=== PATIENT | female | born 1950 | race Caucasian/White ===

== ENCOUNTER 2024-05-05 09:28 | Inpatient (IN) | payer OTHER, SELFPAY ==
[2024-05-05] VITALS (7 sets, daily range): BP systolic 105–142; BP diastolic 49–62; PULSE 71–87; RESP 16–24; TEMP 36.9; O2SAT 78–94; BMI 45.7
--- NOTE | ~2024-05-05 | XR_ITS ---
EXAMINATION: XR CHEST CLINICAL INFORMATION: Shortness of breath COMPARISON: None available. TECHNIQUE: Frontal view of the chest was obtained. FINDINGS: No significant abnormality is noted involving the heart, lungs, mediastinum, bony thorax or soft tissues. XR/XR chest 1V IMPRESSION: No active chest disease. Electronically signed by: Adrián Napier MD 05/05/2024 10:39 [place] [facility] [place]
--- NOTE | 2024-05-05 09:34 | ECG_ITS ---
Test Reason : CHEST PAIN Blood Pressure : / mmHG Vent. Rate : 084 BPM Atrial Rate : 084 BPM P-R Int : 154 ms QRS Dur : 084 ms QT Int : 372 ms P-R-T Axes : 023 -39 025 degrees QTc Int : 439 ms Normal sinus rhythm Left axis deviation Abnormal ECG No previous ECGs available Referred By: Francisco Reyna Electronically Signed By:Claude Ba
--- NOTE | 2024-05-05 09:35 | ED.GENADULT ---
HPI - General Adult General Chief complaint: Dyspnea Stated complaint: SOB,80% RA,DUONEB GIVEN 96%, FROM [facility] PER EMS Time Seen by Provider: 05/05/24 09:28 Source: patient Mode of arrival: ambulatory Limitations: no limitations History of Present Illness ED Provider: SAGAR Reyna HPI narrative: This is a 74-year-old female history of COPD on chronic 2 L to 3 L nasal cannula, obesity, DVT, htn, hld presenting to the emergency department with complaints of shortness of breath, wheezing, patient reports this all started yesterday. She reports that it has progressively worsened over the past few days. EMS gave her 125 mg of Solu-Medrol. They found her saturating 78% on room air, after a DuoNeb she went up to 96% with 3 L nasal cannula. After DuoNeb 84% on 3 L. Patient reports she feels overall unwell. She is on Eliquis. She denies chest pain, nausea, vomiting, abdominal pain, cough, headache, vision changes, dizziness and weakness. Related Data Allergies Allergy/AdvReac Type Severity Reaction Status Date / Time No Known Allergies Allergy Verified 05/05/24 09:55 Review of Systems Review of Systems: Yes all other systems are reviewed and are negative PMFSH Past Medical History Attestation statement: The following information was validated with the patient. Source: old records reviewed and nursing notes reviewed Social History Social History Smoked in Last 30 Days: No Use of substances other than those prescribed or required for medical reasons: No Advance Directives: No Advance Directives Information Provided: Yes Do you have a plan to hurt others: No Plan Physical Exam ED Vital Signs: Vital Signs - 24 hr 05/05/24 09:47 05/05/24 09:51 05/05/24 10:33 Temperature 98.5 F Pulse Rate 85 87 Respiratory Rate 24 H 22 H 24 H Blood Pressure 142/56 H Pulse Oximetry 90 L Oxygen Delivery Method Nasal Cannula 05/05/24 10:50 Temperature Pulse Rate 84 Respiratory Rate Blood Pressure Pulse Oximetry Oxygen Delivery Method BMI result Body Mass Index 45.7 vss Appearance: Alert.? Oriented X3.? No acute distress.? Head: Normocephalic, atraumatic, no step-offs or deformities Eyes: Pupils equal, round and reactive to light.? Neck: Normal inspection.? Neck supple.? CVS: Normal heart rate and rhythm.? Pulses normal.? Respiratory: No respiratory distress.? Breath sounds diminished b/l and expiratory wheezing b/l.? Abdomen: Soft and nontender.? Skin: Skin warm and dry.? Normal skin color.? Normal skin turgor.? Extremities: No lower extremity edema.? No calf ttp. 5/5 strength to bilateral upper and lower extremities Neuro: Oriented X 3.? No motor deficit.? No sensory deficit. CN 2-12 intact Course Reevaluation(s) Reevaluation #1: CBC with leukocytosis and left shift, ceftriaxone ordered at this time. Chemistry pending. Coags unremarkable. Viral testing pending. Imaging pending. Patient is on high-flow at 50%, doing well. Time: 10:39 Reevaluation #2: Chemistry with hypercarbia, mild elevation in BUN and creatinine however tolerating p.o. fluids. Chest x-ray unremarkable. Flu, COVID, RSV negative. Plan is hospital admission he is on high-flow. Will place her on CPAP at night. Time: 11:52 Medications Administered Discontinued Medications Generic Name Dose Route Start Last Admin Trade Name Freq PRN Reason Stop Dose Admin Ceftriaxone Sodium 1 gm 05/05/24 10:34 05/05/24 11:39 Ceftriaxone Sodium 1 Gm Vial IVPUSH 05/05/24 10:35 1 gm ONCE ONE Administration Albuterol Sulfate 5 mg/ 0 mg 05/05/24 09:40 05/05/24 09:46 Albuterol/Ipratropium 3 ml INHALE 05/05/24 09:41 1 each ONCE ONE Administration Magnesium Sulfate 2 gm in 50 mls @ 25 mls/hr 05/05/24 09:33 05/05/24 11:39 Magnesium Sulfate/H2o IV 05/05/24 11:32 Infused ONCE ONE Infusion Medical Decision Making Medical Decision Making [facility] Narrative: 0916 74-year-old female presents with shortness of breath, wheezing since yesterday history of COPD. Physical exam diminished breath sounds bilaterally labored breathing noted to be in moderate acute respiratory distress, wheezing on expiration. She saturating 84% on 3 L nasal cannula. History and physical exam concerning for chronic lung disease versus viral illness. Unlikely PE ( on anticoags) , ACS, aortic dissection, pneumothorax, pneumonia. Plan labs, imaging, viral testing Differential Diagnosis Differential Diagnoses: The differential diagnosis associated with the presentation includes (History and physical exam concerning for chronic lung disease versus viral illness. Unlikely PE, ACS, aortic dissection, pneumothorax, pneumonia.) Admission/Observation Consideration of admission/observation: Escalation of care including admission/observation considered Lab Data MDM Lab Attestation statement: I reviewed the patient's lab results. 05/05/24 10:20 05/05/24 11:16 Labs: Lab Results 05/05/24 05/05/24 05/05/24 Range/Units 10:18 10:20 10:21 WBC 15.4 H (4.8-10.8) X10*3/uL RBC 4.36 (4.20-5.50) X10*6/uL Hgb 13.5 (12.0-16.0) g/dl Hct 45.1 (37.0-47.0) % MCV 103.4 H (80.0-98.0) fL MCH 31.0 (27.0-33.0) pg MCHC 29.9 L (31.0-35.0) g/dl RDW 17.1 H (11.0-16.0) % Plt Count 148 L (160-400) X10*3/uL MPV 10.1 (9.4-12.3) fL Immature Gran % (Auto) 0.8 H (0.0-0.4) % Neut % (Auto) 82.4 H (45-73) % Lymph % (Auto) 6.5 L (20-40) % [place] % (Auto) 9.5 (2-11) % Eos % (Auto) 0.5 (0-4) % Baso % (Auto) 0.3 (0-2) % Lymph # (Auto) 1.0 L (1.2-4.9) X10*3/uL [place] # (Auto) 1.5 H (0.1-1.2) X10*3/uL Eos # (Auto) 0.1 (0.0-0.4) X10*3/uL Baso # (Auto) 0.0 (0.0-0.2) X10*3/uL Abs Immat Gran (auto) 0.12 H (0.00-0.03) X10*3/uL Absolute Neuts (auto) 12.7 H (2.0-8.3) x10*3/uL Absolute Nucleated RBC 0.000 (0.0-0.012) X10*3/uL Nucleated RBC % (auto) 0.0 (0.0-0.2) /100WBC PT 14.1 H (10.9-12.4) SEC INR 1.2 H (0.9-1.1) Sodium (135-145) mmol/L Potassium (3.3-5.1) mmol/L Chloride (96-108) mmol/L Carbon Dioxide (22-29) mmol/L Anion Gap (12-20) BUN (9-16) mg/dL Creatinine (0.5-1.4) mg/dL Estim Creat Clear Calc Estimated GFR Random Glucose (60-115) mg/dL Lactic Acid 1.9 (0.5-2.0) mmol/L Calcium (8.4-10.2) mg/dL Magnesium (1.6-2.6) mg/dL Total Bilirubin (0.0-1.0) mg/dL AST (5-31) U/L ALT (0-31) U/L Alkaline Phosphatase (39-117) U/L Troponin I High Sens (<3.5-17.0) ng/L B-Natriuretic Peptide (<100) pg/mL Total Protein (6.5-8.0) g/dL Albumin (3.5-5.0) g/dL Influenza Type A (PCR) NEGATIVE (Negative) Influenza Type B (PCR) NEGATIVE (Negative) RSV RNA Qual (PCR) NEGATIVE (Negative) SARS-CoV-2 RNA (RT-PCR) NEGATIVE (Negative) 05/05/24 Range/Units 11:16 WBC (4.8-10.8) X10*3/uL RBC (4.20-5.50) X10*6/uL Hgb (12.0-16.0) g/dl Hct (37.0-47.0) % MCV (80.0-98.0) fL MCH (27.0-33.0) pg MCHC (31.0-35.0) g/dl RDW (11.0-16.0) % Plt Count (160-400) X10*3/uL MPV (9.4-12.3) fL Immature Gran % (Auto) (0.0-0.4) % Neut % (Auto) (45-73) % Lymph % (Auto) (20-40) % [place] % (Auto) (2-11) % Eos % (Auto) (0-4) % Baso % (Auto) (0-2) % Lymph # (Auto) (1.2-4.9) X10*3/uL [place] # (Auto) (0.1-1.2) X10*3/uL Eos # (Auto) (0.0-0.4) X10*3/uL Baso # (Auto) (0.0-0.2) X10*3/uL Abs Immat Gran (auto) (0.00-0.03) X10*3/uL Absolute Neuts (auto) (2.0-8.3) x10*3/uL Absolute Nucleated RBC (0.0-0.012) X10*3/uL Nucleated RBC % (auto) (0.0-0.2) /100WBC PT (10.9-12.4) SEC INR (0.9-1.1) Sodium 142 (135-145) mmol/L Potassium 4.7 (3.3-5.1) mmol/L Chloride 104 (96-108) mmol/L Carbon Dioxide 35 H (22-29) mmol/L Anion Gap 8 L (12-20) BUN 17 H (9-16) mg/dL Creatinine 0.79 (0.5-1.4) mg/dL Estim Creat Clear Calc 74.4 Estimated GFR > 60 Random Glucose 133 H (60-115) mg/dL Lactic Acid (0.5-2.0) mmol/L Calcium 8.9 (8.4-10.2) mg/dL Magnesium 2.6 (1.6-2.6) mg/dL Total Bilirubin 0.6 (0.0-1.0) mg/dL AST 48 H (5-31) U/L ALT 87 H (0-31) U/L Alkaline Phosphatase 94 (39-117) U/L Troponin I High Sens 7.1 (<3.5-17.0) ng/L B-Natriuretic Peptide 62 (<100) pg/mL Total Protein 6.7 (6.5-8.0) g/dL Albumin 3.5 (3.5-5.0) g/dL Influenza Type A (PCR) (Negative) Influenza Type B (PCR) (Negative) RSV RNA Qual (PCR) (Negative) SARS-CoV-2 RNA (RT-PCR) (Negative) Independent Interpretation I performed an independent interpretation of an: Plain X-Ray Radiology Impression Discussion of test interpretation with radiology: I have reviewed the radiologist's reading. Critical Care Time Critical Care Time Critical Care Time: Yes Total Critical Care Time: 45 Attestation: I attest to this time spent taking care of the patient, obtaining history, physical, reviewing labs, imaging, speaking to my attending, speaking to specialist. Discharge Plan Discharge Clinical Impression: COPD (chronic obstructive pulmonary disease) Patient Disposition: Admitted As Inpatient Print Language: Slovenian
[2024-05-05] MEDS: Albuterol Sulfate 5 MG, Albuterol/Iprat 2.5/0.5MG 3 ML 3 ML INHALE (09:46)
--- NOTE | 2024-05-05 10:00 | PC.NURSE ---
Addendum entered by Chantell Andrews 05/05/24 11:01: pt is also presenting with a tremor and states that once in a while this happens but not sure why and today appears to be worse then usually Original Note: pt is alert and oriented, skin pwd, respirations labored raging from 26-34, ls very diminished, pt reports not feeling well for a couple of day, dry cough and reports midsternal chest pain 08/27, pt was put on high flow at 50L and sating at 92l
[2024-05-05] MEDS: Magnesium Sulfate/H2O 2 GM/50 ML PIGGYBACK IV (10:01)
[2024-05-05 10:29] LABS: MANUAL DIFF FLAG NO
[2024-05-05 10:31] LABS: Basophils Percent Auto 0.3 % (0-2); Eosinophils Absolute Auto 0.1 X10*3/uL (0.0-0.4); Eosinophils Percent Auto 0.5 % (0-4); Hematocrit 45.1 % (37.0-47.0); Hemoglobin 13.5 g/dl (12.0-16.0); Imm Gran Abs Auto 0.12 X10*3/uL (0.00-0.03); Imm Gran Pct Auto 0.8 % (0.0-0.4); Lymphocytes Percent Auto 6.5 % (20-40); Mean Corpuscular HGB Conc 29.9 g/dl (31.0-35.0); Mean Corpuscular Volume 103.4 fL (80.0-98.0); Mean Platelet Volume 10.1 fL (9.4-12.3); Monocytes Absolute Auto 1.5 X10*3/uL (0.1-1.2); Monocytes Percent Auto 9.5 % (2-11); Neutrophils Absolute Auto 12.7 x10*3/uL (2.0-8.3); Neutrophils Percent Auto 82.4 % (45-73); Platelet Count 148 X10*3/uL (160-400); Red Blood Count 4.36 X10*6/uL (4.20-5.50); Red Cell Distribution Width 17.1 % (11.0-16.0); White Blood Count 15.4 X10*3/uL (4.8-10.8)
[2024-05-05 10:36] LABS: INTERNATIONAL NORM RATIO 1.2 (0.9-1.1); Prothrombin Time 14.1 SEC (10.9-12.4)
[2024-05-05 11:04] LABS: Lactic Acid 1.9 mmol/L (0.5-2.0)
[2024-05-05 11:06] LABS: Influenza A PCR NEGATIVE (Negative); Influenza B PCR NEGATIVE (Negative); Resp Syncy Virus RNA Qual PCR NEGATIVE (Negative); SARS COV2 PCR INHOUSE NEGATIVE (Negative)
[2024-05-05] MEDS: cefTRIAXone sodium 1 GM VIAL IVPUSH (11:39)
[2024-05-05 11:43] LABS: Alanine Aminotransferase 87 U/L (0-31); Albumin Level 3.5 g/dL (3.5-5.0); Alkaline Phosphatase 94 U/L (39-117); Anion Gap 8 (12-20); Aspartate Amino Transferase 48 U/L (5-31); Bilirubin Total 0.6 mg/dL (0.0-1.0); Blood Urea Nitrogen 17 mg/dL (9-16); Calcium 8.9 mg/dL (8.4-10.2); Carbon Dioxide 35 mmol/L (22-29); Chloride 104 mmol/L (96-108); Creatinine Clr Calc Pharmacy 74.4; Estimated Glomerular Filt Rate > 60; Glucose Random 133 mg/dL (60-115); Magnesium 2.6 mg/dL (1.6-2.6); Potassium 4.7 mmol/L (3.3-5.1); Sodium 142 mmol/L (135-145); Total Protein 6.7 g/dL (6.5-8.0)
--- NOTE | 2024-05-05 11:44 | PC.NURSE ---
Assumed care of this patient at 1100, patient's 2nd set of BC to be drawn, abx delayed d/t delayed draw. Patient currently on HF 50L 50%, tachypneic 26 - 32 resps, not in acute distress at this time, sats 92 - 95%.
[2024-05-05 11:45] LABS: B Type Natriuretic Peptide 62 pg/mL (<100)
[2024-05-05 11:48] LABS: Troponin-I High Sensitivity 7.1 ng/L (<3.5-17.0)
[2024-05-05 12:21] LABS: Venous Blood Gas Refer to POC result
[2024-05-05 12:22] LABS: VBG Base Excess 8.4 mmol/L; VBG HCO3 35 mmol/L (22-26); VBG pCO2 58 mmHg; VBG pH 7.39 (7.32-7.43); VBG pO2 104 mmHg
[2024-05-05] MEDS: Azithromycin 500 MG in 0.9 % Sodium Chloride 250 ML 125 MG IV (14:34)
--- NOTE | 2024-05-05 14:43 | PM.IMHP ---
History of Present Illness Date of Service: 05/05/24 Chief Complaint: Shortness of breath 74-year-old female history of COPD on chronic 2 L to 3 L nasal cannula, obesity, DVT, htn, hld presenting to the emergency department with complaints of shortness of breath, wheezing, patient reports this all started yesterday. She reports that it has progressively worsened over the past few days. EMS gave her 125 mg of Solu-Medrol. They found her saturating 78% on room air, after a DuoNeb she went up to 96% with 3 L nasal cannula. After DuoNeb 84% on 3 L. Patient reports she feels overall unwell. She is on Eliquis. She denies chest pain, nausea, vomiting, abdominal pain, cough, headache, vision changes, dizziness and weakness. Review of Systems Review of Systems: Denies chest pain Admits to shortness of breath with minimal movement Denies nausea vomiting diarrhea Denies fever chills PMFSH Social History Patient Tobacco Use Status: Never used Tobacco Smoked in Last 30 Days: No Use of substances other than those prescribed or required for medical reasons: No Advance Directives: No Advance Directives Information Provided: Yes Do you have a plan to hurt others: No Plan Nutrition Risks: No Nutritional Risk Meds Allergies Allergy/AdvReac Type Severity Reaction Status Date / Time No Known Allergies Allergy Verified 05/05/24 09:55 Active Medications: Current Medications Acetaminophen (Acetaminophen 325 Mg Tablet) 650 mg PO Q6H PRN PRN Reason: Pain, Mild (Pain Scale 1-3), fever or headache Albuterol/Ipratropium (Albuterol/Iprat 2.5/0.5mg 3 Ml Ampul.Neb) 3 ml INHALE Q4H PRN PRN Reason: Shortness of Breath/Wheezing Calcium Carbonate (Calcium Carbonate 750 Mg Tab.Chew) 750 mg PO Q4H PRN PRN Reason: Heartburn Ceftriaxone Sodium (Ceftriaxone Sodium 1 Gm Vial) 1 gm IVPUSH Q24H [place] Azithromycin 500 mg/ Sodium (Chloride) 250 mls @ 125 mls/hr IV DAILY [place] Stop: 05/07/24 10:59 Last Admin: 05/05/24 14:34 Dose: 125 mls/hr Magnesium Hydroxide (Milk Of Magnesia 30 Ml Oral.Susp) 30 ml PO DAILY PRN PRN Reason: Constipation Melatonin (Melatonin 3 Mg Tablet) 6 mg PO BEDTIME PRN PRN Reason: Insomnia Sodium Chloride (0.9 % Sodium Chloride Flush 3 Ml Syringe) 3 ml IVFLUSH QSHIFT [facility] Home Medications ?Medication ?Instructions ?Recorded ?Confirmed ?Last Taken ?Type alendronate 70 mg tablet 70 mg PO QWEEK 05/05/24 Unknown History apixaban 2.5 mg tablet (Eliquis) 2.5 mg PO BID 05/05/24 Unknown History ascorbic acid (vitamin C) 500 mg 500 mg PO DAILY 05/05/24 Unknown History chewable tablet (Vitamin C) carboxymethylcellulose sodium 0.5 1 drp ophthalmic (eye) QID PRN Dry 05/05/24 Unknown History % eye drops Eyes celecoxib 200 mg capsule 200 mg PO DAILY 05/05/24 Unknown History cholecalciferol (vitamin D3) 50 50 mcg PO DAILY 05/05/24 Unknown History mcg (2,000 unit) tablet cyanocobalamin (vitamin B-12) 1,000 mcg PO DAILY 05/05/24 Unknown History 1,000 mcg tablet fluticasone fur. 100 mcg-umeclid 1 ea inhalation DAILY 05/05/24 Unknown History 62.5 mcg-vilant 25 mcg inhalat.powder (Trelegy Ellipta) losartan 50 mg tablet 50 mg PO DAILY 05/05/24 Unknown History mirabegron 50 mg tablet,extended 50 mg PO DAILY 05/05/24 Unknown History release 24 hr (Myrbetriq) multivitamin with folic acid 400 1 tab PO DAILY 05/05/24 Unknown History mcg tablet (High Potency Multivitamin) paroxetine HCl 30 mg tablet 60 mg PO DAILY 05/05/24 Unknown History tizanidine 4 mg tablet 4 mg PO BEDTIME 05/05/24 Unknown History tolterodine 4 mg capsule,extended 4 mg PO DAILY 05/05/24 Unknown History release 24 hr trazodone 50 mg tablet 100 mg PO BEDTIME 05/05/24 Unknown History vit C 250 mg-vit E 90 mg-zinc 40 1 cap PO DAILY 05/05/24 Unknown History mg-copper 1 tg-ywdyir-ybuhys capsule (PreserVision AREDS-2) Physical Exam Vital Signs and Narrative: Vital Signs: Last Vital Signs Temp 98.5 F 05/05/24 09:51 Pulse 84 05/05/24 10:50 Resp 24 H 05/05/24 10:33 BP 142/56 H 05/05/24 09:51 Pulse Ox 90 L 05/05/24 09:51 O2 Del Method Nasal Cannula 05/05/24 09:51 Oxygen Flow Rate 4 05/05/24 09:51 BMI result Body Mass Index 45.7 Const: Other: Awake alert able to speak in full sentences Resp: Other: Diminished throughout with scattered expiratory wheezes Cardio: Other: No S4; positive S1-S2; no S3 murmurs rubs or gallops GI: Other: Obese nontender positive bowel sounds Extrem: Other: No edema bilaterally Results Labs 05/05/24 10:20 05/05/24 11:16 Labs: Laboratory Results - last 24 hr 05/05/24 05/05/24 05/05/24 10:18 10:20 10:21 MCV 103.4 H MCH 31.0 MCHC 29.9 L RDW 17.1 H Plt Count 148 L MPV 10.1 Immature Gran % (Auto) 0.8 H Neut % (Auto) 82.4 H Lymph % (Auto) 6.5 L [place] % (Auto) 9.5 Eos % (Auto) 0.5 Baso % (Auto) 0.3 Lymph # (Auto) 1.0 L [place] # (Auto) 1.5 H Eos # (Auto) 0.1 Baso # (Auto) 0.0 Abs Immat Gran (auto) 0.12 H Absolute Neuts (auto) 12.7 H Absolute Nucleated RBC 0.000 Nucleated RBC % (auto) 0.0 PT 14.1 H INR 1.2 H VBG pH VBG pCO2 VBG pO2 VBG HCO3 VBG O2 Saturation VBG Base Excess Anion Gap Estim Creat Clear Calc Estimated GFR Random Glucose Lactic Acid 1.9 Calcium Magnesium Total Bilirubin AST ALT Alkaline Phosphatase Troponin I High Sens B-Natriuretic Peptide Total Protein Albumin Influenza Type A (PCR) NEGATIVE Influenza Type B (PCR) NEGATIVE RSV RNA Qual (PCR) NEGATIVE SARS-CoV-2 RNA (RT-PCR) NEGATIVE 05/05/24 05/05/24 11:16 12:16 MCV MCH MCHC RDW Plt Count MPV Immature Gran % (Auto) Neut % (Auto) Lymph % (Auto) [place] % (Auto) Eos % (Auto) Baso % (Auto) Lymph # (Auto) [place] # (Auto) Eos # (Auto) Baso # (Auto) Abs Immat Gran (auto) Absolute Neuts (auto) Absolute Nucleated RBC Nucleated RBC % (auto) PT INR VBG pH 7.39 VBG pCO2 58 VBG pO2 104 VBG HCO3 35 H VBG O2 Saturation 99.0 VBG Base Excess 8.4 Anion Gap 8 L Estim Creat Clear Calc 74.4 Estimated GFR > 60 Random Glucose 133 H Lactic Acid Calcium 8.9 Magnesium 2.6 Total Bilirubin 0.6 AST 48 H ALT 87 H Alkaline Phosphatase 94 Troponin I High Sens 7.1 B-Natriuretic Peptide 62 Total Protein 6.7 Albumin 3.5 Influenza Type A (PCR) Influenza Type B (PCR) RSV RNA Qual (PCR) SARS-CoV-2 RNA (RT-PCR) Imaging Radiologist's Impressions: Impressions Chest X-Ray 05/05/24 09:39 IMPRESSION: No active chest disease. Electronically signed by: Adrián Napier MD 05/05/2024 10:39 AM [facility] Assessment and Plan (1) Acute exacerbation of COPD with asthma: Status: Acute (2) History of DVT (deep vein thrombosis): Status: Acute (3) Hypertension: Qualifiers: Hypertension type: primary hypertension Qualified Code(s): I10 - Essential (primary) hypertension Status: Acute Plan 74-year-old female with history of O2 dependent COPD presents with worsening shortness of breath and productive cough over the last several days. Found to be hypoxic during transport. Workup consistent with COPD exacerbation 1. Acute exacerbation of COPD/asthma -ceftriaxone/azithromycin (1) -pulse dose methylprednisolone -DuoNebs q.4 hours while awake -titrate O2 back to baseline 2-3 L/m 2. History of DVT -continuing Eliquis at outpatient dosing -2.5BID 3. Hypertension -acceptable control on current therapies -adjust as indicated Full code Eliquis Requires at least 2 midnights going forward of inpatient hospitalization to treat acute COPD exacerbation with IV antibiotics and pulse dose steroids. This can not be achieved a lesser acute setting Quality Stroke Does the patient have a stroke diagnosis?: No VTE Prior VTE?: Yes VTE Risk Level:: Medical - moderate - high VTE Device Contraindication: Treatment Not Indicated VTE Drug Contraindication: N/A - Med Ordered
--- NOTE | 2024-05-05 15:22 | PHA.MEDREC ---
Pharmacy Consult ? Medication Reconciliation Pharmacy has completed the medication reconciliation. Spoke to pt to confirm meds. Pt states they take trazodone 200 mg daily, alendronate on mondays, and vitamins at noon.
[2024-05-05] MEDS: 0.9 % Sodium Chloride Flush 3 ML SYRINGE IVFLUSH (16:45)
[2024-05-05] MEDS: traZODone HCL 100 MG TABLET 200 MG PO (22:09)
[2024-05-05] MEDS: TiZANidine HCL 4 MG TABLET PO (22:09)
[2024-05-05] MEDS: Apixaban 2.5 MG TABLET PO (22:09)
--- NOTE | 2024-05-05 23:00 | MHC.EDTECH ---
This tech took over care of patient at 2300,rounded and introduced self to patient,patient has a pure-wick that was placed by previous shift,pt is clean and dry,call pardo in reach
[2024-05-06] VITALS (7 sets, daily range): BP systolic 111–153; BP diastolic 59–74; PULSE 69–82; RESP 18–20; TEMP 36.1–36.7; O2SAT 91–93; BMI 47.0
--- NOTE | 2024-05-06 01:49 | MHC.EDTECH ---
Rounds and vitals completed,patient is resting quietly,room assigned at this time,awaiting report to be given
[2024-05-06 06:59] LABS: MANUAL DIFF FLAG NO
[2024-05-06 07:03] LABS: Basophils Percent Auto 0.1 % (0-2); Eosinophils Percent Auto 0.1 % (0-4); Hematocrit 43.2 % (37.0-47.0); Hemoglobin 12.8 g/dl (12.0-16.0); Imm Gran Abs Auto 0.12 X10*3/uL (0.00-0.03); Imm Gran Pct Auto 0.8 % (0.0-0.4); Lymphocytes Absolute Auto 0.9 X10*3/uL (1.2-4.9); Lymphocytes Percent Auto 6.4 % (20-40); Mean Corpuscular HGB Conc 29.6 g/dl (31.0-35.0); Mean Corpuscular Hemoglobin 30.4 pg (27.0-33.0); Mean Corpuscular Volume 102.6 fL (80.0-98.0); Mean Platelet Volume 9.9 fL (9.4-12.3); Monocytes Absolute Auto 1.2 X10*3/uL (0.1-1.2); Monocytes Percent Auto 8.4 % (2-11); Neutrophils Absolute Auto 12.4 x10*3/uL (2.0-8.3); Neutrophils Percent Auto 84.2 % (45-73); Platelet Count 156 X10*3/uL (160-400); Red Blood Count 4.21 X10*6/uL (4.20-5.50); Red Cell Distribution Width 17.4 % (11.0-16.0); White Blood Count 14.8 X10*3/uL (4.8-10.8)
[2024-05-06 07:20] LABS: Alanine Aminotransferase 65 U/L (0-31); Albumin Level 3.3 g/dL (3.5-5.0); Alkaline Phosphatase 87 U/L (39-117); Anion Gap 9 (12-20); Aspartate Amino Transferase 31 U/L (5-31); Bilirubin Total 0.4 mg/dL (0.0-1.0); Blood Urea Nitrogen 21 mg/dL (9-16); Calcium 8.8 mg/dL (8.4-10.2); Carbon Dioxide 33 mmol/L (22-29); Chloride 106 mmol/L (96-108); Creatinine Clr Calc Pharmacy 85.3; Estimated Glomerular Filt Rate > 60; Glucose Fasting 109 mg/dL (60-99); Potassium 4.7 mmol/L (3.3-5.1); Sodium 143 mmol/L (135-145); Total Protein 6.5 g/dL (6.5-8.0)
[2024-05-06] MEDS: 0.9 % Sodium Chloride Flush 3 ML SYRINGE IVFLUSH ×3 (09:42→21:26)
[2024-05-06] MEDS: Tolterodine Tartrate LA 4 MG CAP.ER.24H PO (09:42)
[2024-05-06] MEDS: PARoxetine HCL 30 MG TABLET 60 MG PO (09:43)
[2024-05-06] MEDS: Apixaban 2.5 MG TABLET PO ×2 (09:43→21:20)
[2024-05-06] MEDS: Mirabegron 50 MG TAB.ER.24H PO (09:43)
[2024-05-06] MEDS: cefTRIAXone sodium 1 GM VIAL IVPUSH (09:44)
[2024-05-06] MEDS: Azithromycin 500 MG in 0.9 % Sodium Chloride 250 ML 125 MG IV (09:44)
[2024-05-06] MEDS: Losartan Potassium 50 MG TABLET PO (09:44)
--- NOTE | 2024-05-06 12:34 | P.PNIM_ITS ---
Subjective Subjective Date of Service: 05/06/24 Interval History: Feeling better, shortness of breath improved complaining of nonproductive cough, denies fever, no chills, no headache, lives at assisted living on CPAP. No acute events overnight. Review of Systems All other system reviewed and are negative Physical Exam 2 Vital Signs: Vital Signs: Last Vital Signs Temp 97.5 F 05/06/24 07:46 Pulse 69 05/06/24 07:46 Resp 20 05/06/24 07:46 BP 153/67 H 05/06/24 09:44 Pulse Ox 92 05/06/24 07:46 O2 Del Method Nasal Cannula 05/06/24 07:46 O2 Flow Rate 4 05/06/24 07:46 Oxygen Flow Rate 4 05/05/24 09:51 BMI result Body Mass Index 47.0 Const: Other: General resting comfortably in no acute distress. Neck no JVD. CVS regular rate rhythm, Respiratory lungs clear to auscultation, diminished, no respiratory distress, no wheeze, no rhonchi. Gastrointestinal abdomen soft, non tender, bowel sounds audible. Extremities no edema. Neuro non focal Skin no rash Appropriate affect Objective Data Active Medications Acetaminophen (Acetaminophen 325 Mg Tablet) 650 mg PO Q6H PRN PRN Reason: Pain, Mild (Pain Scale 1-3), fever or headache Albuterol/Ipratropium (Albuterol/Iprat 2.5/0.5mg 3 Ml Ampul.Neb) 3 ml INHALE Q4H PRN PRN Reason: Shortness of Breath/Wheezing Apixaban (Apixaban 2.5 Mg Tablet) 2.5 mg PO BID [facility] Last Admin: 05/06/24 09:43 Dose: 2.5 mg Documented By: YUMIKO Artificial Tears (Artificial Tears 15 Ml Drops) 1 drop EYE-BOTH QID PRN PRN Reason: Dry Eyes Ascorbic Acid (Ascorbic Acid 500 Mg Tablet) 500 mg PO DAILY@1200 [facility] Calcium Carbonate (Calcium Carbonate 750 Mg Tab.Chew) 750 mg PO Q4H PRN PRN Reason: Heartburn Ceftriaxone Sodium (Ceftriaxone Sodium 1 Gm Vial) 1 gm IVPUSH Q24H [facility] Last Admin: 05/06/24 09:44 Dose: 1 gm Documented By: YUMIKO Cyanocobalamin (Cyanocobalamin (Vitamin B-12) 1,000 Mcg Tablet) 1,000 mcg PO DAILY@1200 [facility] Fluticasone/Umeclidinium/Vilanterol (Fluticasone/Umeclidinium/Vilanterol 100/62.5/25 Blst.W.Dev) 1 puff INHALE RDAILY [facility] Last Admin: 05/06/24 08:15 Dose: Not Given Documented By: CHAN Non-Admin Reason: med unavail pharmacy called Azithromycin 500 mg/ Sodium (Chloride) 250 mls @ 125 mls/hr IV DAILY [facility] Stop: 05/07/24 10:59 Last Infusion: 05/06/24 12:12 Dose: Infused Documented By: YUMIKO Losartan Potassium (Losartan Potassium 50 Mg Tablet) 50 mg PO DAILY [facility]; Protocol Last Admin: 05/06/24 09:44 Dose: 50 mg Documented By: YUMIKO Magnesium Hydroxide (Milk Of Magnesia 30 Ml Oral.Susp) 30 ml PO DAILY PRN PRN Reason: Constipation Melatonin (Melatonin 3 Mg Tablet) 6 mg PO BEDTIME PRN PRN Reason: Insomnia Mirabegron (Mirabegron 50 Mg Tab.Er.24h) 50 mg PO DAILY [facility] Last Admin: 05/06/24 09:43 Dose: 50 mg Documented By: YUMIKO Multivitamins/Vitamin C (Multivitamin Tablet) 1 tab PO DAILY@1200 [facility] Nystatin (Nystatin Powder 15 Gm Bottle) 1 appl TOPICAL BID [facility]; Protocol Last Admin: 05/06/24 04:27 Dose: Not Given Documented By: JEWEL Non-Admin Reason: See Note Comments: pharm closed till 0600 med not available Paroxetine HCl (Paroxetine Hcl 30 Mg Tablet) 60 mg PO DAILY [facility] Last Admin: 05/06/24 09:43 Dose: 60 mg Documented By: YUMIKO Sodium Chloride (0.9 % Sodium Chloride Flush 3 Ml Syringe) 3 ml IVFLUSH QSHIFT [facility] Last Admin: 05/06/24 09:42 Dose: 3 ml Documented By: YUMIKO Tizanidine HCl (Tizanidine Hcl 4 Mg Tablet) 4 mg PO BEDTIME [facility] Last Admin: 05/05/24 22:09 Dose: 4 mg Documented By: JACQUELINE Tolterodine Tartrate (Tolterodine Tartrate La 4 Mg Cap.Er.24h) 4 mg PO DAILY [facility] Last Admin: 05/06/24 09:42 Dose: 4 mg Documented By: YUMIKO Trazodone HCl (Trazodone Hcl 100 Mg Tablet) 200 mg PO BEDTIME [facility] Last Admin: 05/05/24 22:09 Dose: 200 mg Documented By: JACQUELINE Vitamin D (Cholecalciferol (Vitamin D3) 25 Mcg Tablet) 50 mcg PO DAILY@1200 [facility] Labs 05/06/24 06:55 05/06/24 06:55 Labs: Laboratory Results - last 24 hr 05/06/24 06:55 MCV 102.6 H MCH 30.4 MCHC 29.6 L RDW 17.4 H Plt Count 156 L MPV 9.9 Immature Gran % (Auto) 0.8 H Neut % (Auto) 84.2 H Lymph % (Auto) 6.4 L [place] % (Auto) 8.4 Eos % (Auto) 0.1 Baso % (Auto) 0.1 Lymph # (Auto) 0.9 L [place] # (Auto) 1.2 Eos # (Auto) 0.0 Baso # (Auto) 0.0 Abs Immat Gran (auto) 0.12 H Absolute Neuts (auto) 12.4 H Absolute Nucleated RBC 0.000 Nucleated RBC % (auto) 0.0 Anion Gap 9 L Estim Creat Clear Calc 85.3 Estimated GFR > 60 Fasting Glucose 109 H Calcium 8.8 Total Bilirubin 0.4 AST 31 ALT 65 H Alkaline Phosphatase 87 Total Protein 6.5 Albumin 3.3 L Microbiology Microbiology Results: Microbiology 05/05/24 10:20 Blood Culture - Preliminary Blood - Venous No growth after 24 hours. Assessment and Plan (1) History of DVT (deep vein thrombosis): Status: Acute (2) Acute exacerbation of COPD with asthma: Status: Acute Plan 74-year-old female with history of O2 dependent COPD presents with worsening shortness of breath and productive cough over the last several days. Found to be hypoxic during transport. Workup consistent with COPD exacerbation 1. Acute on chronic hypoxic respiratory failure due to Acute exacerbation of COPD/intermittent asthma. -shortness of breath improved, continue IV ceftriaxone/azithromycin day 2/5, chest x-ray benign -on iv methylprednisolone 40 mg q.12 hours,DuoNebs q.4 hours while awake and as needed -titrate O2 back to baseline 2-3 L/m, stable VBG -recommend out of bed to chair 2. History of DVT -continuing Eliquis at outpatient dosing 2.5BID 3. Hypertension on losartan 50 mg daily, stable blood pressure 4. Class 3 obesity recommend low-calorie diet. 5. Mood disorder continue Paxil and trazodone. Full code Eliquis Patient will require continued inpatient hospitalization for treatment of acute COPD exacerbation with IV antibiotics and pulse dose steroids. This can not be achieved a lesser acute setting. Quality Stroke Does the patient have a stroke diagnosis?: No VTE Prior VTE?: Yes VTE Risk Level:: Medical - moderate - high VTE Device Contraindication: Treatment Not Indicated VTE Drug Contraindication: N/A - Med Ordered
[2024-05-06] MEDS: Multivitamin TABLET 1 TAB PO (12:48)
[2024-05-06] MEDS: Cholecalciferol (Vitamin D3) 25 MCG TABLET 50 MCG PO (12:48)
[2024-05-06] MEDS: Ascorbic Acid 500 MG TABLET PO (12:48)
[2024-05-06] MEDS: Cyanocobalamin (Vitamin B-12) 1,000 MCG TABLET 1000 MCG PO (12:48)
[2024-05-06] MEDS: methylPREDNISolone Sod Succ 40 MG/ML VIAL IVPUSH (12:49)
--- NOTE | 2024-05-06 15:41 | MHC.CM.PN ---
PT REPORTS SHE RESIDES AT [facility] SHE HAS NO OUTSIDE SERVICES SHE HAS HOME O2 AND A CPAP MACHINE COPY OF HCP REQUESTED PCP: WALLY OBRIEN IMM DELIVERED DCP: RETURN TO [facility] VIA SHUTTLE
[2024-05-06] MEDS: Albuterol/Iprat 2.5/0.5MG 3 ML AMPUL.NEB INHALE (19:25)
[2024-05-06] MEDS: traZODone HCL 100 MG TABLET 200 MG PO (21:19)
[2024-05-06] MEDS: TiZANidine HCL 4 MG TABLET PO (21:19)
[2024-05-07] MEDS: methylPREDNISolone Sod Succ 40 MG/ML VIAL IVPUSH ×2 (01:19→12:12)
[2024-05-07 03:06] VITALS: BP 141/68; PULSE 83; RESP 18; TEMP 36.9; O2SAT 93
[2024-05-07 07:40] VITALS: BP 130/74; PULSE 71; RESP 16; TEMP 36.6; O2SAT 93
[2024-05-07] MEDS: Fluticasone/Umeclidinium/Vilanterol 100/62.5/25 BLST.W.DEV 1 PUFF INHALE (08:43)
[2024-05-07 08:44] VITALS: PULSE 71; RESP 16; O2SAT 95
[2024-05-07] MEDS: Tolterodine Tartrate LA 4 MG CAP.ER.24H PO (09:03)
[2024-05-07] MEDS: Mirabegron 50 MG TAB.ER.24H PO (09:03)
[2024-05-07] MEDS: Losartan Potassium 50 MG TABLET PO (09:03)
[2024-05-07] MEDS: Apixaban 2.5 MG TABLET PO (09:03)
[2024-05-07] MEDS: PARoxetine HCL 30 MG TABLET 60 MG PO (09:04)
[2024-05-07] MEDS: 0.9 % Sodium Chloride Flush 3 ML SYRINGE IVFLUSH (09:11)
[2024-05-07] MEDS: Azithromycin 500 MG in 0.9 % Sodium Chloride 250 ML 125 MG IV (09:11)
[2024-05-07] MEDS: Nystatin Powder 15 GM BOTTLE 1 APPL TOPICAL (09:13)
--- NOTE | 2024-05-07 10:06 | MHC.CLN ---
NUTRITION CONSULT FOR FUNGAL SKIN. SKIN WITH FUNGUS UNDER ABD. REDNESS NOTED TO BUTTOCKS. DIET=REGULAR. NO NOTED CONCERNS WITH PO INTAKE. NO ADDITIONAL NUTRITION INTERVENTIONS AT THIS TIME.
[2024-05-07] MEDS: cefTRIAXone sodium 1 GM VIAL IVPUSH (10:39)
--- NOTE | 2024-05-07 10:41 | MHC.CM.PN ---
Addendum entered by Kala Gomez RN 05/07/24 12:44: LM again for [facility] to inform of return. DC summary faxed. Original Note: Per MD rounds patient medically cleared for dc back to [facility]. Patient requesting BLS transport. Also states all her O2 tanks at home are empty. Respiratory will provide new tank prior to dc. CM LM for [facility] x2 to inform of return. BLS transport scheduled for 2pm. MD KRISTY, and patient aware.
[2024-05-07] MEDS: Cholecalciferol (Vitamin D3) 25 MCG TABLET 50 MCG PO (12:12)
[2024-05-07] MEDS: Multivitamin TABLET 1 TAB PO (12:12)
[2024-05-07] MEDS: Ascorbic Acid 500 MG TABLET PO (12:12)
[2024-05-07] MEDS: Cyanocobalamin (Vitamin B-12) 1,000 MCG TABLET 1000 MCG PO (12:12)
--- NOTE | 2024-05-07 12:19 | PM.DS ---
DS: Providers Provider Date of Service: 05/07/24 Date of admission: 05/05/24 12:49 Date of discharge: 05/07/24 Primary care physician: Manju Najera MD DS: Diagnosis Discharge Diagnosis (1) History of DVT (deep vein thrombosis): Status: Acute (2) Acute exacerbation of COPD with asthma: Status: Acute DS: Summary Hospital Course Hospital Course: History of presenting illness: Date of Service: 05/05/24 Chief Complaint: Shortness of breath 74-year-old female history of COPD on chronic 2 L to 3 L nasal cannula, obesity, DVT, htn, hld presenting to the emergency department with complaints of shortness of breath, wheezing, patient reports this all started yesterday. She reports that it has progressively worsened over the past few days. EMS gave her 125 mg of Solu-Medrol. They found her saturating 78% on room air, after a DuoNeb she went up to 96% with 3 L nasal cannula. After DuoNeb 84% on 3 L. Patient reports she feels overall unwell. She is on Eliquis. She denies chest pain, nausea, vomiting, abdominal pain, cough, headache, vision changes, dizziness and weakness. Hospital course 74-year-old female with history of O2 dependent COPD presents with worsening shortness of breath and productive cough over the last several days found to be hypoxic in ED workup consistent with acute COPD exacerbation. Therefore admitted to [facility] with a diagnosis of Acute on chronic hypoxic respiratory failure due to Acute exacerbation of COPD/intermittent asthma, treated with IV Solu Medrol, scheduled and as needed updraft treatment IV ceftriaxone and azithromycin, with the above treatment hypoxia and shortness of breath resolved, patient feels to be at her baseline therefore will discharge home on by mouth antibiotics to finish a total 5 day course of antibiotic for bronchitis and short course of prednisone she is recommended to continue all home inhalers. In regard to history of DVT recommend to continue Eliquis 2.5 mg b.i.d. and 4 hypertension recommend to continue losartan 50 mg daily she is recommend to follow low-calorie diet Mood disorder continue Paxil and trazodone. Time Attestation Discharge Coordination Time (in mins): 36 Quality: Safe Use of Opioids Does Pt have an Active Cancer Diagnosis on the Problem List?: No Quality: Stroke Does the patient have a stroke diagnosis?: No Physical Exam Vital Signs: Vital Signs: Last Vital Signs Temp 97.8 F 05/07/24 07:40 Pulse 71 05/07/24 08:44 Resp 16 05/07/24 08:44 BP 130/74 05/07/24 07:40 Pulse Ox 93 05/07/24 07:40 O2 Del Method Nasal Cannula 05/07/24 07:40 O2 Flow Rate 3 05/07/24 03:06 Oxygen Flow Rate 4 05/05/24 09:51 BMI result Body Mass Index 47.0 Const: Other: General resting comfortably in no acute distress. Neck no JVD. CVS regular rate rhythm, Respiratory lungs clear to auscultation, diminished, no respiratory distress, no wheeze, no rhonchi. Gastrointestinal abdomen soft, non tender, bowel sounds audible. Extremities no edema. Neuro non focal Skin no rash Appropriate affect DS: Data Data Completed and Pending Labs on day of discharge: Preliminary micro results at discharge 05/05/24 11:16 Blood Culture - Preliminary Blood - Venous No growth after 24 hours. 05/05/24 10:20 Blood Culture - Preliminary Blood - Venous No growth after 24 hours. Discharge Plan Discharge Anticipated Discharge Date/Time: 05/07/24 12:16 Patient Disposition: Xfer SNF Discharge Diagnosis: Acute on chronic hypoxic respiratory failure due to acute COPD exacerbation Referrals: Manju Najera MD [Primary Care Provider] - 1 Week Discharge Medications: New cefuroxime axetil 500 mg tablet 500 mg PO Q12H Qty: 6 0RF azithromycin 250 mg tablet 250 mg PO DAILY Qty: 3 0RF prednisone 20 mg tablet 20 mg PO DAILY Qty: 5 0RF Continued losartan 50 mg tablet 50 mg PO DAILY celecoxib 200 mg capsule 200 mg PO DAILY trazodone 50 mg tablet 200 mg PO BEDTIME tizanidine 4 mg tablet 4 mg PO BEDTIME tolterodine 4 mg capsule,extended release 24hr 4 mg PO DAILY alendronate 70 mg tablet 70 mg PO MO@0900 cyanocobalamin (vitamin B-12) 1,000 mcg tablet 1,000 mcg PO DAILY@1200 carboxymethylcellulose sodium 0.5 % drops 1 drp ophthalmic (eye) QID PRN (Reason: Dry Eyes) paroxetine HCl 30 mg tablet 60 mg PO DAILY ascorbic acid (vitamin C) [Vitamin C] 500 mg tablet,chewable 500 mg PO DAILY@1200 cholecalciferol (vitamin D3) 50 mcg (2,000 unit) tablet 50 mcg PO DAILY@1200 multivitamin with folic acid [High Potency Multivitamin] 400 mcg tablet 1 tab PO DAILY@1200 mirabegron [Myrbetriq] 50 mg tablet extended release 24 hr 50 mg PO DAILY Eliquis 2.5 mg tablet 2.5 mg PO BID PreserVision AREDS-2 250-90-40-1 mg capsule 1 cap PO DAILY@1200 Trelegy Ellipta 100-62.5-25 mcg blister with device 1 ea inhalation DAILY Discharge Orders: Discharge Order (Routine); Ordered 05/07/24 Ordered By: Barbi Denise Diet: Advance to usual diet Activity on Discharge: As tolerated Stand Alone Forms: Patient Portal Discharge page Print Language: [place] Care Plan Goals: Acute on chronic Hypoxia resolved continue 2-3 L of oxygen as before Take prednisone 20 mg daily for 5 days Take antibiotics as prescribed Health Concerns: cont all home medications. Plan of Treatment: Outpatient follow-up with primary care physician call for appointment Assessment: As above
== END 2024-05-07 15:17 | disposition home or self-care (01) | DRG 190 ==
LOC: HO.ED 11:54 → HO.EDOVER 13:04 → HO.S3 05-06 00:54
PROVIDERS: Physician Assistant; Admitting Provider Hospitalist; Emergency Provider Emergency Medicine; PCP Internal Medicine; Visit Provider Hospitalist
DX: J44.1 Chronic obstructive pulmonary disease with (acute) exacerbation (principal); J96.21 Acute and chronic respiratory failure with hypoxia; J45.21 Mild intermittent asthma with (acute) exacerbation; Z68.42 Body mass index [BMI] 45.0-49.9, adult; I10 Essential (primary) hypertension; F39 Unspecified mood [affective] disorder; E66.813 Obesity, class 3; Z71.3 Dietary counseling and surveillance; Z20.822 Contact with and (suspected) exposure to COVID-19; Z99.81 Dependence on supplemental oxygen; Z86.718 Personal history of other venous thrombosis and embolism; Z79.01 Long term (current) use of anticoagulants; Z79.899 Other long term (current) drug therapy
CPT/HCPCS: 0241U; 36415; 71045; 80053; 82803; 83605; 83735; 83880; 84484; 85025; 85610; 87040; 93005; 94640; 99285; J0456; J0696; J2919; J3475

== ENCOUNTER → 2024-05-05 09:34 | Outpatient (BNV) | payer OTHER, SELFPAY | PROVIDERS: Admitting Provider Hospitalist; Emergency Provider Emergency Medicine; PCP Internal Medicine; Visit Provider Internal Medicine Cardiovascular Disease | DX: R07.9 Chest pain, unspecified (principal); R94.31 Abnormal electrocardiogram [ECG] [EKG] | CPT/HCPCS: 93010 ==

== ENCOUNTER → 2024-05-05 12:49 | Outpatient (BNV) | payer OTHER, SELFPAY | PROVIDERS: Admitting Provider Hospitalist; Emergency Provider Emergency Medicine; PCP Internal Medicine; Visit Provider Hospitalist | DX: Z86.718 Personal history of other venous thrombosis and embolism (principal); J44.1 Chronic obstructive pulmonary disease with (acute) exacerbation; J96.21 Acute and chronic respiratory failure with hypoxia | CPT/HCPCS: 99223; 99232; 99239 ==

== ENCOUNTER 2024-08-26 01:50 | Inpatient (IN) | payer OTHER, SELFPAY ==
[2024-08-26] VITALS (44 sets, daily range): BP systolic 98–165; BP diastolic 43–93; PULSE 47–102; RESP 14–48; TEMP 27.9–37.4; O2SAT 85–100; BMI 52.9
--- NOTE | ~2024-08-26 | XR_ITS ---
EXAMINATION: XR CHEST CLINICAL INFORMATION: Hypoxia , fluid overload COMPARISON: September 06, 2024. TECHNIQUE: Frontal view of the chest was obtained. FINDINGS: No consolidation, pleural effusion or pneumothorax. Prominence of the interstitial markings. Cardiomediastinal silhouette size is normal. The NG tube and endotracheal tube have been removed. XR/XR chest 1V IMPRESSION: Minimal interstitial lung edema. Overall improved. Electronically signed by: Bradley Gonzalez MD 09/10/2024 02:32 PM EDT
--- NOTE | ~2024-08-26 | XR_ITS ---
EXAMINATION: XR CHEST CLINICAL INFORMATION: OG tube placement COMPARISON: Correlation made with CT angiography chest 08/27/2024. TECHNIQUE: Frontal view of the chest was obtained. FINDINGS: Endotracheal tube is present, terminating approximately 2 cm above the renard. Enteric tube is present coursing into the stomach, below the edge of the film. Sidehole is subdiaphragmatic. There is cardiac enlargement. Aortic mural calcifications. Vascular congestion in the hilar regions. Hazy opacities throughout both mid and lower lungs suggestive of pulmonary edema. Lower lung consolidative opacities. Small layering effusions present. No pneumothorax. No focal osseous or soft tissue abnormality. XR/XR chest 1V IMPRESSION: 1. ET tube and enteric tube in good position. 2. Cardiomegaly with findings suggestive of pulmonary edema. Small layering effusions and bibasilar consolidations, similar to the recent CT. No pneumothorax. Electronically signed by: Jayesh Michelle MD 08/28/2024 01:39 PM EDT
--- NOTE | ~2024-08-26 | CT_ITS ---
EXAMINATION: CT ANGIOGRAM CHEST CLINICAL INFORMATION: Hypoxia. DVT. COMPARISON: CT dated August 26, 2024. TECHNIQUE: Multiple axial images were obtained through the chest after the administration of 85 mL of Omnipaque 350 intravenous contrast. Extensive vascular post-processing including two-dimensional and three-dimensional reformatted images were created and reviewed on an independent workstation. SmartPrep technique. This CT examination was performed using dose optimization techniques as appropriate, variously including the following: *Automated exposure control *Adjustment of mA and/or kV according to patient size (this includes techniques or standardized protocols for targeted exams where dose is matched to indication/reason for exam; i.e. extremities or head) *Use of iterative reconstruction technique DLP: 565 mGy centimeter. FINDINGS: No intraluminal filling defects within the main pulmonary artery or its main branches. Prominent main pulmonary artery and left and right pulmonary branches. No aneurysm or gross dissection, thoracic aorta. No particular location. The endotracheal tube ends 3.6 cm above renard. Confluent attenuations both lower lung lobes. Bilateral pleural effusions, moderate volume on the right and small volume on the left. No pneumothorax. Prominent mediastinal lymph nodes. Heart appears enlarged. No pericardial effusion. Multilevel spondylosis without acute fracture or listhesis. CT/CT angio chest PE protocol IMPRESSION: No acute pulmonary artery emboli. No thoracic aortic aneurysm or dissection. Airspace disease, both lower lung lobes and bilateral pleural effusions, right greater than left. Pulmonary hypertension cannot be excluded. Fleischner guidelines were followed. Electronically signed by: Bradley Gonzalez MD 08/27/2024 12:54 PM EDT
--- NOTE | ~2024-08-26 | XR_ITS ---
CLINICAL HISTORY: sob 1 view chest x-ray Comparison: CR/SR - XR CHEST 1V - 05/05/24 10:16 EST Findings: Patchy perihilar opacities, edema or infiltrate. Cardiac silhouette is enlarged. No acute fracture. IMPRESSION: Patchy perihilar opacities, edema or infiltrate. This document has been electronically signed by: Melvin Parmar MD, PHD on 08/26/2024 04:27:56
--- NOTE | ~2024-08-26 | CT_ITS ---
CLINICAL HISTORY: AMS CT head without contrast Comparison: None Findings: No intra-axial mass, midline shift, hydrocephalus, or acute hemorrhage. Mild age-related cerebral hemispheric white matter ischemic changes. There is no sinus or mastoid fluid. Bilateral proptosis and cataract surgery. Mild asymmetric prominence of the left superior ophthalmic vein is of indeterminate significance (+/-incidental; symmetric appearance of the cavernous sinuses noted on this noncontrast exam). There is no acute fracture. Virtual obliteration of the nasopharyngeal lumen by secretions. IMPRESSION: 1. No acute intracranial finding. 2. Mild asymmetric prominence of the left superior ophthalmic vein is of indeterminate significance (+/-incidental; symmetric appearance of the cavernous sinuses noted on this noncontrast exam). If clinically indicated finding could be further evaluated with nonemergent contrast enhanced CT or MRI. 2. Virtual obliteration of the nasopharyngeal lumen by secretions. This document has been electronically signed by: Michela Sousa MD on 08/26/2024 11:07:28
--- NOTE | ~2024-08-26 | XR_ITS ---
EXAMINATION: XR CHEST CLINICAL INFORMATION: hypoxia COMPARISON: August 28, 2024. TECHNIQUE: Frontal view of the chest was obtained. FINDINGS: Patchy opacities and haziness involving the mid to lower hemithoraces with indistinct margins of the perihilar regions and the cardiomediastinal silhouette. The heart silhouette appears mildly prominent. The endotracheal tube ends 3.5 cm above renard. There is an NG tube in the mediastinum towards the left upper hemithorax below the diaphragm. No gross pneumothorax. XR/XR chest 1V IMPRESSION: Pulmonary edema and bilateral pleural effusions, moderate volume overall slightly improved since prior exam. Electronically signed by: Bradley Gonzalez MD 09/06/2024 08:46 AM EDT
--- NOTE | ~2024-08-26 | CT_ITS ---
CLINICAL HISTORY: hypoxia CT chest without contrast Comparison: None Findings: Partially due to streak artifacts from inferior positioning of the arms. Presence or absence of small dependent pleural effusions cannot be accurately determined. Cardiomegaly. Enlarged pulmonary trunk measuring 35 mm in width. Query pulmonary arterial hypertension. Prominent nonspecific subcentimeter mediastinal nodes measuring up to 8 mm in short axis Low-lying endotracheal tube with distal tip 13 mm above the renard. Retraction for least 17 mm recommended. Dependent right more than bilateral atelectasis +/-infiltrates. Cholecystectomy. The bones are intact. At least [id number] nonspecific edematous changes affecting portions of the visualized right-sided chest wall. Small number of vascular collaterals noted in the proximal aspect of the right superior hemithorax. IMPRESSION: 1. Low-lying endotracheal tube with distal tip 13 mm above the renard. Retraction for least 17 mm recommended. 2. Dependent right more than bilateral atelectasis +/-infiltrates. 3. Cardiomegaly. 4. At least [id number] nonspecific edematous changes affecting portions of the visualized right-sided chest wall. Small number of vascular collaterals noted in the proximal aspect of the right superior hemithorax. 5. Enlarged pulmonary trunk measuring 35 mm in width. Query pulmonary arterial hypertension. This document has been electronically signed by: Michela Sousa MD on 08/26/2024 11:32:49
--- NOTE | 2024-08-26 03:24 | ECG_ITS ---
Test Reason : SOB Blood Pressure : */* mmHG Vent. Rate : 83 BPM Atrial Rate : 74 BPM P-R Int : * ms QRS Dur : 78 ms QT Int : 352 ms P-R-T Axes : * -48 4 degrees QTcB Int : 413 ms Sinus rhythm with A-V dissociation and Accelerated Junctional rhythm Left axis deviation Low voltage QRS Possible Inferior infarct , age undetermined Cannot rule out Anterior infarct , age undetermined Abnormal ECG When compared with ECG of 05-May-2024 09:58, Junctional rhythm has replaced Sinus rhythm Minimal criteria for Anterior infarct are now Present ST elevation now present in Lateral leads T wave inversion now evident in Anterior leads Referred By: Generic ED Physician Electronically Signed By: JACKIE BLACK MD
[2024-08-26 03:34] LABS: MANUAL DIFF FLAG NO
[2024-08-26 03:36] LABS: Basophils Absolute Auto 0.1 X10*3/uL (0.0-0.2); Basophils Percent Auto 0.4 % (0-2); Eosinophils Absolute Auto 0.1 X10*3/uL (0.0-0.4); Eosinophils Percent Auto 0.4 % (0-4); Hemoglobin 15.1 g/dl (12.0-16.0); Imm Gran Abs Auto 0.24 X10*3/uL (0.00-0.03); Imm Gran Pct Auto 1.9 % (0.0-0.4); Lymphocytes Absolute Auto 0.8 X10*3/uL (1.2-4.9); Lymphocytes Percent Auto 6.4 % (20-40); Mean Corpuscular Hemoglobin 28.2 pg (27.0-33.0); Mean Corpuscular Volume 97.2 fL (80.0-98.0); Mean Platelet Volume 10.4 fL (9.4-12.3); Monocytes Percent Auto 7.4 % (2-11); NRBC Pct Auto 0.2 /100WBC (0.0-0.2); Neutrophils Absolute Auto 10.8 x10*3/uL (2.0-8.3); Neutrophils Percent Auto 83.5 % (45-73); Platelet Count 181 X10*3/uL (160-400); Red Blood Count 5.35 X10*6/uL (4.20-5.50); Red Cell Distribution Width 16.5 % (11.0-16.0); White Blood Count 12.9 X10*3/uL (4.8-10.8)
[2024-08-26 03:39] LABS: Venous Blood Gas Refer to POC result
[2024-08-26 03:42] LABS: INTERNATIONAL NORM RATIO 1.4 (0.9-1.1); Prothrombin Time 16.2 SEC (10.9-12.4)
[2024-08-26 03:42] LABS: VBG Base Excess 3.4 mmol/L; VBG HCO3 32 mmol/L (22-26); VBG pCO2 68 mmHg; VBG pH 7.28 (7.32-7.43); VBG pO2 49 mmHg
--- NOTE | 2024-08-26 03:46 | ED_ITS ---
HPI - SOB/Dyspnea General Chief Complaint: Dyspnea Stated Complaint: SOB, bilat wheez, duo neb, significant tremors Time Seen by Provider: 08/26/24 03:46 Source: patient and EMS Mode of arrival: EMS Limitations: no limitations History of Present Illness ED Provider: HPI Narrative: Patient is obese, COPD on chronic 2-3 L nasal cannula oxygen, sleep apnea, DVT, hypotension with previous admissions for respiratory failure comes here for increased cough and shortness a breath for last 2 days saturating 70% on 4 L of oxygen been coughing for last 2 days no fever no chest pain does have chronic leg edema and DVT on Eliquis patient does use CPAP at night Related Data Home Medications ?Medication ?Instructions ?Recorded ?Confirmed alendronate 70 mg tablet 70 mg PO MO@0900 05/05/24 05/05/24 apixaban 2.5 mg tablet (Eliquis) 2.5 mg PO BID 05/05/24 05/05/24 ascorbic acid (vitamin C) 500 mg 500 mg PO DAILY@1200 05/05/24 05/05/24 chewable tablet (Vitamin C) carboxymethylcellulose sodium 0.5 1 drp ophthalmic (eye) QID PRN Dry 05/05/24 05/05/24 % eye drops Eyes celecoxib 200 mg capsule 200 mg PO DAILY 05/05/24 05/05/24 cholecalciferol (vitamin D3) 50 50 mcg PO DAILY@119905/05/24 05/05/24 mcg (2,000 unit) tablet cyanocobalamin (vitamin B-12) 1,000 mcg PO DAILY@1200 05/05/24 05/05/24 1,000 mcg tablet fluticasone fur. 100 mcg-umeclid 1 ea inhalation DAILY 05/05/24 05/05/24 62.5 mcg-vilant 25 mcg inhalat.powder (Trelegy Ellipta) losartan 50 mg tablet 50 mg PO DAILY 05/05/24 05/05/24 mirabegron 50 mg tablet,extended 50 mg PO DAILY 05/05/24 05/05/24 release 24 hr (Myrbetriq) multivitamin with folic acid 400 1 tab PO DAILY@1200 05/05/24 05/05/24 mcg tablet (High Potency Multivitamin) paroxetine HCl 30 mg tablet 60 mg PO DAILY 05/05/24 05/05/24 tizanidine 4 mg tablet 4 mg PO BEDTIME 05/05/24 05/05/24 tolterodine 4 mg capsule,extended 4 mg PO DAILY 05/05/24 05/05/24 release 24 hr trazodone 50 mg tablet 200 mg PO BEDTIME 05/05/24 05/05/24 vit C 250 mg-vit E 90 mg-zinc 40 1 cap PO DAILY@1200 05/05/24 05/05/24 mg-copper 1 [id number] capsule (PreserVision AREDS-2) Previous Rx's ?Medication ?Instructions ?Recorded azithromycin 250 mg tablet 250 mg PO DAILY #3 tabs 05/07/24 cefuroxime axetil 500 mg tablet 500 mg PO Q12H #6 tabs 05/07/24 prednisone 20 mg tablet 20 mg PO DAILY #5 tabs 05/07/24 Allergies Allergy/AdvReac Type Severity Reaction Status Date / Time No Known Allergies Allergy Verified 08/26/24 03:32 Review of Systems 2 Review of Systems: Yes all other systems are reviewed and are negative [facility] Social History Social History Household Members: None Housing: Assisted Living Facility Do you presently have visiting nurse or other home services: No Patient Tobacco Use Status: Never used Tobacco Smoked in Last 30 Days: No Use of substances other than those prescribed or required for medical reasons: No Substance Use Type: Marijuana Advance Directives: No Advance Directives Information Provided: Yes service: No Physical Exam 2 Vital Signs: Vital Signs: Last Vital Signs Temp 98.8 F 08/26/24 07:11 Pulse 90 08/26/24 07:11 Resp 22 H 08/26/24 07:11 BP 129/69 08/26/24 07:11 Pulse Ox 94 08/26/24 07:11 O2 Del Method BiPAP 08/26/24 07:11 O2 Flow Rate 40 08/26/24 06:12 FiO2 80 08/26/24 07:11 BMI result Body Mass Index 52.9 Appearance: Alert. Oriented X3. Obese in moderate respiratory distress Eyes: PERRLA, No Nystagmus ENT: Pharynx normal. Oral Mucosa moist Neck: Normal inspection. Neck supple. CVS: Normal heart rate and rhythm. Pulses normal. Respiratory: No respiratory distress. Equal air entry bilateral, no wheezing/rales/rhonchi Abdomen: Soft and nontender. Bowel sounds are present, no mass palpable, no CVA tenderness Skin: Skin warm and dry. Normal skin color. Normal skin turgor. Extremities: 2 +lower extremity edema. No calf tenderness Neuro: Oriented X 3. No motor deficit. No sensory deficit.No cerebellar signs , cranial nerves II-XII intact Medications Administered Discontinued Medications Generic Name Dose Route Start Last Admin Trade Name Petty PRN Reason Stop Dose Admin Ceftriaxone Sodium 1 gm 08/26/24 03:57 08/26/24 04:23 Ceftriaxone Sodium 1 Gm Vial IVPUSH 08/26/24 03:58 1 gm ONCE ONE Administration Albuterol Sulfate 7.5 mg/ 0 mg 08/26/24 03:52 08/26/24 03:57 Albuterol/Ipratropium 3 ml INHALE 08/26/24 03:53 4.5 each ONCE ONE Administration Furosemide 20 mg 08/26/24 04:42 08/26/24 05:21 Furosemide 20 Mg/2 Ml Vial IVPUSH 08/26/24 04:43 20 mg ONCE ONE Administration Protocol Doxycycline Hyclate 100 mg/ 250 mls @ 166.67 mls/hr 08/26/24 04:42 08/26/24 05:21 Sodium Chloride IV 08/26/24 06:11 166.67 mls/hr ONCE ONE Administration Methylprednisolone Sodium Succinate 125 mg 08/26/24 03:48 08/26/24 04:23 Methylprednisolone Sod Succ 125 Mg/2 Ml Vial IVPUSH 08/26/24 03:49 125 mg ONCE ONE Administration Morphine Sulfate 4 mg 08/26/24 05:59 08/26/24 06:14 Morphine Sulfate 4 Mg/Ml Cartridge IVPUSH 08/26/24 06:00 4 mg ONCE ONE Administration Protocol Ondansetron HCl 4 mg 08/26/24 05:59 08/26/24 06:14 Ondansetron Hcl 4 Mg/2 Ml Vial IVPUSH 08/26/24 06:00 4 mg ONCE ONE Administration Medical Decision Making Medical Decision Making MDM Narrative: Patient with acute on chronic hypoxic hypercapnic respiratory failure uses CPAP at home based on BiPAP in the ER on arrival after 2 hours of BiPAP patient's pH improved from 7.2 it to 7.44 with bicarb also increased from 32-57 but pCO2 also increased from 68-84 respiratory acidosis with compensated metabolic alkalosis. Setting of BiPAP change will repeat gases in 1 hours pt is alert oriented x3 Patient is on already on Eliquis for DVT will do CTA chest to rule out PE although unlikely as patient is mostly hypercapnic Chest x-ray showed patchy infiltrate patient received Rocephin and doxycycline urine also showed WBCs as normal lactic acid level Patient is signed out to Dr. Castillo for further management and disposition Differential Diagnosis Differential Diagnoses: The differential diagnosis associated with the presentation includes COPD exacerbation/pneumonia/PE/CHF Admission/Observation Consideration of admission/observation: Escalation of care including admission/observation considered Lab Data MDM Lab Attestation statement: I reviewed the patient's lab results. 08/26/24 03:25 08/26/24 03:25 Labs: Lab Results 08/26/24 08/26/24 08/26/24 Range/Units 03:25 03:38 04:24 WBC 12.9 H (4.8-10.8) X10*3/uL RBC 5.35 D (4.20-5.50) X10*6/uL Hgb 15.1 (12.0-16.0) g/dl Hct 52.0 H D (37.0-47.0) % MCV 97.2 (80.0-98.0) fL MCH 28.2 (27.0-33.0) pg MCHC 29.0 L (31.0-35.0) g/dl RDW 16.5 H (11.0-16.0) % Plt Count 181 (160-400) X10*3/uL MPV 10.4 (9.4-12.3) fL Immature Gran % (Auto) 1.9 H (0.0-0.4) % Neut % (Auto) 83.5 H (45-73) % Lymph % (Auto) 6.4 L (20-40) % Williamson % (Auto) 7.4 (2-11) % Eos % (Auto) 0.4 (0-4) % Baso % (Auto) 0.4 (0-2) % Lymph # (Auto) 0.8 L (1.2-4.9) X10*3/uL Williamson # (Auto) 1.0 (0.1-1.2) X10*3/uL Eos # (Auto) 0.1 (0.0-0.4) X10*3/uL Baso # (Auto) 0.1 (0.0-0.2) X10*3/uL Abs Immat Gran (auto) 0.24 H (0.00-0.03) X10*3/uL Absolute Neuts (auto) 10.8 H (2.0-8.3) x10*3/uL Absolute Nucleated RBC 0.030 H (0.0-0.012) X10*3/uL Nucleated RBC % (auto) 0.2 (0.0-0.2) /100WBC Hold Purple Top SEE NOTE PT 16.2 H (10.9-12.4) SEC INR 1.4 H (0.9-1.1) D-Dimer High Sensitivty 307 NG/ML VBG pH 7.28 L (7.32-7.43) VBG pCO2 68 mmHg VBG pO2 49 mmHg VBG HCO3 32 H (22-26) mmol/L VBG O2 Saturation 70.0 % VBG Base Excess 3.4 mmol/L Sodium 136 (135-145) mmol/L Potassium 5.2 H (3.3-5.1) mmol/L Chloride 98 (96-108) mmol/L Carbon Dioxide 31 H (22-29) mmol/L Anion Gap 12 (12-20) BUN 37 H (9-16) mg/dL Creatinine 1.39 (0.5-1.4) mg/dL Estim Creat Clear Calc 42.8 Estimated GFR 37 Random Glucose 123 H (60-115) mg/dL Lactic Acid 1.8 (0.5-2.0) mmol/L Calcium 9.5 D (8.4-10.2) mg/dL Magnesium 1.9 (1.6-2.6) mg/dL Troponin I High Sens 32.2 H D (<3.5-17.0) ng/L B-Natriuretic Peptide 471 H (<100) pg/mL Urine Color Urine Appearance Urine pH (5.0-9.0) Ur Specific [place] (1.005-1.025) Urine Protein (Neg-Trace) mg/dL Urine Glucose (UA) (Negative) mg/dL Urine Ketones (Negative) mg/dL Urine Blood (Negative) Urine Nitrite (Negative) Ur Leukocyte Esterase (Negative) Urine RBC (0-2) /HPF Urine WBC (0-5) /HPF Ur Squamous Epith Cells (0-2) /HPF Urine Bacteria (None Seen) Hyaline Casts (0-2) /LPF 08/26/24 08/26/24 08/26/24 Range/Units 05:30 05:49 07:10 WBC (4.8-10.8) X10*3/uL RBC (4.20-5.50) X10*6/uL Hgb (12.0-16.0) g/dl Hct (37.0-47.0) % MCV (80.0-98.0) fL MCH (27.0-33.0) pg MCHC (31.0-35.0) g/dl RDW (11.0-16.0) % Plt Count (160-400) X10*3/uL MPV (9.4-12.3) fL Immature Gran % (Auto) (0.0-0.4) % Neut % (Auto) (45-73) % Lymph % (Auto) (20-40) % Williamson % (Auto) (2-11) % Eos % (Auto) (0-4) % Baso % (Auto) (0-2) % Lymph # (Auto) (1.2-4.9) X10*3/uL [place] # (Auto) (0.1-1.2) X10*3/uL Eos # (Auto) (0.0-0.4) X10*3/uL Baso # (Auto) (0.0-0.2) X10*3/uL Abs Immat Gran (auto) (0.00-0.03) X10*3/uL Absolute Neuts (auto) (2.0-8.3) x10*3/uL Absolute Nucleated RBC (0.0-0.012) X10*3/uL Nucleated RBC % (auto) (0.0-0.2) /100WBC Hold Purple Top PT (10.9-12.4) SEC INR (0.9-1.1) D-Dimer High Sensitivty NG/ML VBG pH 7.44 H 7.22 L (7.32-7.43) VBG pCO2 84 65 mmHg VBG pO2 35 190 mmHg VBG HCO3 57 H 27 H (22-26) mmol/L VBG O2 Saturation 52.0 100.0 % VBG Base Excess 26.9 -2.1 mmol/L Sodium (135-145) mmol/L Potassium (3.3-5.1) mmol/L Chloride (96-108) mmol/L Carbon Dioxide (22-29) mmol/L Anion Gap (12-20) BUN (9-16) mg/dL Creatinine (0.5-1.4) mg/dL Estim Creat Clear Calc Estimated GFR Random Glucose (60-115) mg/dL Lactic Acid (0.5-2.0) mmol/L Calcium (8.4-10.2) mg/dL Magnesium (1.6-2.6) mg/dL Troponin I High Sens (<3.5-17.0) ng/L B-Natriuretic Peptide (<100) pg/mL Urine Color Dark Yellow Urine Appearance Cloudy Urine pH 5.5 (5.0-9.0) Ur Specific [place] 1.015 (1.005-1.025) Urine Protein 100 (2+) H (Neg-Trace) mg/dL Urine Glucose (UA) Negative (Negative) mg/dL Urine Ketones Trace (Negative) mg/dL Urine Blood Moderate (2+) H (Negative) Urine Nitrite Negative (Negative) Ur Leukocyte Esterase Large (3+) H (Negative) Urine RBC 0-2 (0-2) /HPF Urine WBC >50 H (0-5) /HPF Ur Squamous Epith Cells 3-5 (0-2) /HPF Urine Bacteria 1+ (None Seen) Hyaline Casts 0-2 (0-2) /LPF Independent Interpretation I performed an independent interpretation of an: EKG Interpretation: Sinus rhythm with ventricular rate of 83 beats per minute Q-wave in inferior leads LVH poor progression of R-wave no acute ST elevation Critical Care Time Critical Care Time Critical Care Time: Yes Total Critical Care Time: 65 Attestation: The patient was critically ill with a high probability of imminent or life threatening deterioration. I spent greater than 70???minutes of discontinuous time evaluating the patient,delivering critical care at the bedside, discussing and evaluating pertinent data with consultants. Critical care time does not include time spent performing separately billable procedures or teaching. Total time spent performing critical care was 65???minutes. Discharge Plan Discharge Clinical Impression: Acute respiratory failure with hypoxia and hypercapnia, COPD (chronic obstructive pulmonary disease), Acute UTI Patient Disposition: Still a Patient Prescriptions: No Action losartan 50 mg tablet 50 mg PO DAILY celecoxib 200 mg capsule 200 mg PO DAILY trazodone 50 mg tablet 200 mg PO BEDTIME tizanidine 4 mg tablet 4 mg PO BEDTIME tolterodine 4 mg capsule,extended release 24hr 4 mg PO DAILY alendronate 70 mg tablet 70 mg PO MO@0900 cyanocobalamin (vitamin B-12) 1,000 mcg tablet 1,000 mcg PO DAILY@1200 carboxymethylcellulose sodium 0.5 % drops 1 drp ophthalmic (eye) QID PRN (Reason: Dry Eyes) paroxetine HCl 30 mg tablet 60 mg PO DAILY ascorbic acid (vitamin C) [Vitamin C] 500 mg tablet,chewable 500 mg PO DAILY@1200 cholecalciferol (vitamin D3) 50 mcg (2,000 unit) tablet 50 mcg PO DAILY@1200 multivitamin with folic acid [High Potency Multivitamin] 400 mcg tablet 1 tab PO DAILY@1200 mirabegron [Myrbetriq] 50 mg tablet extended release 24 hr 50 mg PO DAILY Eliquis 2.5 mg tablet 2.5 mg PO BID PreserVision AREDS-2 250-90-40-1 mg capsule 1 cap PO DAILY@1200 Trelegy Ellipta 100-62.5-25 mcg blister with device 1 ea inhalation DAILY prednisone 20 mg tablet 20 mg PO DAILY Qty: 5 0RF azithromycin 250 mg tablet 250 mg PO DAILY Qty: 3 0RF cefuroxime axetil 500 mg tablet 500 mg PO Q12H Qty: 6 0RF Print Language: [place]
[2024-08-26 03:49] LABS: Anion Gap 12 (12-20); Blood Urea Nitrogen 37 mg/dL (9-16); Calcium 9.5 mg/dL (8.4-10.2); Carbon Dioxide 31 mmol/L (22-29); Chloride 98 mmol/L (96-108); Creatinine Clr Calc Pharmacy 42.8; Estimated Glomerular Filt Rate 37; Glucose Random 123 mg/dL (60-115); Potassium 5.2 mmol/L (3.3-5.1); Sodium 136 mmol/L (135-145)
[2024-08-26 03:56] LABS: Troponin-I High Sensitivity 32.2 ng/L (<3.5-17.0)
[2024-08-26] MEDS: Albuterol Sulfate 7.5 MG, Albuterol/Iprat 2.5/0.5MG 3 ML 3 ML INHALE (03:57)
[2024-08-26 04:09] LABS: Magnesium 1.9 mg/dL (1.6-2.6)
[2024-08-26 04:17] LABS: B Type Natriuretic Peptide 471 pg/mL (<100)
[2024-08-26] MEDS: methylPREDNISolone Sod Succ 125 MG/2 ML VIAL IVPUSH (04:23)
[2024-08-26] MEDS: cefTRIAXone sodium 1 GM VIAL IVPUSH (04:23)
[2024-08-26 04:49] LABS: Lactic Acid 1.8 mmol/L (0.5-2.0)
[2024-08-26] MEDS: Doxycycline Hyclate 100 MG in 0.9 % Sodium Chloride 250 ML 166.67 MG IV (05:21)
[2024-08-26] MEDS: Furosemide 20 MG/2 ML VIAL IVPUSH (05:21)
[2024-08-26 05:31] LABS: Venous Blood Gas Refer to POC result
[2024-08-26 05:34] LABS: VBG Base Excess 26.9 mmol/L; VBG HCO3 57 mmol/L (22-26); VBG pCO2 84 mmHg; VBG pH 7.44 (7.32-7.43); VBG pO2 35 mmHg
[2024-08-26 05:56] LABS: Appearance Urine Cloudy; Color Urine Dark Yellow; Glucose Urine UA Negative (Negative); Leukocyte Esterase Urine Large (3+) (Negative); Nitrite Urine Negative (Negative); PH 5.5 (5.0-9.0); Specific Gravity - Urine 1.015 (1.005-1.025); UMIC TRIGGER UACC YES; Urine Blood Moderate (2+) (Negative); Urine Ketones Trace mg/dL (Negative); Urine Protein 100 (2+) mg/dL (Neg-Trace)
--- NOTE | 2024-08-26 06:05 | PC.NURSE ---
RT to bedside s/p 2nd VBG and BiPap adjusted from 16/8 and 40% to 18/8 and 40% with a rate of 20 and an I-time of 0.80
--- NOTE | 2024-08-26 06:13 | PC.NURSE ---
BIPAP FIO2 dropped to 35%
[2024-08-26] MEDS: Morphine Sulfate 4 MG/ML CARTRIDGE IVPUSH (06:14)
[2024-08-26] MEDS: ondansetron HCL 4 MG/2 ML VIAL IVPUSH (06:14)
[2024-08-26 06:21] LABS: Bacteria Urine 1+ (None Seen); Hyaline Casts Urine 0-2 /LPF (0-2); RBC Urine 0-2 /HPF (0-2); UACC Culture Trigger YES; WBC Urine >50 /HPF (0-5)
--- OUTSIDE RECORDS SUMMARY | 2024-08-26 06:23 | XMS_ITS | Clinical Summary ---
Author Organization [facility] Address [address] [place] [address] Phone Care Team Providers Care Mannequin Maker Name Role Phone Manju Najera MD Primary Care Provider [phone] Allergies No known active allergies Medications apixaban (Eliquis) 2.5 mg tablet Take 1 tablet (2.5 mg total) by mouth 2 (two) times a day. Active mirabegron (Myrbetriq) 50 mg tablet extended release 24 hr 24 hr tablet Take 1 tablet (50 mg total) by mouth 1 (one) time each day. Active tolterodine LA (DETROL LA) 4 mg 24 hr capsule Take 1 capsule (4 mg total) by mouth 1 (one) time each day. Active cholecalciferol (VITAMIN D-3) 50 mcg (2,000 unit) tablet Take 1 tablet (2,000 Units total) by mouth 1 (one) time each day. Active vit C,W-Ue-llvxy-monica tein-zeaxan (PreserVision AREDS-2) 250-90-40-1 mg capsule Take 1 capsule by mouth 1 (one) time each day. Active cyanocobalamin (VITAMIN B-12) 1,000 mcg tablet Take 1 tablet (1,000 mcg total) by mouth 1 (one) time each day. Active predniSONE (DELTASONE) 20 mg tablet 3 tab for 3 days,2 tab for 3 days,1 tab for 3 days Active miscellaneous medical supply misc Incontinence Supply Disposable ([facility] health Incontinence Pads) Misc- 1 Each by Does not apply route 3 times daily. Active gviqelyk-lwuq-K N-nshvsyr-wdue (Women's One Daily) 18 mg iron-400 mcg-500 mg Ca tablet Take 1 tablet by mouth 1 (one) time each day. Active albuterol 2.5 mg /3 mL (0.083 %) nebulizer solution Take 1 Vial by nebulization every 4 hours as needed for Wheezing, Shortness of Breath or Cough for up to 180 days. Active albuterol HFA (PROAIR HFA ; PROVENTIL HFA ; VENTOLIN HFA) 90 mcg/actuation inhaler Inhale 2 Puffs into the lungs every 6 hours as needed for Cough or Wheezing. Active alendronate (FOSAMAX) 70 mg tablet Take 1 tablet (70 mg total) by mouth every 7 (seven) days. Active celecoxib (CeleBREX) 200 mg capsule Take 1 capsule (200 mg total) by mouth 1 (one) time each day. Active tiotropium (Spiriva Respimat) 2.5 mcg/actuation inhalation spray TAKE 2 INHALATIONS BY MOUTH DAILY Active budesonide-form oteroL (SYMBICORT) 160-4.5 mcg/actuation inhaler INHALE 2 PUFFS BY MOUTH TWICE DAILY . RINSE MOUTH AFTER USE Active PARoxetine (PAXIL) 30 mg tablet Take 1 tablet (30 mg total) by mouth 2 (two) times a day. 180 tablet 024 2024 Active traZODone (DESYREL) 50 mg tablet TAKE (2) TABLETS BY MOUTH DAILY AT BEDTIME. 56 tablet Active tiZANidine (ZANAFLEX) 4 mg tablet Take 1 tablet (4 mg total) by mouth 1 (one) time each day. 30 tablet 1 025 Active ascorbic acid (Vitamin C) 500 mg chewable tablet Chew 1 tablet (500 mg total) 1 (one) time each day. 30 tablet 1 025 Active hydrOXYzine HCL (ATARAX) 10 mg tablet TAKE 1 TABLET BY MOUTH THREE TIMES A DAY 90 tablet 1 025 Active losartan (COZAAR) 50 mg tablet TAKE 1 TABLET BY MOUTH DAILY. 30 tablet 1 025 Active High Potency Multivitamin 400 mcg tablet TAKE 1 TABLET BY MOUTH DAILY. 30 tablet 1 025 Active ascorbic acid (VITAMIN C) 500 mg chewable tablet Chew 1 tablet (500 mg total) 1 (one) time each day. 024 2024 Discontinued hydrOXYzine HCL (ATARAX) 10 mg tablet Take 1 tablet (10 mg total) by mouth 3 (three) times a day. 90 tablet 3 024 2024 Discontinued tiZANidine (ZANAFLEX) 4 mg tablet TAKE 1 TABLET BY MOUTH DAILY AT BEDTIME NEEDED FOR MUSCLE SPASMS 30 tablet 024 2024 Discontinued(R eorder) losartan (COZAAR) 50 mg tablet TAKE 1 TABLET BY MOUTH DAILY. 30 tablet 025 2024 Discontinued High Potency Multivitamin 400 mcg tablet TAKE 1 TABLET BY MOUTH DAILY. 30 tablet 025 2024 Discontinued Active Problems Problem Noted Date Diagnosed Date Carpal tunnel syndrome of right wrist 10/11/2023 Osteoporosis 01/11/2023 Midline low back pain without sciatica 3 Ecchymosis 06/18/2021 Fall 06/18/2021 Pain in joint, pelvic region and thigh 1 Elevated blood pressure read ing with diagnosis of hypertension 01/04/2019 COPD (chronic obstructive pulmonary disease) 07/2017 Depression 12/27/2017 Obstructive sleep apnea 12/27/2017 Osteopenia 12/27/2017 Thrombophlebitis of deep veins of upper extremit ies 02/23/2017 Pulmonary nodule 08/05/2016 Secondary polycythemia 05/13/2015 Urinary incontinence 05/09/2015 Benign colonic polyp 05/11/2013 Vitamin D deficiency 10/17/2012 Encounters Date Type Department Care Team Description 06/25/2024 Telephone Internal Medicine [address] [place] [address] Manju Najera MD Referral (Referral for ATC) 05/31/2024 Telephone Internal Medicine - [place] [facility] [address] [place] [phone] Amaris Chavez MA Lab Results 05/29/2024 10:00 AM EST Office Visit Internal Medicine - [address] [place] [phone] Manju Najera MD Chronic obstructive pulmonary disease, unspecified COPD type ([facility]) (Primary Dx); Urinary incontinence, unspecified type; Depression, unspecified depression type; Elevated blood pressure reading with diagnosis of hypertension; Morbid obesity ([facility]); Hyperglycemia 05/29/2024 Telephone Internal Medicine - [place] [address] [phone] Manju Najera MD [place]-Referral from Last 3 Months Immunizations Name Administration Dates Next Due Influenza trivalent, 0.5mL, preservative free (Fluarix; FluLaval; Fluzone) ages 6mo and older (Afluria) 3 years and older 05/09/2015 Influenza trivalent, with pr eservative (Fluzone; Afluria) 6mo and older 04/28/2016 Pneumococcal conjugate 13 va lent (Prevnar 13, PCV13) 2mo and older 05/29/2015 Pneumococcal conjugate 20 va lent (Prevnar 20, PCV 20) 2mo and older 11/17/2023 Pneumococcal polysaccharide 23 valent (Pneumovax 23) 2yo and older 01/15/2015 Tdap Tetanus diptheria acell ular pertussis (Boostrix; Adacel) 7yo and older 12/27/2017 Surgical History Surgery Date Site/Laterality Comments CHOLECYSTECTOMY PROCEDURE: HISTORICAL CHOLECYSTECTOMY HYSTERECTOMY PROCEDURE: HISTORICAL HYSTERECTOMY COLONOSCOPY PROCEDURE: HISTORICAL COLONOSCOPY Medical History Medical History Date Comments Benign colonic polyp 05/11/2013 DX:Benign c olonic polyp COPD (chronic obstructive pu lmonary disease) ([facility]) 03/21/2018 DX:COPD (chronic obstructive pulmonary disease) ([facility]) Depression 12/27/2017 DX:Depression DVT (deep venous thrombosis) ([facility]) 11/04/2017 DX:DVT (deep venous thrombosis) ([facility]) Obstructive sleep apnea 12/27/2017 DX:Obstr uctive sleep apnea Osteopenia 12/27/2017 DX:Osteopenia Oxygen dependent 03/21/2018 DX:Oxygen depen dent Pulmonary nodule 08/05/2016 DX:Pulmonary no dule Secondary polycythemia 05/13/2015 DX:Second jaquan polycythemia Thrombophlebitis of deep vei ns of upper extremities 02/23/2017 DX:Thrombophlebitis of deep veins of upper extremities Urinary incontinence 05/09/2015 DX:Urinary incontinence Vitamin D deficiency 10/17/2012 DX:Vitamin D deficiency Social History Tobacco Use Types Packs/Day Years Used Date Smoking Tobacco: Former Smokeless Tobacco: Never Alcohol Use Standard Drinks/Week Comments Not Currently 0 (1 standard drink = 0.6 oz pur e alcohol) Comments Unknown Sex and Gender Information Value Date Recorded Sex Assigned at Not on file Legal Sex Female 2:37 PM EST Gender Identity Not on file Sexual Orientation Not on file Obstetrics History Last Filed Vital Signs Vital Sign Reading Time Taken Comments Blood Pressure 136/78 05/29/2024 10:20 AM EST Pulse 98 05/29/2024 10:20 AM EST Temperature 36.6 ??C (97.8 ??F) 05/29/2024 10:[address] Respiratory Rate - - Oxygen Saturation 93% 05/29/2024 10:20 AM EST Inhaled Oxygen Concentration - - Weight 110 kg (243 lb 3.2 oz) 05/29/2024 10:20 A M EST Height 157.5 cm (5' 2 ) 05/29/2024 10:20 AM EST Body Mass Index 44.48 05/29/2024 10:20 AM EST Plan of Treatment Upcoming Encounters Date Type Department Care Team (Late st Contact Info) Description 09/26/2024 8:15 AM EDT Office Visit Internal Medicine - [place] [address] [facility] [address] [place] [address] Manju Najera MD [address] [facility] [address] [place] [address] Health Maintenance Due Date Last Done Comments Zoster Vaccines (1 of 2) 2000 RSV Immunization Patients 60+ Years Old (1 - Risk 60-74 years 1-dose series) 2010 Falls Risk Assessment 05/27/2022 Hepatitis C Screening 05/27/2022 Medicare Annual Wellness Visit 05/27/2022 Social Influencers of Health Screening 05/27/2022 Depression Screening 01/12/2024 01/11/2023 COVID-19 Vaccine ( season) 2024 11/12/2020, 10/22/2020 Influenza Vaccine (#1) 2024 , 03/06/2021, 07/20/2018, Additional history exists Hypertension/CHF/CAD Annual BMP Blood Test 05/29/2025 05/29/2024, 04/01/2022 Breast Cancer Screening 01/25/2026 01/26/20 24, 11/17/2022, 08/23/2021, Additional history exists DTaP,Tdap,and Td Vaccines (2 - Td or Tdap) 12/28/2027 12/27/2017 Osteoporosis Screening (Bone Density Screening) 02/02/2028 02/01/2018 Colorectal Cancer Screening: Colonoscopy 07/12/2028 07/12/2018 Cholesterol Screening (Lipid Panel) 05/29/2029 05/29/2024, 01/11/2023 Pneumococcal Vaccine: 50+ Years Completed 11/17/2023, 07/20/2018, 05/29/2015, Additional history exists HIB Vaccines Aged Out No longer eligi ble based on patient's age to complete this topic HPV Vaccines Aged Out No longer eligi ble based on patient's age to complete this topic Hepatitis A Vaccines Aged Out No long er eligible based on patient's age to complete this topic Hepatitis B Vaccines Aged Out No long er eligible based on patient's age to complete this topic IPV Vaccines Aged Out No longer eligi ble based on patient's age to complete this topic MMR Vaccines Aged Out No longer eligi ble based on patient's age to complete this topic Meningococcal ACWY Vaccine Aged Out N o longer eligible based on patient's age to complete this topic Meningococcal B Vacine Aged Out No lo nger eligible based on patient's age to complete this topic RSV Immunization Patients Under 20 months Aged Out No longer eligible based on patient's age to complete this topic Varicella Vaccines Aged Out No longer eligible based on patient's age to complete this topic Procedures Procedure Name Priority Date/Time Associated Diagnosis Comments HEMOGLOBIN A1C Routine 05/29/2024 10:58 AM EST Hyperglycemia LIPID PANEL WITH REFLEX TO DIRECT LDL Routine 05/29/2024 10:58 AM EST Urinary incontinence, unspecified type Chronic obstructive pulmonary disease, unspecified COPD type (CMS/HCC) Depression, unspecified depression type Elevated blood pressure reading with diagnosis of hypertension Morbid obesity (CMS/HCC) VITAMIN B12 Routine 05/29/2024 10:58 AM EST Urinary incontinence, unspecified type Chronic obstructive pulmonary disease, unspecified COPD type (CMS/HCC) Depression, unspecified depression type THYROID STIMULATING HORMONE Routine 05/29/2024 10:58 AM EST Urinary incontinence, unspecified type Chronic obstructive pulmonary disease, unspecified COPD type (CMS/HCC) Depression, unspecified depression type COMPLETE BLOOD COUNT Routine 05/29/2024 10:58 AM EST Urinary incontinence, unspecified type Chronic obstructive pulmonary disease, unspecified COPD type (CMS/HCC) Depression, unspecified depression type COMPREHENSIVE METABOLIC PANEL Routine 05/29/2024 10:58 AM EST Urinary incontinence, unspecified type Chronic obstructive pulmonary disease, unspecified COPD type (CMS/HCC) Depression, unspecified depression type [facility] SCREENING DIGITAL Routine 01/26/2024 1:28 PM EDT Encounter for screening mammogram for malignant neoplasm of breast DEPRESSION SCREENING Routine 01/11/2023 COLONOSCOPY Routine 07/12/2018 [facility] DEXA AXIAL SKELETON Routine 02/01/2018 4:34 PM EDT Encounter for screening for osteoporosis from Last 3 Months or Most Recently Relevant to Health Maintenance Results * Lipid panel with reflex to direct LDL (05/29/2024 10:58 AM EST) [facility] Cholesterol 158 0 - 200 mg/dL LAB CHEMISTRY METHOD 05/29/2024 4:01 PM EST [facility] Triglycerides 146 0 - 150 mg/dL LAB CHEMISTRY METHOD 05/29/2024 4:01 PM [facility] HDL 56 >=40 mg/dL LAB CHEMISTRY METHOD 05/29/2024 4:01 PM [facility] LDL Calculated 73 0 - 100 mg/dL LAB CHEMISTRY METHOD 05/29/2024 4:01 PM [facility] VLDL Cholesterol Scott 29.2 mg/dL LAB CHEMISTRY METHOD 05/29/2024 4:01 PM [facility] Non HDL Chol. (LDL+VLDL) 102 <145 mg/dL LAB CHEMISTRY METHOD 05/29/2024 4:01 PM [facility] Chol/HDL Ratio 2.8 0.0 - 4.4 LAB CHEMISTRY METHOD 05/29/2024 4:01 PM [facility] Blood Venous blood specimen / Unknown Venipuncture / Unknown 05/29/2024 10:58 AM EST 05/29/2024 10:58 AM EST us Manju Najera MD LAB BLOOD ORDERABLES Final Res ult [facility] [address] [place] [address], * (ABNORMAL) Complete blood count (05/29/2024 10:58 AM EST) WBC 10.8 4.8 - 10.8 K/mcL LAB HEMETOLOGY METHOD 05/29/2024 2:10 PM [facility] RBC 4.70 3.80 - 4.80 M/mcL LAB HEMETOLOGY METHOD 05/29/2024 2:10 PM [facility] Hemoglobin 14.2 11.5 - 16.0 g/dL LAB HEMETOLOGY METHOD 05/29/2024 2:10 PM [facility] Hematocrit 49.0(H) 35.0 - 47.0 % LAB HEMETOLOGY METHOD 05/29/2024 2:10 PM EST [facility] MCV 104.0(H) 79.0 - 98.0 FL LAB HEMETOLOGY METHOD 05/29/2024 2:10 PM EST [facility] MCH 30.1 27.0 - 32.0 pcg LAB HEMETOLOGY METHOD 05/29/2024 2:10 PM EST [facility] MCHC 29.0(L) 32.0 - 37.0 g/dL LAB HEMETOLOGY METHOD 05/29/2024 2:10 PM EST [facility] RDW 16.3(H) 11.0 - 15.0 % LAB HEMETOLOGY METHOD 05/29/2024 2:10 PM EST [facility] Platelets 190 130 - 400 K/mcL LAB HEMETOLOGY METHOD 05/29/2024 2:10 PM EST [facility] MPV 10.4 7.0 - 11.0 FL LAB HEMETOLOGY METHOD 05/29/2024 2:10 PM EST [facility] NRBC 0.0 <1.0 % LAB HEMETOLOGY METHOD 05/29/2024 2:10 PM EST [facility] NRBC Absolute 0.00 <0.10 K/mcL LAB HEMETOLOGY METHOD 05/29/2024 2:10 PM EST [facility] Blood Venous blood specimen / Unknown Venipuncture / Unknown 05/29/2024 10:58 AM EST 05/29/2024 10:58 AM EST us Manju Najera MD LAB BLOOD ORDERABLES Final Res ult [facility] [address] [place] [address], * Thyroid stimulating hormone (05/29/2024 10:58 AM EST) TSH 2.18 0.40 - 4.00 mcIU/mL LAB CHEMISTRY METHOD 05/29/2024 3:34 PM EST [facility] Blood Venous blood specimen / Unknown Venipuncture / Unknown 05/29/2024 10:58 AM EST 05/29/2024 10:58 AM EST us Manju Najera MD LAB BLOOD ORDERABLES Final Res ult Performing Organization Address [facility]/ZIP Co de Phone Number [facility] [address] [place] [address], [place] [phone] * Hemoglobin A1c (05/29/2024 10:58 AM EST) Hemoglobin A1C 6.0 <6.5 % LAB CHEMISTRY METHOD 05/29/2024 6:54 PM EST [facility] Mean Bld Glu Estim. 126 mg/dL LAB CHEMISTRY METHOD 05/29/2024 6:54 PM EST [facility] Blood Venous blood specimen / Unknown Venipuncture / Unknown 05/29/2024 10:58 AM EST 05/29/2024 10:58 AM EST us Manju Najrea MD LAB BLOOD ORDERABLES Final Res ult Performing Organization Address [facility] de Phone Number [facility] [address] [place] [address], [place] [phone] * (ABNORMAL) Vitamin B12 (05/29/2024 10:58 AM EST) Vitamin B-12 910(H) 250 - 900 pcg/mL LAB CHEMISTRY METHOD 05/29/2024 4:01 PM EST [facility] Blood Venous blood specimen / Unknown Venipuncture / Unknown 05/29/2024 10:58 AM EST 05/29/2024 10:58 AM EST us Manju Najera MD LAB BLOOD ORDERABLES Final Res ult [facility] [address] [place] [address], [place] [phone] * (ABNORMAL) Comprehensive metabolic panel (05/29/2024 10:58 AM EST) Sodium 142 133 - 145 mmol/L LAB CHEMISTRY METHOD 05/29/2024 4:09 PM [facility] Potassium 4.6 3.5 - 5.5 mmol/L LAB CHEMISTRY METHOD 05/29/2024 4:09 PM [facility] Chloride 108 96 - 110 mmol/L LAB CHEMISTRY METHOD 05/29/2024 4:09 PM [facility] CO2 32 21 - 32 mmol/L LAB CHEMISTRY METHOD 05/29/2024 4:09 PM [facility] Anion Gap 2(L) 3 - 11 LAB CHEMISTRY METHOD 05/29/2024 4:09 PM [facility] Glucose 72 70 - 100 mg/dL LAB CHEMISTRY METHOD 05/29/2024 4:09 PM [facility] BUN 17 5 - 25 mg/dL LAB CHEMISTRY METHOD 05/29/2024 4:09 PM [facility] Creatinine 0.88 0.50 - 1.10 mg/dL LAB CHEMISTRY METHOD 05/29/2024 4:09 PM [facility] eGFR 69 >=60 mL/min/1. 73m2 LAB CHEMISTRY METHOD 05/29/2024 4:09 PM [facility] Comment:Calculation based on the??Chronic Kidney Disease Epidemiology Collaboration (CKD-EPI) equation refit??without adjustment for race. BUN/Creatinine Ratio 19.3 LAB CHEMISTRY METHOD 05/29/2024 4:09 PM [facility] Calcium 9.3 8.5 - 10.5 mg/dL LAB CHEMISTRY METHOD 05/29/2024 4:09 PM [facility] AST (SGOT) 19 10 - 42 unit/L LAB CHEMISTRY METHOD 05/29/2024 4:09 PM [facility] ALT (SGPT) 29 10 - 60 unit/L LAB CHEMISTRY METHOD 05/29/2024 4:09 PM [facility] Alkaline Phosphatase 75 42 - 121 unit/L LAB CHEMISTRY METHOD 05/29/2024 4:09 PM [facility] Total Protein 6.7 6.0 - 8.0 g/dL LAB CHEMISTRY METHOD 05/29/2024 4:09 PM [facility] Albumin 3.2 3.2 - 5.0 g/dL LAB CHEMISTRY METHOD 05/29/2024 4:09 PM [facility] Total Bilirubin 0.3 0.0 - 1.4 mg/dL LAB CHEMISTRY METHOD 05/29/2024 4:09 PM [facility] Blood Venous blood specimen / Unknown Venipuncture / Unknown 05/29/2024 10:58 AM EST 05/29/2024 10:58 AM EST us Manju Najera MD LAB BLOOD ORDERABLES Final Res ult [facility] [address] [place] [address], * CHAPIS SCREENING DIGITAL (01/26/2024 1:28 PM EDT) Anatomical Region Laterality Modality Mammography 01/26/2024 10:5 4 AM EDT Narrative 01/26/2024 1:28 PM EDT [facility] Diagnostic Imaging Department [address] [place] [address] Patient: ??JANNET MILLS ?/Age/Sex: 1950 - 73 - F Unit#: ??[id number] ? Location/Status: ??SPDIMAM/REG CLI ? Mnemonic/Ordering Site: ??DIGSC/SPMAM Ordering Physician: ??MANJU NAJERA MD [facility] Screening Digital - 01/26/24 - 1119 Report Status:Signed EXAM: [facility] Screening Digital EXAM DATE AND TIME: 01/26/2024 11:20 AM HISTORY: ??Screening. Left breast biopsy in 2004, pathology benign. Mother had breast carcinoma. COMPARISON: ??11/17/22, 08/22/21, 08/09/19 TECHNIQUE: Bilateral digital breast tomosynthesis was performed in the CC and MLO projections. Computer aided detection with [employer] 3D 3.1 was employed. TISSUE DENSITY: a. The breasts are almost entirely fatty. FINDINGS: No suspicious masses, grouped microcalcifications, or areas of architectural distortion are seen. A 16 mm circumscribed nodule is long-term stable in the medial retroareolar area of the left breast, considered benign. The skin and vascularity are unremarkable. IMPRESSION: Stable mammographic appearance of the breasts. ??No evidence of malignancy is seen. A negative mammogram in the presence of a clinically suspicious palpable abnormality does not preclude the possibility of malignancy or alter the indications for biopsy. BI-RADS: ??Category 2: Benign RECOMMENDATION(S): 1: Routine screening mammogram BILATERAL in 1 year. Dictating Physician: ??ANITA SALAS MD Electronically Signed by: ??ANITA SALAS MD Dic Date/Time: ??01/26/24 1327 Sign date/Time: ??01/26/24 1328 Procedure Note Anita Salas MD - 04/04/2024 [facility] Diagnostic Imaging Department [address] [place] [id number] Patient: JANNET MILLS /Age/Sex: 1950 - 73 - F Unit#: [id number] Location/Status: SPDIMA/REG CLI Mnemonic/Ordering Site: [facility] Ordering Physician: MANJU NAJERA MD [facility] Screening Digital - 01/26/24 - 1119 Report Status:Signed EXAM: [facility] Screening Digital EXAM DATE AND TIME: 01/26/2024 11:20 AM HISTORY: Screening. Left breast biopsy in 2004, pathology benign. Motherhad breast carcinoma. COMPARISON: 11/17/22, 08/22/21, 08/09/19 TECHNIQUE: Bilateral digital breast tomosynthesis was performed in the CCand MLO projections. Computer aided detection with [employer] 3D 3.1was employed. TISSUE DENSITY: a. The breasts are almost entirely fatty. FINDINGS: No suspicious masses, grouped microcalcifications, or areas ofarchitectural distortion are seen. A 16 mm circumscribed nodule is long-term stable inthe medial retroareolar area of the left breast, considered benign. The skinand vascularity are unremarkable. IMPRESSION: Stable mammographic appearance of the breasts. No evidence of malignancyis seen. A negative mammogram in the presence of a clinically suspicious palpable abnormality does not preclude the possibility of malignancy or alter the indications for biopsy. BI-RADS: Category 2: Benign RECOMMENDATION(S): 1: Routine screening mammogram BILATERAL in 1 year. Dictating Physician: ANITA SALAS MD Electronically Signed by: ANITA SALAS MD Dic Date/Time: 01/26/24 1327 Sign date/Time: 01/26/24 1328 Manju Najera MD IMG BI PROCEDURES Final Result * Depression Screening (01/11/2023) Depression Screening abstracted Historical Provider HEALTH MAINTENANCE Final Result * Colonoscopy (07/12/2018) Colonoscopy normal, abstracted Anatomical Region Laterality Modality Other Historical Provider HEALTH MAINTENANCE Final Result * [facility] DEXA AXIAL SKELETON (02/01/2018 4:34 PM EDT) Anatomical Region Laterality Modality Mammography 02/01/2018 8:30 AM EDT Narrative 02/01/2018 4:34 PM EDT [facility] Diagnostic Imaging Department [address] [place] [address] Patient: ??JANNET MILLS ?/Age/Sex: 1950 - 67 - F Unit#: ??[id number] ? Location/Status: ??SPDIMAM/REG CLI ? Mnemonic/Ordering Site: ??MAMDEXAAX/SPMAM Ordering Physician: ??MANJU NAJERA MD [facility] Dexa Axial Skeleton - 02/01/18 - 906 [facility] Dexa Axial Skeleton INDICATION: POSTMENOPAUSAL Technique: Bone densitometry was performed utilizing dual energy x-ray absorptiometry (DEXA). The lumbar spine is evaluated in the AP projection from L1 through L4. The proximal femora are evaluated in the AP projection bilaterally. The patient is taking vitamin D supplements. Comparison: 02/07/2015 Findings: AP spine: Bone mineral density: 1.317 gm/cm2 T-score: 1.1 Left femoral neck: Bone mineral density: 0.824 gm/cm2 T-score: -1.5 IMPRESSION: Findings suggesting osteopenia, placing the patient at risk for fracture. The FRAX result suggests a 10 year probability of major osteoporotic fracture of 27.9 % and hip fracture of 8.0%. 10 year probability of osteoporotic fracture may be lower than FRAX estimate if patient has received treatment. [id number] A report detailing these results has been enclosed. Dictating Physician: ??DELANO MANE MD Electronically Signed by: ??DELANO MANE MD Dic Date/Time: ??02/01/18 1633 Sign date/Time: ??02/01/18 1634 Procedure Note Delano Mane MD - 06/08/2022 [facility] Diagnostic Imaging Department [address] [place] [address] Patient: JANNET MILLS Yousuf /Age/Sex: 1950 - 67 - F Unit#: [id number] Location/Status: SPDIMA/REG CLI [facility] Ordering Physician: MANJU NAJERA MD [facility] Dexa Axial Skeleton - 02/01/18 - 906 [facility] Dexa Axial Skeleton INDICATION: POSTMENOPAUSAL Technique: Bone densitometry was performed utilizing dual energy x-ray absorptiometry (DEXA). The lumbar spine is evaluated in the AP projectionfrom L1 through L4. The proximal femora are evaluated in the AP projection bilaterally. The patient is taking vitamin D supplements. Comparison: 02/07/2015 Findings: AP spine: Bone mineral density: 1.317 gm/cm2 T-score: 1.1 Left femoral neck: Bone mineral density: 0.824 gm/cm2 T-score: -1.5 IMPRESSION: Findings suggesting osteopenia, placing the patient at risk forfracture. The FRAX result suggests a 10 year probability of major osteoporoticfracture of 27.9 % and hip fracture of 8.0%. 10 year probability of osteoporotic fracture may be lower than FRAXestimate if patient has received treatment. [id number] A report detailing these results has been enclosed. Dictating Physician: DELANO MANE MD Electronically Signed by: DELANO MANE MD Dic Date/Time: 02/01/18 1633 Sign date/Time: 02/01/18 1634 Manju Najera MD IMG BI PROCEDURES Final Result from Last 3 Months or Most Recently Relevant to Health Maintenance Insurance [employer] Care Teams Mannequin Maker Relationship Specialty Start Date End Date Manju Najera MD [address] [place] [id number] PCP - General Internal Medicine 04/18/18
[2024-08-26 06:35] LABS: D Dimer High Sensitivity 307 NG/ML
[2024-08-26 07:04] LABS: Venous Blood Gas Refer to POC result
[2024-08-26 07:13] LABS: VBG Base Excess -2.1 mmol/L; VBG HCO3 27 mmol/L (22-26); VBG pCO2 65 mmHg; VBG pH 7.22 (7.32-7.43); VBG pO2 190 mmHg
[2024-08-26 07:27] LABS: Troponin-I High Sensitivity 32.6 ng/L (<3.5-17.0)
[2024-08-26 07:46] LABS: ABG Base Excess 5.5 mmol/L; ABG HCO3 40 mmol/L (22-26); ABG pCO2 113 mmHg (32-45); ABG pH 7.15 (7.35-7.45); ABG pO2 114 mmHg (83-108)
[2024-08-26] MEDS: Rocuronium Bromide 50 MG/5 ML VIAL IVPUSH (07:54)
[2024-08-26] MEDS: Etomidate 20 MG/10 ML VIAL 10 MG IVPUSH (07:54)
--- NOTE | 2024-08-26 07:55 | PC.NURSE ---
7.5 ETT 23 at lip intubated by provider
[2024-08-26] MEDS: propofoL 1,000 MG/100 ML VIAL 22.13 MG IVCONT (07:58)
[2024-08-26] MEDS: fentaNYL citrate/NS 1,000 MCG/100 ML PLAST..BAG 2.5 MCG IVCONT (07:59)
--- NOTE | 2024-08-26 08:02 | PC.NURSE ---
vent settings: RR 24 TV 400 50%
--- NOTE | 2024-08-26 08:27 | PC.NURSE ---
This RN resumed care of patient at 0700, pt remains none arousalable for staff members, repeat VBG/Trop collected at 7am, ABG then collected. Resp/Md Torrez made the decision to intubate patient. See MAR for medication administration. Pt then relocated in ED and care resumed by another RN.
[2024-08-26] MEDS: Enoxaparin Sodium 40 MG/0.4 ML SYRINGE SUBCUT (08:56)
[2024-08-26] MEDS: Pantoprazole Sodium 40 MG/10 ML VIAL IVPUSH (08:56)
--- NOTE | 2024-08-26 09:01 | PC.NURSE ---
Pt noted to have some restlessness, bucking. Airway suctioned and meds titrated per MAR
--- NOTE | 2024-08-26 09:06 | PC.NURSE ---
Goal SPO2 per RT is 88-92%
--- NOTE | 2024-08-26 09:32 | PHA.MEDREC ---
Pharmacy Consult ? Medication Reconciliation Pharmacy has completed the medication reconciliation. Pt intubated. Spoke to family which did not know medications and was advised to contact Tammy. [facility] is closed today so went off of claim history from [facility] to confirm meds.
[2024-08-26 10:03] LABS: Phosphorus 3.4 mg/dL (2.7-4.5)
[2024-08-26 10:04] LABS: ABG Base Excess 6.8 mmol/L; ABG HCO3 33 mmol/L (22-26); ABG pCO2 54 mmHg (32-45); ABG pH 7.39 (7.35-7.45); ABG pO2 74 mmHg (83-108)
[2024-08-26 10:13] LABS: Influenza A PCR NEGATIVE (Negative); Influenza B PCR NEGATIVE (Negative); Resp Syncy Virus RNA Qual PCR NEGATIVE (Negative); SARS COV2 PCR INHOUSE NEGATIVE (Negative)
[2024-08-26] MEDS: propofoL 1,000 MG/100 ML VIAL 36.88 MG IVCONT ×4 (10:49→20:44)
[2024-08-26 13:04] LABS: ABG Refer to POC result
[2024-08-26 13:04] LABS: ABG Refer to POC result
--- NOTE | 2024-08-26 13:47 | MHC.CM.PN ---
IMM 08/26. Pt currently intubated, this CM requested a HCP copy from [facility], now on file. HCP is pts granddaughter Gwen at [phone]. This CM placed call to Gwen to complete CM intake assessment and address the IMM. Per Gwen, the pt resides at [facility], she has a walker, and home O2 & CPAP, Gwen unsure of the O2 supplier. Per Gwen, the pt has been at the [facility] for about a year and has been having difficulty taking care of herself there. Prior to living there, she lives with Gwen who was her MOTOR MAN for 7 years. Once medically ready, pt would benefit from a PT eval to assist with discharge disposition, she will likely need STR. PCP: Dr. Manju Najera
[2024-08-26 16:16] LABS: Anion Gap 12 (12-20); Blood Urea Nitrogen 33 mg/dL (9-16); Calcium 8.7 mg/dL (8.4-10.2); Carbon Dioxide 31 mmol/L (22-29); Chloride 101 mmol/L (96-108); Creatinine Clr Calc Pharmacy 53.6; Estimated Glomerular Filt Rate 48; Glucose Random 138 mg/dL (60-115); Potassium 5.1 mmol/L (3.3-5.1); Sodium 139 mmol/L (135-145)
--- NOTE | 2024-08-26 17:49 | PM.CCHP ---
History of Present Illness Date of Service: 08/26/24 Chief Complaint: Shortness of breaths 74-year-old lady with past medical history of COPD on chronic 2 L to 3 L nasal cannula, HTN, HLP, obesity, DVT presented to the ED with altered mental status secondary to hypercarbic respiratory failure. She was placed on BiPAP support without much improvement in her respiratory acidosis so was intubated and placed on ventilator support and MICU was consulted for admission Review of Systems Review of Systems: Unable to obtain as patient is sedated on the [facility] Social History Social History Household Members: Other Housing: Assisted Living Facility Do you presently have visiting nurse or other home services: Yes Patient Tobacco Use Status: Never used Tobacco Smoked in Last 30 Days: No Use of substances other than those prescribed or required for medical reasons: Yes Substance Use Type: Marijuana Substance Use Frequency: Socially Currently Displaying Signs/Symptoms of Drug Intoxication Withdrawal: No Advance Directives: No Advance Directives Information Provided: Yes Do you have a plan to hurt others: No Plan Recently lost weight without trying: No Patient : No : No service: No Meds Allergies Allergy/AdvReac Type Severity Reaction Status Date / Time No Known Allergies Allergy Verified 08/26/24 03:32 Active Medications: Current Medications Enoxaparin Sodium (Enoxaparin Sodium 40 Mg/0.4 Ml Syringe) 40 mg SUBCUT Q24H CATRACHO Last Admin: 08/26/24 08:56 Dose: 40 mg Propofol (Diprivan) 1,000 mg in 100 mls @ 0 mls/hr IVCONT .Q0M REPLACED BY [facility]; Protocol Last Admin: 08/26/24 17:23 Dose: 50 mcg/kg/min, 36.88 mls/hr Fentanyl (Sublimaze/Ns) 1,000 mcg in 100 mls @ 0 mls/hr IVCONT .Q0M [facility]RACHO; Protocol Last Titration: 08/26/24 09:33 Dose: 75 mcg/hr, 7.5 mls/hr Fentanyl (Sublimaze/Ns) 1,000 mcg in 100 mls @ 5 mls/hr IVCONT .Q20H REPLACED BY [facility]; Protocol Last Admin: 08/26/24 10:31 Dose: Not Given Propofol (Diprivan) 1,000 mg in 100 mls @ 0 mls/hr IVCONT .Q0M REPLACED BY [facility]; Protocol Naloxone HCl (Naloxone Hcl 0.4 Mg/Ml Vial) 0.2 mg IVPUSH Q2M PRN PRN Reason: Excessive sedation or RR < 8 Naloxone HCl (Naloxone Hcl 0.4 Mg/Ml Vial) 0.2 mg IVPUSH Q2M PRN PRN Reason: Excessive sedation or RR < 8 Pantoprazole Sodium (Pantoprazole Sodium 40 Mg/10 Ml Vial) 40 mg IVPUSH DAILY@0630 REPLACED BY [facility] Last Admin: 08/26/24 08:56 Dose: 40 mg Home Medications ?Medication ?Instructions ?Recorded ?Confirmed ?Last Taken ?Type alendronate 70 mg tablet 70 mg PO MO@0905/05/24 08/26/24 04/30/24 History apixaban 2.5 mg tablet (Eliquis) 2.5 mg PO BID 05/05/24 08/26/24 05/05/24 History ascorbic acid (vitamin C) 500 mg 500 mg PO DAILY@119905/05/24 08/26/24 05/04/24 History chewable tablet (Vitamin C) carboxymethylcellulose sodium 0.5 1 drp ophthalmic (eye) QID PRN Dry 05/05/24 08/26/24 Unknown History % eye drops Eyes celecoxib 200 mg capsule 200 mg PO DAILY 05/05/24 08/26/24 Unknown History cholecalciferol (vitamin D3) 50 50 mcg PO DAILY@119905/05/24 08/26/24 05/04/24 History mcg (2,000 unit) tablet cyanocobalamin (vitamin B-12) 1,000 mcg PO DAILY@119905/05/24 08/26/24 05/04/24 History 1,000 mcg tablet fluticasone fur. 100 mcg-umeclid 1 ea inhalation DAILY 05/05/24 08/26/24 05/05/24 History 62.5 mcg-vilant 25 mcg inhalat.powder (Trelegy Ellipta) losartan 50 mg tablet 50 mg PO DAILY 05/05/24 08/26/24 05/05/24 History mirabegron 50 mg tablet,extended 50 mg PO DAILY 05/05/24 08/26/24 05/05/24 History release 24 hr (Myrbetriq) multivitamin with folic acid 400 1 tab PO DAILY@1200 05/05/24 08/26/24 05/04/24 History mcg tablet (High Potency Multivitamin) paroxetine HCl 30 mg tablet 60 mg PO DAILY 05/05/24 08/26/24 Unknown History tolterodine 4 mg capsule,extended 4 mg PO DAILY 05/05/24 08/26/24 05/05/24 History release 24 hr vit C 250 mg-vit E 90 mg-zinc 40 1 cap PO DAILY@1200 05/05/24 08/26/24 05/04/24 History mg-copper 1 [id number] capsule (PreserVision AREDS-2) hydroxyzine HCl 10 mg tablet 10 mg PO TID PRN Itching 08/26/24 08/26/24 Unknown History melatonin 5 mg tablet 5 mg PO BEDTIME 08/26/24 08/26/24 Unknown History trazodone 100 mg tablet 200 mg PO BEDTIME 08/26/24 08/26/24 Unknown History Physical Exam Vital Signs: Vital Signs: Last Vital Signs Temp 98.4 F 08/26/24 17:22 Pulse 51 08/26/24 17:22 Resp 24 H 08/26/24 17:22 BP 107/48 L 08/26/24 17:22 Pulse Ox 93 08/26/24 17:22 O2 Del Method Mechanical Ventil ation 08/26/24 17:22 O2 Flow Rate 40 08/26/24 06:12 FiO2 80 08/26/24 17:22 BMI result Body Mass Index 52.9 General: Elderly obese lady in acute distress, ill appearing and tired appearing Nutritional Appearance: well nourished and overweight Eyes: appearance normal, both eyes and all related structures; Alignment and Position: alignment normal and position normal Neck: No lymphadenopathy, no thyromegaly Resp: bilateral air entry equal, very distant breath sounds present Cardio: Regular rate, regular rhythm; Heart sounds: S1 normal heart sound present and S2 normal heart sound present GI: soft, nontender, no guarding, no hepatosplenomegaly : bladder normal to inspection, bladder normal to palpation, no renal angle tenderness Skin: no rashes or lesions noted and elasticity normal Neuro: Sedated, no focal deficit, moves all extremities Results Labs 08/26/24 03:25 08/26/24 15:40 Labs: Laboratory Results - last 24 hr 08/26/24 08/26/2408/26/25 03:25 03:38 04:24 MCV 97.2 MCH 28.2 MCHC 29.0 L RDW 16.5 H Plt Count 181 MPV 10.4 Immature Gran % (Auto) 1.9 H Neut % (Auto) 83.5 H Lymph % (Auto) 6.4 L [place] % (Auto) 7.4 Eos % (Auto) 0.4 Baso % (Auto) 0.4 Lymph # (Auto) 0.8 L [place] # (Auto) 1.0 Eos # (Auto) 0.1 Baso # (Auto) 0.1 Abs Immat Gran (auto) 0.24 H Absolute Neuts (auto) 10.8 H Absolute Nucleated RBC 0.030 H Nucleated RBC % (auto) 0.2 Hold Purple Top SEE NOTE PT 16.2 H INR 1.4 H D-Dimer High Sensitivty 307 O2 Saturation ABG pH at Pt Temp ABG pCO2 at Pt Temp ABG pO2 at Pt Temp ABG HCO3 ABG Base Excess (Actual) VBG pH 7.28 L VBG pCO2 68 VBG pO2 49 VBG HCO3 32 H VBG O2 Saturation 70.0 VBG Base Excess 3.4 Anion Gap 12 Estim Creat Clear Calc 42.8 Estimated GFR 37 Random Glucose 123 H Lactic Acid 1.8 Calcium 9.5 D Phosphorus Magnesium 1.9 B-Natriuretic Peptide 471 H Urine Color Urine Appearance Urine pH Ur Specific [place] Urine Protein Urine Glucose (UA) Urine Ketones Urine Blood Urine Nitrite Ur Leukocyte Esterase Urine RBC Urine WBC Ur Squamous Epith Cells Urine Bacteria Hyaline Casts Influenza Type A (PCR) Influenza Type B (PCR) RSV RNA Qual (PCR) SARS-CoV-2 RNA (RT-PCR) 08/26/24 08/26/24 08/26/24 05:30 05:49 07:10 MCV MCH MCHC RDW Plt Count MPV Immature Gran % (Auto) Neut % (Auto) Lymph % (Auto) [place] % (Auto) Eos % (Auto) Baso % (Auto) Lymph # (Auto) [place] # (Auto) Eos # (Auto) Baso # (Auto) Abs Immat Gran (auto) Absolute Neuts (auto) Absolute Nucleated RBC Nucleated RBC % (auto) Hold Purple Top PT INR D-Dimer High Sensitivty O2 Saturation ABG pH at Pt Temp ABG pCO2 at Pt Temp ABG pO2 at Pt Temp ABG HCO3 ABG Base Excess (Actual) VBG pH 7.44 H 7.22 L VBG pCO2 84 65 VBG pO2 35 190 VBG HCO3 57 H 27 H VBG O2 Saturation 52.0 100.0 VBG Base Excess 26.9 -2.1 Anion Gap Estim Creat Clear Calc Estimated GFR Random Glucose Lactic Acid Calcium Phosphorus Magnesium B-Natriuretic Peptide Urine Color Dark Yellow Urine Appearance Cloudy Urine pH 5.5 Ur Specific [place] 1.015 Urine Protein 100 (2+) H Urine Glucose (UA) Negative Urine Ketones Trace Urine Blood Moderate (2+) H Urine Nitrite Negative Ur Leukocyte Esterase Large (3+) H Urine RBC 0-2 Urine WBC >50 H Ur Squamous Epith Cells 3-5 Urine Bacteria 1+ Hyaline Casts 0-2 Influenza Type A (PCR) Influenza Type B (PCR) RSV RNA Qual (PCR) SARS-CoV-2 RNA (RT-PCR) 08/26/24 08/26/24 08/26/24 07:43 09:32 09:41 MCV MCH MCHC RDW Plt Count MPV Immature Gran % (Auto) Neut % (Auto) Lymph % (Auto) [place] % (Auto) Eos % (Auto) Baso % (Auto) Lymph # (Auto) [place] # (Auto) Eos # (Auto) Baso # (Auto) Abs Immat Gran (auto) Absolute Neuts (auto) Absolute Nucleated RBC Nucleated RBC % (auto) Hold Purple Top SEE NOTE PT INR D-Dimer High Sensitivty O2 Saturation 97.0 ABG pH at Pt Temp 7.15 L* ABG pCO2 at Pt Temp 113 H* ABG pO2 at Pt Temp 114 H ABG HCO3 40 H ABG Base Excess (Actual) 5.5 VBG pH VBG pCO2 VBG pO2 VBG HCO3 VBG O2 Saturation VBG Base Excess Anion Gap Estim Creat Clear Calc Estimated GFR Random Glucose Lactic Acid Calcium Phosphorus 3.4 Magnesium B-Natriuretic Peptide Urine Color Urine Appearance Urine pH Ur Specific [place] Urine Protein Urine Glucose (UA) Urine Ketones Urine Blood Urine Nitrite Ur Leukocyte Esterase Urine RBC Urine WBC Ur Squamous Epith Cells Urine Bacteria Hyaline Casts Influenza Type A (PCR) NEGATIVE Influenza Type B (PCR) NEGATIVE RSV RNA Qual (PCR) NEGATIVE SARS-CoV-2 RNA (RT-PCR) NEGATIVE 08/26/24 08/26/24 10:01 15:40 MCV MCH MCHC RDW Plt Count MPV Immature Gran % (Auto) Neut % (Auto) Lymph % (Auto) [place] % (Auto) Eos % (Auto) Baso % (Auto) Lymph # (Auto) [place] # (Auto) Eos # (Auto) Baso # (Auto) Abs Immat Gran (auto) Absolute Neuts (auto) Absolute Nucleated RBC Nucleated RBC % (auto) Hold Purple Top PT INR D-Dimer High Sensitivty O2 Saturation 94.0 ABG pH at Pt Temp 7.39 ABG pCO2 at Pt Temp 54 H ABG pO2 at Pt Temp 74 L ABG HCO3 33 H ABG Base Excess (Actual) 6.8 VBG pH VBG pCO2 VBG pO2 VBG HCO3 VBG O2 Saturation VBG Base Excess Anion Gap 12 Estim Creat Clear Calc 53.6 Estimated GFR 48 Random Glucose 138 H Lactic Acid Calcium 8.7 D Phosphorus Magnesium B-Natriuretic Peptide Urine Color Urine Appearance Urine pH Ur Specific [place] Urine Protein Urine Glucose (UA) Urine Ketones Urine Blood Urine Nitrite Ur Leukocyte Esterase Urine RBC Urine WBC Ur Squamous Epith Cells Urine Bacteria Hyaline Casts Influenza Type A (PCR) Influenza Type B (PCR) RSV RNA Qual (PCR) SARS-CoV-2 RNA (RT-PCR) Assessment and Plan (1) Hypertension: Qualifiers: Hypertension type: primary hypertension Qualified Code(s): I10 - Essential (primary) hypertension Status: Acute (2) History of DVT (deep vein thrombosis): Status: Acute (3) Acute exacerbation of COPD with asthma: Status: Acute (4) Acute respiratory failure with hypoxia and hypercapnia: Status: Acute (5) COPD (chronic obstructive pulmonary disease): Qualifiers: COPD type: COPD with acute exacerbation Qualified Code(s): J44.1 - Chronic obstructive pulmonary disease with (acute) exacerbation Status: Acute Plan Neuro: Acute encephalopathy possibly due to metabolic encephalopathy On propofol for sedation, as needed fentanyl for analgesia Close neurological status monitoring in the ICU every hour Cardiac: Blood pressure stable Respiratory: Acute hypoxemic respiratory failure due to COPD exacerbation Currently on ventilator support On PRVC mode FiO2 60%, PEEP 10, TV 350, RR 20 Peak pressures and plateau pressures are under the curve Ventilator management bundle with head end elevation, aspiration precaution, chlorhexidine mouthwash, daily awakening trials, daily spontaneous breathing trials GI: We will start on tube feeds Renal: Acute kidney injury possibly secondary to ATN Baseline creatinine normal, creatinine today is We will closely monitor I's and O's Avoid nephrotoxic medications Heme: Chronic anemia, closely monitor H&H, transfuse for hemoglobin less than 7 grams/deciliter Endocrine: Blood sugars under control Sliding scale insulin as needed Infectious disease: We will send pancultures We will start on empiric ceftriaxone and azithromycin for bilateral unspecified pneumonia Musculoskeletal: Decubitus ulcer prevention protocol Lines: Peripheral Prophylaxis: Lovenox, pantoprazole Total critical care time spent is about 60 minutes on managing this critically ill patient, time is mostly spent on evaluation and admission of the patient to critical care unit, formulating critical care plan management, ventilator management, sedation management, changing ventilator settings, review of labs and images at this time is excluding any procedural time Total time managing care of this patient today: 60 minutes.
[2024-08-26] MEDS: fentaNYL citrate/NS 1,000 MCG/100 ML PLAST..BAG 7.5 MCG IVCONT (19:08)
[2024-08-26] MEDS: Azithromycin 500 MG in 0.9 % Sodium Chloride 250 ML 125 MG IV (19:17)
--- NOTE | 2024-08-26 19:17 | HO.SKINPHOTO ---
Location: right abd fold Location: right breast Location: Left leg Location: Right leg
--- NOTE | 2024-08-26 19:20 | PC.NURSE ---
ICU Day #: 1? Vent Day #:1 The patient arrived at the ICU approx. at 09:30am from ED.? Neuro/Resp: Sedated/intubated in the ED-on? Propofol and fentanyl see AUG. , does not open eyes, does not follow commands, Flaccid extremities. (passive ROM performed) Cardiac: Sinus rhythm -Sinus Lj down to 40?s , +Pulses with doppler.? Dr. Alvarez made aware of above vitals.? GI: unknown LBM, large soft Abdomen, +bowel sounds.? : Tolbert in place, patent and draining. Skin: Impaired skin integrity - see skin assessment (repositioning maintained)? (foam DGS and interdry applied) Temp: afebrile Lines:? Peripheral IVs.
[2024-08-26] MEDS: propofoL 1,000 MG/100 ML VIAL 29.5 MG IVCONT (23:38)
[2024-08-27] VITALS (32 sets, daily range): BP systolic 91–165; BP diastolic 42–75; PULSE 43–69; RESP 15–30; TEMP 34.1–37.7; O2SAT 89–96; BMI 54.2
[2024-08-27] MEDS: propofoL 1,000 MG/100 ML VIAL 29.5 MG IVCONT ×5 (02:55→23:04)
[2024-08-27] MEDS: cefTRIAXone sodium 2 GM VIAL IVPUSH (04:14)
[2024-08-27 04:42] LABS: VBG Base Excess 11.4 mmol/L; VBG HCO3 33 mmol/L (22-26); VBG pCO2 33 mmHg; VBG pO2 59 mmHg
[2024-08-27 04:48] LABS: MANUAL DIFF FLAG NO
[2024-08-27 04:50] LABS: Basophils Percent Auto 0.3 % (0-2); Eosinophils Percent Auto 0.1 % (0-4); Hematocrit 43.8 % (37.0-47.0); Imm Gran Abs Auto 0.08 X10*3/uL (0.00-0.03); Imm Gran Pct Auto 0.7 % (0.0-0.4); Lymphocytes Absolute Auto 0.9 X10*3/uL (1.2-4.9); Lymphocytes Percent Auto 8.1 % (20-40); Mean Corpuscular HGB Conc 29.7 g/dl (31.0-35.0); Mean Corpuscular Hemoglobin 28.2 pg (27.0-33.0); Monocytes Absolute Auto 1.5 X10*3/uL (0.1-1.2); NRBC Pct Auto 0.3 /100WBC (0.0-0.2); Neutrophils Absolute Auto 8.7 x10*3/uL (2.0-8.3); Neutrophils Percent Auto 77.8 % (45-73); Platelet Count 152 X10*3/uL (160-400); Red Blood Count 4.61 X10*6/uL (4.20-5.50); Red Cell Distribution Width 17.2 % (11.0-16.0); White Blood Count 11.2 X10*3/uL (4.8-10.8)
[2024-08-27 04:52] LABS: Venous Blood Gas Refer to POC result
[2024-08-27 05:08] LABS: Anion Gap 15 (12-20); Blood Urea Nitrogen 32 mg/dL (9-16); Calcium 8.6 mg/dL (8.4-10.2); Carbon Dioxide 27 mmol/L (22-29); Chloride 103 mmol/L (96-108); Creatinine Clr Calc Pharmacy 55.2; Estimated Glomerular Filt Rate 50; Glucose Random 112 mg/dL (60-115); Sodium 140 mmol/L (135-145)
[2024-08-27] MEDS: Pantoprazole Sodium 40 MG/10 ML VIAL IVPUSH (05:30)
--- NOTE | 2024-08-27 06:19 | PC.NURSE ---
Upon initial assessment, patient continues to be intubated/sedated. Propofol and fentanyl gtts running per AUG. RASS -3/-4. Grimaces with oral care, no gag, weak cough when suctioned. SB/SR on tele, HR 40s-60s. Non pitting edema to all extremities. Patient continues to be mechanically ventilated, see vent assessment. Lung sounds diminished in the bases. Abdomen large and soft with active bowel sounds x4. No BM but passing flatus. Temp sensing nickerson in place, draining yellow urine with some sediment. Skin warm and notable redness diffusely to right side. Fungal areas to abdominal folds and right breast with interdry. Coccyx red but blanchable, pink foam in place for protection. Patches of ? psoriasis to entire body. Bed locked in lowest position, bed alarm on, repositioned Q2HR.?
[2024-08-27] MEDS: Enoxaparin Sodium 40 MG/0.4 ML SYRINGE SUBCUT (08:15)
[2024-08-27] MEDS: propofoL 1,000 MG/100 ML VIAL 22.13 MG IVCONT ×2 (09:20→13:52)
--- NOTE | 2024-08-27 09:50 | P.PNCC_ITS ---
Subjective Subjective Date of Service: 08/27/24 Critical Care Time (minutes): 60 Physical Exam 2 Vital Signs: Vital Signs: Last Vital Signs Temp 99.0 F 08/27/24 09:00 Pulse 60 08/27/24 09:00 Resp 18 08/27/24 09:00 BP 165/75 H 08/27/24 09:00 Pulse Ox 94 08/27/24 09:00 O2 Del Method Mechanical Ventil ation 08/27/24 09:00 O2 Flow Rate 40 08/26/24 06:12 FiO2 60 08/27/24 09:00 BMI result Body Mass Index 54.2 Const: Other: intubated; appreciable tonic-clonic movements bilateral upper extremities, though opens and closes eyes spontaneous and appears to respond to verbal stimulus General: no acute distress and well developed HEENT: Head: Yes normal to inspection, Yes normocephalic and Yes atraumatic Eyes: General: appearance normal, both eyes and all related structures Neck: Neck: Yes normal visual inspection, Yes full ROM, Yes no meningeal signs, Yes trachea midline and Yes supple Chest: Chest palpation & inspection: normal inspection of the chest Resp: Other: some appreciable rhonchi; no appreciable overt rales, wheezing Effort & Inspection: normal respiratory effort Cardio: Rate: bradycardic Rhythm: regular rhythm GI: Inspection: Yes normal to inspection, No Abdominal wall edema and No distended Palpation (GI): Soft to palpation, not firm, nontender, no guarding and not rigid Skin: General skin exam: no rashes or lesions noted Neuro: Other: as described above General: tone normal, moves all extremities and no meningeal signs Extrem: Other: appreciable 2+ pitting edema to bilateral shins General: Yes normal to inspection, Yes full ROM and Yes capillary refill normal Psych: Other: unable to assess Objective Data Labs 08/27/24 04:28 08/27/24 04:28 Labs: Laboratory Results - last 24 hr 08/26/24 08/26/24 08/26/24 09:32 09:41 10:01 WBC RBC Hgb Hct MCV MCH MCHC RDW Plt Count MPV Immature Gran % (Auto) Neut % (Auto) Lymph % (Auto) [place] % (Auto) Eos % (Auto) Baso % (Auto) Lymph # (Auto) [place] # (Auto) Eos # (Auto) Baso # (Auto) Abs Immat Gran (auto) Absolute Neuts (auto) Absolute Nucleated RBC Nucleated RBC % (auto) O2 Saturation 94.0 ABG pH at Pt Temp 7.39 ABG pCO2 at Pt Temp 54 H ABG pO2 at Pt Temp 74 L ABG HCO3 33 H ABG Base Excess (Actual) 6.8 VBG pH VBG pCO2 VBG pO2 VBG HCO3 VBG O2 Saturation VBG Base Excess Sodium Potassium Chloride Carbon Dioxide Anion Gap BUN Creatinine Estim Creat Clear Calc Estimated GFR Random Glucose Calcium Phosphorus 3.4 Magnesium Influenza Type A (PCR) NEGATIVE Influenza Type B (PCR) NEGATIVE RSV RNA Qual (PCR) NEGATIVE SARS-CoV-2 RNA (RT-PCR) NEGATIVE 08/26/24 08/27/24 08/27/24 15:40 04:28 04:37 WBC 11.2 H RBC 4.61 Hgb 13.0 Hct 43.8 MCV 95.0 MCH 28.2 MCHC 29.7 L RDW 17.2 H Plt Count 152 L MPV 11.0 Immature Gran % (Auto) 0.7 H Neut % (Auto) 77.8 H Lymph % (Auto) 8.1 L [place] % (Auto) 13.0 H Eos % (Auto) 0.1 Baso % (Auto) 0.3 Lymph # (Auto) 0.9 L [place] # (Auto) 1.5 H Eos # (Auto) 0.0 Baso # (Auto) 0.0 Abs Immat Gran (auto) 0.08 H Absolute Neuts (auto) 8.7 H Absolute Nucleated RBC 0.030 H Nucleated RBC % (auto) 0.3 H O2 Saturation ABG pH at Pt Temp ABG pCO2 at Pt Temp ABG pO2 at Pt Temp ABG HCO3 ABG Base Excess (Actual) VBG pH 7.60 H* VBG pCO2 33 VBG pO2 59 VBG HCO3 33 H VBG O2 Saturation 90.0 VBG Base Excess 11.4 Sodium 139 140 Potassium 5.1 5.0 Chloride 101 103 Carbon Dioxide 31 H 27 Anion Gap 12 15 BUN 33 H 32 H Creatinine 1.11 1.08 Estim Creat Clear Calc 53.6 55.2 Estimated GFR 48 50 Random Glucose 138 H 112 Calcium 8.7 D 8.6 Phosphorus Magnesium 2.0 Influenza Type A (PCR) Influenza Type B (PCR) RSV RNA Qual (PCR) SARS-CoV-2 RNA (RT-PCR) Microbiology Microbiology Results: Microbiology 08/26/24 04:24 Blood - Venous Blood Culture - Preliminary No growth after 24 hours. 08/26/24 04:24 Blood - Venous Blood Culture - Preliminary No growth after 24 hours. Progress Note: A&P Assessment and plan (1) Acute hypercapnic respiratory failure: Status: Acute (2) COPD (chronic obstructive pulmonary disease): Status: Acute Plan Patient is a 74 Y F w/ hypertension, hyperlipidemia, COPD on 2-3L NC, morbid obesity c/b FAITH on CPAP PM, and prior DVT on apixaban, presenting initially to emergency department on 08/26 w/ dyspnea, found to be encephalopathic w/ acute on chronic hypercarbic respiratory failure, intubated N: encephalopathy, likely toxic-metabolic CV: no acute issues R: acute on chronic hypercarbic respiratory failure, intubated 08/26, wean as tolerated; COPD, FAITH GI: tube feeds : no acute issues; to closely monitor renal indices, electrolytes H: no acute issues; prior DVT, enoxaparin; apixaban when possible ID: empiric ceftriaxone/azithryomcyin in setting of possible COPD exacerbation E: to monitor hypo-/hyper-glycemia P: no acute issues Quality Stroke Does the patient have a stroke diagnosis?: No VTE Prior VTE?: No VTE Risk Level:: Medical - moderate - high VTE Device Contraindication: N/A - Device Ordered VTE Drug Contraindication: N/A - Med Ordered
--- NOTE | 2024-08-27 10:13 | MHC.CLN ---
PT IS INTUBATED AND SEDATED CURRENTLY NPO IF TF NEEDED; RECOMMEND PROMOTE AT MAX GOAL RATE 20ML/HR TO PROVIDE 480KCALS (1064KCALS WITH SEDATION; 23KCALS/KG), 30G PROTEIN, 403ML FREE WATER FROM FORMULA MONITOR TOLERANCE AND LYTES SEE FULL CLINICAL NUTRITION ASSESSMENT
[2024-08-27] MEDS: iohexoL 350 MG/ML 100 ML INFUS..BTL IV (12:20)
--- NOTE | 2024-08-27 13:34 | MHC.CM.PN ---
Pt intubated in ICU: pt should start weaning trials on 08/28. Pt from [facility] assisted living with home O2 - will need transportation. CM to follow
[2024-08-27 14:05] LABS: Glucose, Whole Blood 86 mg/dL (60-115)
[2024-08-27] MEDS: Albuterol/Iprat 2.5/0.5MG 3 ML AMPUL.NEB INHALE ×3 (15:18→20:14)
[2024-08-27] MEDS: methylPREDNISolone Sod Succ 40 MG/ML VIAL 60 MG IVPUSH (15:39)
[2024-08-27] MEDS: fentaNYL citrate/NS 1,000 MCG/100 ML PLAST..BAG 2.5 MCG IVCONT (15:42)
--- NOTE | 2024-08-27 16:38 | HO.WOUND ---
Wound Consult: Initial 74yr old?female admitted to [facility] on 08/26/24 - See progress notes and H&P for detailed history.? Wound consult placed for Abdominal and Right breast skin folds .? Patient intubated and sedated. TT to provider to order antifungal treatment. Abdominal and breast skin folds Etiology:Fungal dermatitis and MASD Wound Bed: red pink mirrored intact tissue - macular papular rash with advancing borders Drainage / Odor: None noted Edges: ? mirrored and advancing Megan wound: ?intact No Induration, Fluctuance or Warmth noted Goals of Treatment: ? Interdry attempted but poor results with in 24 hrs switched to Triad by direct care team - asked provider to order Nystatin powder for moisture management and to treat fungal spores. Recommendations: 1. Turn and Reposition every 2 hours and as needed for patient comfort.? Use pillows or wedges to support off loading positions. 2. Off Load all bony prominences with use of pillows and heel boots if needed.? Apply Preventative foams where needed. ? 3. Monitor for incontinence and moisture control, use barrier creams when needed for prevention and treatment. 4. Provide adequate and supplemental nutrition.? 5. Continue low air loss mattress - ISO Tour in use. 6. When applicable maintain blood glucose levels per Providers order. 7. Abdominal and breast skin folds - Cleanse with PH balance wipes, pat dry with soft cloth.? Apply antifungal power to assist with moisture management.? Be sure to dust of excess powder to prevent caking on skin and in folds. Apply per provider orders. Once in use may use interdry. Tuck Interdry AG Sheet into skin fold to wick and translocate moisture away from skin fold.? Be sure to leave at least 2 inch of fabric exposed outside of skin fold.? Change after 5 days or when soiled. Re-consult wound care Nurse for wound deterioration or wound changes.
[2024-08-27] MEDS: Azithromycin 500 MG in 0.9 % Sodium Chloride 250 ML 125 MG IV (18:36)
--- NOTE | 2024-08-27 18:59 | PC.NURSE ---
ICU Day #: 2? Vent Day #:2 Neuro/Resp: Continues sedated/intubated. On Propofol and fentanyl per AUG. , does not open eyes, does not follow commands,? grimaces with care, Flaccid extremities. (passive ROM performed) Cardiac: Sinus Lj down to 40?s.? Dr. Barnes? made aware of the above vitals.? GI: unknown LBM, soft Abdomen, +bowel sounds,? NPO,? POC q6hrs.? : Tolbert in place, patent and draining. Skin: Impaired skin integrity - see skin assessment (repositioning maintained)? (foam DGS and interdry applied) Infectious:? on ceftriaxone + azithromycin. Lines:? Peripheral IVs. Events:? Approx @ 8:30? Propofol gtt turn off. Pt continued on fent gtt. per AUG.? Approx @0915 pt noted to have some tonic clonic movements with spontaneous eye blinking, Dr. Barnes at bedside. Popofol gtt restarted. Upon reassessment the movement ceased.? Chest CTA performed to rule out PE. Approx. 1700 patients desating to 87-89%, ventilator setting adjusted, pt lavaged x2, Duoneb given per AUG. RT at bedside, Dr. Barnes made aware.?
[2024-08-27] MEDS: Chlorhexidine Gluc Oral Rinse 15 ML MOUTHWASH BUCCAL (20:39)
[2024-08-27] MEDS: Nystatin Powder 15 GM BOTTLE 1 APPL TOPICAL (20:39)
[2024-08-27 23:56] LABS: Glucose, Whole Blood 146 mg/dL (60-115)
[2024-08-28] VITALS (37 sets, daily range): BP systolic 97–149; BP diastolic 40–84; PULSE 49–78; RESP 16–25; TEMP 34.6–37.7; O2SAT 18–100; BMI 53.2
[2024-08-28] MEDS: propofoL 1,000 MG/100 ML VIAL 29.5 MG IVCONT ×3 (02:30→09:45)
[2024-08-28] MEDS: cefTRIAXone sodium 2 GM VIAL IVPUSH (04:50)
--- NOTE | 2024-08-28 05:11 | PC.NURSE ---
Patient remains intubated/sedated. Propofol and fentanyl gtts running per AUG. RASS -2/-3. Patient able to emerge more easily from sedation, grimacing to oral care, and brief eye opening to repeated verbal stimuli. Does not track speaker or follow commands. Very weak movement in all extremities, nothing purposeful. SB/SR on tele, HR 50s-60s. Patient continues on mechanical ventilation, see vent assessment. Lung sounds clear, diminished in the bases. Abdomen large and soft, active bowel sounds x4. No BM, put patient passing flatus with turning. Tolbert catheter in place, draining clear yellow urine. UOP 40-70mL/hr. Skin warm with fungal rash to right breast and right abdominal folds. Nystatin powder applied to folds per AUG. Coccyx red but blanchable, foam dressing in place. Patient repositioned Q2HR, bed locked in lowest position, bed alarm on.
[2024-08-28 05:37] LABS: VBG Base Excess 7.8 mmol/L; VBG HCO3 31 mmol/L (22-26); VBG pCO2 39 mmHg; VBG pO2 89 mmHg
[2024-08-28 05:41] LABS: Glucose, Whole Blood 106 mg/dL (60-115)
[2024-08-28] MEDS: Pantoprazole Sodium 40 MG/10 ML VIAL IVPUSH (05:41)
[2024-08-28 06:09] LABS: MANUAL DIFF FLAG NO
[2024-08-28 06:11] LABS: Basophils Percent Auto 0.3 % (0-2); Hematocrit 45.7 % (37.0-47.0); Hemoglobin 13.6 g/dl (12.0-16.0); Imm Gran Abs Auto 0.06 X10*3/uL (0.00-0.03); Imm Gran Pct Auto 0.5 % (0.0-0.4); Lymphocytes Absolute Auto 0.7 X10*3/uL (1.2-4.9); Lymphocytes Percent Auto 5.5 % (20-40); Mean Corpuscular HGB Conc 29.8 g/dl (31.0-35.0); Mean Corpuscular Hemoglobin 28.3 pg (27.0-33.0); Mean Platelet Volume 10.4 fL (9.4-12.3); Neutrophils Absolute Auto 10.2 x10*3/uL (2.0-8.3); Neutrophils Percent Auto 85.7 % (45-73); Platelet Count 166 X10*3/uL (160-400); Red Blood Count 4.81 X10*6/uL (4.20-5.50); Red Cell Distribution Width 17.5 % (11.0-16.0); White Blood Count 11.9 X10*3/uL (4.8-10.8)
[2024-08-28 06:25] LABS: Albumin Level 2.9 g/dL (3.5-5.0); Anion Gap 12 (12-20); Blood Urea Nitrogen 28 mg/dL (9-16); Calcium 8.3 mg/dL (8.4-10.2); Carbon Dioxide 30 mmol/L (22-29); Chloride 104 mmol/L (96-108); Creatinine Clr Calc Pharmacy 64.3; Estimated Glomerular Filt Rate 59; Glucose Random 95 mg/dL (60-115); Magnesium 2.2 mg/dL (1.6-2.6); Phosphorus 3.3 mg/dL (2.7-4.5); Potassium 4.6 mmol/L (3.3-5.1); Sodium 141 mmol/L (135-145)
[2024-08-28 06:25] LABS: Venous Blood Gas Refer to POC result
[2024-08-28] MEDS: Chlorhexidine Gluc Oral Rinse 15 ML MOUTHWASH BUCCAL ×2 (07:43→21:45)
[2024-08-28] MEDS: Enoxaparin Sodium 40 MG/0.4 ML SYRINGE SUBCUT (07:43)
[2024-08-28] MEDS: Nystatin Powder 15 GM BOTTLE 1 APPL TOPICAL ×2 (07:47→21:43)
[2024-08-28] MEDS: Albuterol/Iprat 2.5/0.5MG 3 ML AMPUL.NEB INHALE ×4 (08:13→20:16)
--- NOTE | 2024-08-28 08:39 | PM.CCPN ---
Subjective Subjective Date of Service: 08/28/24 Interval History: no significant overnight events Critical Care Time (minutes): 60 Physical Exam Vital Signs: Vital Signs: Last Vital Signs Temp 99.3 F 08/28/24 08:00 Pulse 64 08/28/24 08:12 Resp 18 08/28/24 08:12 BP 110/53 L 08/28/24 08:00 Pulse Ox 94 08/28/24 08:00 O2 Del Method Mechanical Ventil ation 08/28/24 08:00 O2 Flow Rate 40 08/26/24 06:12 FiO2 60 08/28/24 08:07 BMI result Body Mass Index 53.2 Const: Other: intubated, sedated, no appreciable spontaneous movements; appreciable morbid obesity General: no acute distress HEENT: Head: Yes normal to inspection, Yes normocephalic and Yes atraumatic Eyes: General: appearance normal, both eyes and all related structures Neck: Neck: Yes normal visual inspection, Yes full ROM, Yes no meningeal signs, Yes trachea midline and Yes supple Chest: Chest palpation & inspection: normal inspection of the chest Resp: Other: diminished breath sounds throughout; no appreciable overt rales, rhonchi, wheezing Effort & Inspection: normal respiratory effort Cardio: Rate: bradycardic Rhythm: regular rhythm GI: Inspection: Yes normal to inspection, No Abdominal wall edema and No distended Palpation (GI): Soft to palpation, not firm, nontender, no guarding and not rigid Skin: General skin exam: no rashes or lesions noted Neuro: General: tone normal and no meningeal signs Extrem: Other: appreciable 2+ pitting edema to bilateral shins General: Yes normal to inspection, Yes full ROM and Yes capillary refill normal Psych: Other: unable to assess Objective Data Labs 08/28/24 05:31 08/28/24 05:31 Labs: Laboratory Results - last 24 hr 08/27/24 08/27/24 08/28/24 13:59 23:50 05:31 WBC 11.9 H RBC 4.81 Hgb 13.6 Hct 45.7 MCV 95.0 MCH 28.3 MCHC 29.8 L RDW 17.5 H Plt Count 166 MPV 10.4 Immature Gran % (Auto) 0.5 H Neut % (Auto) 85.7 H Lymph % (Auto) 5.5 L [place] % (Auto) 8.0 Eos % (Auto) 0.0 Baso % (Auto) 0.3 Lymph # (Auto) 0.7 L [place] # (Auto) 1.0 Eos # (Auto) 0.0 Baso # (Auto) 0.0 Abs Immat Gran (auto) 0.06 H Absolute Neuts (auto) 10.2 H Absolute Nucleated RBC 0.000 Nucleated RBC % (auto) 0.0 VBG pH VBG pCO2 VBG pO2 VBG HCO3 VBG O2 Saturation VBG Base Excess Sodium 141 Potassium 4.6 Chloride 104 Carbon Dioxide 30 H Anion Gap 12 BUN 28 H Creatinine 0.93 Estim Creat Clear Calc 64.3 Estimated GFR 59 POC Glucose 86 146 H Random Glucose 95 Calcium 8.3 L Phosphorus 3.3 Magnesium 2.2 Albumin 2.9 L 08/28/24 08/28/24 05:33 05:34 WBC RBC Hgb Hct MCV MCH MCHC RDW Plt Count MPV Immature Gran % (Auto) Neut % (Auto) Lymph % (Auto) [place] % (Auto) Eos % (Auto) Baso % (Auto) Lymph # (Auto) [place] # (Auto) Eos # (Auto) Baso # (Auto) Abs Immat Gran (auto) Absolute Neuts (auto) Absolute Nucleated RBC Nucleated RBC % (auto) VBG pH 7.50 H VBG pCO2 39 VBG pO2 89 VBG HCO3 31 H VBG O2 Saturation 99.0 VBG Base Excess 7.8 Sodium Potassium Chloride Carbon Dioxide Anion Gap BUN Creatinine Estim Creat Clear Calc Estimated GFR POC Glucose 106 Random Glucose Calcium Phosphorus Magnesium Albumin Microbiology Microbiology Results: Microbiology 08/26/24 04:24 Blood - Venous Blood Culture - Preliminary No growth after 48 hours. 08/26/24 04:24 Blood - Venous Blood Culture - Preliminary No growth after 48 hours. 08/26/24 Unknown Urine clean catch - Clean Catch Midstream Urine Culture - Final Progress Note: A&P Assessment and plan (1) Acute hypercapnic respiratory failure: Status: Acute (2) COPD (chronic obstructive pulmonary disease): Status: Acute Plan Patient is a 74 Y F w/ hypertension, hyperlipidemia, COPD on 2-3L NC, morbid obesity c/b FAITH on CPAP PM, and prior DVT on apixaban, presenting initially to emergency department on 08/26 w/ dyspnea, found to be encephalopathic w/ acute on chronic hypercarbic respiratory failure, intubated N: intubated, sedated w/ propofol, fentanyl gtt, wean as toelrated CV: no acute issues R: acute on chronic hypercarbic respiratory failure, intubated 08/26, wean as tolerated; COPD exacerbation management; FAITH GI: tube feeds : no acute issues; to closely monitor renal indices, electrolytes H: no acute issues; prior DVT, enoxaparin SQ; apixaban when possible ID: empiric ceftriaxone/azithryomcyin in setting of possible COPD exacerbation E: to monitor hypo-/hyper-glycemia P: no acute issues Quality Stroke Does the patient have a stroke diagnosis?: No VTE Prior VTE?: No VTE Risk Level:: Medical - moderate - high VTE Device Contraindication: N/A - Device Ordered VTE Drug Contraindication: N/A - Med Ordered
[2024-08-28] MEDS: Calcium Gluconate/NaCl,Iso-Osm 1 GM/50 ML PLAST..BAG IV (09:36)
[2024-08-28] MEDS: Furosemide 20 MG/2 ML VIAL 10 MG IVPUSH (09:36)
[2024-08-28] MEDS: Albumin Human 25 % 50 ML 100 ML IV (09:36)
--- NOTE | 2024-08-28 10:37 | MHC.CLN ---
F/U PT REMAINS INTUBATED AND SEDATED CURRENTLY NPO RECOMMEND PROMOTE AT MAX GOAL RATE 20ML/HR TO PROVIDE 480KCALS (1259KCALS WITH SEDATION; 28KCALS/KG BASED ON IBW), 30G PROTEIN, 403ML FREE WATER FROM FORMULA MONITOR TOLERANCE AND LYTES
[2024-08-28 11:32] LABS: Glucose, Whole Blood 95 mg/dL (60-115)
[2024-08-28] MEDS: propofoL 1,000 MG/100 ML VIAL 36.88 MG IVCONT ×4 (14:04→21:50)
--- NOTE | 2024-08-28 15:00 | MHC.CM.PN ---
Pt remains intubated in ICU: from [facility] - clinical update given by phone to RN at facility. No plans to extubate today. CM to follow for likely referrals for higher level of post acute care
[2024-08-28] MEDS: methylPREDNISolone Sod Succ 40 MG/ML VIAL 60 MG IVPUSH (16:08)
[2024-08-28] MEDS: fentaNYL citrate/NS 1,000 MCG/100 ML PLAST..BAG 2.5 MCG IVCONT (16:30)
[2024-08-28 17:42] LABS: Glucose, Whole Blood 98 mg/dL (60-115)
--- NOTE | 2024-08-28 18:07 | PC.NURSE ---
ICU Day #: 3 Vent Day #:3 Neuro/Resp: Continues sedated/intubated. On Propofol and Fentanyl gtt per AUG. Opens eyes to repeated stimuli. does not track, does not follow commands, flaccid extremities. (passive ROM performed). Sedation vacation and PSV trial failed, Pt noted to be restless, tonic clonic movements, and fighting? the ventilator, sedation restarted.? Cardiac: Sinus Rhythm GI: unknown LBM, soft abdomen, +bowel sounds,? OG tube in place, tolerating tubefeeds without signs of intolerance.? POC q 6hrs.? : Tolbert in place, patent and draining. Skin: Impaired skin integrity - see skin assessment (repositioning maintained)? (foam DGS and Nystatin applied) Infectious: on ceftriaxone + azithromycin. Lines:? Peripheral IVs.
[2024-08-28] MEDS: Azithromycin 500 MG in 0.9 % Sodium Chloride 250 ML 125 MG IV (18:35)
[2024-08-28] MEDS: Lactated Ringers 500 ML 999 ML IV (20:30)
[2024-08-29] VITALS (38 sets, daily range): BP systolic 95–166; BP diastolic 41–91; PULSE 48–71; RESP 18–24; TEMP 34.9–38.3; O2SAT 87–99; BMI 53.0
[2024-08-29] MEDS: propofoL 1,000 MG/100 ML VIAL 36.88 MG IVCONT ×2 (00:19→02:53)
[2024-08-29 00:25] LABS: Glucose, Whole Blood 170 mg/dL (60-115)
[2024-08-29] MEDS: Norepinephrine Bitartrate/D5W 8 MG/250 ML PLAST..BAG 4.64 MG IVCONT (02:57)
[2024-08-29] MEDS: cefTRIAXone sodium 2 GM VIAL IVPUSH (04:22)
--- NOTE | 2024-08-29 04:34 | PC.NURSE ---
Addendum entered by Shaylee Shane 09/01/24 05:19: For further clarification. Although the antibiotic was scanned at 0423, it was not hung until 0425. Antibiotic was NOT hung or infusion initiated prior to 2nd blood culture being obtained. Original Note: Late entry for 08/26/2024 Both sets of blood cultures had been drawn/obtained prior to the initiation of the antibiotic at 0423. RN scanned the antibiotic before the nurse scanned the blood culture label. Antibiotic therapy was not initiated until after both sets of blood cultures were obtained.
[2024-08-29] MEDS: Pantoprazole Sodium 40 MG/10 ML VIAL IVPUSH (05:29)
[2024-08-29 05:37] LABS: VBG Base Excess 6.4 mmol/L; VBG HCO3 28 mmol/L (22-26); VBG pCO2 34 mmHg; VBG pH 7.53 (7.32-7.43); VBG pO2 139 mmHg
[2024-08-29 05:54] LABS: MANUAL DIFF FLAG NO
[2024-08-29 05:55] LABS: Basophils Percent Auto 0.1 % (0-2); Hematocrit 46.3 % (37.0-47.0); Hemoglobin 13.9 g/dl (12.0-16.0); Imm Gran Abs Auto 0.08 X10*3/uL (0.00-0.03); Imm Gran Pct Auto 0.6 % (0.0-0.4); Lymphocytes Absolute Auto 0.6 X10*3/uL (1.2-4.9); Lymphocytes Percent Auto 5.1 % (20-40); Mean Corpuscular Hemoglobin 28.5 pg (27.0-33.0); Mean Corpuscular Volume 94.9 fL (80.0-98.0); Mean Platelet Volume 10.6 fL (9.4-12.3); Monocytes Absolute Auto 1.1 X10*3/uL (0.1-1.2); Monocytes Percent Auto 9.2 % (2-11); Neutrophils Absolute Auto 10.5 x10*3/uL (2.0-8.3); Platelet Count 212 X10*3/uL (160-400); Red Blood Count 4.88 X10*6/uL (4.20-5.50); Red Cell Distribution Width 17.2 % (11.0-16.0); White Blood Count 12.3 X10*3/uL (4.8-10.8)
[2024-08-29 05:55] LABS: Venous Blood Gas Refer to POC result
[2024-08-29] MEDS: propofoL 1,000 MG/100 ML VIAL 29.5 MG IVCONT (05:58)
[2024-08-29 06:14] LABS: Glucose, Whole Blood 145 mg/dL (60-115)
[2024-08-29 06:20] LABS: Albumin Level 3.2 g/dL (3.5-5.0); Anion Gap 12 (12-20); Blood Urea Nitrogen 27 mg/dL (9-16); Calcium 8.4 mg/dL (8.4-10.2); Carbon Dioxide 27 mmol/L (22-29); Chloride 104 mmol/L (96-108); Creatinine Clr Calc Pharmacy 68.5; Estimated Glomerular Filt Rate > 60; Glucose Random 127 mg/dL (60-115); Magnesium 2.4 mg/dL (1.6-2.6); Phosphorus 3.5 mg/dL (2.7-4.5); Potassium 4.9 mmol/L (3.3-5.1); Sodium 138 mmol/L (135-145)
--- NOTE | 2024-08-29 06:32 | PC.NURSE ---
CARE ASSUMED 7PM...REMAINS INTUBATED...PROPOFOL AND FENTANYL DRIPS PER AUG....BP AND URINE OUTPUT MARGINAL AT HS...SAM 15-20 CC/HR....SBP 90'S-100'S...PROVIDER PRESENT AND AWARE...LR 500ML BOLUS GIVEN WITH IMPROVED URINE OUTPUT AND BP..TOLERTING TUBE FEEDS AT GOAL OF 20 CC/HR..NO BM...SINUS NORMA HR 50-54...BP TRENDING DOWNWARD OVERNIGHT...PER PROVIDER LEVOPHED STARTED 0.02 MCG/KG/MIN WITH IMPROVED BP...REMAINS SINUS NORMA HR 48-54...PER PROVIDER NO CHANGE IN TREATMENT UNLESS HR < 45...SAO2 GOAL 88-90% MAINTAINED ON VCV VENT SUPPORT
[2024-08-29] MEDS: Albuterol/Iprat 2.5/0.5MG 3 ML AMPUL.NEB INHALE ×4 (07:52→20:30)
[2024-08-29] MEDS: Enoxaparin Sodium 40 MG/0.4 ML SYRINGE SUBCUT (08:20)
[2024-08-29] MEDS: Chlorhexidine Gluc Oral Rinse 15 ML MOUTHWASH BUCCAL ×2 (08:20→20:04)
[2024-08-29] MEDS: Nystatin Powder 15 GM BOTTLE 1 APPL TOPICAL ×2 (08:21→20:07)
--- NOTE | 2024-08-29 08:24 | P.PNCC_ITS ---
Subjective Subjective Date of Service: 08/29/24 Interval History: interval hypotension, started on low-dose vasopressors Critical Care Time (minutes): 60 Physical Exam 2 Vital Signs: Vital Signs: Last Vital Signs Temp 99.9 F 08/29/24 07:00 Pulse 48 L 08/29/24 07:55 Resp 18 08/29/24 07:55 BP 124/63 08/29/24 07:00 Pulse Ox 94 08/29/24 07:00 O2 Del Method Mechanical Ventil ation 08/29/24 07:00 O2 Flow Rate 40 08/26/24 06:12 FiO2 50 08/29/24 07:55 BMI result Body Mass Index 53.0 Const: Other: intubated, sedated; appreciable spontaneous eye opening, no appreciable purposeful movements; appreciable morbid obesity General: No no acute distress HEENT: Head: Yes normal to inspection, Yes normocephalic and Yes atraumatic Eyes: General: appearance normal, both eyes and all related structures Neck: Neck: Yes normal visual inspection, Yes full ROM, Yes no meningeal signs, Yes trachea midline and Yes supple Chest: Chest palpation & inspection: normal inspection of the chest Resp: Other: diminished breath sounds throughout; no appreciable overt rales, rhonchi, wheezing Effort & Inspection: normal respiratory effort Cardio: Rate: regular rate Rhythm: regular rhythm GI: Inspection: Yes normal to inspection, No Abdominal wall edema and No distended Palpation (GI): Soft to palpation, not firm, nontender, no guarding and not rigid Skin: General skin exam: no rashes or lesions noted Neuro: General: tone normal and no meningeal signs Extrem: Other: appreciable 2+ pitting edema to bilateral shins General: Yes normal to inspection, Yes full ROM and Yes capillary refill normal Psych: Other: unable to assess Objective Data Labs 08/29/24 05:28 08/29/24 05:28 Labs: Laboratory Results - last 24 hr 08/28/24 08/28/24 08/29/24 11:05 17:36 00:16 WBC RBC Hgb Hct MCV MCH MCHC RDW Plt Count MPV Immature Gran % (Auto) Neut % (Auto) Lymph % (Auto) [place] % (Auto) Eos % (Auto) Baso % (Auto) Lymph # (Auto) [place] # (Auto) Eos # (Auto) Baso # (Auto) Abs Immat Gran (auto) Absolute Neuts (auto) Absolute Nucleated RBC Nucleated RBC % (auto) VBG pH VBG pCO2 VBG pO2 VBG HCO3 VBG O2 Saturation VBG Base Excess Sodium Potassium Chloride Carbon Dioxide Anion Gap BUN Creatinine Estim Creat Clear Calc Estimated GFR POC Glucose 95 98 170 H Random Glucose Calcium Phosphorus Magnesium Albumin 08/29/24 08/29/24 08/29/24 05:28 05:33 06:05 WBC 12.3 H RBC 4.88 Hgb 13.9 Hct 46.3 MCV 94.9 MCH 28.5 MCHC 30.0 L RDW 17.2 H Plt Count 212 D MPV 10.6 Immature Gran % (Auto) 0.6 H Neut % (Auto) 85.0 H Lymph % (Auto) 5.1 L [place] % (Auto) 9.2 Eos % (Auto) 0.0 Baso % (Auto) 0.1 Lymph # (Auto) 0.6 L [place] # (Auto) 1.1 Eos # (Auto) 0.0 Baso # (Auto) 0.0 Abs Immat Gran (auto) 0.08 H Absolute Neuts (auto) 10.5 H Absolute Nucleated RBC 0.000 Nucleated RBC % (auto) 0.0 VBG pH 7.53 H VBG pCO2 34 VBG pO2 139 VBG HCO3 28 H VBG O2 Saturation 100.0 VBG Base Excess 6.4 Sodium 138 Potassium 4.9 Chloride 104 Carbon Dioxide 27 Anion Gap 12 BUN 27 H Creatinine 0.87 Estim Creat Clear Calc 68.5 Estimated GFR > 60 POC Glucose 145 H Random Glucose 127 H Calcium 8.4 Phosphorus 3.5 Magnesium 2.4 Albumin 3.2 L Microbiology Microbiology Results: Microbiology 08/26/24 04:24 Blood - Venous Blood Culture - Preliminary No growth after 48 hours. 08/26/24 04:24 Blood - Venous Blood Culture - Preliminary No growth after 48 hours. 08/26/24 Unknown Urine clean catch - Clean Catch Midstream Urine Culture - Final Progress Note: A&P Assessment and plan (1) Acute respiratory failure with hypoxia and hypercapnia: Status: Acute (2) COPD (chronic obstructive pulmonary disease): Status: Acute (3) FAITH (obstructive sleep apnea): Status: Acute (4) Obesity hypoventilation syndrome: Status: Acute Plan Patient is a 74 Y F w/ hypertension, hyperlipidemia, COPD on 2-3L NC, morbid obesity c/b FAITH on CPAP PM, and prior DVT on apixaban, presenting initially to emergency department on 08/26 w/ dyspnea, found to be encephalopathic w/ acute on chronic hypercarbic respiratory failure, intubated N: intubated, sedated w/ propofol, fentanyl gtt, wean as tolerated CV: no acute issues R: acute on chronic hypercarbic respiratory failure, intubated 08/26, wean as tolerated; COPD exacerbation management; FAITH, OHS; daily SBTs GI: tube feeds : no acute issues; to closely monitor renal indices, electrolytes H: no acute issues; prior DVT, enoxaparin SQ; apixaban when possible ID: empiric ceftriaxone/azithryomcyin in setting of possible COPD exacerbation E: to monitor hypo-/hyper-glycemia P: no acute issues Quality Stroke Does the patient have a stroke diagnosis?: No VTE Prior VTE?: No VTE Risk Level:: Medical - moderate - high VTE Device Contraindication: N/A - Device Ordered VTE Drug Contraindication: N/A - Med Ordered
[2024-08-29] MEDS: Apixaban 2.5 MG TABLET PO ×2 (09:31→20:04)
[2024-08-29] MEDS: Albumin Human 25 % 50 ML 100 ML IV (09:31)
[2024-08-29] MEDS: dexmedeTOMIDidine HCL/NS 400 MCG/100 ML INFUS..BTL 30.8 MCG IVCONT (10:00)
--- NOTE | 2024-08-29 10:29 | MHC.CLN ---
F/U PT REMAINS INTUBATED AND SEDATED DISCUSSED AT ROUNDS WITH PT TOLERATING PROMOTE AT MAX GOAL RATE 20ML/HR PROVIDES 480KCALS (1064KCALS WITH SEDATION; 24KCALS/KG BASED ON IBW), 30G PROTEIN, 403ML FREE WATER FROM FORMULA MONITOR TOLERANCE AND LYTES
[2024-08-29] MEDS: dexmedeTOMIDidine HCL/NS 400 MCG/100 ML INFUS..BTL 46.2 MCG IVCONT ×6 (11:50→22:28)
[2024-08-29 12:13] LABS: Glucose, Whole Blood 96 mg/dL (60-115)
--- NOTE | 2024-08-29 13:34 | HO.WOUND ---
Wound Consult: Follow up 74yr old?female admitted to [facility] on [place]24 - See progress notes and H&P for detailed history.? Wound consult follow up for Abdominal and Right breast skin folds .? Patient intubated and sedated. Antifungal treatment in use with significant improvement noted - buttock remains intact as well no concern for Pressure injury at this time. Isotour Mattress in use, Heel protector boots in use, Wedges for repositions and preventative foams in use. No new topical recommendations needed at this time. Abdominal skin fold Breast skin fold Abdominal and breast skin folds Etiology:Fungal dermatitis and MASD Wound Bed: improving pink mirrored intact tissue - macular papular rash with advancing borders Drainage / Odor: None noted Edges: ? mirrored Megan wound: ?intact No Induration, Fluctuance or Warmth noted Goals of Treatment: ? Interdry attempted but poor results with in 24 hrs switched to Triad by direct care team - asked provider to order Nystatin powder for moisture management and to treat fungal spores. Of note the forehead is noted for intact red blanchable tissue secondary to Forehead Sp02 sensor. Remains blanchable and is not a pressure injury at this time. Staff advised to use in limited cases and to reposition Q shift. Advised to limit use of belt with sensor and attempt to use sensor without the belt. Increase wear time by wiping patients skin down with alcohol wipe allow to dry followed by skin prep allow to dry then sensor with adhesive strip attempt use without strap in place. Remember to rotate sensor site. Recommendations: 1. Turn and Reposition every 2 hours and as needed for patient comfort.? Use pillows or wedges to support off loading positions. 2. Off Load all bony prominences with use of pillows and heel boots if needed.? Apply Preventative foams where needed. ? 3. Monitor for incontinence and moisture control, use barrier creams when needed for prevention and treatment. 4. Provide adequate and supplemental nutrition.? 5. Continue low air loss mattress - ISO Tour in use. 6. When applicable maintain blood glucose levels per Providers order. 7. Abdominal and breast skin folds - Cleanse with PH balance wipes, pat dry with soft cloth.? Apply antifungal power to assist with moisture management.? Be sure to dust of excess powder to prevent caking on skin and in folds. Apply per provider orders. Once in use may use interdry. Tuck Interdry AG Sheet into skin fold to wick and translocate moisture away from skin fold.? Be sure to leave at least 2 inch of fabric exposed outside of skin fold.? Change after 5 days or when soiled. 8. Forehead - Forehead SP02 sensor - Increase wear time by wiping patients skin down with alcohol wipe allow to dry followed by skin prep allow to dry then sensor with adhesive strip attempt use without strap in place. Remember to rotate sensor site. Use in limited cases and to reposition Q shift. Advise to limit use of belt with sensor and attempt to use sensor without the belt. Re-consult wound care Nurse for wound deterioration or wound changes.
--- NOTE | 2024-08-29 13:53 | MHC.CM.PN ---
Pt continues on Ventilatory support: Will trial a sedation wean today in anticipation of extubation. Pt from [facility] but is expected to need a higher level of care. CM to make STR referrals once pt has been extubated and can participate in formal evaluations.
--- NOTE | 2024-08-29 14:16 | PC.NURSE ---
Addendum entered by Wendi Reeys RN 08/29/24 14:23: tolerated PS vent setting for approx. 4 hours, now back to ACVC+ vent settings. Original Note: ICU Day #: 4 Vent Day #:4 Neuro: Continues sedated/intubated.? Sedation vacation tolerated for 30 minutes, now on Precedex per AUG. Opens eyes and tracks,? follows simple commands,? flaccid extremities (passive ROM performed). Resp: On? PS vent. Support? Cardiac: Sinus Rhythm GI: unknown LBM, soft abdomen, +bowel sounds,? OG tube in place, tolerating tubefeeds without signs of intolerance.? POC q 6hrs.? : Tolbert in place, patent and draining. Skin: Impaired skin integrity - see skin assessment (repositioning maintained)? (foam DGS and Nystatin applied) Infectious: on ceftriaxone + azithromycin. Lines:? Peripheral IVs.
[2024-08-29] MEDS: methylPREDNISolone Sod Succ 40 MG/ML VIAL 60 MG IVPUSH (16:32)
[2024-08-29] MEDS: Acetaminophen 1,000 MG/100 ML PIGGYBACK 400 MG IV (17:04)
[2024-08-29 17:17] LABS: Glucose, Whole Blood 138 mg/dL (60-115)
[2024-08-29] MEDS: Azithromycin 500 MG in 0.9 % Sodium Chloride 250 ML 125 MG IV (18:26)
[2024-08-29] MEDS: propofoL 1,000 MG/100 ML VIAL 7.39 MG IVCONT (20:45)
[2024-08-29 23:37] LABS: Glucose, Whole Blood 162 mg/dL (60-115)
[2024-08-30] VITALS (38 sets, daily range): BP systolic 110–170; BP diastolic 53–102; PULSE 53–99; RESP 17–33; TEMP 34.5–38.7; O2SAT 88–97; BMI 53.6
[2024-08-30] MEDS: dexmedeTOMIDidine HCL/NS 400 MCG/100 ML INFUS..BTL 46.2 MCG IVCONT ×7 (00:21→18:44)
[2024-08-30] MEDS: cefTRIAXone sodium 2 GM VIAL IVPUSH (05:06)
[2024-08-30] MEDS: propofoL 1,000 MG/100 ML VIAL 7.39 MG IVCONT (05:07)
[2024-08-30 05:27] LABS: VBG HCO3 26 mmol/L (22-26); VBG pCO2 35 mmHg; VBG pH 7.49 (7.32-7.43); VBG pO2 70 mmHg
[2024-08-30 05:43] LABS: MANUAL DIFF FLAG NO
[2024-08-30] MEDS: Acetaminophen 1,000 MG/100 ML PIGGYBACK 400 MG IV (05:47)
[2024-08-30 05:48] LABS: Venous Blood Gas Refer to POC result
[2024-08-30 05:52] LABS: Basophils Percent Auto 0.1 % (0-2); Eosinophils Percent Auto 0.1 % (0-4); Hematocrit 49.9 % (37.0-47.0); Imm Gran Abs Auto 0.06 X10*3/uL (0.00-0.03); Imm Gran Pct Auto 0.5 % (0.0-0.4); Lymphocytes Absolute Auto 0.9 X10*3/uL (1.2-4.9); Lymphocytes Percent Auto 7.5 % (20-40); Mean Corpuscular HGB Conc 30.1 g/dl (31.0-35.0); Mean Corpuscular Volume 93.3 fL (80.0-98.0); Mean Platelet Volume 10.6 fL (9.4-12.3); Monocytes Absolute Auto 1.2 X10*3/uL (0.1-1.2); Monocytes Percent Auto 10.3 % (2-11); Neutrophils Absolute Auto 9.4 x10*3/uL (2.0-8.3); Neutrophils Percent Auto 81.5 % (45-73); Platelet Count 159 X10*3/uL (160-400); Red Blood Count 5.35 X10*6/uL (4.20-5.50); Red Cell Distribution Width 16.7 % (11.0-16.0); White Blood Count 11.5 X10*3/uL (4.8-10.8)
[2024-08-30 06:01] LABS: Albumin Level 3.2 g/dL (3.5-5.0); Anion Gap 15 (12-20); Blood Urea Nitrogen 27 mg/dL (9-16); Calcium 8.6 mg/dL (8.4-10.2); Carbon Dioxide 24 mmol/L (22-29); Chloride 105 mmol/L (96-108); Creatinine Clr Calc Pharmacy 77.4; Estimated Glomerular Filt Rate > 60; Glucose Random 121 mg/dL (60-115); Magnesium 2.3 mg/dL (1.6-2.6); Phosphorus 3.1 mg/dL (2.7-4.5); Potassium 5.3 mmol/L (3.3-5.1); Sodium 139 mmol/L (135-145)
[2024-08-30] MEDS: Apixaban 2.5 MG TABLET PO ×2 (08:10→20:17)
[2024-08-30] MEDS: Chlorhexidine Gluc Oral Rinse 15 ML MOUTHWASH BUCCAL ×2 (08:10→20:17)
[2024-08-30] MEDS: Nystatin Powder 15 GM BOTTLE 1 APPL TOPICAL ×2 (08:10→20:17)
[2024-08-30] MEDS: Albuterol/Iprat 2.5/0.5MG 3 ML AMPUL.NEB INHALE ×4 (08:17→20:11)
--- NOTE | 2024-08-30 09:08 | PM.CCPN ---
Subjective Subjective Date of Service: 08/30/24 Interval History: no significant overnight events Critical Care Time (minutes): 60 Physical Exam Vital Signs: Vital Signs: Last Vital Signs Temp 101.1 F H 08/30/24 09:00 Pulse 68 08/30/24 09:00 Resp 23 H 08/30/24 09:00 BP 145/62 H 08/30/24 09:00 Pulse Ox 89 L 08/30/24 09:00 O2 Del Method Mechanical Ventil ation 08/30/24 09:00 O2 Flow Rate 40 08/26/24 06:12 FiO2 65 08/30/24 09:00 BMI result Body Mass Index 53.6 Const: Other: intubated, minimally sedated; opens eyes to verbal stimulus; does not track; does not follow commands General: No no acute distress HEENT: Head: Yes normal to inspection, Yes normocephalic and Yes atraumatic Eyes: General: appearance normal, both eyes and all related structures Neck: Neck: Yes normal visual inspection, Yes full ROM, Yes no meningeal signs, Yes trachea midline and Yes supple Chest: Chest palpation & inspection: normal inspection of the chest Resp: Other: some appreciable expiratory wheezing; no appreciable rales, rhonchi Effort & Inspection: normal respiratory effort Cardio: Rate: regular rate Rhythm: regular rhythm GI: Inspection: Yes normal to inspection, No Abdominal wall edema and No distended Palpation (GI): Soft to palpation, not firm, nontender, no guarding and not rigid Skin: General skin exam: no rashes or lesions noted Neuro: General: tone normal and no meningeal signs Extrem: Other: appreciable 1+ pitting edema to bilateral shins General: Yes normal to inspection, Yes full ROM and Yes capillary refill normal Psych: Other: unable to assess Objective Data Labs 08/30/24 05:19 08/30/24 05:19 Labs: Laboratory Results - last 24 hr 08/29/24 08/29/24 08/29/24 12:10 17:08 23:28 WBC RBC Hgb Hct MCV MCH MCHC RDW Plt Count MPV Immature Gran % (Auto) Neut % (Auto) Lymph % (Auto) [place] % (Auto) Eos % (Auto) Baso % (Auto) Lymph # (Auto) [place] # (Auto) Eos # (Auto) Baso # (Auto) Abs Immat Gran (auto) Absolute Neuts (auto) Absolute Nucleated RBC Nucleated RBC % (auto) VBG pH VBG pCO2 VBG pO2 VBG HCO3 VBG O2 Saturation VBG Base Excess Sodium Potassium Chloride Carbon Dioxide Anion Gap BUN Creatinine Estim Creat Clear Calc Estimated GFR POC Glucose 96 138 H 162 H Random Glucose Calcium Phosphorus Magnesium Albumin 08/30/24 08/30/24 05:19 05:23 WBC 11.5 H RBC 5.35 Hgb 15.0 Hct 49.9 H MCV 93.3 MCH 28.0 MCHC 30.1 L RDW 16.7 H Plt Count 159 L MPV 10.6 Immature Gran % (Auto) 0.5 H Neut % (Auto) 81.5 H Lymph % (Auto) 7.5 L [place] % (Auto) 10.3 Eos % (Auto) 0.1 Baso % (Auto) 0.1 Lymph # (Auto) 0.9 L [place] # (Auto) 1.2 Eos # (Auto) 0.0 Baso # (Auto) 0.0 Abs Immat Gran (auto) 0.06 H Absolute Neuts (auto) 9.4 H Absolute Nucleated RBC 0.000 Nucleated RBC % (auto) 0.0 VBG pH 7.49 H VBG pCO2 35 VBG pO2 70 VBG HCO3 26 VBG O2 Saturation 94.0 VBG Base Excess 4.0 Sodium 139 Potassium 5.3 H Chloride 105 Carbon Dioxide 24 Anion Gap 15 BUN 27 H Creatinine 0.77 Estim Creat Clear Calc 77.4 Estimated GFR > 60 POC Glucose Random Glucose 121 H Calcium 8.6 Phosphorus 3.1 Magnesium 2.3 Albumin 3.2 L Microbiology Microbiology Results: Microbiology 08/26/24 04:24 Blood - Venous Blood Culture - Preliminary No growth after 48 hours. 08/26/24 04:24 Blood - Venous Blood Culture - Preliminary No growth after 48 hours. 08/26/24 Unknown Urine clean catch - Clean Catch Midstream Urine Culture - Final Progress Note: A&P Assessment and plan (1) Acute hypercapnic respiratory failure: Status: Acute (2) COPD (chronic obstructive pulmonary disease): Status: Acute (3) Emphysema lung: Status: Acute (4) FAITH (obstructive sleep apnea): Status: Acute (5) Obesity hypoventilation syndrome: Status: Acute Plan Patient is a 74 Y F w/ hypertension, hyperlipidemia, COPD on 2-3L NC, morbid obesity c/b FAITH on CPAP PM, and prior DVT on apixaban, presenting initially to emergency department on 08/26 w/ dyspnea, found to be encephalopathic w/ acute on chronic hypercarbic respiratory failure, intubated N: intubated, sedated w/ dexmedetomidine gtt, wean as tolerated CV: no acute issues R: acute on chronic hypercarbic respiratory failure, intubated 08/26, wean as tolerated; COPD exacerbation management; FAITH, OHS; daily SBTs GI: tube feeds : no acute issues; to closely monitor renal indices, electrolytes H: no acute issues; prior DVT on apixaban ID: empiric ceftriaxone/azithryomcyin in setting of possible COPD exacerbation E: to monitor hypo-/hyper-glycemia P: no acute issues Quality Stroke Does the patient have a stroke diagnosis?: No VTE Prior VTE?: No VTE Risk Level:: Medical - moderate - high VTE Device Contraindication: N/A - Device Ordered VTE Drug Contraindication: N/A - Med Ordered
--- NOTE | 2024-08-30 10:11 | MHC.CLN ---
F/U PT REMAINS INTUBATED AND SEDATED PROPOFOL TURNED OFF RECOMMEND SWITCHING TF FORMULAS TO JEVITY 1.0 AT MAX GOAL RATE 40ML/HR WITH 240ML FREE WATER FLUSHES Q 8 HRS TO PROVIDE 1018KCALS (23KCALS/KG BASED ON IBW), 42.5G PROTEIN (.9G/KG), 1522ML TOTAL WATER FROM FORMULA AND FLUSHES (34ML/KG) MONITOR TOLERANCE AND LYTES
[2024-08-30] MEDS: Furosemide 20 MG/2 ML VIAL 10 MG IVPUSH ×2 (10:31→20:44)
[2024-08-30] MEDS: Albumin Human 25 % 50 ML 100 ML IV (10:32)
[2024-08-30 11:21] LABS: Glucose, Whole Blood 142 mg/dL (60-115)
[2024-08-30] MEDS: dexmedeTOMIDidine HCL/NS 400 MCG/100 ML INFUS..BTL 40.04 MCG IVCONT ×2 (11:34→14:17)
--- NOTE | 2024-08-30 12:37 | MHC.CM.PN ---
Pt remains intubated in ICU: Levophed d/c'd: pt to start vent weaning trials in anticipation of extubation. Pt from [facility] but SNF referrals will be made once she is extubated. CM to follow
[2024-08-30 17:17] LABS: Glucose, Whole Blood 127 mg/dL (60-115)
[2024-08-30] MEDS: Azithromycin 500 MG in 0.9 % Sodium Chloride 250 ML 125 MG IV (17:45)
[2024-08-30] MEDS: methylPREDNISolone Sod Succ 40 MG/ML VIAL 60 MG IVPUSH (17:45)
--- NOTE | 2024-08-30 18:38 | PC.NURSE ---
PSV 12/10 55% at 1200, transition back AC/VC at 1520 due to periods of apnea. Propofol turned off with postitive affect. No signs of respiratory distress noted. updated sons at bedside in afternoon
[2024-08-30] MEDS: propofoL 1,000 MG/100 ML VIAL 22.39 MG IVCONT ×2 (19:59→23:08)
[2024-08-30 23:46] LABS: Glucose, Whole Blood 171 mg/dL (60-115)
[2024-08-31] VITALS (35 sets, daily range): BP systolic 113–153; BP diastolic 45–77; PULSE 61–108; RESP 11–32; TEMP 34.5–38; O2SAT 88–96; BMI 51.6
[2024-08-31] MEDS: HYDROmorphone HCl 1 MG/ML SYRINGE IVPUSH ×2 (02:53→13:19)
[2024-08-31] MEDS: cefTRIAXone sodium 2 GM VIAL IVPUSH (03:06)
[2024-08-31] MEDS: propofoL 1,000 MG/100 ML VIAL 22.39 MG IVCONT ×3 (03:12→12:49)
[2024-08-31 04:50] LABS: VBG Base Excess 7.3 mmol/L; VBG HCO3 28 mmol/L (22-26); VBG pCO2 30 mmHg; VBG pH 7.58 (7.32-7.43); VBG pO2 73 mmHg
[2024-08-31 04:54] LABS: Venous Blood Gas Refer to POC result
[2024-08-31 05:01] LABS: Basophils Percent Auto 0.2 % (0-2); Eosinophils Percent Auto 0.1 % (0-4); Hematocrit 48.4 % (37.0-47.0); Imm Gran Abs Auto 0.09 X10*3/uL (0.00-0.03); Imm Gran Pct Auto 0.6 % (0.0-0.4); Lymphocytes Absolute Auto 0.9 X10*3/uL (1.2-4.9); Lymphocytes Percent Auto 5.3 % (20-40); MANUAL DIFF FLAG SCAN; Mean Corpuscular Hemoglobin 28.1 pg (27.0-33.0); Mean Corpuscular Volume 90.8 fL (80.0-98.0); Mean Platelet Volume 10.5 fL (9.4-12.3); Monocytes Absolute Auto 1.7 X10*3/uL (0.1-1.2); Monocytes Percent Auto 10.9 % (2-11); Neutrophils Absolute Auto 13.2 x10*3/uL (2.0-8.3); Neutrophils Percent Auto 82.9 % (45-73); Platelet Count 183 X10*3/uL (160-400); Red Blood Count 5.33 X10*6/uL (4.20-5.50); Red Cell Distribution Width 16.2 % (11.0-16.0); SCAN SMEAR FLAG 1; White Blood Count 15.9 X10*3/uL (4.8-10.8)
[2024-08-31 05:20] LABS: Albumin Level 3.4 g/dL (3.5-5.0); Anion Gap 12 (12-20); Blood Urea Nitrogen 25 mg/dL (9-16); Calcium 9.2 mg/dL (8.4-10.2); Carbon Dioxide 26 mmol/L (22-29); Chloride 104 mmol/L (96-108); Creatinine Clr Calc Pharmacy 79.2; Estimated Glomerular Filt Rate > 60; Glucose Random 87 mg/dL (60-115); Magnesium 2.1 mg/dL (1.6-2.6); Phosphorus 1.8 mg/dL (2.7-4.5); Potassium 4.4 mmol/L (3.3-5.1); Sodium 138 mmol/L (135-145)
[2024-08-31 05:28] LABS: SLIDE REVIEW VERIFIED
[2024-08-31] MEDS: Potassium Phosphate/NS 15 MMOL/250 ML PLAST..BAG 62.5 MMOL IV ×2 (06:10→10:37)
--- NOTE | 2024-08-31 06:11 | PC.NURSE ---
CARE ASSUMED 7PM..REMAINED/REMAINS ON VCV VENT SUPPORT..PRECIDEX 1.5 MCG/KG/HR AT 7PM....PATIENT REMAINED WIDE AWAKE...ANXIOUS..NODS YES/NO TO QUESTIONS..RR 26-30...PROVIDER PRESENT...PRECIDEX HELD AND PLACED ON PROPOFOL 30 MCG/KG/MIN ...INITIALLY RESTFUL ALTHOUGH AWAKE..REPEAT LASIX 10 MG IV X1 GIVEN PER PROVIDER...LARGE DIURESIS OVERNIGHT...AWAKE THIS AM DESPITE PROPOFOL DRIP...RR 26-32..SAO2 94%...MILDLY ANXIOUS...PROVIDER AWARE...NO CHANGE IN TREATMENT D/T PENDING REPEAT AM VENT WEANING TRIAL...POTASSIUM PHOSPHATE 15MMOL X2 BAGS ORDERED..1ST INFUSING AT [facility]
[2024-08-31] MEDS: Apixaban 2.5 MG TABLET PO ×2 (07:53→20:27)
[2024-08-31] MEDS: Chlorhexidine Gluc Oral Rinse 15 ML MOUTHWASH BUCCAL ×2 (07:53→20:27)
[2024-08-31] MEDS: Nystatin Powder 15 GM BOTTLE 1 APPL TOPICAL ×2 (07:53→20:27)
[2024-08-31] MEDS: Furosemide 20 MG/2 ML VIAL 10 MG IVPUSH (07:53)
--- NOTE | 2024-08-31 08:23 | P.PNCC_ITS ---
Subjective Subjective Date of Service: 08/31/24 Interval History: no significant overnight events Critical Care Time (minutes): 60 Physical Exam 2 Vital Signs: Vital Signs: Last Vital Signs Temp 99.5 F 08/31/24 07:00 Pulse 64 08/31/24 07:00 Resp 25 H 08/31/24 07:00 BP 140/56 H 08/31/24 07:00 Pulse Ox 93 08/31/24 07:40 O2 Del Method Mechanical Ventil ation 08/31/24 07:00 O2 Flow Rate 40 08/26/24 06:12 FiO2 55 08/31/24 07:40 BMI result Body Mass Index 51.6 Const: Other: intubated, minimally sedated, follows commands, though appears weak General: comfortable, no acute distress, well developed, alert, awake and Physically active HEENT: Head: Yes normal to inspection, Yes normocephalic and Yes atraumatic Eyes: General: appearance normal, both eyes and all related structures Neck: Neck: Yes normal visual inspection, Yes full ROM, Yes no meningeal signs, Yes trachea midline and Yes supple Chest: Chest palpation & inspection: normal inspection of the chest Resp: Other: appreciable diffuse rhonchi; no appreciable rales, wheezing Cardio: Rate: regular rate Rhythm: regular rhythm GI: Inspection: Yes normal to inspection, No Abdominal wall edema and No distended Palpation (GI): Soft to palpation, not firm, nontender, no guarding and not rigid Skin: General skin exam: no rashes or lesions noted Neuro: Other: attempts to give thumbs up, squeeze hands, though weak bilaterally; wiggles toes General: tone normal, moves all extremities and no meningeal signs Extrem: Other: appreciable 1+ pitting edema to bilateral shins General: Yes normal to inspection, Yes full ROM and Yes capillary refill normal Psych: Appearance: grossly normal Objective Data Labs 08/31/24 04:41 08/31/24 04:41 Labs: Laboratory Results - last 24 hr 08/30/24 08/30/24 08/30/24 11:11 17:06 23:37 WBC RBC Hgb Hct MCV MCH MCHC RDW Plt Count MPV Immature Gran % (Auto) Neut % (Auto) Lymph % (Auto) [place] % (Auto) Eos % (Auto) Baso % (Auto) Lymph # (Auto) [place] # (Auto) Eos # (Auto) Baso # (Auto) Abs Immat Gran (auto) Absolute Neuts (auto) Absolute Nucleated RBC Nucleated RBC % (auto) Smear Tech's Comments VBG pH VBG pCO2 VBG pO2 VBG HCO3 VBG O2 Saturation VBG Base Excess Sodium Potassium Chloride Carbon Dioxide Anion Gap BUN Creatinine Estim Creat Clear Calc Estimated GFR POC Glucose 142 H 127 H 171 H Random Glucose Calcium Phosphorus Magnesium Albumin 08/31/24 08/31/24 04:41 04:45 WBC 15.9 H RBC 5.33 Hgb 15.0 Hct 48.4 H MCV 90.8 MCH 28.1 MCHC 31.0 RDW 16.2 H Plt Count 183 MPV 10.5 Immature Gran % (Auto) 0.6 H Neut % (Auto) 82.9 H Lymph % (Auto) 5.3 L [place] % (Auto) 10.9 Eos % (Auto) 0.1 Baso % (Auto) 0.2 Lymph # (Auto) 0.9 L [place] # (Auto) 1.7 H Eos # (Auto) 0.0 Baso # (Auto) 0.0 Abs Immat Gran (auto) 0.09 H Absolute Neuts (auto) 13.2 H Absolute Nucleated RBC 0.000 Nucleated RBC % (auto) 0.0 Smear Tech's Comments VERIFIED VBG pH 7.58 H VBG pCO2 30 VBG pO2 73 VBG HCO3 28 H VBG O2 Saturation 96.0 VBG Base Excess 7.3 Sodium 138 Potassium 4.4 Chloride 104 Carbon Dioxide 26 Anion Gap 12 BUN 25 H Creatinine 0.74 Estim Creat Clear Calc 79.2 Estimated GFR > 60 POC Glucose Random Glucose 87 Calcium 9.2 D Phosphorus 1.8 L Magnesium 2.1 Albumin 3.4 L Microbiology Microbiology Results: Microbiology 08/26/24 04:24 Blood - Venous Blood Culture - Final No growth after 5 days. 08/26/24 04:24 Blood - Venous Blood Culture - Final No growth after 5 days. 08/26/24 Unknown Urine clean catch - Clean Catch Midstream Urine Culture - Final Progress Note: A&P Assessment and plan (1) Acute respiratory failure with hypoxia and hypercapnia: Status: Acute (2) COPD (chronic obstructive pulmonary disease): Status: Acute (3) Emphysema lung: Status: Acute (4) FAITH (obstructive sleep apnea): Status: Acute (5) Obesity hypoventilation syndrome: Status: Acute Plan Patient is a 74 Y F w/ hypertension, hyperlipidemia, COPD on 2-3L NC, morbid obesity c/b FAITH on CPAP PM, and prior DVT on apixaban, presenting initially to emergency department on 08/26 w/ dyspnea, found to be encephalopathic w/ acute on chronic hypercarbic respiratory failure, intubated N: intubated, sedated w/ propofol gtt, wean as tolerated CV: no acute issues R: acute on chronic hypercarbic respiratory failure, intubated 08/26, wean as tolerated; COPD exacerbation management; emphysema, FAITH, OHS; daily SBTs GI: tube feeds : no acute issues; to closely monitor renal indices, electrolytes H: no acute issues; prior DVT on apixaban ID: empiric ceftriaxone/azithryomcyin in setting of possible COPD exacerbation E: to monitor hypo-/hyper-glycemia P: no acute issues Quality Stroke Does the patient have a stroke diagnosis?: No VTE Prior VTE?: No VTE Risk Level:: Medical - moderate - high VTE Device Contraindication: N/A - Device Ordered VTE Drug Contraindication: N/A - Med Ordered
[2024-08-31] MEDS: Albuterol/Iprat 2.5/0.5MG 3 ML AMPUL.NEB INHALE ×4 (08:53→19:03)
--- NOTE | 2024-08-31 10:00 | MHC.CLN ---
F/U PT REMAINS INTUBATED AND SEDATED PT WAS TO RECEIVE JEVITY 1.0 AT MAX GOAL RATE 40ML/HR WITH 240ML FREE WATER FLUSHES Q 8 HRS TO PROVIDE 1018KCALS (23KCALS/KG BASED ON IBW), 42.5G PROTEIN (.9G/KG), 1522ML TOTAL WATER FROM FORMULA AND FLUSHES (34ML/KG) HOWEVER PROPOFOL RE-STARTED RECOMMEND RE-STARTING PROMOTE AT MAX GOAL RATE 20ML/HR WITH 300ML FREE WATER FLSUHES Q 8 HRS TO PROVIDE 480KCALS (1071KCALS WITH SEDATION; 24KCALS/KG BASED ON IBW), 30G PROTEIN, 1522ML TOTAL FREE WATER FROM FORMULA AND FLUSHES (29ML/KG) MONITOR TOLERANCE AND LYTES
[2024-08-31] MEDS: Albumin Human 25 % 50 ML 100 ML IV (10:39)
[2024-08-31 11:43] LABS: Glucose, Whole Blood 91 mg/dL (60-115)
--- NOTE | 2024-08-31 12:19 | MHC.CM.PN ---
Pt is a resident of [facility] but will likely need STR following extubation and stabilization. CM to follow for updated d/c Planning needs
[2024-08-31] MEDS: methylPREDNISolone Sod Succ 40 MG/ML VIAL 60 MG IVPUSH (16:06)
[2024-08-31] MEDS: propofoL 1,000 MG/100 ML VIAL 29.86 MG IVCONT ×3 (16:07→21:59)
[2024-08-31] MEDS: Acetaminophen 1,000 MG/100 ML PIGGYBACK 400 MG IV (16:34)
[2024-08-31 17:45] LABS: Glucose, Whole Blood 122 mg/dL (60-115)
[2024-08-31] MEDS: Azithromycin 500 MG in 0.9 % Sodium Chloride 250 ML 125 MG IV (18:28)
--- NOTE | 2024-08-31 18:42 | PC.NURSE ---
Assumed care at 0700. Pt able to nod/shake head to answer questions, KUHN. Tube feed rate lowered per knot tying operator order. PSV trial started at approx 0900, 03/29 with fio2 of 55%. Pt had several bowel movements. Plan to switch pt to acvc at shift change.
[2024-09-01] VITALS (36 sets, daily range): BP systolic 106–161; BP diastolic 46–91; PULSE 58–91; RESP 13–29; TEMP 34.9–38.4; O2SAT 89–95; BMI 49.1
[2024-09-01 00:21] LABS: Glucose, Whole Blood 156 mg/dL (60-115)
[2024-09-01] MEDS: propofoL 1,000 MG/100 ML VIAL 29.86 MG IVCONT ×7 (01:03→21:26)
[2024-09-01] MEDS: cefTRIAXone sodium 2 GM VIAL IVPUSH (03:19)
[2024-09-01 05:36] LABS: VBG Base Excess 6.1 mmol/L; VBG HCO3 29 mmol/L (22-26); VBG pCO2 36 mmHg; VBG pO2 73 mmHg
[2024-09-01 05:41] LABS: Venous Blood Gas Refer to POC result
[2024-09-01 05:41] LABS: Basophils Absolute Auto 0.1 X10*3/uL (0.0-0.2); Basophils Percent Auto 0.2 % (0-2); Eosinophils Percent Auto 0.1 % (0-4); Hemoglobin 14.2 g/dl (12.0-16.0); Imm Gran Abs Auto 0.14 X10*3/uL (0.00-0.03); Imm Gran Pct Auto 0.6 % (0.0-0.4); Lymphocytes Absolute Auto 0.8 X10*3/uL (1.2-4.9); Lymphocytes Percent Auto 3.5 % (20-40); MANUAL DIFF FLAG SCAN; Mean Corpuscular HGB Conc 30.9 g/dl (31.0-35.0); Mean Corpuscular Hemoglobin 27.9 pg (27.0-33.0); Mean Corpuscular Volume 90.4 fL (80.0-98.0); Mean Platelet Volume 10.2 fL (9.4-12.3); Monocytes Absolute Auto 1.9 X10*3/uL (0.1-1.2); Monocytes Percent Auto 8.2 % (2-11); Neutrophils Absolute Auto 20.5 x10*3/uL (2.0-8.3); Neutrophils Percent Auto 87.4 % (45-73); Platelet Count 193 X10*3/uL (160-400); Red Blood Count 5.09 X10*6/uL (4.20-5.50); Red Cell Distribution Width 16.6 % (11.0-16.0); SCAN SMEAR FLAG 1; White Blood Count 23.5 X10*3/uL (4.8-10.8)
[2024-09-01 06:03] LABS: Albumin Level 3.3 g/dL (3.5-5.0); Anion Gap 11 (12-20); Blood Urea Nitrogen 19 mg/dL (9-16); Carbon Dioxide 26 mmol/L (22-29); Chloride 107 mmol/L (96-108); Creatinine Clr Calc Pharmacy 84.9; Estimated Glomerular Filt Rate > 60; Glucose Random 90 mg/dL (60-115); Magnesium 2.2 mg/dL (1.6-2.6); Phosphorus 3.1 mg/dL (2.7-4.5); Potassium 4.4 mmol/L (3.3-5.1); Sodium 140 mmol/L (135-145)
[2024-09-01 06:05] LABS: SLIDE REVIEW VERIFIED
--- NOTE | 2024-09-01 06:27 | PC.NURSE ---
assumed care 1900, pt remains intubated on prop for sedation. Pt alert but drowsy. repo q2, bed locked in lowest position. plan of care continues
[2024-09-01] MEDS: Apixaban 2.5 MG TABLET PO ×2 (08:01→20:06)
[2024-09-01] MEDS: Furosemide 20 MG/2 ML VIAL 10 MG IVPUSH (08:01)
[2024-09-01] MEDS: Chlorhexidine Gluc Oral Rinse 15 ML MOUTHWASH BUCCAL ×2 (08:01→20:06)
[2024-09-01] MEDS: Nystatin Powder 15 GM BOTTLE 1 APPL TOPICAL ×2 (08:02→20:06)
[2024-09-01] MEDS: Albuterol/Iprat 2.5/0.5MG 3 ML AMPUL.NEB INHALE ×4 (08:16→18:45)
--- NOTE | 2024-09-01 08:44 | P.PNCC_ITS ---
Subjective Subjective Date of Service: 09/01/24 Interval History: no significant overnight events Critical Care Time (minutes): 60 Physical Exam 2 Vital Signs: Vital Signs: Last Vital Signs Temp 100.9 F H 09/01/24 08:00 Pulse 72 09/01/24 08:19 Resp 26 H 09/01/24 08:19 BP 138/68 09/01/24 08:01 Pulse Ox 90 L 09/01/24 08:00 O2 Del Method Mechanical Ventil ation 09/01/24 08:00 O2 Flow Rate 40 08/26/24 06:12 FiO2 55 09/01/24 08:19 BMI result Body Mass Index 49.1 Const: Other: intubated, minimally sedated; appreciable spontaneous movements General: comfortable, no acute distress and well developed HEENT: Head: Yes normal to inspection, Yes normocephalic and Yes atraumatic Eyes: General: appearance normal, both eyes and all related structures Neck: Neck: Yes normal visual inspection, Yes full ROM, Yes no meningeal signs, Yes trachea midline and Yes supple Chest: Chest palpation & inspection: normal inspection of the chest Resp: Other: no appreciable overt rales, rhonchi, wheezing Effort & Inspection: normal respiratory effort Cardio: Rate: regular rate Rhythm: regular rhythm GI: Inspection: Yes normal to inspection, No Abdominal wall edema and No distended Skin: General skin exam: no rashes or lesions noted Neuro: General: tone normal, moves all extremities and no meningeal signs Extrem: General: Yes normal to inspection, Yes full ROM, Yes capillary refill normal and Yes no clubbing, cyanosis or edema Psych: Appearance: grossly normal Objective Data Labs 09/01/24 05:17 09/01/24 05:17 Labs: Laboratory Results - last 24 hr 08/31/24 08/31/24 09/01/24 11:24 17:24 00:18 WBC RBC Hgb Hct MCV MCH MCHC RDW Plt Count MPV Immature Gran % (Auto) Neut % (Auto) Lymph % (Auto) [place] % (Auto) Eos % (Auto) Baso % (Auto) Lymph # (Auto) [place] # (Auto) Eos # (Auto) Baso # (Auto) Abs Immat Gran (auto) Absolute Neuts (auto) Absolute Nucleated RBC Nucleated RBC % (auto) Smear Tech's Comments VBG pH VBG pCO2 VBG pO2 VBG HCO3 VBG O2 Saturation VBG Base Excess Sodium Potassium Chloride Carbon Dioxide Anion Gap BUN Creatinine Estim Creat Clear Calc Estimated GFR POC Glucose 91 122 H 156 H Random Glucose Calcium Phosphorus Magnesium Albumin 09/01/24 09/01/24 05:17 05:32 WBC 23.5 H RBC 5.09 Hgb 14.2 Hct 46.0 MCV 90.4 MCH 27.9 MCHC 30.9 L RDW 16.6 H Plt Count 193 MPV 10.2 Immature Gran % (Auto) 0.6 H Neut % (Auto) 87.4 H Lymph % (Auto) 3.5 L [place] % (Auto) 8.2 Eos % (Auto) 0.1 Baso % (Auto) 0.2 Lymph # (Auto) 0.8 L [place] # (Auto) 1.9 H Eos # (Auto) 0.0 Baso # (Auto) 0.1 Abs Immat Gran (auto) 0.14 H Absolute Neuts (auto) 20.5 H Absolute Nucleated RBC 0.000 Nucleated RBC % (auto) 0.0 Smear Tech's Comments VERIFIED VBG pH 7.50 H VBG pCO2 36 VBG pO2 73 VBG HCO3 29 H VBG O2 Saturation 94.0 VBG Base Excess 6.1 Sodium 140 Potassium 4.4 Chloride 107 Carbon Dioxide 26 Anion Gap 11 L BUN 19 H Creatinine 0.69 Estim Creat Clear Calc 84.9 Estimated GFR > 60 POC Glucose Random Glucose 90 Calcium 9.0 Phosphorus 3.1 Magnesium 2.2 Albumin 3.3 L Microbiology Microbiology Results: Microbiology 08/26/24 04:24 Blood - Venous Blood Culture - Final No growth after 5 days. 08/26/24 04:24 Blood - Venous Blood Culture - Final No growth after 5 days. 08/26/24 Unknown Urine clean catch - Clean Catch Midstream Urine Culture - Final Progress Note: A&P Assessment and plan (1) Acute respiratory failure with hypoxia and hypercapnia: Status: Acute (2) Emphysema lung: Status: Acute (3) COPD (chronic obstructive pulmonary disease): Status: Acute (4) FAITH (obstructive sleep apnea): Status: Acute (5) Obesity hypoventilation syndrome: Status: Acute Plan Patient is a 74 Y F w/ hypertension, hyperlipidemia, COPD on 2-3L NC, morbid obesity c/b FAITH on CPAP PM, and prior DVT on apixaban, presenting initially to emergency department on 08/26 w/ dyspnea, found to be encephalopathic w/ acute on chronic hypercarbic respiratory failure, intubated N: intubated, sedated w/ propofol gtt, wean as tolerated CV: no acute issues R: acute on chronic hypercarbic respiratory failure, intubated 08/26, wean as tolerated; COPD exacerbation management; emphysema, FAITH, OHS; tolerating daily SBTs, though remains on moderate PS and PEEP GI: tube feeds : no acute issues; to closely monitor renal indices, electrolytes H: no acute issues; prior DVT on apixaban ID: empiric ceftriaxone/azithryomcyin in setting of possible COPD exacerbation E: to monitor hypo-/hyper-glycemia P: no acute issues Quality Stroke Does the patient have a stroke diagnosis?: No VTE Prior VTE?: No VTE Risk Level:: Medical - moderate - high VTE Device Contraindication: N/A - Device Ordered VTE Drug Contraindication: N/A - Med Ordered
[2024-09-01] MEDS: Albumin Human 25 % 50 ML 100 ML IV (10:09)
[2024-09-01] MEDS: Acetaminophen 1,000 MG/100 ML PIGGYBACK 400 MG IV ×2 (10:56→17:26)
[2024-09-01 11:54] LABS: Glucose, Whole Blood 106 mg/dL (60-115)
[2024-09-01] MEDS: methylPREDNISolone Sod Succ 40 MG/ML VIAL 60 MG IVPUSH (15:24)
[2024-09-01 17:47] LABS: Glucose, Whole Blood 128 mg/dL (60-115)
[2024-09-01] MEDS: HYDROmorphone HCl 1 MG/ML SYRINGE IVPUSH (17:55)
[2024-09-01] MEDS: Azithromycin 500 MG in 0.9 % Sodium Chloride 250 ML 125 MG IV (18:16)
--- NOTE | 2024-09-01 18:46 | PC.NURSE ---
Assumed care at 0700. Pt was placed on ACVC+ towards end of previous shift. Propofol drip running per MAR. At approx 1030 pt placed on psv of 16/10 with fio2 of 55%. Pt had elevated temps, IV acetaminophen given per MAR with some positive effect. Pt repositioned q2hr.
[2024-09-02] VITALS (37 sets, daily range): BP systolic 110–153; BP diastolic 37–93; PULSE 61–84; RESP 13–29; TEMP 34.9–38.6; O2SAT 87–96; BMI 49.6
[2024-09-02] MEDS: propofoL 1,000 MG/100 ML VIAL 29.86 MG IVCONT ×8 (00:14→21:59)
[2024-09-02 00:29] LABS: Glucose, Whole Blood 177 mg/dL (60-115)
[2024-09-02] MEDS: cefTRIAXone sodium 2 GM VIAL IVPUSH (03:12)
[2024-09-02 05:54] LABS: VBG Base Excess 5.8 mmol/L; VBG HCO3 30 mmol/L (22-26); VBG pCO2 45 mmHg; VBG pH 7.43 (7.32-7.43); VBG pO2 66 mmHg
[2024-09-02 06:00] LABS: MANUAL DIFF FLAG NO
[2024-09-02 06:01] LABS: Basophils Percent Auto 0.2 % (0-2); Eosinophils Percent Auto 0.2 % (0-4); Hematocrit 46.5 % (37.0-47.0); Hemoglobin 13.7 g/dl (12.0-16.0); Imm Gran Abs Auto 0.09 X10*3/uL (0.00-0.03); Imm Gran Pct Auto 0.5 % (0.0-0.4); Lymphocytes Absolute Auto 0.6 X10*3/uL (1.2-4.9); Lymphocytes Percent Auto 3.2 % (20-40); Mean Corpuscular HGB Conc 29.5 g/dl (31.0-35.0); Mean Corpuscular Hemoglobin 28.1 pg (27.0-33.0); Mean Corpuscular Volume 95.3 fL (80.0-98.0); Mean Platelet Volume 11.2 fL (9.4-12.3); Monocytes Absolute Auto 1.4 X10*3/uL (0.1-1.2); Monocytes Percent Auto 7.8 % (2-11); Neutrophils Absolute Auto 15.8 x10*3/uL (2.0-8.3); Neutrophils Percent Auto 88.1 % (45-73); Platelet Count 194 X10*3/uL (160-400); Red Blood Count 4.88 X10*6/uL (4.20-5.50); Red Cell Distribution Width 16.7 % (11.0-16.0); White Blood Count 17.9 X10*3/uL (4.8-10.8)
[2024-09-02 06:03] LABS: Venous Blood Gas Refer to POC result
[2024-09-02 06:18] LABS: Albumin Level 3.2 g/dL (3.5-5.0); Anion Gap 12 (12-20); Blood Urea Nitrogen 19 mg/dL (9-16); Carbon Dioxide 27 mmol/L (22-29); Chloride 106 mmol/L (96-108); Creatinine Clr Calc Pharmacy 80.5; Estimated Glomerular Filt Rate > 60; Glucose Random 107 mg/dL (60-115); Magnesium 2.3 mg/dL (1.6-2.6); Phosphorus 2.3 mg/dL (2.7-4.5); Potassium 4.3 mmol/L (3.3-5.1); Sodium 141 mmol/L (135-145)
[2024-09-02] MEDS: Albuterol/Iprat 2.5/0.5MG 3 ML AMPUL.NEB INHALE ×4 (07:46→18:56)
[2024-09-02] MEDS: Apixaban 2.5 MG TABLET PO ×2 (08:16→20:20)
[2024-09-02] MEDS: Potassium Phosphate/NS 15 MMOL/250 ML PLAST..BAG 62.5 MMOL IV (08:24)
[2024-09-02] MEDS: Chlorhexidine Gluc Oral Rinse 15 ML MOUTHWASH BUCCAL ×2 (08:24→20:20)
[2024-09-02] MEDS: Furosemide 20 MG/2 ML VIAL 10 MG IVPUSH ×2 (08:24→18:40)
[2024-09-02] MEDS: Nystatin Powder 15 GM BOTTLE 1 APPL TOPICAL ×2 (08:24→20:20)
--- NOTE | 2024-09-02 08:33 | PM.CCPN ---
Subjective Subjective Date of Service: 09/02/24 Interval History: no significant overnight events; tolerating long episodes of SBTs, though at higher PS and PEEP Critical Care Time (minutes): 60 Physical Exam Vital Signs: Vital Signs: Last Vital Signs Temp 99.9 F 09/02/24 07:00 Pulse 65 09/02/24 07:51 Resp 24 H 09/02/24 07:51 BP 120/58 L 09/02/24 08:24 Pulse Ox 91 L 09/02/24 07:00 O2 Del Method Mechanical Ventil ation 09/02/24 07:00 O2 Flow Rate 40 08/26/24 06:12 FiO2 55 09/02/24 07:51 BMI result Body Mass Index 49.6 Const: Other: intubated, sedated; appreciable spontaneous movements; appreciable morbid obesity General: no acute distress HEENT: Head: Yes normal to inspection, Yes normocephalic and Yes atraumatic Eyes: General: appearance normal, both eyes and all related structures Neck: Neck: Yes normal visual inspection, Yes full ROM, Yes no meningeal signs, Yes trachea midline and Yes supple Chest: Chest palpation & inspection: normal inspection of the chest Resp: Other: no appreciable overt rales, rhonchi, wheezing Effort & Inspection: normal respiratory effort Cardio: Rate: regular rate Rhythm: regular rhythm GI: Inspection: Yes normal to inspection, No Abdominal wall edema and No distended Palpation (GI): Soft to palpation, not firm, nontender, no guarding and not rigid Skin: General skin exam: no rashes or lesions noted Neuro: General: tone normal, moves all extremities, no meningeal signs and no focal motor deficits Extrem: General: Yes normal to inspection, Yes full ROM, Yes capillary refill normal and Yes no clubbing, cyanosis or edema Psych: Appearance: grossly normal Objective Data Labs 09/02/24 05:06 09/02/24 05:06 Labs: Laboratory Results - last 24 hr 09/01/24 09/01/24 09/02/24 11:50 17:41 00:22 WBC RBC Hgb Hct MCV MCH MCHC RDW Plt Count MPV Immature Gran % (Auto) Neut % (Auto) Lymph % (Auto) [place] % (Auto) Eos % (Auto) Baso % (Auto) Lymph # (Auto) [place] # (Auto) Eos # (Auto) Baso # (Auto) Abs Immat Gran (auto) Absolute Neuts (auto) Absolute Nucleated RBC Nucleated RBC % (auto) VBG pH VBG pCO2 VBG pO2 VBG HCO3 VBG O2 Saturation VBG Base Excess Sodium Potassium Chloride Carbon Dioxide Anion Gap BUN Creatinine Estim Creat Clear Calc Estimated GFR POC Glucose 106 128 H 177 H Random Glucose Calcium Phosphorus Magnesium Albumin 09/02/24 09/02/24 05:06 05:48 WBC 17.9 H RBC 4.88 Hgb 13.7 Hct 46.5 MCV 95.3 MCH 28.1 MCHC 29.5 L RDW 16.7 H Plt Count 194 MPV 11.2 Immature Gran % (Auto) 0.5 H Neut % (Auto) 88.1 H Lymph % (Auto) 3.2 L [place] % (Auto) 7.8 Eos % (Auto) 0.2 Baso % (Auto) 0.2 Lymph # (Auto) 0.6 L [place] # (Auto) 1.4 H Eos # (Auto) 0.0 Baso # (Auto) 0.0 Abs Immat Gran (auto) 0.09 H Absolute Neuts (auto) 15.8 H Absolute Nucleated RBC 0.000 Nucleated RBC % (auto) 0.0 VBG pH 7.43 VBG pCO2 45 VBG pO2 66 VBG HCO3 30 H VBG O2 Saturation 90.0 VBG Base Excess 5.8 Sodium 141 Potassium 4.3 Chloride 106 Carbon Dioxide 27 Anion Gap 12 BUN 19 H Creatinine 0.71 Estim Creat Clear Calc 80.5 Estimated GFR > 60 POC Glucose Random Glucose 107 Calcium 9.0 Phosphorus 2.3 L Magnesium 2.3 Albumin 3.2 L Microbiology Microbiology Results: Microbiology 08/26/24 04:24 Blood - Venous Blood Culture - Final No growth after 5 days. 08/26/24 04:24 Blood - Venous Blood Culture - Final No growth after 5 days. 08/26/24 Unknown Urine clean catch - Clean Catch Midstream Urine Culture - Final Progress Note: A&P Assessment and plan (1) Acute respiratory failure with hypoxia and hypercapnia: Status: Acute (2) COPD (chronic obstructive pulmonary disease): Status: Acute (3) Emphysema lung: Status: Acute (4) FAITH (obstructive sleep apnea): Status: Acute (5) Obesity hypoventilation syndrome: Status: Acute Plan Patient is a 74 Y F w/ hypertension, hyperlipidemia, COPD on 2-3L NC, morbid obesity c/b FAITH on CPAP PM, and prior DVT on apixaban, presenting initially to emergency department on 08/26 w/ dyspnea, found to be encephalopathic w/ acute on chronic hypercarbic respiratory failure, intubated N: intubated, sedated w/ propofol gtt, though awake, alert, spontaneously breathing CV: no acute issues R: acute on chronic hypercarbic respiratory failure, intubated 08/26, wean as tolerated; COPD exacerbation management; emphysema, FAITH, OHS; tolerating long periods of spontaneous breathing, though remains on moderate PS and PEEP GI: tube feeds : no acute issues; to closely monitor renal indices, electrolytes H: no acute issues; prior DVT on apixaban ID: empiric ceftriaxone/azithryomcyin in setting of possible COPD exacerbation E: to monitor hypo-/hyper-glycemia P: no acute issues Quality Stroke Does the patient have a stroke diagnosis?: No VTE Prior VTE?: No VTE Risk Level:: Medical - moderate - high VTE Device Contraindication: N/A - Device Ordered VTE Drug Contraindication: N/A - Med Ordered
[2024-09-02] MEDS: Albumin Human 25 % 50 ML 100 ML IV (09:50)
[2024-09-02 12:06] LABS: Glucose, Whole Blood 108 mg/dL (60-115)
[2024-09-02] MEDS: Acetaminophen 1,000 MG/100 ML PIGGYBACK 400 MG IV (12:18)
[2024-09-02 18:32] LABS: Glucose, Whole Blood 119 mg/dL (60-115)
[2024-09-02] MEDS: Azithromycin 500 MG in 0.9 % Sodium Chloride 250 ML 125 MG IV (18:38)
--- NOTE | 2024-09-02 19:08 | PC.NURSE ---
Assumed care at 0700. Propofol drip continues per MAR; pt RASS -3. Pt had elevated temps . Pt tolerating TF at goal rate. Pt placed on psv of 14/10 with fio2 of 60% at 1600. Repositioned q2hr. See MAR for details of med administration.
[2024-09-02] MEDS: HYDROmorphone HCl 1 MG/ML SYRINGE IVPUSH (23:44)
[2024-09-02 23:46] LABS: Glucose, Whole Blood 102 mg/dL (60-115)
[2024-09-03] VITALS (35 sets, daily range): BP systolic 96–139; BP diastolic 39–70; PULSE 60–88; RESP 17–30; TEMP 34.6–38.5; O2SAT 89–95; BMI 48.9
[2024-09-03] MEDS: propofoL 1,000 MG/100 ML VIAL 29.86 MG IVCONT ×8 (01:09→23:01)
--- NOTE | 2024-09-03 01:30 | PC.NURSE ---
CARE ASSUMED 7PM...REMAINS INTUBATED..CPAP 10/PSV 14/FIO2 60%...PROPOFOL 40 MCG/KG/MIN..AWAKE..WEAKLY KUHN BUT NOT TO COMMAND...RR 26-30...INCREASED WORK OF BREATHING NOTED...23:30 VENTILATOR CHANGED TO PCV MODE..RATE 18/IP 15/FIO2 60%/PEEP 10 PER PROVIDER....DILAUDID 1MG IV PER PROVIDER FOR WORK OF BREATHING..RESTFUL...RR CONTROLLED AT 18...RESTFUL....TUBE FEEDS TOLERATED AT 20 CC/HR...NSR..HR DECREASED FROM 80'S TO 60'S ON PCV VENT SUPPORT..
[2024-09-03] MEDS: cefTRIAXone sodium 2 GM VIAL IVPUSH (03:34)
[2024-09-03 05:12] LABS: VBG Base Excess 6.6 mmol/L; VBG HCO3 29 mmol/L (22-26); VBG pCO2 35 mmHg; VBG pH 7.52 (7.32-7.43); VBG pO2 66 mmHg
[2024-09-03 05:13] LABS: Venous Blood Gas Refer to POC result
[2024-09-03 05:30] LABS: MANUAL DIFF FLAG NO
[2024-09-03 05:31] LABS: Basophils Percent Auto 0.2 % (0-2); Eosinophils Absolute Auto 0.6 X10*3/uL (0.0-0.4); Eosinophils Percent Auto 4.2 % (0-4); Hematocrit 43.7 % (37.0-47.0); Hemoglobin 13.1 g/dl (12.0-16.0); Imm Gran Abs Auto 0.07 X10*3/uL (0.00-0.03); Imm Gran Pct Auto 0.5 % (0.0-0.4); Lymphocytes Absolute Auto 0.9 X10*3/uL (1.2-4.9); Lymphocytes Percent Auto 5.8 % (20-40); Mean Corpuscular Hemoglobin 28.2 pg (27.0-33.0); Mean Corpuscular Volume 94.2 fL (80.0-98.0); Mean Platelet Volume 10.2 fL (9.4-12.3); Monocytes Absolute Auto 1.1 X10*3/uL (0.1-1.2); Monocytes Percent Auto 7.7 % (2-11); Neutrophils Absolute Auto 11.9 x10*3/uL (2.0-8.3); Neutrophils Percent Auto 81.6 % (45-73); Platelet Count 192 X10*3/uL (160-400); Red Blood Count 4.64 X10*6/uL (4.20-5.50); Red Cell Distribution Width 16.5 % (11.0-16.0); White Blood Count 14.5 X10*3/uL (4.8-10.8)
[2024-09-03 05:49] LABS: Albumin Level 3.2 g/dL (3.5-5.0); Anion Gap 11 (12-20); Blood Urea Nitrogen 19 mg/dL (9-16); Calcium 8.7 mg/dL (8.4-10.2); Carbon Dioxide 26 mmol/L (22-29); Chloride 107 mmol/L (96-108); Creatinine Clr Calc Pharmacy 79.8; Estimated Glomerular Filt Rate > 60; Glucose Random 91 mg/dL (60-115); Phosphorus 2.7 mg/dL (2.7-4.5); Potassium 3.8 mmol/L (3.3-5.1); Sodium 140 mmol/L (135-145)
[2024-09-03] MEDS: Apixaban 2.5 MG TABLET PO ×2 (07:37→20:13)
[2024-09-03] MEDS: Chlorhexidine Gluc Oral Rinse 15 ML MOUTHWASH BUCCAL ×2 (07:37→20:13)
[2024-09-03] MEDS: Furosemide 20 MG/2 ML VIAL 10 MG IVPUSH (07:37)
[2024-09-03] MEDS: Nystatin Powder 15 GM BOTTLE 1 APPL TOPICAL ×2 (07:39→20:16)
[2024-09-03] MEDS: Albuterol/Iprat 2.5/0.5MG 3 ML AMPUL.NEB INHALE ×4 (08:26→20:08)
[2024-09-03] MEDS: Albumin Human 25 % 100 ML IV ×3 (09:26→20:11)
[2024-09-03] MEDS: Furosemide 40 MG/4 ML VIAL IVPUSH ×2 (09:26→17:24)
--- NOTE | 2024-09-03 10:21 | MHC.CLN ---
F/U PT REMAINS INTUBATED AND SEDATED DISCUSSED AT ROUNDS WITH MD RECEIVING PROMOTE AT MAX GOAL RATE 20ML/HR WITH 300ML FREE WATER FLUSHES Q 8 HRS PROVIDES 480KCALS (1268KCALS WITH SEDATION; 28KCALS/KG BASED ON IBW), 30G PROTEIN, 1522ML TOTAL FREE WATER FROM FORMULA AND FLUSHES (29ML/KG) MONITOR TOLERANCE AND LYTES
--- NOTE | 2024-09-03 10:56 | PM.CCPN ---
Subjective Subjective Date of Service: 09/03/24 Interval History: 74-year-old lady with underlying COPD supplemental oxygen 2-3 L dependent, obesity, DVT on anticoagulation with Eliquis admitted on 08/26/2024 with acute hypercapnic respiratory with poor response to BiPAP therapy requiring intubation and ventilatory support. CT chest demonstrated no pulmonary emboli, but cardiomegaly with bilateral small pleural effusions, bilateral lower lobe atelectasis, and likely stigmata of pulmonary hypertension. Hospital course significant for poor progress with spontaneous breathing trials, still requiring significant ventilatory support with FiO2 of 60% and PEEP of 10. No events overnight. Critical Care Time (minutes): 60 Physical Exam Vital Signs: Vital Signs: Last Vital Signs Temp 100.6 F H 09/03/24 10:00 Pulse 72 09/03/24 10:28 Resp 18 09/03/24 10:28 BP 139/56 L 09/03/24 10:28 Pulse Ox 91 L 09/03/24 10:28 O2 Del Method Mechanical Ventil ation 09/03/24 10:00 O2 Flow Rate 40 08/26/24 06:12 FiO2 60 09/03/24 10:00 BMI result Body Mass Index 48.9 Const: General: no acute distress and other ( Sedated on ventilatory support) Eyes: Sclerae: sclerae normal EOM: EOMs intact bilaterally Neck: Neck: Yes no lymphadenopathy, Yes trachea midline and Yes supple Resp: Auscultation: crackles ( mild bilateral) Cardio: Rate: regular rate Rhythm: regular rhythm Heart sounds: no gallops, no murmurs and no rubs GI: Palpation (GI): Soft to palpation and Other GI palpation findings present ( Nontender) Auscultation: normal bowel sounds Extrem: General: No clubbing, No cyanosis and Yes edema ( trace bilateral) Objective Data Labs 09/03/24 05:02 09/03/24 05:02 Labs: Laboratory Results - last 24 hr 09/02/24 09/02/24 09/02/24 11:54 18:27 23:39 WBC RBC Hgb Hct MCV MCH MCHC RDW Plt Count MPV Immature Gran % (Auto) Neut % (Auto) Lymph % (Auto) [place] % (Auto) Eos % (Auto) Baso % (Auto) Lymph # (Auto) [place] # (Auto) Eos # (Auto) Baso # (Auto) Abs Immat Gran (auto) Absolute Neuts (auto) Absolute Nucleated RBC Nucleated RBC % (auto) VBG pH VBG pCO2 VBG pO2 VBG HCO3 VBG O2 Saturation VBG Base Excess Sodium Potassium Chloride Carbon Dioxide Anion Gap BUN Creatinine Estim Creat Clear Calc Estimated GFR POC Glucose 108 119 H 102 Random Glucose Calcium Phosphorus Magnesium Albumin 09/03/24 09/03/24 05:02 05:09 WBC 14.5 H RBC 4.64 Hgb 13.1 Hct 43.7 MCV 94.2 MCH 28.2 MCHC 30.0 L RDW 16.5 H Plt Count 192 MPV 10.2 Immature Gran % (Auto) 0.5 H Neut % (Auto) 81.6 H Lymph % (Auto) 5.8 L [place] % (Auto) 7.7 Eos % (Auto) 4.2 H Baso % (Auto) 0.2 Lymph # (Auto) 0.9 L [place] # (Auto) 1.1 Eos # (Auto) 0.6 H Baso # (Auto) 0.0 Abs Immat Gran (auto) 0.07 H Absolute Neuts (auto) 11.9 H Absolute Nucleated RBC 0.000 Nucleated RBC % (auto) 0.0 VBG pH 7.52 H VBG pCO2 35 VBG pO2 66 VBG HCO3 29 H VBG O2 Saturation 94.0 VBG Base Excess 6.6 Sodium 140 Potassium 3.8 Chloride 107 Carbon Dioxide 26 Anion Gap 11 L BUN 19 H Creatinine 0.71 Estim Creat Clear Calc 79.8 Estimated GFR > 60 POC Glucose Random Glucose 91 Calcium 8.7 Phosphorus 2.7 Magnesium 2.0 Albumin 3.2 L Microbiology Microbiology Results: Microbiology 08/26/24 04:24 Blood - Venous Blood Culture - Final No growth after 5 days. 08/26/24 04:24 Blood - Venous Blood Culture - Final No growth after 5 days. 08/26/24 Unknown Urine clean catch - Clean Catch Midstream Urine Culture - Final Progress Note: A&P Assessment and plan (1) COPD (chronic obstructive pulmonary disease): Status: Acute (2) Acute respiratory failure with hypoxia and hypercapnia: Status: Acute (3) Obesity hypoventilation syndrome: Status: Acute (4) FAITH (obstructive sleep apnea): Status: Acute Plan Assessment: 74-year-old lady with underlying 2-3 L dependent COPD DVT on anticoagulation, and obesity with likely obesity hypoventilation syndrome admitted with acute hypoxic and hypercapnic respiratory failure requiring ventilatory support, likely secondary to underlying congestive heart failure Plan: Neuro: No acute issues. Cardiac: Likely underlying congestive heart failure with possible pulmonary hypertension 2D echocardiogram is pending. Continue with diuresis. Pulmonary: Acute on chronic hypoxic and hypercapnic respiratory failure requiring ventilatory support, continue to titrate off as tolerated. Likely underlying obesity hypoventilation syndrome Renal: No acute issues. Endo: No acute issues. GI: No acute issues. ID: No acute issues Heme/Onc: No acute issues. Psych: No acute issues. Miscellaneous: No acute issues. Prophylaxis: Eliquis, famotidine Diet: tube feeds Critical care time spent: 60 minutes Quality Stroke Does the patient have a stroke diagnosis?: No VTE Prior VTE?: No VTE Risk Level:: Medical - moderate - high VTE Device Contraindication: N/A - Device Ordered VTE Drug Contraindication: N/A - Med Ordered
[2024-09-03 11:41] LABS: Glucose, Whole Blood 115 mg/dL (60-115)
--- NOTE | 2024-09-03 13:15 | MHC.CM.PN ---
Pt remains intubated in ICU: on 60% FiO2 with difficulty on PSV. Plan is for diuresis and wean trials. Pt is from [facility] : will need STR once extubed. CM to follow for referrals and d/c planning.
[2024-09-03 17:32] LABS: Glucose, Whole Blood 109 mg/dL (60-115)
[2024-09-03 20:23] LABS: Anion Gap 11 (12-20); Blood Urea Nitrogen 19 mg/dL (9-16); Calcium 8.8 mg/dL (8.4-10.2); Carbon Dioxide 30 mmol/L (22-29); Chloride 105 mmol/L (96-108); Creatinine Clr Calc Pharmacy 71.7; Estimated Glomerular Filt Rate > 60; Glucose Random 105 mg/dL (60-115); Potassium 3.8 mmol/L (3.3-5.1); Sodium 142 mmol/L (135-145)
[2024-09-04] VITALS (36 sets, daily range): BP systolic 93–144; BP diastolic 41–69; PULSE 63–96; RESP 17–30; TEMP 34.4–38.5; O2SAT 88–93; BMI 47.8
[2024-09-04 00:08] LABS: Glucose, Whole Blood 104 mg/dL (60-115)
[2024-09-04] MEDS: propofoL 1,000 MG/100 ML VIAL 29.86 MG IVCONT ×6 (01:51→23:36)
[2024-09-04] MEDS: Albumin Human 25 % 100 ML IV (01:54)
[2024-09-04] MEDS: Acetaminophen 1,000 MG/100 ML PIGGYBACK 600 MG IV (02:25)
[2024-09-04] MEDS: cefTRIAXone sodium 2 GM VIAL IVPUSH (04:12)
--- NOTE | 2024-09-04 05:18 | PC.NURSE ---
sedated under the influences of propofol infusion. opens eyes to tactile stimulation. does not focus or track. localizes extremities to noxious stimulation. transorally intubated and mechanically ventilated. breath sounds have scattered rhonchi noted as well as fine crackles in the RLL. suctioned via ett for small amounts [place] thin sputum. oral secretions have been copious and clear in nature. sa02 91-93%. ecg displays sr with infrequent unifocal pvcs. pt had a temp spike over night 101.3 1000 mg iv tylenol given and computer operations manager provider Albert aware. abdomen obese and semisoft. bowel sounds are hypoactive. tolerating tube feedings nickerson catheter patent and draining yellow urine 30-50ml/hr.
[2024-09-04 05:34] LABS: VBG Base Excess 7.8 mmol/L; VBG HCO3 30 mmol/L (22-26); VBG pCO2 35 mmHg; VBG pH 7.53 (7.32-7.43); VBG pO2 65 mmHg
[2024-09-04 05:50] LABS: MANUAL DIFF FLAG NO
[2024-09-04 05:53] LABS: Basophils Percent Auto 0.3 % (0-2); Eosinophils Absolute Auto 0.4 X10*3/uL (0.0-0.4); Eosinophils Percent Auto 3.6 % (0-4); Hematocrit 42.6 % (37.0-47.0); Hemoglobin 12.5 g/dl (12.0-16.0); Imm Gran Abs Auto 0.07 X10*3/uL (0.00-0.03); Imm Gran Pct Auto 0.6 % (0.0-0.4); Lymphocytes Absolute Auto 0.6 X10*3/uL (1.2-4.9); Lymphocytes Percent Auto 5.2 % (20-40); Mean Corpuscular HGB Conc 29.3 g/dl (31.0-35.0); Mean Corpuscular Hemoglobin 27.7 pg (27.0-33.0); Mean Corpuscular Volume 94.2 fL (80.0-98.0); Mean Platelet Volume 10.1 fL (9.4-12.3); Monocytes Percent Auto 8.2 % (2-11); Neutrophils Percent Auto 82.1 % (45-73); Platelet Count 193 X10*3/uL (160-400); Red Blood Count 4.52 X10*6/uL (4.20-5.50); Red Cell Distribution Width 16.2 % (11.0-16.0); White Blood Count 12.1 X10*3/uL (4.8-10.8)
[2024-09-04 06:06] LABS: Venous Blood Gas Refer to POC result
[2024-09-04 06:16] LABS: Alanine Aminotransferase 21 U/L (0-31); Anion Gap 14 (12-20); Aspartate Amino Transferase 25 U/L (5-31); Bilirubin Total 1.1 mg/dL (0.0-1.0); Blood Urea Nitrogen 22 mg/dL (9-16); Calcium 9.1 mg/dL (8.4-10.2); Carbon Dioxide 28 mmol/L (22-29); Chloride 105 mmol/L (96-108); Creatinine Clr Calc Pharmacy 75.6; Estimated Glomerular Filt Rate > 60; Glucose Random 88 mg/dL (60-115); Phosphorus 2.4 mg/dL (2.7-4.5); Potassium 3.4 mmol/L (3.3-5.1); Sodium 144 mmol/L (135-145); Total Protein 7.3 g/dL (6.5-8.0)
[2024-09-04 06:22] LABS: Alkaline Phosphatase 68 U/L (39-117)
--- NOTE | 2024-09-04 07:00 | CA_ITS ---
Transthoracic Echocardiogram Patient (Last, First, Middle): Janent Chavez, Gender: Female Date of : 1950 Age: 74 Procedure Date: 09/04/2024 Procedure Type: Transthoracic Echocardiogram Location: ICU Height: 152.4 cm Weight: 113.4 kg BSA: 2.05 m2 Heart Rate: bpm BP: 119 / 48 mmHg No Experience: TO Referring MD: Cholo Carlos MD Symptoms: dyspnea on exertion Study Quality: Fair/Contrast Conclusions: - Normal left ventricular size, thickness, systolic function, and wall motion. The visually estimated ejection fraction is between 55-60%. - Elevated filling pressures. - Normal right ventricular cavity size and systolic function. - There is mild aortic valve stenosis. - Mild to moderate pulmonary hypertension is present. PA pressure 37+ right atrial pressure. Findings Procedure Information Contrast agent, definity, is being given per protocol without apparent complications. Left Ventricle Normal left ventricular size, thickness, systolic function, and wall motion. The visually estimated ejection fraction is between 55-60%. Abnormal diastolic function is noted. Spectral Doppler is indicative of a pseudonormal filling pattern. Elevated filling pressures. Right Ventricle Normal right ventricular cavity size and systolic function. Atria The left atrium is mildly dilated. The right atrium is likely dilated. Aortic Valve There is a normal trileaflet aortic valve. There is mild aortic valve stenosis. The peak aortic velocity is 2.37 m/s. The mean gradient is 12 mmHg. There is no aortic valve regurgitation. Mitral Valve The mitral valve appears normal. There is trace mitral valve regurgitation. There is no mitral valve stenosis. Pulmonic Valve The pulmonic valve is normal. There is no pulmonic valve regurgitation. Tricuspid Valve Normal tricuspid valve structure. There is no tricuspid valve regurgitation. Tricuspid regurgitation envelope is inadequate for calculation of right ventricular systolic pressure. Indeterminate right atrial pressure. Mild to moderate pulmonary hypertension is present. PA pressure 37+ right atrial pressure. Great Vessels All visible segments of the aorta are normal in size. The visualized portions of the pulmonary artery and branches are normal. Venous The inferior vena cava is dilated and does not collapse with inspiration. Unable to comment about right atrial pressure because patient is intubated. Pericardium/Pleural There is no evidence of pericardial effusion. Prior Study Comparison No prior study available for comparison. Measurements 2D Linear Measurements IVSd: 0.82 0.6-0.9/0.6-1.0 cm LVIDd: 5.98 3.9-5.3/4.2-5.9 cm LVIDd Index: 2.92 2.4-3.2/2.2-3.1 cm/m2 LVIDs: 4.20 2.0-3.6 cm LVPWd: 0.88 0.7-1.1 cm LA Diam: 3.70 2.7-3.8/3.0-4.0 cm LAIDs Index: 1.80 1.5-2.3 cm/m2 LV Mass: 247.60 67-162/88-224 g LV Mass Index: 120.78 43-95/49-115 g/m2 LVOT Diam: 2.00 3.0+(-)1.3 cm 2D Systolic Function EF 4C: 50.10 >55% EF 2C: 50.00 >55% EF BiP: 49.60 >55% Mitral Valve MV Pk E: 1.17 MV PK A: 1.04 MV Decel Time: 291.00 E/A: 1.10 E'Lateral: 6.96 E'Medial: 5.55 E/E' Med: 21.10 E/E' Lat: 16.80 PHT: 79.00 MVA PHT: 2.78 Decel [place]: 4.19 Aortic Valve AoV Pk Deepak: 2.37 AoV Mn Deepak: 1.60 AoV VTI: 0.47 AoV Pk Grad: 22.00 Aov Mn Grad: 12.00 JESSICA Cont.VTI: 2.12 LVOT LVOT Pk Deepak: 1.77 LVOT Mn Deepak: 1.08 LVOT VTI: 0.31 LVOT Pk Grad: 13.00 LVOT Mn Grad: 6.00 LVOT Diam: 2.00 LVOT Area: 3.14 Diastolic Function MV Pk E: 1.17 MV Pk A: 1.04 E/A: 1.10 E'Medial: 5.55 E/E' Med: 21.10 E' Laterial: 6.96 E/E' Lat: 16.80 Right Ventricle TAPSE (mm): 19.30 TVS' Deepak: 15.30 Tricuspid Valve TR Pk Deepak: 2.36 TR Pk Grad: 22.00 RA Press: 15.00 RVSP: 37.00 Great Vessels Aorta Sinus of Valsalva: 3.02 2.0-3.5 cm Ao Asc: 3.20 2.1-3.4 cm Updated in Other Vendor System with Status of Final Claude Ba MD electronically signed on 09/04/2024 2:45:30 PM with status of Final
[2024-09-04] MEDS: Potassium Phosphate/NS 15 MMOL/250 ML PLAST..BAG 62.5 MMOL IV (08:03)
[2024-09-04] MEDS: 0.9 % Sodium Chloride Flush 3 ML SYRINGE IVFLUSH ×3 (08:05→22:59)
[2024-09-04] MEDS: Furosemide 40 MG/4 ML VIAL IVPUSH ×2 (08:06→18:33)
[2024-09-04] MEDS: Chlorhexidine Gluc Oral Rinse 15 ML MOUTHWASH BUCCAL ×2 (08:06→22:59)
[2024-09-04] MEDS: Apixaban 2.5 MG TABLET PO ×2 (08:07→22:59)
[2024-09-04] MEDS: Famotidine/PF 20 MG/2 ML VIAL IVPUSH (08:07)
[2024-09-04] MEDS: Nystatin Powder 15 GM BOTTLE 1 APPL TOPICAL ×2 (08:14→23:00)
[2024-09-04] MEDS: Albuterol/Iprat 2.5/0.5MG 3 ML AMPUL.NEB INHALE ×4 (08:22→20:05)
--- NOTE | 2024-09-04 09:41 | PM.CCPN ---
Subjective Subjective Date of Service: 09/04/24 Interval History: 74-year-old lady with underlying COPD supplemental oxygen 2-3 L dependent, obesity, DVT on anticoagulation with Eliquis admitted on 08/26/2024 with acute hypercapnic respiratory with poor response to BiPAP therapy requiring intubation and ventilatory support. CT chest demonstrated no pulmonary emboli, but cardiomegaly with bilateral small pleural effusions, bilateral lower lobe atelectasis, and likely stigmata of pulmonary hypertension. Hospital course significant for poor progress with spontaneous breathing trials, now with improving FiO2 requirements. No events overnight. Critical Care Time (minutes): 45 Physical Exam Vital Signs: Vital Signs: Last Vital Signs Temp 100.4 F 09/04/24 09:00 Pulse 75 09/04/24 09:00 Resp 20 09/04/24 09:00 BP 129/56 L 09/04/24 09:00 Pulse Ox 88 L 09/04/24 09:00 O2 Del Method Mechanical Ventil ation 09/04/24 09:00 O2 Flow Rate 40 08/26/24 06:12 FiO2 50 09/04/24 09:00 BMI result Body Mass Index 47.8 Const: General: no acute distress and other (Sedated on ventilatory support) Eyes: Sclerae: sclerae normal EOM: EOMs intact bilaterally Neck: Neck: Yes no lymphadenopathy, Yes trachea midline and Yes supple Resp: Effort & Inspection: normal respiratory effort Auscultation: crackles (Mild bilateral) Cardio: Rate: regular rate Rhythm: regular rhythm Heart sounds: no gallops, no murmurs and no rubs GI: Palpation (GI): Soft to palpation and Other GI palpation findings present ( Nontender) Auscultation: normal bowel sounds Extrem: General: No clubbing, No cyanosis and Yes edema (Trace bilateral) Objective Data Labs 09/04/24 05:24 09/04/24 05:24 Labs: Laboratory Results - last 24 hr 09/03/24 09/03/24 09/03/24 11:17 17:25 20:01 WBC RBC Hgb Hct MCV MCH MCHC RDW Plt Count MPV Immature Gran % (Auto) Neut % (Auto) Lymph % (Auto) [place] % (Auto) Eos % (Auto) Baso % (Auto) Lymph # (Auto) [place] # (Auto) Eos # (Auto) Baso # (Auto) Abs Immat Gran (auto) Absolute Neuts (auto) Absolute Nucleated RBC Nucleated RBC % (auto) VBG pH VBG pCO2 VBG pO2 VBG HCO3 VBG O2 Saturation VBG Base Excess Sodium 142 Potassium 3.8 Chloride 105 Carbon Dioxide 30 H Anion Gap 11 L BUN 19 H Creatinine 0.79 Estim Creat Clear Calc 71.7 Estimated GFR > 60 POC Glucose 115 109 Random Glucose 105 Calcium 8.8 Phosphorus 3.0 Magnesium 2.0 Total Bilirubin AST ALT Alkaline Phosphatase Total Protein Albumin 09/03/24 09/04/24 09/04/24 23:54 05:24 05:28 WBC 12.1 H RBC 4.52 Hgb 12.5 Hct 42.6 MCV 94.2 MCH 27.7 MCHC 29.3 L RDW 16.2 H Plt Count 193 MPV 10.1 Immature Gran % (Auto) 0.6 H Neut % (Auto) 82.1 H Lymph % (Auto) 5.2 L [place] % (Auto) 8.2 Eos % (Auto) 3.6 Baso % (Auto) 0.3 Lymph # (Auto) 0.6 L [place] # (Auto) 1.0 Eos # (Auto) 0.4 Baso # (Auto) 0.0 Abs Immat Gran (auto) 0.07 H Absolute Neuts (auto) 10.0 H Absolute Nucleated RBC 0.000 Nucleated RBC % (auto) 0.0 VBG pH 7.53 H VBG pCO2 35 VBG pO2 65 VBG HCO3 30 H VBG O2 Saturation 93.0 VBG Base Excess 7.8 Sodium 144 Potassium 3.4 Chloride 105 Carbon Dioxide 28 Anion Gap 14 BUN 22 H Creatinine 0.75 Estim Creat Clear Calc 75.6 Estimated GFR > 60 POC Glucose 104 Random Glucose 88 Calcium 9.1 Phosphorus 2.4 L Magnesium 2.0 Total Bilirubin 1.1 H AST 25 ALT 21 Alkaline Phosphatase 68 Total Protein 7.3 Albumin 4.0 Microbiology Microbiology Results: Microbiology 08/26/24 04:24 Blood - Venous Blood Culture - Final No growth after 5 days. 08/26/24 04:24 Blood - Venous Blood Culture - Final No growth after 5 days. 08/26/24 Unknown Urine clean catch - Clean Catch Midstream Urine Culture - Final Progress Note: A&P Assessment and plan (1) History of DVT (deep vein thrombosis): Status: Acute (2) Acute respiratory failure with hypoxia and hypercapnia: Status: Acute (3) COPD (chronic obstructive pulmonary disease): Status: Acute Plan Assessment: 74-year-old lady with underlying 2-3 L dependent COPD DVT on anticoagulation, and obesity with likely obesity hypoventilation syndrome admitted with acute hypoxic and hypercapnic respiratory failure requiring ventilatory support, likely secondary to underlying congestive heart failure Plan: Neuro: No acute issues. Cardiac: Likely underlying congestive heart failure with possible pulmonary hypertension 2D echocardiogram is pending. Improving with diuresis. Pulmonary: Acute on chronic hypoxic and hypercapnic respiratory failure requiring ventilatory support, continue to titrate off as tolerated. Likely underlying obesity hypoventilation syndrome. Renal: No acute issues. Endo: No acute issues. GI: No acute issues. ID: No acute issues Heme/Onc: No acute issues. Psych: No acute issues. Miscellaneous: No acute issues. Prophylaxis: Eliquis, famotidine Diet: tube feeds Critical care time spent: 45 minutes Quality Stroke Does the patient have a stroke diagnosis?: No VTE Prior VTE?: No VTE Risk Level:: Medical - moderate - high VTE Device Contraindication: N/A - Device Ordered VTE Drug Contraindication: N/A - Med Ordered
[2024-09-04 11:31] LABS: Glucose, Whole Blood 112 mg/dL (60-115)
[2024-09-04] MEDS: Potassium Chloride Packet 20 MEQ PACKET 60 MEQ PO (11:44)
--- NOTE | 2024-09-04 13:40 | MHC.CM.PN ---
Pt on ventilatory support: FiO2 at 50% - following some commands: MD to start vent weaning process. Pt will need PT / OT evals for Acute vs STR. From [facility]. CM to follow
[2024-09-04] MEDS: propofoL 1,000 MG/100 ML VIAL 37.32 MG IVCONT ×2 (15:00→17:41)
[2024-09-04 18:00] LABS: Glucose, Whole Blood 114 mg/dL (60-115)
--- NOTE | 2024-09-04 18:39 | PC.NURSE ---
Assumed care 0700 on 09/04/24 patient course consisted of 2 hour SBT on PSV settings. did not extubate today related to hypoxia. plan to continue diuresis, ween ventilator, and ween sedation as tolerated. see shift assessment and see aug.
[2024-09-04 18:45] LABS: Anion Gap 12 (12-20); Blood Urea Nitrogen 25 mg/dL (9-16); Calcium 8.8 mg/dL (8.4-10.2); Carbon Dioxide 26 mmol/L (22-29); Chloride 108 mmol/L (96-108); Creatinine Clr Calc Pharmacy 71.6; Estimated Glomerular Filt Rate > 60; Glucose Random 104 mg/dL (60-115); Potassium 4.3 mmol/L (3.3-5.1); Sodium 142 mmol/L (135-145)
[2024-09-05] VITALS (33 sets, daily range): BP systolic 96–129; BP diastolic 41–56; PULSE 23–92; RESP 13–94; TEMP 35–38.5; O2SAT 88–93; BMI 42.9; BMI 47.3
[2024-09-05 00:12] LABS: Glucose, Whole Blood 103 mg/dL (60-115)
[2024-09-05] MEDS: Acetaminophen 1,000 MG/100 ML PIGGYBACK 400 MG IV (01:31)
[2024-09-05] MEDS: propofoL 1,000 MG/100 ML VIAL 29.86 MG IVCONT ×3 (03:03→08:59)
[2024-09-05] MEDS: cefTRIAXone sodium 2 GM VIAL IVPUSH (04:12)
[2024-09-05 05:37] LABS: VBG Base Excess 8.2 mmol/L; VBG HCO3 31 mmol/L (22-26); VBG pCO2 37 mmHg; VBG pH 7.53 (7.32-7.43); VBG pO2 71 mmHg
[2024-09-05 06:00] LABS: MANUAL DIFF FLAG NO
[2024-09-05 06:03] LABS: Basophils Percent Auto 0.2 % (0-2); Eosinophils Absolute Auto 0.6 X10*3/uL (0.0-0.4); Eosinophils Percent Auto 4.7 % (0-4); Hemoglobin 13.6 g/dl (12.0-16.0); Imm Gran Abs Auto 0.06 X10*3/uL (0.00-0.03); Imm Gran Pct Auto 0.5 % (0.0-0.4); Lymphocytes Absolute Auto 0.7 X10*3/uL (1.2-4.9); Mean Corpuscular HGB Conc 30.2 g/dl (31.0-35.0); Mean Corpuscular Volume 92.8 fL (80.0-98.0); Mean Platelet Volume 10.6 fL (9.4-12.3); Monocytes Absolute Auto 1.1 X10*3/uL (0.1-1.2); Monocytes Percent Auto 8.4 % (2-11); Neutrophils Absolute Auto 10.5 x10*3/uL (2.0-8.3); Neutrophils Percent Auto 81.2 % (45-73); Platelet Count 221 X10*3/uL (160-400); Red Blood Count 4.85 X10*6/uL (4.20-5.50); Red Cell Distribution Width 16.2 % (11.0-16.0)
[2024-09-05 06:11] LABS: Glucose, Whole Blood 99 mg/dL (60-115)
[2024-09-05 06:25] LABS: Albumin Level 3.8 g/dL (3.5-5.0); Anion Gap 14 (12-20); Blood Urea Nitrogen 25 mg/dL (9-16); Carbon Dioxide 27 mmol/L (22-29); Chloride 106 mmol/L (96-108); Creatinine Clr Calc Pharmacy 73.4; Estimated Glomerular Filt Rate > 60; Glucose Random 99 mg/dL (60-115); Magnesium 2.2 mg/dL (1.6-2.6); Phosphorus 2.6 mg/dL (2.7-4.5); Potassium 3.7 mmol/L (3.3-5.1); Sodium 143 mmol/L (135-145)
[2024-09-05] MEDS: Potassium Phosphate/NS 15 MMOL/250 ML PLAST..BAG 62.5 MMOL IV (07:55)
[2024-09-05] MEDS: 0.9 % Sodium Chloride Flush 3 ML SYRINGE IVFLUSH ×3 (07:56→20:03)
[2024-09-05] MEDS: Albuterol/Iprat 2.5/0.5MG 3 ML AMPUL.NEB INHALE ×4 (08:14→20:08)
[2024-09-05] MEDS: Furosemide 40 MG/4 ML VIAL IVPUSH ×2 (08:18→18:25)
[2024-09-05] MEDS: Famotidine/PF 20 MG/2 ML VIAL IVPUSH (08:18)
[2024-09-05] MEDS: Chlorhexidine Gluc Oral Rinse 15 ML MOUTHWASH BUCCAL ×2 (08:19→20:02)
[2024-09-05] MEDS: Apixaban 2.5 MG TABLET PO ×2 (08:19→20:01)
[2024-09-05] MEDS: Nystatin Powder 15 GM BOTTLE 1 APPL TOPICAL ×2 (08:34→20:02)
--- NOTE | 2024-09-05 08:48 | P.PNCC_ITS ---
Subjective Subjective Date of Service: 09/05/24 Interval History: 74-year-old lady with underlying COPD supplemental oxygen 2-3 L dependent, obesity, DVT on anticoagulation with Mariangelquis admitted on 08/26/2024 with acute hypercapnic respiratory with poor response to BiPAP therapy requiring intubation and ventilatory support. CT chest demonstrated no pulmonary emboli, but cardiomegaly with bilateral small pleural effusions, bilateral lower lobe atelectasis, and likely stigmata of pulmonary hypertension. Hospital course significant for poor progress with spontaneous breathing trials, now with improving FiO2 requirements. 2D echo with underlying diastolic dysfunction and pulmonary hypertension. No events overnight. Critical Care Time (minutes): 45 Physical Exam 2 Vital Signs: Vital Signs: Last Vital Signs Temp 100.0 F 09/05/24 08:00 Pulse 65 09/05/24 08:00 Resp 20 09/05/24 08:00 BP 111/47 L 09/05/24 08:00 Pulse Ox 90 L 09/05/24 08:00 O2 Del Method Mechanical Ventil ation 09/05/24 08:00 O2 Flow Rate 40 08/26/24 06:12 FiO2 50 09/05/24 08:14 BMI result Body Mass Index 42.9 Const: General: no acute distress and other (Sedated on ventilatory support) Eyes: Sclerae: sclerae normal EOM: EOMs intact bilaterally Neck: Neck: Yes no lymphadenopathy, Yes trachea midline and Yes supple Resp: Auscultation: crackles (Mild bilateral) Cardio: Rate: regular rate Rhythm: regular rhythm Heart sounds: no gallops, no murmurs and no rubs GI: Palpation (GI): Soft to palpation and Other GI palpation findings present ( Nontender) Auscultation: normal bowel sounds Extrem: General: No clubbing, No cyanosis and Yes edema (Trace bilateral) Objective Data Labs 09/05/24 05:14 09/05/24 05:14 Labs: Laboratory Results - last 24 hr 09/04/24 09/04/24 09/04/24 11:27 17:54 18:16 WBC RBC Hgb Hct MCV MCH MCHC RDW Plt Count MPV Immature Gran % (Auto) Neut % (Auto) Lymph % (Auto) [place] % (Auto) Eos % (Auto) Baso % (Auto) Lymph # (Auto) [place] # (Auto) Eos # (Auto) Baso # (Auto) Abs Immat Gran (auto) Absolute Neuts (auto) Absolute Nucleated RBC Nucleated RBC % (auto) VBG pH VBG pCO2 VBG pO2 VBG HCO3 VBG O2 Saturation VBG Base Excess Sodium 142 Potassium 4.3 D Chloride 108 Carbon Dioxide 26 Anion Gap 12 BUN 25 H Creatinine 0.78 Estim Creat Clear Calc 71.6 Estimated GFR > 60 POC Glucose 112 114 Random Glucose 104 Calcium 8.8 Phosphorus Magnesium Albumin 09/05/24 09/05/24 09/05/24 00:02 05:14 05:33 WBC 13.0 H RBC 4.85 Hgb 13.6 Hct 45.0 MCV 92.8 MCH 28.0 MCHC 30.2 L RDW 16.2 H Plt Count 221 MPV 10.6 Immature Gran % (Auto) 0.5 H Neut % (Auto) 81.2 H Lymph % (Auto) 5.0 L [place] % (Auto) 8.4 Eos % (Auto) 4.7 H Baso % (Auto) 0.2 Lymph # (Auto) 0.7 L [place] # (Auto) 1.1 Eos # (Auto) 0.6 H Baso # (Auto) 0.0 Abs Immat Gran (auto) 0.06 H Absolute Neuts (auto) 10.5 H Absolute Nucleated RBC 0.000 Nucleated RBC % (auto) 0.0 VBG pH 7.53 H VBG pCO2 37 VBG pO2 71 VBG HCO3 31 H VBG O2 Saturation 96.0 VBG Base Excess 8.2 Sodium 143 Potassium 3.7 Chloride 106 Carbon Dioxide 27 Anion Gap 14 BUN 25 H Creatinine 0.76 Estim Creat Clear Calc 73.4 Estimated GFR > 60 POC Glucose 103 Random Glucose 99 Calcium 9.0 Phosphorus 2.6 L Magnesium 2.2 Albumin 3.8 09/05/24 06:02 WBC RBC Hgb Hct MCV MCH MCHC RDW Plt Count MPV Immature Gran % (Auto) Neut % (Auto) Lymph % (Auto) [place] % (Auto) Eos % (Auto) Baso % (Auto) Lymph # (Auto) [place] # (Auto) Eos # (Auto) Baso # (Auto) Abs Immat Gran (auto) Absolute Neuts (auto) Absolute Nucleated RBC Nucleated RBC % (auto) VBG pH VBG pCO2 VBG pO2 VBG HCO3 VBG O2 Saturation VBG Base Excess Sodium Potassium Chloride Carbon Dioxide Anion Gap BUN Creatinine Estim Creat Clear Calc Estimated GFR POC Glucose 99 Random Glucose Calcium Phosphorus Magnesium Albumin Microbiology Microbiology Results: Microbiology 08/26/24 04:24 Blood - Venous Blood Culture - Final No growth after 5 days. 08/26/24 04:24 Blood - Venous Blood Culture - Final No growth after 5 days. 08/26/24 Unknown Urine clean catch - Clean Catch Midstream Urine Culture - Final Progress Note: A&P Assessment and plan (1) Pulmonary hypertension: Status: Acute (2) History of DVT (deep vein thrombosis): Status: Acute (3) COPD (chronic obstructive pulmonary disease): Status: Acute (4) Acute respiratory failure with hypoxia and hypercapnia: Status: Acute (5) Obesity hypoventilation syndrome: Status: Acute Plan Assessment: 74-year-old lady with underlying 2-3 L dependent COPD DVT on anticoagulation, and obesity with likely obesity hypoventilation syndrome admitted with acute hypoxic and hypercapnic respiratory failure requiring ventilatory support, likely secondary to underlying congestive heart failure Plan: Neuro: No acute issues. Cardiac: Likely underlying congestive heart failure with possible pulmonary hypertension 2D echocardiogram with diastolic dysfunction hypertension. Improving with diuresis. Pulmonary: Acute on chronic hypoxic and hypercapnic respiratory failure requiring ventilatory support, continue to titrate off as tolerated. Likely underlying obesity hypoventilation syndrome. Renal: No acute issues. Endo: No acute issues. GI: No acute issues. ID: No acute issues Heme/Onc: No acute issues. Psych: No acute issues. Miscellaneous: No acute issues. Prophylaxis: Eliquis, famotidine Diet: tube feeds Critical care time spent: 45 minutes Quality Stroke Does the patient have a stroke diagnosis?: No VTE Prior VTE?: No VTE Risk Level:: Medical - moderate - high VTE Device Contraindication: N/A - Device Ordered VTE Drug Contraindication: N/A - Med Ordered
[2024-09-05 09:16] LABS: Venous Blood Gas Refer to POC result
[2024-09-05] MEDS: propofoL 1,000 MG/100 ML VIAL 26.38 MG IVCONT ×3 (10:07→21:46)
[2024-09-05] MEDS: Lactulose 20 GM/30 ML SOLUTION 30 GM PO (10:10)
[2024-09-05] MEDS: Sildenafil Citrate 20 MG TABLET PO ×3 (10:15→20:01)
[2024-09-05 12:03] LABS: Glucose, Whole Blood 125 mg/dL (60-115)
--- NOTE | 2024-09-05 12:58 | MHC.CM.PN ---
Pt on vent support in ICU: pulmonary function slowly improving. [facility] referrals made as pt is a resident of [facility]. Pt will need to be extubated and able to participate in PT eval. CM to follow for finalization of d/c planning needs
--- NOTE | 2024-09-05 13:12 | P.CDIM_ITS ---
PROVIDER RESPONSE TEXT: To clarify, the appropriate diagnosis supported by the clinical indicators: Diastolic: Acute QUERY TEXT: PHYSICIAN'S DOCUMENTATION REQUEST Date of Query: 09/05/2024 12:02 PM EDT Patient Name: VISHNU MILLS Admit Date: 08/26/2024 Dear Cholo Carlos MD, A review of the medical record indicates additional documentation may be needed. Please review below and update the documentation accordingly. Clinical Indicators: pitting edema bilateral shins dyspnea, crackles pleural effusions, cardiomegaly, pulmonary edema BNP 471 CHF diastolic dysfunction IVP Lasix 40 mg BID Please provide further specificity regarding the most likely type and acuity of CHF you are evaluatin g, treating, or monitoring. Systolic Please specify if Acute, Chronic, or Acute on chronic, or Unable to determine Diastolic Please specify if Acute, Chronic, or Acute on chronic, or Unable to determine Combined Systolic/Diastolic Please specify if Acute, Chronic, or Acute on chronic, or Unable to determine Other (explain) Clinically unable to determine (explain) Thank you, Ekta Duckworth RN Use of terms such as suspected, likely, concern for, or probable (associated with a specific diagnosi s that is being evaluated, monitored, or treated as if it exists) are acceptable and can be coded in the inpatient se tting, when documented at the time of discharge. Please use your independent medical judgment in providing your response. THIS QUERY IS PART OF THE PERMANENT MEDICAL RECORD
[2024-09-05] MEDS: propofoL 1,000 MG/100 ML VIAL 19.78 MG IVCONT (13:32)
[2024-09-05 17:28] LABS: Glucose, Whole Blood 117 mg/dL (60-115)
--- NOTE | 2024-09-05 19:27 | PC.NURSE ---
assumed care of patient 09/05/24 at 0700. patient stable, mechanically vented and sedated. patient SBT initiated early this morning. able to tolerate psv for multiple hours today, however... requiring increased pressure and peep when compared with yesterday's PSV tiral. new medications added to regimen with hopes of improving diuresis and decreasing pulmonary hypertension, see EMILY, akanksha NEVAREZ note. Per MD ski patroller should rested on mechanical vent overnight. patient handed off at 1900 on 09/05/24. stable, mechanically vented and sedated.
--- NOTE | 2024-09-05 19:33 | HO.SKINPHOTO ---
Location: LEFT LATERAL HIP Category: Rash Location: RIGHT LATERAL HIP Category: Blister and Rash Dressing: xeroform and 4x4 gauze lightly taped
[2024-09-06] VITALS (35 sets, daily range): BP systolic 98–156; BP diastolic 43–74; PULSE 61–92; RESP 14–31; TEMP 32.2–38.2; O2SAT 88–94; BMI 46.3
[2024-09-06] MEDS: propofoL 1,000 MG/100 ML VIAL 26.38 MG IVCONT ×2 (01:06→04:21)
--- NOTE | 2024-09-06 01:41 | PC.NURSE ---
CARE ASSUMED 7PM...INITIALLY CPAP 8/PSV 12/FIO2 50%...RETURNED TO PCV VENT SUPPORT APPROX 8PM FOR INCREASED RR AND MARGINAL SAO2...PCV: RATE 18/IP 15/FIO2 50-60% AND PEEP 8....PEEP WEANED TO 5CM BY RT...SAO2 94% AND RR 20...Ve =7-8 L/M....DRESSINGS TO BOTH HIPS AND SACRUM INTACT..INCONTINANT LIQUIED BROWN STOOL..PER REPORT PATIENT PREVIOUSLY INCONTINANT LARGE LIQUIED BROWN STOOL APPROX 5PM..HS LACTULOSE HELD BY PROVIDER...NSR HR 70-78..NO ECTOPY...REMAINS WITH LOW GRADE TEMPS
[2024-09-06 05:46] LABS: VBG Base Excess 5.5 mmol/L; VBG HCO3 27 mmol/L (22-26); VBG pCO2 33 mmHg; VBG pH 7.52 (7.32-7.43); VBG pO2 66 mmHg
[2024-09-06 05:54] LABS: MANUAL DIFF FLAG NO
[2024-09-06 05:56] LABS: Basophils Percent Auto 0.3 % (0-2); Eosinophils Absolute Auto 0.6 X10*3/uL (0.0-0.4); Eosinophils Percent Auto 4.5 % (0-4); Hemoglobin 13.7 g/dl (12.0-16.0); Imm Gran Abs Auto 0.06 X10*3/uL (0.00-0.03); Imm Gran Pct Auto 0.5 % (0.0-0.4); Lymphocytes Absolute Auto 0.6 X10*3/uL (1.2-4.9); Mean Corpuscular HGB Conc 30.4 g/dl (31.0-35.0); Mean Corpuscular Volume 91.8 fL (80.0-98.0); Mean Platelet Volume 10.2 fL (9.4-12.3); Monocytes Percent Auto 7.9 % (2-11); Neutrophils Absolute Auto 10.3 x10*3/uL (2.0-8.3); Neutrophils Percent Auto 81.8 % (45-73); Platelet Count 228 X10*3/uL (160-400); Red Cell Distribution Width 16.2 % (11.0-16.0); White Blood Count 12.5 X10*3/uL (4.8-10.8)
[2024-09-06 06:13] LABS: Albumin Level 3.7 g/dL (3.5-5.0); Anion Gap 14 (12-20); Blood Urea Nitrogen 28 mg/dL (9-16); Calcium 9.1 mg/dL (8.4-10.2); Carbon Dioxide 27 mmol/L (22-29); Chloride 106 mmol/L (96-108); Creatinine Clr Calc Pharmacy 71.1; Estimated Glomerular Filt Rate > 60; Glucose Random 107 mg/dL (60-115); Magnesium 2.2 mg/dL (1.6-2.6); Phosphorus 2.7 mg/dL (2.7-4.5); Potassium 3.7 mmol/L (3.3-5.1); Sodium 143 mmol/L (135-145)
[2024-09-06 06:20] LABS: Venous Blood Gas Refer to POC result
[2024-09-06] MEDS: propofoL 1,000 MG/100 ML VIAL 19.78 MG IVCONT (08:12)
[2024-09-06] MEDS: Albuterol/Iprat 2.5/0.5MG 3 ML AMPUL.NEB INHALE ×4 (08:12→19:40)
[2024-09-06] MEDS: Sildenafil Citrate 20 MG TABLET PO (08:18)
[2024-09-06] MEDS: Furosemide 40 MG/4 ML VIAL IVPUSH (08:18)
[2024-09-06] MEDS: Chlorhexidine Gluc Oral Rinse 15 ML MOUTHWASH BUCCAL (08:18)
[2024-09-06] MEDS: Apixaban 2.5 MG TABLET PO (08:18)
[2024-09-06] MEDS: 0.9 % Sodium Chloride Flush 3 ML SYRINGE IVFLUSH ×3 (08:18→20:27)
[2024-09-06] MEDS: Famotidine/PF 20 MG/2 ML VIAL IVPUSH (08:18)
[2024-09-06] MEDS: Nystatin Powder 15 GM BOTTLE 1 APPL TOPICAL ×2 (08:19→20:27)
--- NOTE | 2024-09-06 09:30 | P.PNCC_ITS ---
Subjective Subjective Date of Service: 09/06/24 Interval History: 74-year-old lady with underlying COPD supplemental oxygen 2-3 L dependent, obesity, DVT on anticoagulation with Mariangelqunegro admitted on 08/26/2024 with acute hypercapnic respiratory with poor response to BiPAP therapy requiring intubation and ventilatory support. CT chest demonstrated no pulmonary emboli, but cardiomegaly with bilateral small pleural effusions, bilateral lower lobe atelectasis, and likely stigmata of pulmonary hypertension. Hospital course significant for poor progress with spontaneous breathing trials, now with improving FiO2 requirements. 2D echo with underlying diastolic dysfunction and pulmonary hypertension. No response to empiric trial of sildenafil. Still remains with significant volume overload. No events overnight Critical Care Time (minutes): 45 Physical Exam 2 Vital Signs: Vital Signs: Last Vital Signs Temp 98.8 F 09/06/24 09:00 Pulse 68 09/06/24 09:00 Resp 25 H 09/06/24 09:00 BP 113/46 L 09/06/24 09:00 Pulse Ox 88 L 09/06/24 09:00 O2 Del Method Mechanical Ventil ation 09/06/24 09:00 O2 Flow Rate 40 08/26/24 06:12 FiO2 60 09/06/24 09:00 BMI result Body Mass Index 46.3 Const: General: no acute distress and other (Sedated on ventilatory support) Eyes: Sclerae: sclerae normal EOM: EOMs intact bilaterally Neck: Neck: Yes no lymphadenopathy, Yes trachea midline and Yes supple Resp: Auscultation: crackles (Mild bilateral) Cardio: Rate: regular rate Rhythm: regular rhythm Heart sounds: no gallops, no murmurs and no rubs GI: Palpation (GI): Soft to palpation and Other GI palpation findings present ( Nontender) Auscultation: normal bowel sounds Extrem: General: No clubbing, No cyanosis and Yes edema (1+ bilateral) Objective Data Labs 09/06/24 05:30 09/06/24 05:30 Labs: Laboratory Results - last 24 hr 09/05/24 09/05/24 09/06/24 11:49 17:22 05:30 WBC 12.5 H RBC 4.90 Hgb 13.7 Hct 45.0 MCV 91.8 MCH 28.0 MCHC 30.4 L RDW 16.2 H Plt Count 228 MPV 10.2 Immature Gran % (Auto) 0.5 H Neut % (Auto) 81.8 H Lymph % (Auto) 5.0 L [place] % (Auto) 7.9 Eos % (Auto) 4.5 H Baso % (Auto) 0.3 Lymph # (Auto) 0.6 L [place] # (Auto) 1.0 Eos # (Auto) 0.6 H Baso # (Auto) 0.0 Abs Immat Gran (auto) 0.06 H Absolute Neuts (auto) 10.3 H Absolute Nucleated RBC 0.000 Nucleated RBC % (auto) 0.0 VBG pH VBG pCO2 VBG pO2 VBG HCO3 VBG O2 Saturation VBG Base Excess Sodium 143 Potassium 3.7 Chloride 106 Carbon Dioxide 27 Anion Gap 14 BUN 28 H Creatinine 0.77 Estim Creat Clear Calc 71.1 Estimated GFR > 60 POC Glucose 125 H 117 H Random Glucose 107 Calcium 9.1 Phosphorus 2.7 Magnesium 2.2 Albumin 3.7 09/06/24 05:42 WBC RBC Hgb Hct MCV MCH MCHC RDW Plt Count MPV Immature Gran % (Auto) Neut % (Auto) Lymph % (Auto) [place] % (Auto) Eos % (Auto) Baso % (Auto) Lymph # (Auto) [place] # (Auto) Eos # (Auto) Baso # (Auto) Abs Immat Gran (auto) Absolute Neuts (auto) Absolute Nucleated RBC Nucleated RBC % (auto) VBG pH 7.52 H VBG pCO2 33 VBG pO2 66 VBG HCO3 27 H VBG O2 Saturation 93.0 VBG Base Excess 5.5 Sodium Potassium Chloride Carbon Dioxide Anion Gap BUN Creatinine Estim Creat Clear Calc Estimated GFR POC Glucose Random Glucose Calcium Phosphorus Magnesium Albumin Microbiology Microbiology Results: Microbiology 08/26/24 04:24 Blood - Venous Blood Culture - Final No growth after 5 days. 08/26/24 04:24 Blood - Venous Blood Culture - Final No growth after 5 days. 08/26/24 Unknown Urine clean catch - Clean Catch Midstream Urine Culture - Final Progress Note: A&P Assessment and plan (1) Pulmonary hypertension: Status: Acute (2) History of DVT (deep vein thrombosis): Status: Acute (3) COPD (chronic obstructive pulmonary disease): Status: Acute (4) Obesity hypoventilation syndrome: Status: Acute (5) Acute respiratory failure with hypoxia and hypercapnia: Status: Acute Plan Assessment: 74-year-old lady with underlying 2-3 L dependent COPD DVT on anticoagulation, and obesity with likely obesity hypoventilation syndrome admitted with acute hypoxic and hypercapnic respiratory failure requiring ventilatory support, likely secondary to underlying congestive heart failure Plan: Neuro: No acute issues. Cardiac: Likely underlying congestive heart failure with possible pulmonary hypertension 2D echocardiogram with diastolic dysfunction and pulmonary hypertension. Poor response to empiric sildenafil. Improving with diuresis, though still remains with significant volume overload. Pulmonary: Acute on chronic hypoxic and hypercapnic respiratory failure requiring ventilatory support, continue to titrate off as tolerated. Likely underlying obesity hypoventilation syndrome. Renal: No acute issues. Endo: No acute issues. GI: No acute issues. ID: No acute issues Heme/Onc: No acute issues. Psych: No acute issues. Miscellaneous: No acute issues. Prophylaxis: Eliquis, famotidine Diet: tube feeds Critical care time spent: 45 minutes Quality Stroke Does the patient have a stroke diagnosis?: No VTE Prior VTE?: No VTE Risk Level:: Medical - moderate - high VTE Device Contraindication: N/A - Device Ordered VTE Drug Contraindication: N/A - Med Ordered
[2024-09-06] MEDS: Furosemide 200 MG in 0.9 % Sodium Chloride 80 ML IVCONT (10:14)
--- NOTE | 2024-09-06 11:41 | MHC.CLN ---
F/U PT REMAINS INTUBATED AND SEDATED PROPOFOL DECREASED SIGNIFICANTLY DISCUSSED AT ROUNDS WITH MD RECOMMEND INCREASING PROMOTE AT MAX GOAL RATE 40ML/HR WITH 120ML FREE WATER FLUSHES Q 6 HRS TO PROVIDE 960KCALS (1134KCALS WITH SEDATION; 25KCALS/KG BASED ON IBW), 60G PROTEIN (1.3G/KG), 1285ML TOTAL FREE WATER FROM FORMULA AND FLUSHES (28.5ML/KG) MONITOR TOLERANCE AND LYTES
--- NOTE | 2024-09-06 12:52 | MHC.CM.PN ---
Pt continues care in ICU:Will trial PSV again today: Lasix gtt to be started: broad SNF referrals made with some facilties showing interest. Pt from [facility]. ANN to follow
[2024-09-06 18:54] LABS: Anion Gap 15 (12-20); Blood Urea Nitrogen 30 mg/dL (9-16); Calcium 9.2 mg/dL (8.4-10.2); Carbon Dioxide 28 mmol/L (22-29); Chloride 106 mmol/L (96-108); Creatinine Clr Calc Pharmacy 71.1; Estimated Glomerular Filt Rate > 60; Glucose Random 92 mg/dL (60-115); Potassium 3.7 mmol/L (3.3-5.1); Sodium 145 mmol/L (135-145)
--- NOTE | 2024-09-06 19:00 | PC.NURSE ---
Neuro: alert and calm, off propofol this AM for Extubation, stated she wants to go home, doesn?t answer questions appropriately at times, nods yes and no to some questions Cardiac: SR, Lasix gtt infusing?? Resp: Rhonchi throughout, extubated at 1150, desat down to high 70?s, placed on cpap, transitioned to high flow this afternoon 50L 60%, O2 sat maintaining, decreased FIO2 to 40% to maintain 88-92% GI/:nickerson draining 100-110ml hourly, Lasix gtt Integumentary/Musculoskeletal: redness to coccyx and right hip foam in place, dressing to right hip for blister
[2024-09-06] MEDS: Potassium Chloride/H20 10 MEQ/100 ML PIGGYBACK 100 MEQ IV ×2 (20:23→21:41)
[2024-09-07] VITALS (26 sets, daily range): BP systolic 132–175; BP diastolic 65–95; PULSE 81–98; RESP 14–33; TEMP 36.2–37.9; O2SAT 89–97; BMI 45.5
--- NOTE | 2024-09-07 01:47 | PC.NURSE ---
Addendum entered by Antwan Calvillo RN 09/07/24 06:42: NSR HR 80'S...8 BEAT V.TACH 06:40...PROVIDER AWARE... Original Note: CARE ASSUMED 7PM...REMAINS ON HI-JEFF CANNULA...FIO2 40-50%/50 L/M...RESPIRATIONS EASY..SAO2 91-92%...LOOSE COUGH...ATTEMPTED WET ORAL SWAB BUT SUBSEQUENT WET COUGH..CONTINUES NPO....LASIX DRIP 5 MG/HR...KCL 10MEQ IV/100ML X2 BAGS INFUSED PER AUG..SAM YELLOWURINE..AWAKE..CONVERSES SOFTLY..STATED WANT TO GO HOME ...ORIENTED TO EVENTS SINCE ARRIVAL TO ER 08/26/24 AND CURRENT STATUS..FREQUENT REORIENTATION...BED ALARM IN PLACE AND TELECAMERA PLACED IN ROOM FOR PATIENT SAFETY...NSR..NO ECTOPY...DENIES PAIN OR SOB
[2024-09-07 05:22] LABS: VBG Base Excess 6.1 mmol/L; VBG HCO3 31 mmol/L (22-26); VBG pCO2 46 mmHg; VBG pH 7.43 (7.32-7.43); VBG pO2 71 mmHg
[2024-09-07 05:48] LABS: Basophils Absolute Auto 0.1 X10*3/uL (0.0-0.2); Basophils Percent Auto 0.4 % (0-2); Eosinophils Absolute Auto 0.5 X10*3/uL (0.0-0.4); Eosinophils Percent Auto 4.7 % (0-4); Hematocrit 49.1 % (37.0-47.0); Hemoglobin 14.6 g/dl (12.0-16.0); Imm Gran Abs Auto 0.05 X10*3/uL (0.00-0.03); Imm Gran Pct Auto 0.4 % (0.0-0.4); Lymphocytes Absolute Auto 0.6 X10*3/uL (1.2-4.9); Lymphocytes Percent Auto 5.1 % (20-40); MANUAL DIFF FLAG NO; Mean Corpuscular HGB Conc 29.7 g/dl (31.0-35.0); Mean Corpuscular Hemoglobin 27.4 pg (27.0-33.0); Mean Corpuscular Volume 92.1 fL (80.0-98.0); Mean Platelet Volume 10.1 fL (9.4-12.3); Monocytes Absolute Auto 0.8 X10*3/uL (0.1-1.2); Monocytes Percent Auto 7.1 % (2-11); Neutrophils Absolute Auto 9.2 x10*3/uL (2.0-8.3); Neutrophils Percent Auto 82.3 % (45-73); Platelet Count 256 X10*3/uL (160-400); Red Blood Count 5.33 X10*6/uL (4.20-5.50); Red Cell Distribution Width 15.8 % (11.0-16.0); White Blood Count 11.2 X10*3/uL (4.8-10.8)
[2024-09-07 06:07] LABS: Albumin Level 4.1 g/dL (3.5-5.0); Anion Gap 16 (12-20); Blood Urea Nitrogen 28 mg/dL (9-16); Calcium 9.2 mg/dL (8.4-10.2); Carbon Dioxide 28 mmol/L (22-29); Chloride 106 mmol/L (96-108); Creatinine Clr Calc Pharmacy 69.4; Estimated Glomerular Filt Rate > 60; Glucose Random 93 mg/dL (60-115); Magnesium 2.3 mg/dL (1.6-2.6); Phosphorus 1.6 mg/dL (2.7-4.5); Potassium 3.3 mmol/L (3.3-5.1); Sodium 147 mmol/L (135-145)
[2024-09-07] MEDS: Albuterol/Iprat 2.5/0.5MG 3 ML AMPUL.NEB INHALE ×4 (07:56→19:56)
[2024-09-07 08:06] LABS: Venous Blood Gas Refer to POC result
[2024-09-07] MEDS: 0.9 % Sodium Chloride Flush 3 ML SYRINGE IVFLUSH (08:48)
[2024-09-07] MEDS: Potassium Phosphate/NS 15 MMOL/250 ML PLAST..BAG 62.5 MMOL IV ×2 (08:49→12:43)
[2024-09-07] MEDS: Chlorhexidine Gluc Oral Rinse 15 ML MOUTHWASH BUCCAL (08:54)
[2024-09-07] MEDS: Famotidine/PF 20 MG/2 ML VIAL IVPUSH (08:54)
[2024-09-07] MEDS: Nystatin Powder 15 GM BOTTLE 1 APPL TOPICAL ×2 (08:56→20:34)
--- NOTE | 2024-09-07 10:05 | MHC.CLN ---
F/U PT EXTUBATED YESTERDAY DIET NPO PENDING SWALLOW EVAL WHEN DIET TO ADVANCE, RECOMMEND 1200DM DIET IN ADDITION TO SURVEY OPERATIONS DIRECTOR RECOMMENDATIONS FOLLOWING WITH TEAM
[2024-09-07] MEDS: Furosemide 200 MG in 0.9 % Sodium Chloride 80 ML IVCONT (10:36)
--- NOTE | 2024-09-07 13:30 | MHC.SL.SWA ---
Speech Pathologist Impression: Risk of Aspiration, Mild Oropharyngeal Dysphagia Risk of Aspiration Due to: Hx of Recent Extubation Dysphasia Diet Status: Start on NDD2/THIN Liquid Consistency and Strategies for Safe Swallow: Liquid Intake Recommendation: Thin Liquid Intake Strategies: Small Sips No Straws Solid Food Consistency: Dietary Recommendations: Grnd/Mech Altered (NDD2) Additional Modifications to Solid Foods: Patient presents with mild oropharyngeal dysphagia with absent dentures and recent extubation. Per RN, patient's voice has improved. She was mostly aphonic this morning, but is now able to produce voice, though still mildly soft. Patient with mild generalized oral weakness, slow oral preparation and delayed swallow. Patient is recommended a GROUND/MECH ALTERED (NDD2) diet for ease of mastication and THIN liquids, pills CRUSHED in PUREE. Patient will need 1:1 feeding. Oral Medication Intake: Crushed with Puree Please contact the pharmacy regarding appropriate crushable or liquid drug formulations that are available whenever modified delivery is recommended. Compensatory Strategies and Precautions to be Taken for Safe Swallow: Sitting Upright (90 deg) Double Swallow No Straw Small Bites and Sips Alternate Liquids/Solids Rate of Ingestion Change Oral Check Supervision While Eating and Drinking for Safe Swallow: Total Assistance (1:1) Swallowing Recommended Treatments: Compens. Strategy Educat. Recommendation for Speech: Inpatient Speech Therapy Jet Handler Clinican/Clinical Fellow: No Supervisory Statement: I have reviewed and agree with the student/clinical fellow's documentation: N/A Speech Language Pathologist: Nancy Rojas M.A., CCC-LINOLEUM LAYER APPRENTICE
--- NOTE | 2024-09-07 13:54 | PM.CCPN ---
Subjective Subjective Date of Service: 09/07/24 Interval History: 74-year-old lady with underlying COPD supplemental oxygen 2-3 L dependent, obesity, DVT on anticoagulation with Eliquis admitted on 08/26/2024 with acute hypercapnic respiratory with poor response to BiPAP therapy requiring intubation and ventilatory support. CT chest demonstrated no pulmonary emboli, but cardiomegaly with bilateral small pleural effusions, bilateral lower lobe atelectasis, and likely stigmata of pulmonary hypertension. Hospital course significant for poor progress with spontaneous breathing trials, now with improving FiO2 requirements. Extubated 09/06/2024 2D echo with underlying diastolic dysfunction and pulmonary hypertension. No response to empiric trial of sildenafil. Still remains with significant volume overload, improving with diuretic. No events overnight Critical Care Time (minutes): 0 Physical Exam Vital Signs: Vital Signs: Last Vital Signs Temp 100.2 F 09/07/24 13:00 Pulse 91 09/07/24 13:00 Resp 18 09/07/24 13:00 BP 145/78 H 09/07/24 13:00 Pulse Ox 90 L 09/07/24 13:00 O2 Del Method Nasal Cannula 09/07/24 13:00 O2 Flow Rate 7 09/07/24 13:00 FiO2 40 09/07/24 10:00 BMI result Body Mass Index 45.5 Const: General: no acute distress, alert and awake Nutritional Appearance: obese and Edematous Eyes: Sclerae: sclerae normal EOM: EOMs intact bilaterally Neck: Neck: Yes no lymphadenopathy, Yes trachea midline and Yes supple Resp: Effort & Inspection: normal respiratory effort and no respiratory distress Auscultation: crackles (Bilateral) Cardio: Rate: regular rate Rhythm: regular rhythm Heart sounds: no gallops, no murmurs and no rubs GI: Palpation (GI): Soft to palpation and Other GI palpation findings present ( Nontender) Auscultation: normal bowel sounds Extrem: General: No clubbing, No cyanosis and Yes edema (1+ bilateral) Objective Data Labs 09/07/24 05:16 09/07/24 05:16 Labs: Laboratory Results - last 24 hr 09/06/24 09/07/24 09/07/24 18:16 05:16 05:17 WBC 11.2 H RBC 5.33 Hgb 14.6 Hct 49.1 H MCV 92.1 MCH 27.4 MCHC 29.7 L RDW 15.8 Plt Count 256 MPV 10.1 Immature Gran % (Auto) 0.4 Neut % (Auto) 82.3 H Lymph % (Auto) 5.1 L [place] % (Auto) 7.1 Eos % (Auto) 4.7 H Baso % (Auto) 0.4 Lymph # (Auto) 0.6 L [place] # (Auto) 0.8 Eos # (Auto) 0.5 H Baso # (Auto) 0.1 Abs Immat Gran (auto) 0.05 H Absolute Neuts (auto) 9.2 H Absolute Nucleated RBC 0.000 Nucleated RBC % (auto) 0.0 VBG pH 7.43 VBG pCO2 46 VBG pO2 71 VBG HCO3 31 H VBG O2 Saturation 92.0 VBG Base Excess 6.1 Sodium 145 147 H Potassium 3.7 3.3 Chloride 106 106 Carbon Dioxide 28 28 Anion Gap 15 16 BUN 30 H 28 H Creatinine 0.77 0.78 Estim Creat Clear Calc 71.1 69.4 Estimated GFR > 60 > 60 Random Glucose 92 93 Calcium 9.2 9.2 Phosphorus 1.6 L Magnesium 2.3 Albumin 4.1 Microbiology Microbiology Results: Microbiology 08/26/24 04:24 Blood - Venous Blood Culture - Final No growth after 5 days. 08/26/24 04:24 Blood - Venous Blood Culture - Final No growth after 5 days. 08/26/24 Unknown Urine clean catch - Clean Catch Midstream Urine Culture - Final Progress Note: A&P Assessment and plan (1) Hypertension: Status: Acute (2) Pulmonary hypertension: Status: Acute (3) History of DVT (deep vein thrombosis): Status: Acute (4) COPD (chronic obstructive pulmonary disease): Status: Acute (5) Obesity hypoventilation syndrome: Status: Acute (6) Acute respiratory failure with hypoxia: Status: Acute (7) Diastolic dysfunction: Status: Acute Plan Assessment: 74-year-old lady with underlying 2-3 L dependent COPD DVT on anticoagulation, and obesity with likely obesity hypoventilation syndrome admitted with acute hypoxic and hypercapnic respiratory failure requiring ventilatory support, likely secondary to underlying congestive heart failure Plan: Neuro: No acute issues. Cardiac: Likely underlying congestive heart failure with possible pulmonary hypertension 2D echocardiogram with diastolic dysfunction and pulmonary hypertension. Poor response to empiric sildenafil. Improving with diuresis, though still remains with significant volume overload. Pulmonary: Acute on chronic hypoxic and hypercapnic respiratory failure requiring ventilatory support, extubated 09/06/24. Underlying FAITH/obesity hypoventilation syndrome, continue nocturnal CPAP. Continue to titrate off supplemental oxygen as tolerated. Renal: No acute issues. Endo: No acute issues. GI: No acute issues. ID: No acute issues Heme/Onc: No acute issues. Psych: No acute issues. Miscellaneous: No acute issues. Prophylaxis: Eliquis Diet: Ground mechanical/thin liquids Quality Stroke Does the patient have a stroke diagnosis?: No VTE Prior VTE?: No VTE Risk Level:: Medical - moderate - high VTE Device Contraindication: N/A - Device Ordered VTE Drug Contraindication: N/A - Med Ordered
[2024-09-07 19:08] LABS: Anion Gap 18 (12-20); Blood Urea Nitrogen 27 mg/dL (9-16); Calcium 9.2 mg/dL (8.4-10.2); Carbon Dioxide 27 mmol/L (22-29); Chloride 108 mmol/L (96-108); Creatinine Clr Calc Pharmacy 68.6; Estimated Glomerular Filt Rate > 60; Glucose Random 102 mg/dL (60-115); Potassium 3.8 mmol/L (3.3-5.1); Sodium 149 mmol/L (135-145)
[2024-09-07] MEDS: Apixaban 2.5 MG TABLET PO (20:31)
[2024-09-08] VITALS (14 sets, daily range): BP systolic 138–162; BP diastolic 67–78; PULSE 74–105; RESP 16–25; TEMP 36.2–37.1; O2SAT 92–98
[2024-09-08] MEDS: 0.9 % Sodium Chloride Flush 3 ML SYRINGE IVFLUSH ×3 (00:05→17:13)
[2024-09-08 06:37] LABS: MANUAL DIFF FLAG NO
[2024-09-08 06:49] LABS: VBG Base Excess 6.9 mmol/L; VBG HCO3 33 mmol/L (22-26); VBG pCO2 51 mmHg; VBG pH 7.41 (7.32-7.43); VBG pO2 116 mmHg
[2024-09-08 06:51] LABS: Venous Blood Gas Refer to POC result
[2024-09-08 06:59] LABS: Basophils Absolute Auto 0.1 X10*3/uL (0.0-0.2); Basophils Percent Auto 0.6 % (0-2); Eosinophils Absolute Auto 0.4 X10*3/uL (0.0-0.4); Eosinophils Percent Auto 4.3 % (0-4); Hematocrit 51.2 % (37.0-47.0); Hemoglobin 15.2 g/dl (12.0-16.0); Imm Gran Abs Auto 0.07 X10*3/uL (0.00-0.03); Imm Gran Pct Auto 0.7 % (0.0-0.4); Lymphocytes Absolute Auto 0.8 X10*3/uL (1.2-4.9); Lymphocytes Percent Auto 8.1 % (20-40); Mean Corpuscular HGB Conc 29.7 g/dl (31.0-35.0); Mean Corpuscular Hemoglobin 27.8 pg (27.0-33.0); Mean Corpuscular Volume 93.6 fL (80.0-98.0); Mean Platelet Volume 10.3 fL (9.4-12.3); Monocytes Absolute Auto 0.8 X10*3/uL (0.1-1.2); Monocytes Percent Auto 8.1 % (2-11); Neutrophils Absolute Auto 7.9 x10*3/uL (2.0-8.3); Neutrophils Percent Auto 78.2 % (45-73); Platelet Count 262 X10*3/uL (160-400); Red Blood Count 5.47 X10*6/uL (4.20-5.50); Red Cell Distribution Width 15.8 % (11.0-16.0); White Blood Count 10.1 X10*3/uL (4.8-10.8)
[2024-09-08 07:07] LABS: Albumin Level 4.1 g/dL (3.5-5.0); Anion Gap 15 (12-20); Blood Urea Nitrogen 31 mg/dL (9-16); Calcium 9.2 mg/dL (8.4-10.2); Carbon Dioxide 29 mmol/L (22-29); Chloride 108 mmol/L (96-108); Estimated Glomerular Filt Rate > 60; Glucose Random 105 mg/dL (60-115); Magnesium 2.4 mg/dL (1.6-2.6); Phosphorus 2.9 mg/dL (2.7-4.5); Potassium 3.8 mmol/L (3.3-5.1); Sodium 148 mmol/L (135-145)
[2024-09-08] MEDS: Albuterol/Iprat 2.5/0.5MG 3 ML AMPUL.NEB INHALE ×4 (08:28→19:53)
[2024-09-08] MEDS: Apixaban 2.5 MG TABLET PO ×2 (09:01→20:19)
[2024-09-08] MEDS: Nystatin Powder 15 GM BOTTLE 1 APPL TOPICAL ×2 (09:16→20:21)
[2024-09-08] MEDS: guaiFENesin LA 600 MG TAB.ER.12H 1200 MG PO ×2 (13:58→20:19)
--- NOTE | 2024-09-08 15:15 | HO.PM.IMPN ---
Subjective Subjective Date of Service: 09/08/24 Interval History: Seen and evaluated this morning Feels little better on 10 L of O2 very deconditioned and frail tolerating PO diet no other events Review of Systems Review of Systems: Yes all other systems are reviewed and are negative Physical Exam Vital Signs: Vital Signs: Last Vital Signs Temp 97.1 F 09/08/24 12:00 Pulse 105 H 09/08/24 12:00 Resp 18 09/08/24 12:00 BP 153/74 H 09/08/24 12:00 Pulse Ox 94 09/08/24 12:00 O2 Del Method Nasal Cannula 09/08/24 12:00 O2 Flow Rate 10 09/08/24 12:00 FiO2 40 09/07/24 10:00 BMI result Body Mass Index 45.5 Const: Other: Constitutional : Awake, interactive, obese, frail, not in distress Neck : Normal inspection, Supple Cardiovascular : RRR, no JVP, no lower extremity edema Respiratory : fair bilateral air entry, decrease at the basis, fine basal crackles, no wheezes Gastrointestinal: soft, lax, Normal bowel sounds, Non tender Skin : Warm, Dry Neurological : Alert & oriented x3, No focal deficit Objective Data Active Medications Albuterol/Ipratropium (Albuterol/Iprat 2.5/0.5mg 3 Ml Ampul.Neb) 3 ml INHALE RQ4H WHILE AWAKE [facility] Last Admin: 09/08/24 11:34 Dose: 3 ml Documented By: TODD Albuterol/Ipratropium (Albuterol/Iprat 2.5/0.5mg 3 Ml Ampul.Neb) 3 ml INHALE RQ4H WHILE AWAKE PRN PRN Reason: Wheezing Last Admin: 08/27/24 18:14 Dose: 3 ml Documented By: ALPHONSO Apixaban (Apixaban 2.5 Mg Tablet) 2.5 mg PO BID [facility] Last Admin: 09/08/24 09:01 Dose: 2.5 mg Documented By: STIVEN Guaifenesin (Guaifenesin La 600 Mg Tab.Er.12h) 1,200 mg PO BID [facility] Last Admin: 09/08/24 13:58 Dose: 1,200 mg Documented By: STIVEN Furosemide 200 mg/ Sodium (Chloride) 100 mls @ 2.5 mls/hr IVCONT .Q24H [facility] Last Admin: 09/07/24 10:36 Dose: 5 mg/hr, 2.5 mls/hr Documented By: ANEL Nystatin (Nystatin Powder 15 Gm Bottle) 1 appl TOPICAL BID [facility]; Protocol Last Admin: 09/08/24 09:16 Dose: 1 appl Documented By: STIVEN Sodium Chloride (0.9 % Sodium Chloride Flush 3 Ml Syringe) 3 ml IVFLUSH QSHIFT [facility] Last Admin: 09/08/24 09:01 Dose: 3 ml Documented By: STIVEN Labs 09/08/24 06:31 09/08/24 06:31 Labs: Laboratory Results - last 24 hr 09/07/24 09/08/24 09/08/24 18:19 06:31 06:45 MCV 93.6 MCH 27.8 MCHC 29.7 L RDW 15.8 Plt Count 262 MPV 10.3 Immature Gran % (Auto) 0.7 H Neut % (Auto) 78.2 H Lymph % (Auto) 8.1 L Morgan % (Auto) 8.1 Eos % (Auto) 4.3 H Baso % (Auto) 0.6 Lymph # (Auto) 0.8 L Morgan # (Auto) 0.8 Eos # (Auto) 0.4 Baso # (Auto) 0.1 Abs Immat Gran (auto) 0.07 H Absolute Neuts (auto) 7.9 Absolute Nucleated RBC 0.000 Nucleated RBC % (auto) 0.0 VBG pH 7.41 VBG pCO2 51 VBG pO2 116 VBG HCO3 33 H VBG O2 Saturation 99.0 VBG Base Excess 6.9 Anion Gap 18 15 Estim Creat Clear Calc 68.6 66.0 Estimated GFR > 60 > 60 Random Glucose 102 105 Calcium 9.2 9.2 Phosphorus 2.9 Magnesium 2.4 Albumin 4.1 Assessment and Plan (1) Diastolic dysfunction: Status: Acute (2) Acute respiratory failure with hypoxia: Status: Acute (3) Pulmonary hypertension: Status: Acute (4) FAITH (obstructive sleep apnea): Status: Acute (5) Acute hypercapnic respiratory failure: Status: Acute Plan Assessment: 74-year-old lady with 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 Poor response to empiric sildenafil. Continue Lasix drip I\O Acute on chronic hypoxic and hypercapnic respiratory failure requiring ventilatory support extubated 09/06/24 Underlying FAITH/obesity hypoventilation syndrome, continue nocturnal CPAP Wean down supplemental oxygen as tolerated. COPD with exacerbation Improving Nebulizers Home Inhalers Hx DVT Eliquis HTN Losartan Frailty related to ICU stay PT evaluation STAFFING CONSULTANT eval Ground mechanical/thin liquids Prophylaxis: Eliquis The patient will need overnight stay for treatment of CHF on IV lasix, COPD and Frailty Quality Stroke Does the patient have a stroke diagnosis?: No VTE Prior VTE?: No VTE Risk Level:: Medical - moderate - high VTE Device Contraindication: N/A - Device Ordered VTE Drug Contraindication: N/A - Med Ordered
[2024-09-08] MEDS: Furosemide 200 MG in 0.9 % Sodium Chloride 80 ML IVCONT (17:12)
[2024-09-09] VITALS (9 sets, daily range): BP systolic 118–154; BP diastolic 59–78; PULSE 66–91; RESP 16–26; TEMP 36.3–37.2; O2SAT 92–100
[2024-09-09] MEDS: Albuterol/Iprat 2.5/0.5MG 3 ML AMPUL.NEB INHALE ×2 (08:42→20:11)
[2024-09-09 09:01] LABS: Anion Gap 13 (12-20); Blood Urea Nitrogen 32 mg/dL (9-16); Calcium 9.5 mg/dL (8.4-10.2); Carbon Dioxide 30 mmol/L (22-29); Chloride 106 mmol/L (96-108); Creatinine Clr Calc Pharmacy 80.8; Estimated Glomerular Filt Rate > 60; Glucose Random 104 mg/dL (60-115); Potassium 3.6 mmol/L (3.3-5.1); Sodium 145 mmol/L (135-145)
[2024-09-09] MEDS: Losartan Potassium 25 MG TABLET PO (10:16)
[2024-09-09] MEDS: PARoxetine HCL 30 MG TABLET 60 MG PO (10:16)
[2024-09-09] MEDS: Tolterodine Tartrate LA 4 MG CAP.ER.24H PO (10:17)
[2024-09-09] MEDS: Apixaban 2.5 MG TABLET PO ×2 (10:17→20:09)
[2024-09-09] MEDS: 0.9 % Sodium Chloride Flush 3 ML SYRINGE IVFLUSH ×2 (10:17→17:56)
[2024-09-09] MEDS: Nystatin Powder 15 GM BOTTLE 1 APPL TOPICAL (10:21)
[2024-09-09] MEDS: guaiFENesin LA 600 MG TAB.ER.12H 1200 MG PO ×2 (10:21→20:15)
--- NOTE | 2024-09-09 12:05 | P.PNIM_ITS ---
Subjective Subjective Date of Service: 09/09/24 Interval History: Seen and evaluated this morning Feels little better on 10 L of O2 very deconditioned and frail tolerating PO diet no other events Physical Exam 2 Vital Signs: Vital Signs: Last Vital Signs Temp 97.6 F 09/09/24 11:28 Pulse 91 09/09/24 11:28 Resp 18 09/09/24 11:28 BP 119/59 L 09/09/24 11:28 Pulse Ox 92 09/09/24 11:28 O2 Del Method Nasal Cannula 09/09/24 11:28 O2 Flow Rate 8 09/09/24 11:28 FiO2 50 09/09/24 04:00 BMI result Body Mass Index 45.5 Const: Other: Constitutional : Awake, interactive, obese, frail, not in distress Neck : Normal inspection, Supple Cardiovascular : RRR, no JVP, no lower extremity edema Respiratory : fair bilateral air entry, decrease at the basis, fine basal crackles, no wheezes Gastrointestinal: soft, lax, Normal bowel sounds, Non tender Skin : Warm, Dry Neurological : Alert & oriented x3, No focal deficit Objective Data Active Medications Albuterol/Ipratropium (Albuterol/Iprat 2.5/0.5mg 3 Ml Ampul.Neb) 3 ml INHALE RQ4H WHILE AWAKE [facility] Last Admin: 09/09/24 12:00 Dose: Not Given Documented By: TODD Non-Admin Reason: Patient Refused Albuterol/Ipratropium (Albuterol/Iprat 2.5/0.5mg 3 Ml Ampul.Neb) 3 ml INHALE RQ4H WHILE AWAKE PRN PRN Reason: Wheezing Last Admin: 08/27/24 18:14 Dose: 3 ml Documented By: ALPHONSO Apixaban (Apixaban 2.5 Mg Tablet) 2.5 mg PO BID [facility] Last Admin: 09/09/24 10:17 Dose: 2.5 mg Documented By: STIVEN Fluticasone/Umeclidinium/Vilanterol (Fluticasone/Umeclidinium/Vilanterol 100/62.5/25 Blst.W.Dev) 1 puff INHALE RDAILY [facility] Last Admin: 09/09/24 12:00 Dose: Not Given Documented By: TODD Non-Admin Reason: Patient Refused Guaifenesin (Guaifenesin La 600 Mg Tab.Er.12h) 1,200 mg PO BID [facility] Last Admin: 09/09/24 10:21 Dose: 1,200 mg Documented By: STIVEN Furosemide 200 mg/ Sodium (Chloride) 100 mls @ 2.5 mls/hr IVCONT .Q24H [facility] Last Admin: 09/08/24 17:12 Dose: 5 mg/hr, 2.5 mls/hr Documented By: STIVEN Losartan Potassium (Losartan Potassium 25 Mg Tablet) 25 mg PO DAILY [facility]; Protocol Last Admin: 09/09/24 10:16 Dose: 25 mg Documented By: STIVEN Nystatin (Nystatin Powder 15 Gm Bottle) 1 appl TOPICAL BID [facility]; Protocol Last Admin: 09/09/24 10:21 Dose: 1 appl Documented By: STIVEN Paroxetine HCl (Paroxetine Hcl 30 Mg Tablet) 60 mg PO DAILY [facility] Last Admin: 09/09/24 10:16 Dose: 60 mg Documented By: STIVEN Sodium Chloride (0.9 % Sodium Chloride Flush 3 Ml Syringe) 3 ml IVFLUSH QSHIFT [facility] Last Admin: 09/09/24 10:17 Dose: 3 ml Documented By: STIVEN Tolterodine Tartrate (Tolterodine Tartrate La 4 Mg Cap.Er.24h) 4 mg PO DAILY [facility] Last Admin: 09/09/24 10:17 Dose: 4 mg Documented By: STIVEN Labs 09/08/24 06:31 09/09/24 08:38 Labs: Laboratory Results - last 24 hr 09/09/24 08:38 Anion Gap 13 Estim Creat Clear Calc 80.8 Estimated GFR > 60 Random Glucose 104 Calcium 9.5 Assessment and Plan (1) Diastolic dysfunction: Status: Acute (2) Acute respiratory failure with hypoxia: Status: Acute (3) Pulmonary hypertension: Status: Acute (4) FAITH (obstructive sleep apnea): Status: Acute Plan Assessment: 74-year-old lady with 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 Poor response to empiric sildenafil. Continue Lasix drip I\O Acute on chronic hypoxic and hypercapnic respiratory failure requiring ventilatory support extubated 09/06/24 Underlying FAITH/obesity hypoventilation syndrome, continue nocturnal CPAP Wean down supplemental oxygen as tolerated. COPD with exacerbation Improving Nebulizers Home Inhalers Hx DVT Eliquis HTN Losartan Frailty related to ICU stay PT evaluation PROCESS DESCRIPTION WRITER eval Ground mechanical/thin liquids Prophylaxis: Eliquis The patient will need overnight stay for treatment of CHF on IV lasix, COPD and Frailty Quality Stroke Does the patient have a stroke diagnosis?: No VTE Prior VTE?: No VTE Risk Level:: Medical - moderate - high VTE Device Contraindication: N/A - Device Ordered VTE Drug Contraindication: N/A - Med Ordered
[2024-09-09] MEDS: Furosemide 200 MG in 0.9 % Sodium Chloride 80 ML IVCONT (17:55)
[2024-09-09] MEDS: Melatonin 3 MG TABLET 6 MG PO (21:37)
[2024-09-10] VITALS (13 sets, daily range): BP systolic 109–135; BP diastolic 53–78; PULSE 60–82; RESP 14–18; TEMP 35.7–36.8; O2SAT 92–99
[2024-09-10 06:27] LABS: MANUAL DIFF FLAG NO
[2024-09-10 06:45] LABS: Anion Gap 14 (12-20); Blood Urea Nitrogen 40 mg/dL (9-16); Calcium 10.2 mg/dL (8.4-10.2); Carbon Dioxide 30 mmol/L (22-29); Chloride 104 mmol/L (96-108); Creatinine Clr Calc Pharmacy 60.9; Estimated Glomerular Filt Rate > 60; Glucose Random 105 mg/dL (60-115); Potassium 3.9 mmol/L (3.3-5.1); Sodium 144 mmol/L (135-145)
[2024-09-10 07:01] LABS: Basophils Absolute Auto 0.1 X10*3/uL (0.0-0.2); Basophils Percent Auto 0.7 % (0-2); Eosinophils Absolute Auto 0.5 X10*3/uL (0.0-0.4); Hematocrit 53.6 % (37.0-47.0); Hemoglobin 15.5 g/dl (12.0-16.0); Imm Gran Abs Auto 0.04 X10*3/uL (0.00-0.03); Imm Gran Pct Auto 0.5 % (0.0-0.4); Lymphocytes Percent Auto 12.3 % (20-40); Mean Corpuscular HGB Conc 28.9 g/dl (31.0-35.0); Mean Corpuscular Hemoglobin 27.7 pg (27.0-33.0); Mean Corpuscular Volume 95.9 fL (80.0-98.0); Mean Platelet Volume 10.2 fL (9.4-12.3); Monocytes Absolute Auto 0.6 X10*3/uL (0.1-1.2); Monocytes Percent Auto 7.6 % (2-11); Neutrophils Percent Auto 72.9 % (45-73); Platelet Count 222 X10*3/uL (160-400); Red Blood Count 5.59 X10*6/uL (4.20-5.50); Red Cell Distribution Width 15.6 % (11.0-16.0); White Blood Count 8.2 X10*3/uL (4.8-10.8)
[2024-09-10] MEDS: Fluticasone/Umeclidinium/Vilanterol 100/62.5/25 BLST.W.DEV 1 PUFF INHALE (08:42)
[2024-09-10] MEDS: Albuterol/Iprat 2.5/0.5MG 3 ML AMPUL.NEB INHALE ×4 (08:43→20:02)
--- NOTE | 2024-09-10 10:02 | MHC.SLORD ---
Speech Language Pathology Order Status: DIRECTOR COUNSELING BUREAU attempted to wake pt for breakfast, pt expressed 'no' and endorsed she wanted to sleep. RN consulted. DIRECTOR COUNSELING BUREAU to return later in the day when pt awake for dysphagia treatment.
[2024-09-10] MEDS: Apixaban 2.5 MG TABLET PO ×2 (10:44→19:59)
[2024-09-10] MEDS: Furosemide 40 MG/4 ML VIAL IVPUSH ×2 (10:44→17:02)
[2024-09-10] MEDS: acetaZOLAMIDE 250 MG TABLET PO ×2 (10:45→19:59)
[2024-09-10] MEDS: Nystatin Powder 15 GM BOTTLE 1 APPL TOPICAL ×2 (10:46→20:08)
[2024-09-10] MEDS: guaiFENesin LA 600 MG TAB.ER.12H 1200 MG PO ×2 (10:46→19:59)
[2024-09-10] MEDS: Tolterodine Tartrate LA 4 MG CAP.ER.24H PO (10:52)
[2024-09-10] MEDS: 0.9 % Sodium Chloride Flush 3 ML SYRINGE IVFLUSH ×2 (10:52→17:01)
[2024-09-10] MEDS: PARoxetine HCL 30 MG TABLET 60 MG PO (10:52)
--- NOTE | 2024-09-10 11:42 | MHC.CLN ---
F/U PT TRANSFERRED TO MEDICAL FLOOR PO INTAKE VARIABLE RANGING FROM 25-100% DIET ADVANCED TO GRD M/S PER WIRE DROPPER MONITOR PO INTAKE
--- NOTE | 2024-09-10 13:39 | MHC.CM.PN ---
Per rounds and EMR review, pt is not ready to DC, DCP will be STR, CM met with pt today to ask her choice, she would like to go to [facility]. She does not want [place]. Referrals updated.
--- NOTE | 2024-09-10 13:44 | MHC.SLORD ---
Speech Language Pathology Order Status: PRODUCT INTRODUCTION MANAGER attempted dysphagia tx x2 today. Pt did not want to eat lunch, politely refusing, stating she will wait for dinner. Other foods offered, pt declined. RN consulted. No concerns with pt PO tolerance at this time. Pt voicing has improved, with adequate volume and clear quality. PRODUCT INTRODUCTION MANAGER to followup, advance diet as indicated.
--- NOTE | 2024-09-10 13:47 | P.PNIM_ITS ---
Subjective Subjective Date of Service: 09/10/24 Interval History: Seen and evaluated this morning Feels little better weaned down to 5L O2 deconditioned and frail tolerating PO diet no other events Review of Systems Review of Systems: Yes all other systems are reviewed and are negative Physical Exam 2 Vital Signs: Vital Signs: Last Vital Signs Temp 98.2 F 09/10/24 11:11 Pulse 72 09/10/24 11:22 Resp 14 09/10/24 11:22 BP 130/58 L 09/10/24 11:11 Pulse Ox 97 09/10/24 11:11 O2 Del Method Nasal Cannula 09/10/24 11:11 O2 Flow Rate 5 09/10/24 11:11 FiO2 50 09/09/24 04:00 BMI result Body Mass Index 45.5 Const: Other: Constitutional : Awake, interactive, obese, frail, not in distress Neck : Normal inspection, Supple Cardiovascular : RRR, no JVP, no lower extremity edema Respiratory : fair bilateral air entry, decrease at the basis, fine basal crackles, no wheezes Gastrointestinal: soft, lax, Normal bowel sounds, Non tender Skin : Warm, Dry Neurological : Alert & oriented x3, No focal deficit Objective Data Active Medications Acetazolamide (Acetazolamide 250 Mg Tablet) 250 mg PO BID [facility] Last Admin: 09/10/24 10:45 Dose: 250 mg Documented By: JENNIFER Albuterol/Ipratropium (Albuterol/Iprat 2.5/0.5mg 3 Ml Ampul.Neb) 3 ml INHALE RQ4H WHILE AWAKE [facility] Last Admin: 09/10/24 11:21 Dose: 3 ml Documented By: ALPHONSO Albuterol/Ipratropium (Albuterol/Iprat 2.5/0.5mg 3 Ml Ampul.Neb) 3 ml INHALE RQ4H WHILE AWAKE PRN PRN Reason: Wheezing Last Admin: 08/27/24 18:14 Dose: 3 ml Documented By: ALPHONSO Apixaban (Apixaban 2.5 Mg Tablet) 2.5 mg PO BID [facility] Last Admin: 09/10/24 10:44 Dose: 2.5 mg Documented By: JENNIFER Fluticasone/Umeclidinium/Vilanterol (Fluticasone/Umeclidinium/Vilanterol 100/62.5/25 Blst.W.Dev) 1 puff INHALE RDAILY [facility] Last Admin: 09/10/24 08:42 Dose: 1 puff Documented By: ALPHONSO Furosemide (Furosemide 40 Mg/4 Ml Vial) 40 mg IVPUSH BID@0900,1800 [facility]; Protocol Last Admin: 09/10/24 10:44 Dose: 40 mg Documented By: JENNIFER Guaifenesin (Guaifenesin La 600 Mg Tab.Er.12h) 1,200 mg PO BID [facility] Last Admin: 09/10/24 10:46 Dose: 1,200 mg Documented By: JENNIFER Losartan Potassium (Losartan Potassium 25 Mg Tablet) 25 mg PO DAILY [facility]; Protocol Last Admin: 09/09/24 10:16 Dose: 25 mg Documented By: STIVEN Melatonin (Melatonin 3 Mg Tablet) 6 mg PO BEDTIME PRN PRN Reason: Insomnia Last Admin: 09/09/24 21:37 Dose: 6 mg Documented By: JOSE Nystatin (Nystatin Powder 15 Gm Bottle) 1 appl TOPICAL BID [facility]; Protocol Last Admin: 09/10/24 10:46 Dose: 1 appl Documented By: JENNIFER Paroxetine HCl (Paroxetine Hcl 30 Mg Tablet) 60 mg PO DAILY [facility] Last Admin: 09/10/24 10:52 Dose: 60 mg Documented By: JENNIFER Sodium Chloride (0.9 % Sodium Chloride Flush 3 Ml Syringe) 3 ml IVFLUSH QSHIFT [facility] Last Admin: 09/10/24 10:52 Dose: 3 ml Documented By: JENNIFER Tolterodine Tartrate (Tolterodine Tartrate La 4 Mg Cap.Er.24h) 4 mg PO DAILY [facility] Last Admin: 09/10/24 10:52 Dose: 4 mg Documented By: JENNIFER Labs 09/10/24 06:20 09/10/24 06:20 Labs: Laboratory Results - last 24 hr 09/10/24 06:20 MCV 95.9 MCH 27.7 MCHC 28.9 L RDW 15.6 Plt Count 222 MPV 10.2 Immature Gran % (Auto) 0.5 H Neut % (Auto) 72.9 Lymph % (Auto) 12.3 L P[place] % (Auto) 7.6 Eos % (Auto) 6.0 H Baso % (Auto) 0.7 Lymph # (Auto) 1.0 L Pender # (Auto) 0.6 Eos # (Auto) 0.5 H Baso # (Auto) 0.1 Abs Immat Gran (auto) 0.04 H Absolute Neuts (auto) 6.0 Absolute Nucleated RBC 0.000 Nucleated RBC % (auto) 0.0 Anion Gap 14 Estim Creat Clear Calc 60.9 Estimated GFR > 60 Random Glucose 105 Calcium 10.2 D Assessment and Plan (1) Diastolic dysfunction: Status: Acute (2) Acute respiratory failure with hypoxia: Status: Acute (3) Pulmonary hypertension: Status: Acute (4) Emphysema lung: Status: Acute Plan Assessment: 74-year-old lady with 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 Poor response to empiric sildenafil. dc Lasix drip switch to IV Lasix Bid I\O Acute on chronic hypoxic and hypercapnic respiratory failure requiring ventilatory support extubated 09/06/24 Underlying FAITH/obesity hypoventilation syndrome, continue nocturnal CPAP Wean down supplemental oxygen as tolerated. COPD with exacerbation Improving Nebulizers Home Inhalers Hx DVT Eliquis HTN Losartan Frailty related to ICU stay PT evaluation rec SNF placement SUPERVISOR SHUTTLE PREPARATION eval Ground mechanical/thin liquids Prophylaxis: Eliquis The patient will need overnight stay for treatment of CHF on IV lasix, COPD and Frailty Quality Stroke Does the patient have a stroke diagnosis?: No VTE Prior VTE?: No VTE Risk Level:: Medical - moderate - high VTE Device Contraindication: N/A - Device Ordered VTE Drug Contraindication: N/A - Med Ordered
[2024-09-10] MEDS: Acetaminophen 325 MG TABLET 650 MG PO (16:52)
[2024-09-10] MEDS: Melatonin 3 MG TABLET 6 MG PO (20:00)
[2024-09-11] VITALS (15 sets, daily range): BP systolic 121–157; BP diastolic 66–87; PULSE 70–85; RESP 17–28; TEMP 36.1–36.7; O2SAT 92–99
[2024-09-11] MEDS: 0.9 % Sodium Chloride Flush 3 ML SYRINGE IVFLUSH ×4 (06:21→21:10)
[2024-09-11 07:07] LABS: Anion Gap 14 (12-20); Blood Urea Nitrogen 43 mg/dL (9-16); Calcium 10.2 mg/dL (8.4-10.2); Carbon Dioxide 30 mmol/L (22-29); Chloride 101 mmol/L (96-108); Creatinine Clr Calc Pharmacy 55.3; Estimated Glomerular Filt Rate 55; Glucose Random 102 mg/dL (60-115); Potassium 3.2 mmol/L (3.3-5.1); Sodium 142 mmol/L (135-145)
[2024-09-11 07:14] LABS: B Type Natriuretic Peptide 11 pg/mL (<100)
[2024-09-11] MEDS: Albuterol/Iprat 2.5/0.5MG 3 ML AMPUL.NEB INHALE ×4 (08:25→20:02)
[2024-09-11] MEDS: Fluticasone/Umeclidinium/Vilanterol 100/62.5/25 BLST.W.DEV 1 PUFF INHALE (08:25)
[2024-09-11] MEDS: Potassium Chloride Packet 20 MEQ PACKET 40 MEQ PO (09:15)
[2024-09-11] MEDS: acetaZOLAMIDE 250 MG TABLET PO ×2 (09:19→21:04)
[2024-09-11] MEDS: Apixaban 2.5 MG TABLET PO ×2 (09:20→21:04)
[2024-09-11] MEDS: Furosemide 40 MG/4 ML VIAL IVPUSH (09:20)
[2024-09-11] MEDS: guaiFENesin LA 600 MG TAB.ER.12H 1200 MG PO ×2 (09:21→21:04)
[2024-09-11] MEDS: PARoxetine HCL 30 MG TABLET 60 MG PO (09:22)
[2024-09-11] MEDS: Tolterodine Tartrate LA 4 MG CAP.ER.24H PO (09:22)
[2024-09-11] MEDS: Nystatin Powder 15 GM BOTTLE 1 APPL TOPICAL ×2 (09:22→21:11)
--- NOTE | 2024-09-11 13:59 | HO.PM.IMPN ---
Subjective Subjective Date of Service: 09/11/24 Interval History: Seen and evaluated this morning Feels better weaned down to 5L O2 tolerating PO diet no other events Review of Systems Review of Systems: Yes all other systems are reviewed and are negative Physical Exam Vital Signs: Vital Signs: Last Vital Signs Temp 96.9 F 09/11/24 11:27 Pulse 77 09/11/24 12:55 Resp 18 09/11/24 12:55 BP 121/73 09/11/24 11:27 Pulse Ox 95 09/11/24 11:27 O2 Del Method Nasal Cannula 09/11/24 11:27 O2 Flow Rate 5 09/11/24 11:27 FiO2 50 09/09/24 04:00 BMI result Body Mass Index 45.5 Const: Other: Constitutional : Awake, interactive, obese, frail, not in distress Neck : Normal inspection, Supple Cardiovascular : RRR, no JVP, no lower extremity edema Respiratory : fair bilateral air entry, decrease at the basis, fine basal crackles, no wheezes Gastrointestinal: soft, lax, Normal bowel sounds, Non tender Skin : Warm, Dry Neurological : Alert & oriented x3, No focal deficit Objective Data Active Medications Acetaminophen (Acetaminophen 325 Mg Tablet) 650 mg PO Q6H PRN PRN Reason: Pain, Mild 1-3,fever,headache Last Admin: 09/10/24 16:52 Dose: 650 mg Documented By: JENNIFER Acetazolamide (Acetazolamide 250 Mg Tablet) 250 mg PO BID [facility] Last Admin: 09/11/24 09:19 Dose: 250 mg Documented By: LEVON Albuterol/Ipratropium (Albuterol/Iprat 2.5/0.5mg 3 Ml Ampul.Neb) 3 ml INHALE RQ4H WHILE AWAKE [facility] Last Admin: 09/11/24 12:52 Dose: 3 ml Documented By: ANDRÉS Albuterol/Ipratropium (Albuterol/Iprat 2.5/0.5mg 3 Ml Ampul.Neb) 3 ml INHALE RQ4H WHILE AWAKE PRN PRN Reason: Wheezing Last Admin: 08/27/24 18:14 Dose: 3 ml Documented By: ALPHONSO Apixaban (Apixaban 2.5 Mg Tablet) 2.5 mg PO BID [facility] Last Admin: 09/11/24 09:20 Dose: 2.5 mg Documented By: LEVON Fluticasone/Umeclidinium/Vilanterol (Fluticasone/Umeclidinium/Vilanterol 100/62.5/25 Blst.W.Dev) 1 puff INHALE RDAILY [facility] Last Admin: 09/11/24 08:25 Dose: 1 puff Documented By: VLADIMIR Furosemide (Furosemide 40 Mg/4 Ml Vial) 40 mg IVPUSH BID@0900,1800 [facility]; Protocol Last Admin: 09/11/24 09:20 Dose: 40 mg Documented By: LEVON Guaifenesin (Guaifenesin La 600 Mg Tab.Er.12h) 1,200 mg PO BID [facility] Last Admin: 09/11/24 09:21 Dose: 1,200 mg Documented By: LEVON Losartan Potassium (Losartan Potassium 25 Mg Tablet) 25 mg PO DAILY [facility]; Protocol Last Admin: 09/09/24 10:16 Dose: 25 mg Documented By: STIVEN Melatonin (Melatonin 3 Mg Tablet) 6 mg PO BEDTIME PRN PRN Reason: Insomnia Last Admin: 09/10/24 20:00 Dose: 6 mg Documented By: JENNIFER Comments: per pt request Nystatin (Nystatin Powder 15 Gm Bottle) 1 appl TOPICAL BID [facility]; Protocol Last Admin: 09/11/24 09:22 Dose: 1 appl Documented By: LEVON Paroxetine HCl (Paroxetine Hcl 30 Mg Tablet) 60 mg PO DAILY [facility] Last Admin: 09/11/24 09:22 Dose: 60 mg Documented By: LEVON Sodium Chloride (0.9 % Sodium Chloride Flush 3 Ml Syringe) 3 ml IVFLUSH QSHIFT [facility] Last Admin: 09/11/24 09:16 Dose: 3 ml Documented By: LEVON Tolterodine Tartrate (Tolterodine Tartrate La 4 Mg Cap.Er.24h) 4 mg PO DAILY [facility] Last Admin: 09/11/24 09:22 Dose: 4 mg Documented By: LEVON Labs 09/10/24 06:20 09/11/24 05:59 Labs: Laboratory Results - last 24 hr 09/11/24 05:59 Anion Gap 14 Estim Creat Clear Calc 55.3 Estimated GFR 55 Random Glucose 102 Calcium 10.2 B-Natriuretic Peptide 11 Assessment and Plan (1) Diastolic dysfunction: Status: Acute (2) Acute respiratory failure with hypoxia: Status: Acute (3) Pulmonary hypertension: Status: Acute (4) FAITH (obstructive sleep apnea): Status: Acute Plan Assessment: 74-year-old lady with 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 Poor response to empiric sildenafil. repeat CXR showing minimal interstial edema dc Lasix drip decrease IV Lasix to Daily Added diamox for contraction alkalosis I\O Acute on chronic hypoxic and hypercapnic respiratory failure requiring ventilatory support extubated 09/06/24 Underlying FAITH/obesity hypoventilation syndrome, continue nocturnal CPAP Wean down supplemental oxygen as tolerated. COPD with exacerbation Improving Nebulizers Home Inhalers Hx DVT Eliquis HTN Losartan Frailty related to ICU stay PT evaluation rec SNF placement SECURITY REPRESENTATIVE eval Ground mechanical/thin liquids Prophylaxis: Eliquis The patient will need overnight stay for treatment of CHF on IV lasix, COPD and Frailty pending placement Quality Stroke Does the patient have a stroke diagnosis?: No VTE Prior VTE?: No VTE Risk Level:: Medical - moderate - high VTE Device Contraindication: N/A - Device Ordered VTE Drug Contraindication: N/A - Med Ordered
[2024-09-11] MEDS: Acetaminophen 325 MG TABLET 650 MG PO (15:23)
[2024-09-11] MEDS: Melatonin 3 MG TABLET 6 MG PO (21:06)
[2024-09-12 03:07] VITALS: PULSE 84; RESP 20; O2SAT 93
[2024-09-12 03:09] VITALS: BP 150/79; PULSE 76; RESP 18; TEMP 36.7; O2SAT 95
[2024-09-12 06:32] LABS: MANUAL DIFF FLAG NO
[2024-09-12 06:41] LABS: Basophils Absolute Auto 0.1 X10*3/uL (0.0-0.2); Basophils Percent Auto 0.8 % (0-2); Eosinophils Absolute Auto 0.5 X10*3/uL (0.0-0.4); Eosinophils Percent Auto 7.3 % (0-4); Hematocrit 54.2 % (37.0-47.0); Hemoglobin 15.6 g/dl (12.0-16.0); Imm Gran Abs Auto 0.04 X10*3/uL (0.00-0.03); Imm Gran Pct Auto 0.6 % (0.0-0.4); Lymphocytes Absolute Auto 0.9 X10*3/uL (1.2-4.9); Lymphocytes Percent Auto 13.8 % (20-40); Mean Corpuscular HGB Conc 28.8 g/dl (31.0-35.0); Mean Corpuscular Hemoglobin 27.7 pg (27.0-33.0); Mean Corpuscular Volume 96.1 fL (80.0-98.0); Mean Platelet Volume 10.3 fL (9.4-12.3); Monocytes Absolute Auto 0.5 X10*3/uL (0.1-1.2); Monocytes Percent Auto 8.6 % (2-11); Neutrophils Absolute Auto 4.3 x10*3/uL (2.0-8.3); Neutrophils Percent Auto 68.9 % (45-73); Platelet Count 192 X10*3/uL (160-400); Red Blood Count 5.64 X10*6/uL (4.20-5.50); Red Cell Distribution Width 15.5 % (11.0-16.0); White Blood Count 6.3 X10*3/uL (4.8-10.8)
[2024-09-12 06:55] LABS: Anion Gap 14 (12-20); Blood Urea Nitrogen 44 mg/dL (9-16); Calcium 10.4 mg/dL (8.4-10.2); Carbon Dioxide 27 mmol/L (22-29); Chloride 103 mmol/L (96-108); Creatinine Clr Calc Pharmacy 51.6; Estimated Glomerular Filt Rate 51; Glucose Random 108 mg/dL (60-115); Potassium 3.7 mmol/L (3.3-5.1); Sodium 140 mmol/L (135-145)
[2024-09-12 07:17] VITALS: BP 150/79; PULSE 79; RESP 20; TEMP 36.6; O2SAT 98
[2024-09-12] MEDS: Albuterol/Iprat 2.5/0.5MG 3 ML AMPUL.NEB INHALE (08:22)
[2024-09-12 08:24] VITALS: PULSE 88; RESP 19; O2SAT 94
[2024-09-12 08:25] VITALS: PULSE 88; RESP 19; O2SAT 94
[2024-09-12] MEDS: 0.9 % Sodium Chloride Flush 3 ML SYRINGE IVFLUSH (08:46)
[2024-09-12 08:47] VITALS: BP 150/79
[2024-09-12] MEDS: Tolterodine Tartrate LA 4 MG CAP.ER.24H PO (08:47)
[2024-09-12] MEDS: Apixaban 2.5 MG TABLET PO (08:47)
[2024-09-12] MEDS: guaiFENesin LA 600 MG TAB.ER.12H 1200 MG PO (08:47)
[2024-09-12] MEDS: Furosemide 40 MG/4 ML VIAL IVPUSH (08:47)
[2024-09-12] MEDS: Nystatin Powder 15 GM BOTTLE 1 APPL TOPICAL (08:47)
[2024-09-12] MEDS: PARoxetine HCL 30 MG TABLET 60 MG PO (08:47)
[2024-09-12] MEDS: acetaZOLAMIDE 250 MG TABLET PO (08:47)
--- NOTE | 2024-09-12 09:38 | P.DS_ITS ---
DS: Providers Provider Date of Service: 09/12/24 Date of admission: 08/26/24 08:40 Date of discharge: 09/12/24 Primary care physician: Manju Najera MD Consults: 08/26/24 11:17 Consult to Wound Care Routine Reason for consultation: fungus to abd fold/breast, redness right leg DS: Diagnosis Discharge Diagnosis (1) Diastolic dysfunction: Status: Acute (2) Acute respiratory failure with hypoxia: Status: Acute (3) Pulmonary hypertension: Status: Acute (4) FAITH (obstructive sleep apnea): Status: Acute DS: Summary Hospital Course Hospital Course: from initial hpi: 74-year-old lady with past medical history of COPD on chronic 2 L to 3 L nasal cannula, HTN, HLP, obesity, DVT presented to the ED with altered mental status secondary to hypercarbic respiratory failure. She was placed on BiPAP support without much improvement in her respiratory acidosis so was intubated and placed on ventilator support and MICU was consulted for admission hospital course: Patient was admitted to the intensive care unit for acute on chronic hypoxic and hypercapnic respiratory failure requiring intubation. Was treated for acute on chronic diastolic CHF with pulmonary hypertension. Treated with Lasix drip, Diamox, did not respond to empiric sildenafil so that was discontinued. Further complicated by COPD with acute decompensation. Patient was eventually extubated weaned down to baseline 2-3 L home O2. Continued nocturnal CPAP for FAITH/ohs. For history of DVT continued on Eliquis. For hypertension continued on losartan. Due to prolonged hospitalization/ICU stay patient noted to have significant frailty by Physical therapy and recommended short-term rehab to which patient will be discharged, expected to require less than 30 days. Time Attestation Discharge Coordination Time (in mins): 32 Quality: Safe Use of Opioids Does Pt have an Active Cancer Diagnosis on the Problem List?: No Quality: Stroke Does the patient have a stroke diagnosis?: No Physical Exam Vital Signs: Vital Signs: Last Vital Signs Temp 97.9 F 09/12/24 07:17 Pulse 88 09/12/24 08:25 Resp 19 09/12/24 08:25 BP 150/79 H 09/12/24 08:47 Pulse Ox 98 09/12/24 07:17 O2 Del Method BiPAP 09/12/24 07:17 O2 Flow Rate 5 09/11/24 15:37 FiO2 50 09/09/24 04:00 BMI result Body Mass Index 45.5 DS: Data Data Completed and Pending Labs on day of discharge: Laboratory Results - last 24 hr 09/12/24 06:27 WBC 6.3 RBC 5.64 H Hgb 15.6 Hct 54.2 H MCV 96.1 MCH 27.7 MCHC 28.8 L RDW 15.5 Plt Count 192 MPV 10.3 Immature Gran % (Auto) 0.6 H Neut % (Auto) 68.9 Lymph % (Auto) 13.8 L [place] % (Auto) 8.6 Eos % (Auto) 7.3 H Baso % (Auto) 0.8 Lymph # (Auto) 0.9 L [place] # (Auto) 0.5 Eos # (Auto) 0.5 H Baso # (Auto) 0.1 Abs Immat Gran (auto) 0.04 H Absolute Neuts (auto) 4.3 Absolute Nucleated RBC 0.000 Nucleated RBC % (auto) 0.0 Sodium 140 Potassium 3.7 Chloride 103 Carbon Dioxide 27 Anion Gap 14 BUN 44 H Creatinine 1.05 Estim Creat Clear Calc 51.6 Estimated GFR 51 Random Glucose 108 Calcium 10.4 H Discharge Plan Discharge Anticipated Discharge Date/Time: 09/12/24 09:35 Patient Disposition: Xfer SNF Discharge Diagnosis: copd, chf Referrals: Physician,Unknown J [Physician] - 1 Week Discharge Medications: New acetazolamide 250 mg Tablet 250 mg PO BID Qty: 0 0RF furosemide [Lasix] 40 mg tablet 40 mg PO DAILY Qty: 90 0RF Continued losartan 50 mg tablet 50 mg PO DAILY tolterodine 4 mg capsule,extended release 24hr 4 mg PO DAILY alendronate 70 mg tablet 70 mg PO MO@0900 cyanocobalamin (vitamin B-12) 1,000 mcg tablet 1,000 mcg PO DAILY@1200 carboxymethylcellulose sodium 0.5 % drops 1 drp ophthalmic (eye) QID PRN (Reason: Dry Eyes) paroxetine HCl 30 mg tablet 60 mg PO DAILY ascorbic acid (vitamin C) [Vitamin C] 500 mg tablet,chewable 500 mg PO DAILY@1200 cholecalciferol (vitamin D3) 50 mcg (2,000 unit) tablet 50 mcg PO DAILY@1200 multivitamin with folic acid [High Potency Multivitamin] 400 mcg tablet 1 tab PO DAILY@1200 mirabegron [Myrbetriq] 50 mg tablet extended release 24 hr 50 mg PO DAILY Eliquis 2.5 mg tablet 2.5 mg PO BID PreserVision AREDS-2 250-90-40-1 mg capsule 1 cap PO DAILY@1200 Trelegy Ellipta 100-62.5-25 mcg blister with device 1 ea inhalation DAILY trazodone 100 mg tablet 200 mg PO BEDTIME hydroxyzine HCl 10 mg tablet 10 mg PO TID PRN (Reason: Itching) melatonin 5 mg tablet 5 mg PO BEDTIME Discontinued celecoxib 200 mg capsule 200 mg PO DAILY Discharge Orders: Discharge Order (Routine); Ordered 09/12/24 Ordered By: Chip Mccullough Diet: Advance to usual diet Activity on Discharge: As tolerated Stand Alone Forms: Patient Portal Discharge page Print Language: [place] Care Plan Goals: recovery Health Concerns: chf, copd Plan of Treatment: nocturnal cpap, diamox and lasix, weight loss Assessment: see above
--- NOTE | 2024-09-12 09:46 | MHC.CM.PN ---
Second IMM 09/12/24, Pt has been medically cleared to go to STR at [facility], she will go today via BLS.
== END 2024-09-12 11:45 | disposition skilled nursing facility (03) | DRG 207 ==
LOC: HO.ED 08:06 → HO.EDOVER 08:46 → HO.ICU 10:00 → HO.IMC 09-07 16:12
PROVIDERS: Emergency Medicine; Internal Medicine Critical Care Medicine; Internal Medicine Pulmonary Disease; Nurse Practitioner Family; Physician Assistant; Physician Assistant Medical; Registered Nurse Community Health; Student in an Organized Health Care Education/Training Program; Admitting Provider Internal Medicine Critical Care Medicine; Emergency Provider Internal Medicine; PCP Internal Medicine; Visit Provider Internal Medicine
DX: J43.9 Emphysema, unspecified (principal); G92.8 Other toxic encephalopathy; J96.21 Acute and chronic respiratory failure with hypoxia; J96.22 Acute and chronic respiratory failure with hypercapnia; N17.0 Acute kidney failure with tubular necrosis; I50.33 Acute on chronic diastolic (congestive) heart failure; Z68.42 Body mass index [BMI] 45.0-49.9, adult; E66.2 Morbid (severe) obesity with alveolar hypoventilation; I95.9 Hypotension, unspecified; D64.9 Anemia, unspecified; I27.20 Pulmonary hypertension, unspecified; Z71.3 Dietary counseling and surveillance; I11.0 Hypertensive heart disease with heart failure; Z99.81 Dependence on supplemental oxygen; Z86.718 Personal history of other venous thrombosis and embolism; Z20.822 Contact with and (suspected) exposure to COVID-19; Z79.01 Long term (current) use of anticoagulants; Z79.899 Other long term (current) drug therapy
CPT/HCPCS: 0241U; 36415; 36600; 70450; 71045; 71250; 71275; 80048; 80053; 81001; 82040; 82803; 82947; 83605; 83735; 83880; 84100; 84484; 85025; 85379; 85610; 87040; 87086; 92610; 93005; 93306; 94002; 94003; 94640; 94660; 94799; 97163; 97530; 99285; J0131; J0456; J0613; J0696; J1171; J1650; J1940; J2270; J2405; J2470; J2704; J2919; J3010; J3480; J7120; P9047; Q9957; Q9967

== ENCOUNTER → 2024-08-26 03:24 | Outpatient (BNV) | payer OTHER, SELFPAY | PROVIDERS: Admitting Provider Internal Medicine Critical Care Medicine; Emergency Provider Internal Medicine; Visit Provider Internal Medicine Cardiovascular Disease | DX: R06.02 Shortness of breath (principal); R94.31 Abnormal electrocardiogram [ECG] [EKG] | CPT/HCPCS: 93010 ==

== ENCOUNTER → 2024-08-26 03:24 | Outpatient (BNV) | payer OTHER, SELFPAY | PROVIDERS: Emergency Provider Internal Medicine; Visit Provider General Practice | DX: I51.7 Cardiomegaly (principal); I28.8 Other diseases of pulmonary vessels; R41.82 Altered mental status, unspecified; R91.8 Other nonspecific abnormal finding of lung field | CPT/HCPCS: 70450; 71045; 71250 ==

== ENCOUNTER 2024-08-26 08:40 | Outpatient (BNV) | payer OTHER, SELFPAY | END 2024-09-06 08:30 | PROVIDERS: Admitting Provider Internal Medicine Critical Care Medicine; Emergency Provider Internal Medicine; PCP Internal Medicine; Visit Provider Radiology Diagnostic Radiology | DX: J90 Pleural effusion, not elsewhere classified (principal); J81.0 Acute pulmonary edema | CPT/HCPCS: 71045 ==

== ENCOUNTER 2024-08-26 08:40 | Outpatient (BNV) | payer OTHER, SELFPAY | END 2024-08-28 13:12 | PROVIDERS: Admitting Provider Internal Medicine Critical Care Medicine; Emergency Provider Internal Medicine; PCP Internal Medicine; Visit Provider Radiology Diagnostic Radiology | DX: J90 Pleural effusion, not elsewhere classified (principal); I51.7 Cardiomegaly | CPT/HCPCS: 71045 ==

== ENCOUNTER 2024-08-26 08:40 | Outpatient (BNV) | payer OTHER, SELFPAY | END 2024-09-04 07:00 | PROVIDERS: Admitting Provider Internal Medicine Critical Care Medicine; Emergency Provider Internal Medicine; PCP Internal Medicine; Visit Provider Internal Medicine Cardiovascular Disease | DX: I27.20 Pulmonary hypertension, unspecified (principal); I42.8 Other cardiomyopathies; I35.0 Nonrheumatic aortic (valve) stenosis | CPT/HCPCS: 93306 ==

== ENCOUNTER 2024-08-26 08:40 | Outpatient (BNV) | payer OTHER, SELFPAY | END 2024-09-10 14:00 | PROVIDERS: Admitting Provider Internal Medicine Critical Care Medicine; Emergency Provider Internal Medicine; PCP Internal Medicine; Visit Provider Radiology Diagnostic Radiology | DX: J84.9 Interstitial pulmonary disease, unspecified (principal) | CPT/HCPCS: 71045 ==

== ENCOUNTER 2024-08-26 08:40 | Outpatient (BNV) | payer OTHER, SELFPAY | END 2024-08-27 12:11 | PROVIDERS: Admitting Provider Internal Medicine Critical Care Medicine; Emergency Provider Internal Medicine; PCP Internal Medicine; Visit Provider Radiology Diagnostic Radiology | DX: J90 Pleural effusion, not elsewhere classified (principal) | CPT/HCPCS: 71275 ==

== ENCOUNTER → 2024-08-26 08:40 | Outpatient (BNV) | payer OTHER, SELFPAY | PROVIDERS: Admitting Provider Internal Medicine Critical Care Medicine; Emergency Provider Internal Medicine; PCP Internal Medicine; Visit Provider Internal Medicine Pulmonary Disease | DX: J96.01 Acute respiratory failure with hypoxia (principal); J96.02 Acute respiratory failure with hypercapnia; J44.1 Chronic obstructive pulmonary disease with (acute) exacerbation; Z86.718 Personal history of other venous thrombosis and embolism | CPT/HCPCS: 99291 ==

== ENCOUNTER → 2024-08-26 08:40 | Outpatient (BNV) | payer OTHER, SELFPAY | PROVIDERS: Admitting Provider Internal Medicine Critical Care Medicine; Emergency Provider Internal Medicine; Visit Provider Internal Medicine Critical Care Medicine | DX: J44.1 Chronic obstructive pulmonary disease with (acute) exacerbation (principal); J43.9 Emphysema, unspecified; J96.01 Acute respiratory failure with hypoxia; J96.02 Acute respiratory failure with hypercapnia; G47.33 Obstructive sleep apnea (adult) (pediatric); E66.2 Morbid (severe) obesity with alveolar hypoventilation | CPT/HCPCS: 99223; 99291 ==

== ENCOUNTER → 2024-08-26 08:40 | Outpatient (BNV) | payer OTHER, SELFPAY | PROVIDERS: Admitting Provider Internal Medicine Critical Care Medicine; Emergency Provider Internal Medicine; PCP Internal Medicine; Visit Provider Student in an Organized Health Care Education/Training Program | DX: I51.89 Other ill-defined heart diseases (principal); J96.01 Acute respiratory failure with hypoxia; I27.20 Pulmonary hypertension, unspecified; G47.33 Obstructive sleep apnea (adult) (pediatric) | CPT/HCPCS: 99232 ==

== ENCOUNTER 2024-09-16 09:03 | Inpatient (IN) | payer OTHER, SELFPAY ==
[2024-09-16] VITALS (21 sets, daily range): BP systolic 89–122; BP diastolic 35–64; PULSE 65–95; RESP 12–24; TEMP 36.2–37.2; O2SAT 90–97; BMI 42.3
--- NOTE | ~2024-09-16 | XR_ITS ---
EXAMINATION: XR CHEST 1 VIEW HISTORY: Dialysis line placement COMPARISON: There are seen is made with the prior examination dated 09/16/2024. FINDINGS: A single AP portable view of the chest performed at 1:52 PM is submitted. A left-sided dialysis catheter is noted with its tip to the left of the spine superimposed on aortic arch. This may be within the carotid artery. There are also focal patchy opacities throughout the lungs which may represent pulmonary edema. There is no pneumothorax. The heart is enlarged. There is degenerative disc disease of the spine. XR/XR chest 1V IMPRESSION: 1. The tip of the left-sided dialysis catheter is to the left of the spine and superimposed on the aortic arch. This may be within the internal carotid artery. These findings were discussed with Dr. Carlos in the ICU on 09/17/2024 at 2:09 PM. 2. Cardiomegaly and pulmonary edema. Electronically signed by: Jose Rodriguez MD 09/17/2024 02:10 PM EDT
--- NOTE | ~2024-09-16 | US_ITS ---
EXAMINATION: US KIDNEY BILATERAL HISTORY: KELECHI TECHNIQUE: Real-time grayscale ultrasound imaging of the kidneys was performed and images were reviewed. COMPARISON: There are no prior studies for comparison. FINDINGS: The examination is limited due to patient body habitus and inability of the patient to change position. Right kidney: The right kidney measures 11.8 x 6.1 x 5.6 cm. Renal parenchymal echotexture and thickness are normal. There are no masses. There is a 9 x 5 x 8 mm nonobstructing calculus in the mid to upper pole region. There is no hydronephrosis. Left Kidney: The left kidney is not identified. US/US renal BI IMPRESSION: Limited examination as described. Nonobstructing 9 mm right renal calculus. The left kidney is not visualized. Electronically signed by: Jose Rodriguez MD 09/17/2024 10:23 AM EDT
--- NOTE | ~2024-09-16 | CT_ITS ---
CLINICAL HISTORY: HD catheter placement CT chest without contrast Comparison: CT/DE/SR - CT CHEST WO IV CON - 08/26/24 08:22 EDT Findings: The heart size is normal. Enlarged pulmonary artery. This can be seen with pulmonary artery hypertension. The visualized thyroid and mediastinum are unremarkable. Dependent atelectasis both lower lobes. Improved since the prior exam. Scattered ground-glass opacities throughout both lungs are new. Previous bilateral pleural effusions have resolved. Left mid renal cyst 1.6 cm. Cholecystectomy. Old mild superior endplate compression fracture T4. No change. No acute fractures. IMPRESSION: 1. Left internal jugular large-bore venous catheter is in the brachiocephalic vein. 2. Mild scattered ground-glass opacities are nonspecific. This could be due to edema or infection. 3. Previous effusions resolved. Dependent atelectasis has improved. This document has been electronically signed by: Rita Marin MD on 09/17/2024 23:52:46
--- NOTE | ~2024-09-16 | XR_ITS ---
CLINICAL HISTORY: sob 1 view chest Comparison: 09/10/2024 Findings: Low inspiration. Resultant mild vascular crowding centrally with subsegmental atelectasis. Worsening of the interstitial and bronchial wall thickening. Retrocardiac atelectasis versus infiltrate now present. Mild cardiomegaly stable. No acute fractures. Impression: 1. Low inspiration with central vascular crowding and subsegmental atelectasis. 2. Worsening interstitial and bronchial wall thickening. New retrocardiac atelectasis versus infiltrate. This document has been electronically signed by: Andre Valle MD on 09/16/2024 10:24:13
--- NOTE | 2024-09-16 09:07 | ED.SOB ---
HPI - SOB/Dyspnea General Chief Complaint: Dyspnea Stated Complaint: AMS,MILD HYPOXIA PER EMS Time Seen by Provider: 09/16/24 09:07 Source: patient and EMS Mode of arrival: EMS Limitations: no limitations History of Present Illness ED Provider: HPI Narrative: Patient is obese, COPD on chronic 2-3 L nasal cannula oxygen, sleep apnea, DVT, hypotension with previous admissions for respiratory failure last admission was on 08/26 when she was intubated for hypercapnic discharged on 5comes here for increased shortness a breath saturating 81% on 4 L with increased lethargy no chest pain no fever patient is on diuretics and on BiPAP Related Data Home Medications ?Medication ?Instructions ?Recorded ?Confirmed alendronate 70 mg tablet 70 mg PO MO@0900 05/05/24 09/16/24 apixaban 2.5 mg tablet (Eliquis) 2.5 mg PO BID 05/05/24 09/16/24 ascorbic acid (vitamin C) 500 mg 500 mg PO DAILY@1200 05/05/24 09/16/24 chewable tablet (Vitamin C) carboxymethylcellulose sodium 0.5 1 drp ophthalmic (eye) QID Dry Eyes 05/05/24 09/16/24 % eye drops cyanocobalamin (vitamin B-12) 1,000 mcg PO DAILY@1200 05/05/24 09/16/24 1,000 mcg tablet fluticasone fur. 100 mcg-umeclid 1 ea inhalation DAILY 05/05/24 09/16/24 62.5 mcg-vilant 25 mcg inhalat.powder (Trelegy Ellipta) losartan 50 mg tablet 50 mg PO DAILY 05/05/24 09/16/24 mirabegron 50 mg tablet,extended 50 mg PO DAILY 05/05/24 09/16/24 release 24 hr (Myrbetriq) multivitamin with folic acid 400 1 tab PO DAILY@119905/05/24 09/16/24 mcg tablet (High Potency Multivitamin) paroxetine HCl 30 mg tablet 60 mg PO DAILY 05/05/24 09/16/24 tolterodine 4 mg capsule,extended 4 mg PO DAILY 05/05/24 09/16/24 release 24 hr vit C 250 mg-vit E 90 mg-zinc 40 1 cap PO DAILY@119905/05/24 09/16/24 mg-copper 1 dx-[id number]-[id number] capsule (PreserVision AREDS-2) hydroxyzine HCl 10 mg tablet 10 mg PO TID PRN Itching 08/26/24 09/16/24 melatonin 5 mg tablet 5 mg PO BEDTIME 08/26/24 09/16/24 trazodone 100 mg tablet 200 mg PO BEDTIME 08/26/24 09/16/24 acetaminophen 325 mg tablet 650 mg PO Q4H PRN pain or fever 09/16/24 09/16/24 acetaminophen 650 mg rectal 650 mg [place] Q4H PRN pain or fever 09/16/24 09/16/24 suppository bisacodyl 10 mg rectal suppository 10 mg [place] DAILY PRN Constipation 09/16/24 09/16/24 cholecalciferol (vitamin D3) 25 50 mcg PO DAILY 09/16/24 09/16/24 mcg (1,000 unit) tablet magnesium hydroxide 400 mg/5 mL 30 ml PO DAILY PRN Constipation 09/16/24 09/16/24 oral suspension (Milk of Magnesia) sodium phosphates 19 gram-7 118 ml [place] DAILY PRN Constipation 09/16/24 09/16/24 gram/118 mL enema (Fleet Enema) Previous Rx's ?Medication ?Instructions ?Recorded acetazolamide 250 mg tablet 250 mg PO BID #0 tabs 09/12/24 furosemide 40 mg tablet (Lasix) 40 mg PO DAILY #90 tabs 09/12/24 Allergies Allergy/AdvReac Type Severity Reaction Status Date / Time No Known Allergies Allergy Verified 09/16/24 09:13 Review of Systems Review of Systems: Yes Unobtainable due to mental status [facility] Social History Social History Household Members: Unknown / Unable to assess Household Members Other:: STR Housing: Other Housing Other:: Short term rehab Do you presently have visiting nurse or other home services: No Patient Tobacco Use Status: Never used Tobacco Smoked in Last 30 Days: No Use of substances other than those prescribed or required for medical reasons: Unable to respond Substance Use Type: Marijuana Last Used Substance: Unknown Currently Displaying Signs/Symptoms of Drug Intoxication Withdrawal: No Spiritual Healthcare Practices: unable to assess Advance Directives: Yes Advance Directives Information Provided: No Advance Directives on File: Yes Advance Directives Date on File: 08/26/24 Do you have a plan to hurt others: No Plan Recently lost weight without trying: Unsure Nutrition Risks: No Nutritional Risk Patient : No : No Poor oral hygiene: No service: No Physical Exam Vital Signs: Vital Signs: Last Vital Signs Temp 97.8 F 09/18/24 00:00 Pulse 72 09/18/24 00:00 Resp 18 09/18/24 00:00 BP 98/51 L 09/18/24 00:00 Pulse Ox 91 L 09/18/24 00:00 O2 Del Method BiPAP 09/18/24 00:00 O2 Flow Rate 2 09/17/24 23:00 FiO2 28 09/18/24 00:06 BMI result Body Mass Index 42.3 Appearance: Alert. lethargic but oriented x2 significant respiratory distress. Eyes: PERRLA, No Nystagmus ENT: Pharynx dry mucosa. Oral Mucosa moist Neck: Normal inspection. Neck supple. CVS: Normal heart rate and rhythm. Pulses normal. Respiratory: No respiratory distress. decreased air entry bilaterally few crackles Abdomen: Soft and nontender. Bowel sounds are present, no mass palpable, no CVA tenderness Skin: Skin warm and dry. Normal skin color. Normal skin turgor. Extremities: No lower extremity edema. No calf tenderness Neuro: Oriented X . No motor deficit. No sensory deficit.No cerebellar signs , cranial nerves II-XII intact Medications Administered Generic Name Dose Route Start Last Admin Trade Name Freq PRN Reason Stop Dose Admin Albuterol/Ipratropium 3 ml 09/16/24 16:00 09/17/24 19:29 Albuterol/Iprat 2.5/0.5mg 3 Ml Ampul.Neb INHALE 3 ml RQ4H WHILE AWAKE CATRACHO Administration Apixaban 2.5 mg 09/16/24 21:00 09/17/24 20:56 Apixaban 2.5 Mg Tablet PO 2.5 mg BID CATRACHO Administration Piperacillin Sod/Tazobactam 50 mls @ 100 mls/hr 09/16/24 15:00 09/17/24 21:23 Sod 2.25 gm/ Sodium Chloride IV Infused Q6H CATRACHO Infusion Paroxetine HCl 60 mg 09/17/24 09:00 09/17/24 08:24 Paroxetine Hcl 30 Mg Tablet PO 60 mg DAILY CATRACHO Administration Discontinued Medications Generic Name Dose Route Start Last Admin Trade Name Petty PRN Reason Stop Dose Admin Albuterol Sulfate 2.5 mg/ 5 mg 09/16/24 09:35 09/16/24 09:40 Albuterol Sulfate 2.5 mg INHALE 09/16/24 09:36 5 mg ONCE ONE Administration Ceftriaxone Sodium 1 gm 09/16/24 13:14 09/16/24 14:23 Ceftriaxone Sodium 1 Gm Vial IVPUSH 09/16/24 13:15 1 gm ONCE ONE Administration Albuterol Sulfate 2.5 mg/ 0 mg 09/16/24 15:00 09/16/24 15:09 Albuterol/Ipratropium 3 ml INHALE 5 dose 6XD CATRACHO Administration Famotidine 20 mg 09/16/24 21:00 09/17/24 08:24 Famotidine/Pf 20 Mg/2 Ml Vial IVPUSH 20 mg BID CATRACHO Administration Fentanyl 100 mcg 09/17/24 14:13 09/17/24 13:27 Fentanyl Citrate/Pf 100 Mcg/2 Ml Vial IVPUSH 09/17/24 14:14 100 mcg ONCE ONE Administration Protocol Heparin Sodium (Porcine) 5,000 unit 09/17/24 11:12 09/17/24 14:22 Heparin Sodium,Porcine 5,000 Unit/Ml Vial INTRACATH 09/17/24 11:13 Not Given ONCE ONE Sodium Chloride 1,000 mls @ 999 mls/hr 09/16/24 09:53 09/16/24 12:18 Ns IV 09/16/24 10:53 Infused .Q1H1M ONE Infusion Lactated Ringer's 1,000 mls @ 999 mls/hr 09/16/24 14:03 09/16/24 16:07 Lr IV 09/16/24 15:03 Infused .Q1H1M ONE Infusion Lactated Ringer's 1,000 mls @ 100 mls/hr 09/16/24 16:00 09/17/24 14:08 Lr IVCONT Infused .Q10H CATRACHO Infusion Albumin Human 100 mls @ 133.333 mls/hr 09/17/24 01:30 09/17/24 03:12 Kedbumin 25 % IV 09/17/24 03:14 Infused Q1H CATRACHO Infusion Norepinephrine Bitartrate 8 mg in 250 mls @ 0 mls/hr 09/17/24 01:30 09/17/24 09:08 Levophed IVCONT Infused .Q0M CATRACHO Titration Protocol Per Protocol Methylprednisolone Sodium Succinate 125 mg 09/16/24 12:00 09/16/24 12:20 Methylprednisolone Sod Succ 125 Mg/2 Ml Vial IVPUSH 09/16/24 12:01 125 mg ONCE ONE Administration Methylprednisolone Sodium Succinate 40 mg 09/16/24 21:00 09/17/24 05:31 Methylprednisolone Sod Succ 40 Mg/Ml Vial IVPUSH 40 mg Q8H CATRACHO Administration Midazolam HCl 4 mg 09/17/24 14:13 09/17/24 14:24 Midazolam Hcl 2 Mg/2 Ml Vial IVPUSH 09/17/24 14:14 4 mg ONCE ONE Administration Medical Decision Making Medical Decision Making [facility] Narrative: patient's COPD on chronic 2-3 L oxygen with frequent COPD exacerbation with intubation on ventilator support came here with hypoxic and hypercapnia respiratory failure has to be placed on BiPAP case discussed with sales development specialist will place the patient in ICU Differential Diagnosis Differential Diagnoses: The differential diagnosis associated with the presentation includes Admission/Observation Consideration of admission/observation: Escalation of care including admission/observation considered Consult Healthcare Provider Management of the patient was discussed with: [employer] sales development specialist Lab Data [facility] Lab Attestation statement: I reviewed the patient's lab results. 09/17/24 04:33 09/17/24 18:08 Labs: Lab Results 09/16/24 09/16/24 09/16/24 Range/Units 09:26 09:32 09:41 WBC 8.5 (4.8-10.8) X10*3/uL RBC 5.57 H (4.20-5.50) X10*6/uL Hgb 15.2 (12.0-16.0) g/dl Hct 53.0 H (37.0-47.0) % MCV 95.2 (80.0-98.0) fL MCH 27.3 (27.0-33.0) pg MCHC 28.7 L (31.0-35.0) g/dl RDW 15.9 (11.0-16.0) % Plt Count 216 (160-400) X10*3/uL MPV 11.1 (9.4-12.3) fL Immature Gran % (Auto) 0.2 (0.0-0.4) % Neut % (Auto) 78.2 H (45-73) % Lymph % (Auto) 10.8 L (20-40) % [place] % (Auto) 7.5 (2-11) % Eos % (Auto) 2.5 (0-4) % Baso % (Auto) 0.8 (0-2) % Lymph # (Auto) 0.9 L (1.2-4.9) X10*3/uL [place] # (Auto) 0.6 (0.1-1.2) X10*3/uL Eos # (Auto) 0.2 (0.0-0.4) X10*3/uL Baso # (Auto) 0.1 (0.0-0.2) X10*3/uL Abs Immat Gran (auto) 0.02 (0.00-0.03) X10*3/uL Absolute Neuts (auto) 6.6 (2.0-8.3) x10*3/uL Absolute Nucleated RBC 0.000 (0.0-0.012) X10*3/uL Nucleated RBC % (auto) 0.0 (0.0-0.2) /100WBC PT 15.1 H (10.9-12.4) SEC INR 1.3 H (0.9-1.1) VBG pH 7.24 L (7.32-7.43) VBG pCO2 57 mmHg VBG pO2 60 mmHg VBG HCO3 25 (22-26) mmol/L VBG O2 Saturation 87.0 % VBG Base Excess -3.5 mmol/L Sodium 139 (135-145) mmol/L Potassium 4.6 D (3.3-5.1) mmol/L Chloride 102 (96-108) mmol/L Carbon Dioxide 24 (22-29) mmol/L Anion Gap 18 (12-20) BUN 92 H (9-16) mg/dL Creatinine 5.45 H* (0.5-1.4) mg/dL Estim Creat Clear Calc 10.3 Estimated GFR 8 Random Glucose 108 (60-115) mg/dL Lactic Acid 1.0 (0.5-2.0) mmol/L Calcium 9.5 D (8.4-10.2) mg/dL Magnesium 2.2 (1.6-2.6) mg/dL Total Bilirubin 0.6 (0.0-1.0) mg/dL AST 35 H (5-31) U/L ALT 44 H (0-31) U/L Alkaline Phosphatase 91 (39-117) U/L Troponin I High Sens 17.8 H (<3.5-17.0) ng/L B-Natriuretic Peptide < 10 (<100) pg/mL Total Protein 7.9 (6.5-8.0) g/dL Albumin 3.9 (3.5-5.0) g/dL Urine Color Urine Appearance Urine pH (5.0-9.0) Ur Specific [place] (1.005-1.025) Urine Protein (Neg-Trace) mg/dL Urine Glucose (UA) (Negative) mg/dL Urine Ketones (Negative) mg/dL Urine Blood (Negative) Urine Nitrite (Negative) Ur Leukocyte Esterase (Negative) Urine RBC (0-2) /HPF Urine WBC (0-5) /HPF Ur Squamous Epith Cells (0-2) /HPF Urine Bacteria (None Seen) Hyaline Casts (0-2) /LPF Urine Yeast Influenza Type A (PCR) NEGATIVE (Negative) Influenza Type B (PCR) NEGATIVE (Negative) RSV RNA Qual (PCR) NEGATIVE (Negative) SARS-CoV-2 RNA (RT-PCR) NEGATIVE (Negative) 09/16/24 09/16/24 09/16/24 Range/Units 10:34 11:29 12:49 WBC (4.8-10.8) X10*3/uL RBC (4.20-5.50) X10*6/uL Hgb (12.0-16.0) g/dl Hct (37.0-47.0) % MCV (80.0-98.0) fL MCH (27.0-33.0) pg MCHC (31.0-35.0) g/dl RDW (11.0-16.0) % Plt Count (160-400) X10*3/uL MPV (9.4-12.3) fL Immature Gran % (Auto) (0.0-0.4) % Neut % (Auto) (45-73) % Lymph % (Auto) (20-40) % [place] % (Auto) (2-11) % Eos % (Auto) (0-4) % Baso % (Auto) (0-2) % Lymph # (Auto) (1.2-4.9) X10*3/uL [place] # (Auto) (0.1-1.2) X10*3/uL Eos # (Auto) (0.0-0.4) X10*3/uL Baso # (Auto) (0.0-0.2) X10*3/uL Abs Immat Gran (auto) (0.00-0.03) X10*3/uL Absolute Neuts (auto) (2.0-8.3) x10*3/uL Absolute Nucleated RBC (0.0-0.012) X10*3/uL Nucleated RBC % (auto) (0.0-0.2) /100WBC PT (10.9-12.4) SEC INR (0.9-1.1) VBG pH 7.35 7.24 L (7.32-7.43) VBG pCO2 31 50 mmHg VBG pO2 205 69 mmHg VBG HCO3 17 L 22 (22-26) mmol/L VBG O2 Saturation 99.0 90.0 % VBG Base Excess -6.3 -5.5 mmol/L Sodium (135-145) mmol/L Potassium (3.3-5.1) mmol/L Chloride (96-108) mmol/L Carbon Dioxide (22-29) mmol/L Anion Gap (12-20) BUN (9-16) mg/dL Creatinine (0.5-1.4) mg/dL Estim Creat Clear Calc Estimated GFR Random Glucose (60-115) mg/dL Lactic Acid (0.5-2.0) mmol/L Calcium (8.4-10.2) mg/dL Magnesium (1.6-2.6) mg/dL Total Bilirubin (0.0-1.0) mg/dL AST (5-31) U/L ALT (0-31) U/L Alkaline Phosphatase (39-117) U/L Troponin I High Sens (<3.5-17.0) ng/L B-Natriuretic Peptide (<100) pg/mL Total Protein (6.5-8.0) g/dL Albumin (3.5-5.0) g/dL Urine Color Dark Yellow Urine Appearance Cloudy Urine pH 5.0 (5.0-9.0) Ur Specific [place] 1.020 (1.005-1.025) Urine Protein 30 (1+) H (Neg-Trace) mg/dL Urine Glucose (UA) Negative (Negative) mg/dL Urine Ketones Trace (Negative) mg/dL Urine Blood Negative (Negative) Urine Nitrite Negative (Negative) Ur Leukocyte Esterase Moderate (2+) H (Negative) Urine RBC 0-2 (0-2) /HPF Urine WBC 0-5 (0-5) /HPF Ur Squamous Epith Cells 3-5 (0-2) /HPF Urine Bacteria None Seen (None Seen) Hyaline Casts 0-2 (0-2) /LPF Urine Yeast Present Influenza Type A (PCR) (Negative) Influenza Type B (PCR) (Negative) RSV RNA Qual (PCR) (Negative) SARS-CoV-2 RNA (RT-PCR) (Negative) Independent Interpretation I performed an independent interpretation of an: EKG Interpretation: normal sinus rhythm left anterior fascicular block heart rate of 77 beats per minute poor progression of R-wave no acute STT wave changes no acute ischemia External Record Review External record reviewed: Inpatient record, Office record, Outpatient record and Outside ED record Critical Care Time Critical Care Time Critical Care Time: Yes Total Critical Care Time: 65 Attestation: The patient was critically ill with a high probability of imminent or life threatening deterioration. I spent greater than 70 minutes of discontinuous time evaluating the patient,delivering critical care at the bedside, discussing and evaluating pertinent data with consultants. Critical care time does not include time spent performing separately billable procedures or teaching. Total time spent performing critical care was 65 minutes. Discharge Plan Discharge Clinical Impression: Acute respiratory failure with hypoxia and hypercapnia Patient Disposition: Admitted As Inpatient Discharge Date/Time: 09/16/24 15:31
--- NOTE | 2024-09-16 09:28 | ECG_ITS ---
Test Reason : SOB Blood Pressure : */* mmHG Vent. Rate : 77 BPM Atrial Rate : 77 BPM P-R Int : 172 ms QRS Dur : 94 ms QT Int : 450 ms P-R-T Axes : 28 -62 19 degrees QTcB Int : 509 ms Normal sinus rhythm Left anterior fascicular block Inferior infarct (cited on or before 26-Aug-2024) Cannot rule out Anterior infarct (cited on or before 26-Aug-2024) Abnormal ECG When compared with ECG of 26-Aug-2024 03:41, Questionable change in initial forces of Inferior leads T wave inversion no longer evident in Anterior leads QT has lengthened Referred By: Sulaiman Azevedo Electronically Signed By: JACKIE BLACK MD
[2024-09-16 09:32] LABS: MANUAL DIFF FLAG NO
[2024-09-16 09:34] LABS: Basophils Absolute Auto 0.1 X10*3/uL (0.0-0.2); Basophils Percent Auto 0.8 % (0-2); Eosinophils Absolute Auto 0.2 X10*3/uL (0.0-0.4); Eosinophils Percent Auto 2.5 % (0-4); Hemoglobin 15.2 g/dl (12.0-16.0); Imm Gran Abs Auto 0.02 X10*3/uL (0.00-0.03); Imm Gran Pct Auto 0.2 % (0.0-0.4); Lymphocytes Absolute Auto 0.9 X10*3/uL (1.2-4.9); Lymphocytes Percent Auto 10.8 % (20-40); Mean Corpuscular HGB Conc 28.7 g/dl (31.0-35.0); Mean Corpuscular Hemoglobin 27.3 pg (27.0-33.0); Mean Corpuscular Volume 95.2 fL (80.0-98.0); Mean Platelet Volume 11.1 fL (9.4-12.3); Monocytes Absolute Auto 0.6 X10*3/uL (0.1-1.2); Monocytes Percent Auto 7.5 % (2-11); Neutrophils Absolute Auto 6.6 x10*3/uL (2.0-8.3); Neutrophils Percent Auto 78.2 % (45-73); Platelet Count 216 X10*3/uL (160-400); Red Blood Count 5.57 X10*6/uL (4.20-5.50); Red Cell Distribution Width 15.9 % (11.0-16.0); White Blood Count 8.5 X10*3/uL (4.8-10.8)
[2024-09-16 09:37] LABS: VBG Base Excess -3.5 mmol/L; VBG HCO3 25 mmol/L (22-26); VBG pCO2 57 mmHg; VBG pH 7.24 (7.32-7.43); VBG pO2 60 mmHg
[2024-09-16 09:39] LABS: INTERNATIONAL NORM RATIO 1.3 (0.9-1.1); Prothrombin Time 15.1 SEC (10.9-12.4)
[2024-09-16 09:40] LABS: Venous Blood Gas Refer to POC result
[2024-09-16] MEDS: Albuterol Sulfate 2.5 MG, Albuterol Sulfate (0.083%) 2.5 MG 5 MG INHALE (09:40)
[2024-09-16 09:53] LABS: Alanine Aminotransferase 44 U/L (0-31); Albumin Level 3.9 g/dL (3.5-5.0); Alkaline Phosphatase 91 U/L (39-117); Anion Gap 18 (12-20); Aspartate Amino Transferase 35 U/L (5-31); Bilirubin Total 0.6 mg/dL (0.0-1.0); Blood Urea Nitrogen 92 mg/dL (9-16); Calcium 9.5 mg/dL (8.4-10.2); Carbon Dioxide 24 mmol/L (22-29); Chloride 102 mmol/L (96-108); Creatinine Clr Calc Pharmacy 10.3; Estimated Glomerular Filt Rate 8; Glucose Random 108 mg/dL (60-115); Magnesium 2.2 mg/dL (1.6-2.6); Potassium 4.6 mmol/L (3.3-5.1); Sodium 139 mmol/L (135-145); Total Protein 7.9 g/dL (6.5-8.0)
[2024-09-16 09:57] LABS: Troponin-I High Sensitivity 17.8 ng/L (<3.5-17.0)
[2024-09-16] MEDS: 0.9 % Sodium Chloride 1,000 ML 999 ML IV (10:09)
[2024-09-16 10:42] LABS: Appearance Urine Cloudy; Color Urine Dark Yellow; Glucose Urine UA Negative (Negative); Leukocyte Esterase Urine Moderate (2+) (Negative); Nitrite Urine Negative (Negative); UMIC TRIGGER UACC YES; Urine Blood Negative (Negative); Urine Ketones Trace mg/dL (Negative); Urine Protein 30 (1+) mg/dL (Neg-Trace)
[2024-09-16 11:06] LABS: Bacteria Urine None Seen (None Seen); Hyaline Casts Urine 0-2 /LPF (0-2); RBC Urine 0-2 /HPF (0-2); UACC Culture Trigger YES; WBC Urine 0-5 /HPF (0-5)
[2024-09-16 11:06] LABS: B Type Natriuretic Peptide < 10 pg/mL (<100)
[2024-09-16 11:19] LABS: Influenza A PCR NEGATIVE (Negative); Influenza B PCR NEGATIVE (Negative); Resp Syncy Virus RNA Qual PCR NEGATIVE (Negative); SARS COV2 PCR INHOUSE NEGATIVE (Negative)
[2024-09-16 11:37] LABS: VBG Base Excess -6.3 mmol/L; VBG HCO3 17 mmol/L (22-26); VBG pCO2 31 mmHg; VBG pH 7.35 (7.32-7.43); VBG pO2 205 mmHg
[2024-09-16 11:39] LABS: Venous Blood Gas Refer to POC result
--- NOTE | 2024-09-16 11:39 | PC.NURSE ---
[facility] patient was on her baseline 2lNC when she had desat down to 80% and was noted by staff to be sauceda . for ems patient was placed on 4LNC sats came up between 88-93%. upon arrival to ED patient noted to be satting 81% on nasal cannula 4L, patient bumped to 6L, ED provider at bedside, RT at bedside placed patient on bipap, sats recoved to 88%-92%, patient appears to be more awake and alert. nickerson cath placed per provider order, 200cc dark angle urine output. patient has a #20 in left hand and 18# in right wrist. patient remains on bipap, see vent assessment. plan of care on going at this time. VSS.
[2024-09-16] MEDS: methylPREDNISolone Sod Succ 125 MG/2 ML VIAL IVPUSH (12:20)
[2024-09-16 12:58] LABS: Venous Blood Gas Refer to POC result
[2024-09-16 12:59] LABS: VBG Base Excess -5.5 mmol/L; VBG HCO3 22 mmol/L (22-26); VBG pCO2 50 mmHg; VBG pH 7.24 (7.32-7.43); VBG pO2 69 mmHg
--- NOTE | 2024-09-16 13:21 | PHA.MEDREC ---
Addendum entered by Burak Cordova RP 09/16/24 13:59: MED REC CHECKED BY [facility] Original Note: Pharmacy Consult ? Medication Reconciliation Pharmacy has completed the medication reconciliation. Used list from [facility].
--- NOTE | 2024-09-16 14:06 | PM.CCPN ---
Subjective Subjective Date of Service: 09/16/24 Interval History: 74-year-old lady with past medical history of COPD on chronic 2 L to 3 L nasal cannula, HTN, HLP, obesity, DVT with recent admission to the hospital from 08/26/2024 till 09/12/2024 for the management of COPD exacerbation when she was intubated and on ventilator support, eventually extubated transferred to floor and then discharged to a rehab. She presents again to the emergency room with shortness of breath, acute in onset, progressive in nature, non localized, exacerbated with movement, partial relief with rest. She was found to be in hypercapnic respiratory failure Critical Care Time (minutes): 35 Physical Exam Vital Signs: Vital Signs: Last Vital Signs Temp 97.2 F 09/16/24 13:29 Pulse 74 09/16/24 13:29 Resp 21 H 09/16/24 13:33 BP 113/64 09/16/24 13:29 Pulse Ox 92 09/16/24 13:29 O2 Del Method BiPAP 09/16/24 13:29 O2 Flow Rate 3 09/16/24 12:07 FiO2 30 09/16/24 13:29 BMI result Body Mass Index 42.3 Objective Data Labs 09/16/24 09:26 09/16/24 09:26 Labs: Laboratory Results - last 24 hr 09/16/24 09/16/24 09/16/24 09:26 09:32 09:41 WBC 8.5 RBC 5.57 H Hgb 15.2 Hct 53.0 H MCV 95.2 MCH 27.3 MCHC 28.7 L RDW 15.9 Plt Count 216 MPV 11.1 Immature Gran % (Auto) 0.2 Neut % (Auto) 78.2 H Lymph % (Auto) 10.8 L [place] % (Auto) 7.5 Eos % (Auto) 2.5 Baso % (Auto) 0.8 Lymph # (Auto) 0.9 L [place] # (Auto) 0.6 Eos # (Auto) 0.2 Baso # (Auto) 0.1 Abs Immat Gran (auto) 0.02 Absolute Neuts (auto) 6.6 Absolute Nucleated RBC 0.000 Nucleated RBC % (auto) 0.0 PT 15.1 H INR 1.3 H VBG pH 7.24 L VBG pCO2 57 VBG pO2 60 VBG HCO3 25 VBG O2 Saturation 87.0 VBG Base Excess -3.5 Sodium 139 Potassium 4.6 D Chloride 102 Carbon Dioxide 24 Anion Gap 18 BUN 92 H Creatinine 5.45 H* Estim Creat Clear Calc 10.3 Estimated GFR 8 Random Glucose 108 Lactic Acid 1.0 Calcium 9.5 D Magnesium 2.2 Total Bilirubin 0.6 AST 35 H ALT 44 H Alkaline Phosphatase 91 Troponin I High Sens 17.8 H B-Natriuretic Peptide < 10 Total Protein 7.9 Albumin 3.9 Urine Color Urine Appearance Urine pH Ur Specific [place] Urine Protein Urine Glucose (UA) Urine Ketones Urine Blood Urine Nitrite Ur Leukocyte Esterase Urine RBC Urine WBC Ur Squamous Epith Cells Urine Bacteria Hyaline Casts Urine Yeast Influenza Type A (PCR) NEGATIVE Influenza Type B (PCR) NEGATIVE RSV RNA Qual (PCR) NEGATIVE SARS-CoV-2 RNA (RT-PCR) NEGATIVE 09/16/24 09/16/24 09/16/24 10:34 11:29 12:49 WBC RBC Hgb Hct MCV MCH MCHC RDW Plt Count MPV Immature Gran % (Auto) Neut % (Auto) Lymph % (Auto) [place] % (Auto) Eos % (Auto) Baso % (Auto) Lymph # (Auto) [place] # (Auto) Eos # (Auto) Baso # (Auto) Abs Immat Gran (auto) Absolute Neuts (auto) Absolute Nucleated RBC Nucleated RBC % (auto) PT INR VBG pH 7.35 7.24 L VBG pCO2 31 50 VBG pO2 205 69 VBG HCO3 17 L 22 VBG O2 Saturation 99.0 90.0 VBG Base Excess -6.3 -5.5 Sodium Potassium Chloride Carbon Dioxide Anion Gap BUN Creatinine Estim Creat Clear Calc Estimated GFR Random Glucose Lactic Acid Calcium Magnesium Total Bilirubin AST ALT Alkaline Phosphatase Troponin I High Sens B-Natriuretic Peptide Total Protein Albumin Urine Color Dark Yellow Urine Appearance Cloudy Urine pH 5.0 Ur Specific [place] 1.020 Urine Protein 30 (1+) H Urine Glucose (UA) Negative Urine Ketones Trace Urine Blood Negative Urine Nitrite Negative Ur Leukocyte Esterase Moderate (2+) H Urine RBC 0-2 Urine WBC 0-5 Ur Squamous Epith Cells 3-5 Urine Bacteria None Seen Hyaline Casts 0-2 Urine Yeast Present Influenza Type A (PCR) Influenza Type B (PCR) RSV RNA Qual (PCR) SARS-CoV-2 RNA (RT-PCR) Quality VTE VTE Risk Level:: Medical - moderate - high VTE Device Contraindication: N/A - Device Ordered VTE Drug Contraindication: N/A - Med Ordered
--- NOTE | 2024-09-16 14:09 | PM.CCHP ---
History of Present Illness Date of Service: 09/16/24 Chief Complaint: Shortness of breaths 74-year-old lady with past medical history of COPD on chronic 2 L to 3 L nasal cannula, HTN, HLP, obesity, DVT with recent admission to the hospital from 08/26/2024 till 09/12/2024 for the management of COPD exacerbation when she was intubated and on ventilator support, eventually extubated transferred to floor and then discharged to a rehab. She presents again to the emergency room with shortness of breath, acute in onset, progressive in nature, non localized, exacerbated with movement, partial relief with rest. She was found to be in hypercapnic respiratory failure with pH of 7.24 and pCO2 of 54 on a VBG so BiPAP was placed, upon giving a break from the BiPAP patient's pCO2 increased and pH decreased again so placed back on BiPAP, transferred to ICU for continuing need for an NIPPV Review of Systems Review of Systems: Unable to obtain a complete ROS due to shortness of breath PMFSH Social History Social History Household Members: Other Housing: Assisted Living Facility Do you presently have visiting nurse or other home services: Yes Patient Tobacco Use Status: Never used Tobacco Substance Use Type: Marijuana Advance Directives: Yes Advance Directives on File: Yes Advance Directives Date on File: 08/26/24 service: No Meds Allergies Allergy/AdvReac Type Severity Reaction Status Date / Time No Known Allergies Allergy Verified 09/16/24 09:13 Active Medications: Current Medications Famotidine (Famotidine/Pf 20 Mg/2 Ml Vial) 20 mg IVPUSH BID CATRACHO Heparin Sodium (Porcine) (Heparin Sodium,Porcine 5,000 Unit/Ml Vial) 5,000 unit SUBCUT Q8H CATRACHO Lactated Ringer's (Lr) 1,000 mls @ 999 mls/hr IV .Q1H1M ONE Stop: 09/16/24 15:03 Ondansetron HCl (Ondansetron Hcl 4 Mg/2 Ml Vial) 4 mg IVPUSH Q8H PRN PRN Reason: Nausea and Vomiting Home Medications ?Medication ?Instructions ?Recorded ?Confirmed ?Last Taken ?Type alendronate 70 mg tablet 70 mg PO MO@0900 05/05/24 09/16/24 04/30/24 History apixaban 2.5 mg tablet (Eliquis) 2.5 mg PO BID 05/05/24 09/16/24 05/05/24 History ascorbic acid (vitamin C) 500 mg 500 mg PO DAILY@119905/05/24 09/16/24 05/04/24 History chewable tablet (Vitamin C) carboxymethylcellulose sodium 0.5 1 drp ophthalmic (eye) QID Dry Eyes 05/05/24 09/16/24 Unknown History % eye drops cyanocobalamin (vitamin B-12) 1,000 mcg PO DAILY@1200 05/05/24 09/16/24 05/04/24 History 1,000 mcg tablet fluticasone fur. 100 mcg-umeclid 1 ea inhalation DAILY 05/05/24 09/16/24 05/05/24 History 62.5 mcg-vilant 25 mcg inhalat.powder (Trelegy Ellipta) losartan 50 mg tablet 50 mg PO DAILY 05/05/24 09/16/24 05/05/24 History mirabegron 50 mg tablet,extended 50 mg PO DAILY 05/05/24 09/16/24 05/05/24 History release 24 hr (Myrbetriq) multivitamin with folic acid 400 1 tab PO DAILY@119905/05/24 09/16/24 05/04/24 History mcg tablet (High Potency Multivitamin) paroxetine HCl 30 mg tablet 60 mg PO DAILY 05/05/24 09/16/24 Unknown History tolterodine 4 mg capsule,extended 4 mg PO DAILY 05/05/24 09/16/24 05/05/24 History release 24 hr vit C 250 mg-vit E 90 mg-zinc 40 1 cap PO DAILY@119905/05/24 09/16/24 05/04/24 History mg-copper 1 [id number] capsule (PreserVision AREDS-2) hydroxyzine HCl 10 mg tablet 10 mg PO TID PRN Itching 08/26/24 09/16/24 Unknown History melatonin 5 mg tablet 5 mg PO BEDTIME 08/26/24 09/16/24 Unknown History trazodone 100 mg tablet 200 mg PO BEDTIME 08/26/24 09/16/24 Unknown History acetaminophen 325 mg tablet 650 mg PO Q4H PRN pain or fever 09/16/24 09/16/24 Unknown History acetaminophen 650 mg rectal 650 mg MN Q4H PRN pain or fever 09/16/24 09/16/24 Unknown History suppository bisacodyl 10 mg rectal suppository 10 mg MN DAILY PRN Constipation 09/16/24 09/16/24 Unknown History cholecalciferol (vitamin D3) 25 50 mcg PO DAILY 09/16/24 09/16/24 Unknown History mcg (1,000 unit) tablet magnesium hydroxide 400 mg/5 mL 30 ml PO DAILY PRN Constipation 09/16/24 09/16/24 Unknown History oral suspension (Milk of Magnesia) sodium phosphates 19 gram-7 118 ml MN DAILY PRN Constipation 09/16/24 09/16/24 Unknown History gram/118 mL enema (Fleet Enema) Physical Exam Vital Signs: Vital Signs: Last Vital Signs Temp 97.2 F 09/16/24 13:29 Pulse 74 09/16/24 13:29 Resp 21 H 09/16/24 13:33 BP 113/64 09/16/24 13:29 Pulse Ox 92 09/16/24 13:29 O2 Del Method BiPAP 09/16/24 13:29 O2 Flow Rate 3 09/16/24 12:07 FiO2 30 09/16/24 13:29 BMI result Body Mass Index 42.3 General: Elderly lady, in acute distress, ill appearing and tired appearing Nutritional Appearance: well nourished and overweight Eyes: appearance normal, both eyes and all related structures; Alignment and Position: alignment normal and position normal Neck: No lymphadenopathy, no thyromegaly Resp: bilateral air entry equal, distant breath sounds Cardio: Regular rate, regular rhythm; Heart sounds: S1 normal heart sound present and S2 normal heart sound present GI: soft, nontender, no guarding, no hepatosplenomegaly : bladder normal to inspection, bladder normal to palpation, no renal angle tenderness Skin: no rashes or lesions noted and elasticity normal Neuro: No focal deficit, moves all extremities Results Labs 09/16/24 09:26 09/16/24 09:26 Labs: Laboratory Results - last 24 hr 09/16/24 09/16/24 09/16/24 09:26 09:32 09:41 MCV 95.2 MCH 27.3 MCHC 28.7 L RDW 15.9 Plt Count 216 MPV 11.1 Immature Gran % (Auto) 0.2 Neut % (Auto) 78.2 H Lymph % (Auto) 10.8 L [place] % (Auto) 7.5 Eos % (Auto) 2.5 Baso % (Auto) 0.8 Lymph # (Auto) 0.9 L [place] # (Auto) 0.6 Eos # (Auto) 0.2 Baso # (Auto) 0.1 Abs Immat Gran (auto) 0.02 Absolute Neuts (auto) 6.6 Absolute Nucleated RBC 0.000 Nucleated RBC % (auto) 0.0 PT 15.1 H INR 1.3 H VBG pH 7.24 L VBG pCO2 57 VBG pO2 60 VBG HCO3 25 VBG O2 Saturation 87.0 VBG Base Excess -3.5 Anion Gap 18 Estim Creat Clear Calc 10.3 Estimated GFR 8 Random Glucose 108 Lactic Acid 1.0 Calcium 9.5 D Magnesium 2.2 Total Bilirubin 0.6 AST 35 H ALT 44 H Alkaline Phosphatase 91 B-Natriuretic Peptide < 10 Total Protein 7.9 Albumin 3.9 Urine Color Urine Appearance Urine pH Ur Specific [place] Urine Protein Urine Glucose (UA) Urine Ketones Urine Blood Urine Nitrite Ur Leukocyte Esterase Urine RBC Urine WBC Ur Squamous Epith Cells Urine Bacteria Hyaline Casts Urine Yeast Influenza Type A (PCR) NEGATIVE Influenza Type B (PCR) NEGATIVE RSV RNA Qual (PCR) NEGATIVE SARS-CoV-2 RNA (RT-PCR) NEGATIVE 09/16/24 09/16/24 09/16/24 10:34 11:29 12:49 MCV MCH MCHC RDW Plt Count MPV Immature Gran % (Auto) Neut % (Auto) Lymph % (Auto) [place] % (Auto) Eos % (Auto) Baso % (Auto) Lymph # (Auto) [place] # (Auto) Eos # (Auto) Baso # (Auto) Abs Immat Gran (auto) Absolute Neuts (auto) Absolute Nucleated RBC Nucleated RBC % (auto) PT INR VBG pH 7.35 7.24 L VBG pCO2 31 50 VBG pO2 205 69 VBG HCO3 17 L 22 VBG O2 Saturation 99.0 90.0 VBG Base Excess -6.3 -5.5 Anion Gap Estim Creat Clear Calc Estimated GFR Random Glucose Lactic Acid Calcium Magnesium Total Bilirubin AST ALT Alkaline Phosphatase B-Natriuretic Peptide Total Protein Albumin Urine Color Dark Yellow Urine Appearance Cloudy Urine pH 5.0 Ur Specific [place] 1.020 Urine Protein 30 (1+) H Urine Glucose (UA) Negative Urine Ketones Trace Urine Blood Negative Urine Nitrite Negative Ur Leukocyte Esterase Moderate (2+) H Urine RBC 0-2 Urine WBC 0-5 Ur Squamous Epith Cells 3-5 Urine Bacteria None Seen Hyaline Casts 0-2 Urine Yeast Present Influenza Type A (PCR) Influenza Type B (PCR) RSV RNA Qual (PCR) SARS-CoV-2 RNA (RT-PCR) Assessment and Plan (1) Hypertension: Qualifiers: Hypertension type: primary hypertension Qualified Code(s): I10 - Essential (primary) hypertension Status: Acute (2) Diastolic dysfunction: Status: Acute (3) Pulmonary hypertension: Status: Acute (4) History of DVT (deep vein thrombosis): Status: Acute (5) Acute exacerbation of COPD with asthma: Status: Acute (6) Acute respiratory failure with hypoxia and hypercapnia: Status: Acute (7) Acute UTI: Status: Acute (8) Acute kidney injury: Status: Acute Plan Acute on chronic hypercapnic respiratory failure due to COPD exacerbation Currently on NIPPV/BIPAP 05/27, did not tolerate well giving the breaks from BiPAP so we will admit her to ICU for ongoing need off BiPAP Bronchodilators [id number], IV Solu-Medrol We will start on Zosyn and vancomycin given recent history of hospitalization for a secondary pneumonia Acute kidney injury possibly secondary to volume depletion, bedside ultrasound showing small collapsible IVC is. We will give her a L of LR and repeat a BMP, if the BMP is improving possibly we will give her more fluids at a lower rate. Baseline creatinine normal, creatinine today is 7 We will closely monitor I's and O's Avoid nephrotoxic medications We will keep her NPO for now as long as she is on BiPAP Chronic anemia: closely monitor H&H, transfuse for hemoglobin less than 7 grams/deciliter History of DVT: We will hold off on therapeutic anticoagulation until the renal function improves Musculoskeletal: Decubitus ulcer prevention protocol Lines: Peripheral Prophylaxis: Heparin, famotidine Total time managing care of this patient today: 35 minutes.
[2024-09-16] MEDS: Lactated Ringers 1,000 ML 999 ML IV (14:23)
[2024-09-16] MEDS: cefTRIAXone sodium 1 GM VIAL IVPUSH (14:23)
[2024-09-16] MEDS: Albuterol Sulfate 2.5 MG, Albuterol/Iprat 2.5/0.5MG 3 ML 3 ML INHALE (15:09)
[2024-09-16] MEDS: Albuterol/Iprat 2.5/0.5MG 3 ML AMPUL.NEB INHALE ×2 (15:57→19:35)
[2024-09-16] MEDS: Piperacillin Sodium/Tazobactam 2.25 GM in 0.9 % Sodium Chloride 50 ML IV ×2 (16:07→20:45)
[2024-09-16] MEDS: Lactated Ringers 1,000 ML 100 ML IVCONT ×2 (16:08→19:23)
[2024-09-16 17:07] LABS: Anion Gap 18 (12-20); Blood Urea Nitrogen 92 mg/dL (9-16); Calcium 8.9 mg/dL (8.4-10.2); Carbon Dioxide 22 mmol/L (22-29); Chloride 105 mmol/L (96-108); Creatinine Clr Calc Pharmacy 10.5; Estimated Glomerular Filt Rate 8; Glucose Random 136 mg/dL (60-115); Potassium 4.6 mmol/L (3.3-5.1); Sodium 140 mmol/L (135-145)
--- NOTE | 2024-09-16 19:35 | PC.NURSE ---
Assumed care of patient 15:40 Pt on Bipap 17/, 40%. Lungs dim throughout with expiratory ronchi. Pt opens eyes to name on arrival. Pt able to assist slightly with bed mobility by following commands to hold side rail. Skin check completed. See skin photos IV zosyn and LR IVF @100ml/hr given. Blood pressures MAP<65 at times. MD notified. Per MD continue LR fluids and start levophed gtt for criteria of SBP <100. Pt BP 114/48. Pt turned and repositioned Q2H. Labs collected as ordered for nasal swabs. Urine output low less than 30ml/hr. MD aware. Pt more lethargic and sleeping after admission completed. Pt does not open eyes to name. Opens eyes to significant stimuli like sternal rub. RN to RN report given.
--- NOTE | 2024-09-16 19:43 | HO.SKINPHOTO ---
Location: Coccyx Category: PI Stage: DTI Location: Left lateral hip Location: right posterior upper leg Category: PI Stage: unstageable (blister with brown eschar) Length: 6cm Width: 1.5cm
[2024-09-16] MEDS: methylPREDNISolone Sod Succ 40 MG/ML VIAL IVPUSH (20:42)
[2024-09-16] MEDS: Famotidine/PF 20 MG/2 ML VIAL IVPUSH (20:52)
[2024-09-17] VITALS (37 sets, daily range): BP systolic 80–140; BP diastolic 32–75; PULSE 64–102; RESP 11–28; TEMP 36.2–36.7; O2SAT 84–97; BMI 43.1
[2024-09-17] MEDS: Norepinephrine Bitartrate/D5W 8 MG/250 ML PLAST..BAG 9.83 MG IVCONT (01:22)
[2024-09-17] MEDS: Albumin Human 25 % 100 ML 133.33 ML IV ×2 (01:36→02:25)
[2024-09-17] MEDS: Piperacillin Sodium/Tazobactam 2.25 GM in 0.9 % Sodium Chloride 50 ML IV ×4 (03:11→20:51)
[2024-09-17 04:43] LABS: VBG Base Excess -6.1 mmol/L; VBG HCO3 19 mmol/L (22-26); VBG pCO2 39 mmHg; VBG pO2 75 mmHg
[2024-09-17 04:56] LABS: Hematocrit 41.9 % (37.0-47.0); Imm Gran Abs Auto 0.06 X10*3/uL (0.00-0.03); Imm Gran Pct Auto 0.8 % (0.0-0.4); Lymphocytes Absolute Auto 0.4 X10*3/uL (1.2-4.9); Lymphocytes Percent Auto 5.2 % (20-40); MANUAL DIFF FLAG SCAN; Mean Corpuscular HGB Conc 28.6 g/dl (31.0-35.0); Mean Corpuscular Hemoglobin 27.5 pg (27.0-33.0); Mean Corpuscular Volume 95.9 fL (80.0-98.0); Mean Platelet Volume 11.1 fL (9.4-12.3); Monocytes Absolute Auto 0.3 X10*3/uL (0.1-1.2); Monocytes Percent Auto 3.4 % (2-11); Neutrophils Absolute Auto 6.9 x10*3/uL (2.0-8.3); Neutrophils Percent Auto 90.6 % (45-73); Platelet Count 152 X10*3/uL (160-400); Red Blood Count 4.37 X10*6/uL (4.20-5.50); Red Cell Distribution Width 15.5 % (11.0-16.0); SCAN SMEAR FLAG 1; White Blood Count 7.6 X10*3/uL (4.8-10.8)
[2024-09-17 04:57] LABS: Venous Blood Gas Refer to POC result
[2024-09-17 05:14] LABS: Alanine Aminotransferase 33 U/L (0-31); Alkaline Phosphatase 70 U/L (39-117); Anion Gap 20 (12-20); Aspartate Amino Transferase 34 U/L (5-31); Bilirubin Total 0.5 mg/dL (0.0-1.0); Blood Urea Nitrogen 105 mg/dL (9-16); Calcium 8.4 mg/dL (8.4-10.2); Carbon Dioxide 19 mmol/L (22-29); Chloride 107 mmol/L (96-108); Creatinine Clr Calc Pharmacy 10.6; Estimated Glomerular Filt Rate 8; Glucose Random 147 mg/dL (60-115); Potassium 5.1 mmol/L (3.3-5.1); Sodium 141 mmol/L (135-145); Total Protein 6.8 g/dL (6.5-8.0)
[2024-09-17 05:22] LABS: SLIDE REVIEW VERIFIED
[2024-09-17] MEDS: Lactated Ringers 1,000 ML 100 ML IVCONT (05:31)
[2024-09-17] MEDS: methylPREDNISolone Sod Succ 40 MG/ML VIAL IVPUSH (05:31)
--- NOTE | 2024-09-17 06:37 | PC.NURSE ---
Critical Care Nursing Note? Assumed care at 1900, patient lethargic, opens eyes with name and physical stimuli. Patient tolerating bipap. Patient became more alert throughout the shift, opening eyes spontaneously, following simple commands. Patient disoriented to time and place this am, able to respond to questions appropriately. Levophed gtt started and titrated as needed, see MAR.?
[2024-09-17] MEDS: Albuterol/Iprat 2.5/0.5MG 3 ML AMPUL.NEB INHALE ×4 (07:47→19:29)
[2024-09-17] MEDS: PARoxetine HCL 30 MG TABLET 60 MG PO (08:24)
[2024-09-17] MEDS: Famotidine/PF 20 MG/2 ML VIAL IVPUSH (08:24)
[2024-09-17] MEDS: Apixaban 2.5 MG TABLET PO ×2 (08:24→20:56)
[2024-09-17 09:46] LABS: ABG Base Excess -5.5 mmol/L; ABG HCO3 22 mmol/L (22-26); ABG pCO2 54 mmHg (32-45); ABG pH 7.22 (7.35-7.45); ABG pO2 82 mmHg (83-108)
--- NOTE | 2024-09-17 09:52 | PC.NURSE ---
Patient removed from Bipap at 0759 to 5L NC by RT. Titrated down to 2LNC to maintain spo2 88-92% per MD. 0935 - this RN at bedside, patient unable to stay awake to noxious stimuli - MD and RT notified. ABGs ordered and obtained by RT - see results. Patient placed back on bipap support at 0950 by RT. Transfer on hold per MD.
[2024-09-17 09:53] LABS: Adenovirus PCR Not Detected (Not Detect.); Bordetella parapertussis PCR Not Detected (Not Detect.); Bordetella pertussis PCR Not Detected (Not Detect.); Chlamydia pneumoniae PCR Not Detected (Not Detect.); Coronavirus 229E PCR Not Detected (Not Detect.); Coronavirus HKU1 PCR Not Detected (Not Detect.); Coronavirus NL63 PCR Not Detected (Not Detect.); Coronavirus OC43 PCR Not Detected (Not Detect.); Human metapneumovirus PCR Not Detected (Not Detect.); Influenza A PCR Not Detected (Not Detect.); Influenza B PCR Not Detected (Not Detect.); Mycoplasma pneumoniae PCR Not Detected (Not Detect.); Parainfluenza 1 PCR Not Detected (Not Detect.); Parainfluenza 2 PCR Not Detected (Not Detect.); Parainfluenza 3 PCR Not Detected (Not Detect.); Parainfluenza 4 PCR Not Detected (Not Detect.); RSV PCR Not Detected (Not Detect.); Rhino/Enterovirus PCR Not Detected (Not Detect.)
--- NOTE | 2024-09-17 10:08 | MHC.CLN ---
PT WITH INCREASED NUTRITION RISK R/T PRESSURE INJURY PT IS CURRENTLY NPO DISCUSSED AT ROUNDS WITH MD MORRO [facility] PENDING ALONG WITH POSSIBLE TRANSFER TO MEDICAL FLOOR TODAY IF DIET TO ADVANCE, RECOMMEND 1500DM DIET WITH HIGH PROTEIN SUPPLEMENT TO PROMOTE WOUND HEALING RECOMMEND ADDING ENSURE MAX BID TO PROVIDE 300KCALS, 60G PROTEIN FOLLOWING FOR DIET ADVANCEMENT SEE CLINICAL NUTRITION ASSESSMENT
[2024-09-17 10:22] LABS: Influenza A H1 PCR Not Detected (Not Detect.); Influenza A H1-2009 PCR Not Detected (Not Detect.); Influenza A H3 PCR Not Detected (Not Detect.); SARS-CoV-2 PCR Not Detected (Not Detect.)
--- NOTE | 2024-09-17 11:17 | PM.CNNEP ---
History of Present Illness Reason for Consult Consult date: 09/17/24 Chief Complaint Chief complaint: hypoxia History of Present Illness Narrative: 74-year-old lady with normal renal function but with COPD on chronic 2 L to 3 L nasal cannula, HTN as well as other morbidites who recently had hospital admission from 08/26/2024 till 09/12/2024 for COPD exacerbation . At that time, she was intubated and was on ventilator support, eventually extubated transferred to floor and then discharged to a rehab. She presented again to the emergency room with shortness of breath, acute in onset, progressive in nature, non localized, exacerbated with movement, partial relief with rest. She was found to be in hypercapnic respiratory failure with pH of 7.24 and pCO2 of 54 on a VBG so BiPAP was placed, upon giving a break from the BiPAP patient's pCO2 increased and pH decreased again so placed back on BiPAand was, transferred to ICU for continuing need for an NIPPV. She developed KELECHI during the course of these events and nephrology was consulted to assist in her clinical care during her current hospital stay Review of Systems Review of Systems Yes Unobtainable due to mental condition [facility] Social History Social History Household Members: Unknown / Unable to assess Household Members Other:: STR Housing: Other Housing Other:: Short term rehab Do you presently have visiting nurse or other home services: No Patient Tobacco Use Status: Never used Tobacco Smoked in Last 30 Days: No Use of substances other than those prescribed or required for medical reasons: Unable to respond Substance Use Type: Marijuana Last Used Substance: Unknown Currently Displaying Signs/Symptoms of Drug Intoxication Withdrawal: No Spiritual Healthcare Practices: unable to assess Advance Directives: Yes Advance Directives Information Provided: No Advance Directives on File: Yes Advance Directives Date on File: 08/26/24 Do you have a plan to hurt others: No Plan Recently lost weight without trying: Unsure Nutrition Risks: No Nutritional Risk Patient : No : No Poor oral hygiene: No service: No Meds Allergies Allergy/AdvReac Type Severity Reaction Status Date / Time No Known Allergies Allergy Verified 09/16/24 09:13 Active Medications: Current Medications Acetaminophen (Acetaminophen 325 Mg Tablet) 650 mg PO Q4H PRN PRN Reason: pain or fever Albuterol/Ipratropium (Albuterol/Iprat 2.5/0.5mg 3 Ml Ampul.Neb) 3 ml INHALE RQ4H WHILE AWAKE [facility] Last Admin: 09/17/24 07:47 Dose: 3 ml Apixaban (Apixaban 2.5 Mg Tablet) 2.5 mg PO BID [facility] Last Admin: 09/17/24 08:24 Dose: 2.5 mg Heparin Sodium (Porcine) (Heparin Sodium,Porcine 5,000 Unit/Ml Vial) 5,000 unit INTRACATH ONCE ONE Stop: 09/17/24 11:13 Heparin Sodium (Porcine) (Heparin Sodium,Porcine 5,000 Unit/Ml Vial) 5,000 unit INTRACATH ONCE ONE Stop: 09/18/24 06:01 Piperacillin Sod/Tazobactam (Sod 2.25 gm/ Sodium Chloride) 50 mls @ 100 mls/hr IV Q6H [facility] Last Infusion: 09/17/24 09:07 Dose: Infused Lactated Ringer's (Lr) 1,000 mls @ 100 mls/hr IVCONT .Q10H [facility] Last Admin: 09/17/24 05:31 Dose: 100 mls/hr Ondansetron HCl (Ondansetron Hcl 4 Mg/2 Ml Vial) 4 mg IVPUSH Q8H PRN PRN Reason: Nausea and Vomiting Paroxetine HCl (Paroxetine Hcl 30 Mg Tablet) 60 mg PO DAILY [facility] Last Admin: 09/17/24 08:24 Dose: 60 mg Home Medications ?Medication ?Instructions ?Recorded ?Confirmed ?Last Taken ?Type alendronate 70 mg tablet 70 mg PO MO@0900 05/05/24 09/16/24 04/30/24 History apixaban 2.5 mg tablet (Eliquis) 2.5 mg PO BID 05/05/24 09/16/24 05/05/24 History ascorbic acid (vitamin C) 500 mg 500 mg PO DAILY@1200 05/05/24 09/16/24 05/04/24 History chewable tablet (Vitamin C) carboxymethylcellulose sodium 0.5 1 drp ophthalmic (eye) QID Dry Eyes 05/05/24 09/16/24 Unknown History % eye drops cyanocobalamin (vitamin B-12) 1,000 mcg PO DAILY@1200 05/05/24 09/16/24 05/04/24 History 1,000 mcg tablet fluticasone fur. 100 mcg-umeclid 1 ea inhalation DAILY 05/05/24 09/16/24 05/05/24 History 62.5 mcg-vilant 25 mcg inhalat.powder (Trelegy Ellipta) losartan 50 mg tablet 50 mg PO DAILY 05/05/24 09/16/24 05/05/24 History mirabegron 50 mg tablet,extended 50 mg PO DAILY 05/05/24 09/16/24 05/05/24 History release 24 hr (Myrbetriq) multivitamin with folic acid 400 1 tab PO DAILY@1200 05/05/24 09/16/24 05/04/24 History mcg tablet (High Potency Multivitamin) paroxetine HCl 30 mg tablet 60 mg PO DAILY 05/05/24 09/16/24 Unknown History tolterodine 4 mg capsule,extended 4 mg PO DAILY 05/05/24 09/16/24 05/05/24 History release 24 hr vit C 250 mg-vit E 90 mg-zinc 40 1 cap PO DAILY@1200 05/05/24 09/16/24 05/04/24 History mg-copper 1 [id number] capsule (PreserVision AREDS-2) hydroxyzine HCl 10 mg tablet 10 mg PO TID PRN Itching 08/26/24 09/16/24 Unknown History melatonin 5 mg tablet 5 mg PO BEDTIME 08/26/24 09/16/24 Unknown History trazodone 100 mg tablet 200 mg PO BEDTIME 08/26/24 09/16/24 Unknown History acetaminophen 325 mg tablet 650 mg PO Q4H PRN pain or fever 09/16/24 09/16/24 Unknown History acetaminophen 650 mg rectal 650 mg TN Q4H PRN pain or fever 09/16/24 09/16/24 Unknown History suppository bisacodyl 10 mg rectal suppository 10 mg TN DAILY PRN Constipation 09/16/24 09/16/24 Unknown History cholecalciferol (vitamin D3) 25 50 mcg PO DAILY 09/16/24 09/16/24 Unknown History mcg (1,000 unit) tablet magnesium hydroxide 400 mg/5 mL 30 ml PO DAILY PRN Constipation 09/16/24 09/16/24 Unknown History oral suspension (Milk of Magnesia) sodium phosphates 19 gram-7 118 ml TN DAILY PRN Constipation 09/16/24 09/16/24 Unknown History gram/118 mL enema (Fleet Enema) Physical Exam Vital Signs: Last Vital Signs Temp 98.0 F 09/17/24 08:00 Pulse 79 09/17/24 09:08 Resp 18 09/17/24 09:00 BP 113/49 L 09/17/24 09:08 Pulse Ox 93 09/17/24 09:00 O2 Del Method Nasal Cannula 09/17/24 09:00 O2 Flow Rate 3 09/17/24 09:00 FiO2 40 09/17/24 11:13 BMI result Body Mass Index 43.1 Const General: no acute distress Resp Auscultation: diminished lung sounds Cardio Rate: regular rate GI Palpation (GI): Soft to palpation Neuro Other: On BiPAP Results Lab Results 09/17/24 04:33 09/17/24 04:33 Lab results: Chemistry 09/16/24 09/16/24 09/17/24 09:26 16:26 04:33 Sodium 139 140 141 Potassium 4.6 D 4.6 5.1 Carbon Dioxide 24 22 19 L BUN 92 H 92 H 105 H Creatinine 5.45 H* 5.30 H* 5.27 H* Calcium 9.5 D 8.9 D 8.4 Hematology 09/16/24 09/17/24 09:26 04:33 WBC 8.5 7.6 Hgb 15.2 12.0 D Plt Count 216 152 L D Urinalysis 09/16/24 10:34 Urine Color Dark Yellow Urine Appearance Cloudy Urine pH 5.0 Ur Specific [place] 1.020 Urine Protein 30 (1+) H Urine Glucose (UA) Negative Urine Ketones Trace Urine Blood Negative Urine Nitrite Negative Ur Leukocyte Esterase Moderate (2+) H Urine RBC 0-2 Urine WBC 0-5 Ur Squamous Epith Cells 3-5 Hyaline Casts 0-2 Assessment and Plan (1) Acute kidney injury: Status: Acute Plan KELECHI due to tubular injury UO marginal; No reason to suspect GN/AIN Shall dialyze today, Tue, Tue Shall optimize volume status on HD C/W rest of current supportive management Procedures Date of Service Date of Service: 09/17/24
--- NOTE | 2024-09-17 12:42 | HO.HCP ---
Health Care Proxy Invocation Health Care Proxy Declaration: I, ___Cholo Carlos , on the date cited below, have determined that, __Jannet Chavez , lacks the capacity to make or communicate, informed health care decision. This determination is made in accordance with accepted standards of medical judgment and pursuant to [place] 201[place], the [facility] Care Proxy Law. The cause, nature, extent and probable duration of the patient's inapacity are described below: Cause: Metabolic encephalopathy Nature: Organic Extent: Severe Probable Duration of Patient's Incapacity: Unclear
[2024-09-17] MEDS: fentaNYL citrate/PF 100 MCG/2 ML VIAL IVPUSH (13:27)
[2024-09-17 13:42] LABS: MRSA Nasal PCR NEGATIVE (Negative); SA Nasal PCR NEGATIVE (Negative)
[2024-09-17 13:48] LABS: ABG Refer to POC result
--- NOTE | 2024-09-17 13:48 | W.PM.CCHP ---
Procedures Date of Service Date of Service: 09/17/24 Central Line Placement Left IJ: Central Line Comments: After obtain informed consent from healthcare proxy left internal jugular triple-lumen hemodialysis catheter placed for hemodialysis access under ultrasound guidance and usual sterile conditions with no immediate complications. X-ray for line position is pending.
--- NOTE | 2024-09-17 13:56 | P.PNCC_ITS ---
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 Patient evaluated by nephrology service and noted to require hemodialysis. Hemodialysis catheter has been placed. No events overnight. Critical Care Time (minutes): 60 Physical Exam 2 Vital Signs: Vital Signs: Last Vital Signs Temp 97.3 F 09/17/24 12:00 Pulse 102 H 09/17/24 13:00 Resp 16 09/17/24 13:00 BP 119/50 L 09/17/24 13:00 Pulse Ox 95 09/17/24 13:00 O2 Del Method BiPAP 09/17/24 13:00 O2 Flow Rate 3 09/17/24 09:00 FiO2 40 09/17/24 13:00 BMI result Body Mass Index 43.1 Const: General: no acute distress, alert and awake Nutritional Appearance: obese Eyes: Sclerae: sclerae normal EOM: EOMs intact bilaterally Neck: Neck: Yes no lymphadenopathy, Yes trachea midline and Yes supple Resp: Effort & Inspection: no respiratory distress Auscultation: crackles (Bibasilar) Cardio: Rate: tachycardic Rhythm: regular rhythm Heart sounds: no gallops, no murmurs and no rubs GI: Palpation (GI): Soft to palpation and Other GI palpation findings present ( Nontender) Auscultation: normal bowel sounds Extrem: General: No clubbing, No cyanosis and Yes edema (1+ bilateral) Objective Data Labs 09/17/24 04:33 09/17/24 04:33 Labs: Laboratory Results - last 24 hr 09/16/24 09/16/24 09/17/24 16:26 16:45 04:33 WBC 7.6 RBC 4.37 D Hgb 12.0 D Hct 41.9 D MCV 95.9 MCH 27.5 MCHC 28.6 L RDW 15.5 Plt Count 152 L D MPV 11.1 Immature Gran % (Auto) 0.8 H Neut % (Auto) 90.6 H Lymph % (Auto) 5.2 L Dickenson % (Auto) 3.4 Eos % (Auto) 0.0 Baso % (Auto) 0.0 Lymph # (Auto) 0.4 L [place] # (Auto) 0.3 Eos # (Auto) 0.0 Baso # (Auto) 0.0 Abs Immat Gran (auto) 0.06 H Absolute Neuts (auto) 6.9 Absolute Nucleated RBC 0.000 Nucleated RBC % (auto) 0.0 Smear Tech's Comments VERIFIED Hold Purple Top SEE NOTE Hold Blue Top SEE NOTE O2 Saturation ABG pH at Pt Temp ABG pCO2 at Pt Temp ABG pO2 at Pt Temp ABG HCO3 ABG Base Excess (Actual) VBG pH 7.30 L VBG pCO2 39 VBG pO2 75 VBG HCO3 19 L VBG O2 Saturation 95.0 VBG Base Excess -6.1 Sodium 140 141 Potassium 4.6 5.1 Chloride 105 107 Carbon Dioxide 22 19 L Anion Gap 18 20 BUN 92 H 105 H Creatinine 5.30 H* 5.27 H* Estim Creat Clear Calc 10.5 10.6 Estimated GFR 8 8 Random Glucose 136 H 147 H Calcium 8.9 D 8.4 Total Bilirubin 0.5 AST 34 H ALT 33 H Alkaline Phosphatase 70 Total Protein 6.8 Albumin 4.0 Hold Red Top See Note Hold Yellow Top See Note Nasal Screen MRSA (PCR) NEGATIVE Nasal S. aureus Screen NEGATIVE Nasal MRSA/S.aureus Interp SEE NOTE Respiratory Panel Ramos See Note Adenovirus (Rapid PCR) Not Detected B.pert (TEM-PCR) Not Detected B.parapertussis DNA PCR Not Detected C. pneumoniae DNA (PCR) Not Detected Coronavirus OC43 (PCR) Not Detected Coronavirus HKU1 (PCR) Not Detected Coronavirus 229E (PCR) Not Detected Coronavirus NL63 (PCR) Not Detected Human Metapneumovir PCR Not Detected Influenza A (RT-PCR) Not Detected Influenza A (H1) PCR Not Detected Influ A (H1/09) PCR Not Detected Influenza A (H3) PCR Not Detected Influenza B (RT-PCR) Not Detected M. pneumoniae (PCR) Not Detected Parainfluenza 1 (PCR) Not Detected Parainfluenza 2 (PCR) Not Detected Parainfluenza 3 (PCR) Not Detected Parainfluenza 4 (PCR) Not Detected RSV (PCR) Not Detected Entero/Rhino (PCR) Not Detected SARS-CoV-2 RNA (RT-PCR) Not Detected 03/31/25 09:41 WBC RBC Hgb Hct MCV MCH MCHC RDW Plt Count MPV Immature Gran % (Auto) Neut % (Auto) Lymph % (Auto) Dickenson % (Auto) Eos % (Auto) Baso % (Auto) Lymph # (Auto) Dickenson # (Auto) Eos # (Auto) Baso # (Auto) Abs Immat Gran (auto) Absolute Neuts (auto) Absolute Nucleated RBC Nucleated RBC % (auto) Smear Tech's Comments Hold Purple Top Hold Blue Top O2 Saturation 94.0 ABG pH at Pt Temp 7.22 L ABG pCO2 at Pt Temp 54 H ABG pO2 at Pt Temp 82 L ABG HCO3 22 ABG Base Excess (Actual) -5.5 VBG pH VBG pCO2 VBG pO2 VBG HCO3 VBG O2 Saturation VBG Base Excess Sodium Potassium Chloride Carbon Dioxide Anion Gap BUN Creatinine Estim Creat Clear Calc Estimated GFR Random Glucose Calcium Total Bilirubin AST ALT Alkaline Phosphatase Total Protein Albumin Hold Red Top Hold Yellow Top Nasal Screen MRSA (PCR) Nasal S. aureus Screen Nasal MRSA/S.aureus Interp Respiratory Panel Ramos Adenovirus (Rapid PCR) B.pert (TEM-PCR) B.parapertussis DNA PCR C. pneumoniae DNA (PCR) Coronavirus OC43 (PCR) Coronavirus HKU1 (PCR) Coronavirus 229E (PCR) Coronavirus NL63 (PCR) Human Metapneumovir PCR Influenza A (RT-PCR) Influenza A (H1) PCR Influ A (H1/09) PCR Influenza A (H3) PCR Influenza B (RT-PCR) M. pneumoniae (PCR) Parainfluenza 1 (PCR) Parainfluenza 2 (PCR) Parainfluenza 3 (PCR) Parainfluenza 4 (PCR) RSV (PCR) Entero/Rhino (PCR) SARS-CoV-2 RNA (RT-PCR) Microbiology Microbiology Results: Microbiology 09/16/24 09:41 Blood - Venous Blood Culture - Preliminary No growth after 24 hours. 09/16/24 09:26 Blood - Venous Blood Culture - Preliminary No growth after 24 hours. 09/16/24 11:25 Urine clean catch - Clean Catch Midstream Urine Culture - Final No growth. Progress Note: A&P Assessment and plan (1) Acute kidney injury: Status: Acute (2) Acute respiratory failure with hypoxia and hypercapnia: Status: Acute (3) Obesity hypoventilation syndrome: Status: Acute Plan Assessment: 74-year-old lady with underlying 2-3 L dependent COPD with CO2 retention, diastolic dysfunction, pulmonary hypertension admitted with dyspnea secondary to acute hypoxic and hypercapnic respiratory failure and metabolic acidosis secondary to acute renal failure Plan: Neuro: No acute issues. Cardiac: No acute issues. Underlying pulmonary hypertension and diastolic dysfunction. Pulmonary: Acute hypoxic and hypercapnic respiratory failure requiring BiPAP support, continue to titrate off BiPAP support as tolerated. Underlying 2-3 L dependent COPD and obesity hypoventilation syndrome. Renal: Acute renal failure, likely secondary to ATN. Nephrology service care appreciated. Patient to start hemodialysis. Continue to monitor renal indices and urine output. Endo: No acute issues. GI: No acute issues. ID: Continue empiric antibiotics. Heme/Onc: No acute issues. Psych: No acute issues. Miscellaneous: No acute issues. Prophylaxis: Apixaban Diet: NPO Critical care time spent: 60 minute Quality Stroke Does the patient have a stroke diagnosis?: No VTE Prior VTE?: Yes VTE Risk Level:: Medical - moderate - high VTE Device Contraindication: N/A - Device Ordered VTE Drug Contraindication: N/A - Med Ordered
--- NOTE | 2024-09-17 13:56 | MHC.CM.PN ---
Pt admitted to ICU with hypoxia/respiratory failure. Had been at [facility] for STR since last admission. Prior, pt was at [facility]. Pt on BiPAP and will need a HD line. HCP to be activated by MD (pt's dtr) Will refer pt back to [facility] for continuation of STR. CM to follow.
[2024-09-17] MEDS: Midazolam HCl 2 MG/2 ML VIAL 4 MG IVPUSH (14:24)
--- NOTE | 2024-09-17 14:40 | MHC.SLORD ---
Speech Language Pathology Order Status: ROCK MASON APPRENTICE attempted to see pt x2 today, in the morning pt refused d/t lethargy, in the afternoon RN declined as pt was not waking enough. RN plans to text ROCK MASON APPRENTICE when clinical bedside swallow indicated.
[2024-09-17 14:43] LABS: VBG Base Excess -6.2 mmol/L; VBG HCO3 22 mmol/L (22-26); VBG pCO2 59 mmHg; VBG pH 7.18 (7.32-7.43); VBG pO2 54 mmHg
--- NOTE | 2024-09-17 16:21 | HO.WOUND ---
Wound Consult: Initial 74yr old?[place] [facility] [place] - See progress notes and H&P for detailed history.? Wound consult placed for Sacrum and Right posterior leg.? Patient currently with BIPAP in use - mildly responsive to environment. Patient currently receiving Dialysis and unable to be repositioned for skin / wound assessments. Chart review and photo review completed. Will follow up at future date and or time for direct wound assessment. Sacrum Etiology: ?Deep Tissue Injury ?Present on Admission Wound Bed: intact dark maroon purple nonblanchable tissue - irregular pattern but POA Drainage / Odor: None noted Edges: ? irregular and attached Megan wound: ?red pink tissue No Induration, Fluctuance or Warmth noted Goals of Treatment: ? Trid to protect from friction and moisture Right Posterior Thigh Etiology: Previously known rash and blister Wound Bed: dark brown - appears dried old blister Edges: ? irregular in photo review Megan wound: ?intact Goals of Treatment: ? [place] with betadine to keep dry and cover with dry gauze dressing Recommendations: 1. Turn and Reposition every 2 hours and as needed for patient comfort.? Use pillows or wedges to support off loading positions. 2. Off Load all bony prominences with use of pillows and heel boots if needed.? Apply Preventative foams where needed. ? 3. Monitor for incontinence and moisture control, use barrier creams when needed for prevention and treatment. 4. Provide adequate and supplemental nutrition.? 5. Order low air loss mattress. 6. When applicable maintain blood glucose levels per Providers order. Right Leg - [place] with Betadine, allow to dry. Cover with dry gauze dressing. Change daily. Sacrum - Off Load Pressure with Q2 hr turns and use of pillows - Cleanse with PH balance spray or wipes, pat dry. ?Apply thin layer of Triad to wound bed - only pat and dab no scrub and rub when soiling occurs. Reapply thin layer PRN after each episode of incontinence. Bridge of Nose - Apply skin prep allow to dry. Cover bridge of nose with Mepilex cut to size foam prior to BiPAP application. Re-consult wound care Nurse for wound deterioration or wound changes.
[2024-09-17 18:15] LABS: VBG Base Excess -1.4 mmol/L; VBG HCO3 22 mmol/L (22-26); VBG pCO2 33 mmHg; VBG pH 7.43 (7.32-7.43); VBG pO2 42 mmHg
--- NOTE | 2024-09-17 18:34 | PC.NURSE ---
Assumed care at 0700. Unable to titrate patient off bipap support. Nephro consulted - Zaida IJ Temp Dialysis placed and first treatment completed - 2kilos removed per modeler. 1800 labs drawn and pending. Care ongoing.
[2024-09-17 18:40] LABS: Anion Gap 18 (12-20); Blood Urea Nitrogen 60 mg/dL (9-16); Calcium 8.6 mg/dL (8.4-10.2); Carbon Dioxide 22 mmol/L (22-29); Chloride 105 mmol/L (96-108); Creatinine Clr Calc Pharmacy 15.1; Estimated Glomerular Filt Rate 12; Glucose Random 105 mg/dL (60-115); Potassium 3.7 mmol/L (3.3-5.1); Sodium 141 mmol/L (135-145)
[2024-09-17 20:37] LABS: Venous Blood Gas Refer to POC result
[2024-09-18] VITALS (18 sets, daily range): BP systolic 90–120; BP diastolic 42–63; PULSE 68–84; RESP 14–22; TEMP 36.3–36.9; O2SAT 88–93; BMI 41.5
[2024-09-18] MEDS: Piperacillin Sodium/Tazobactam 2.25 GM in 0.9 % Sodium Chloride 50 ML IV (02:56)
[2024-09-18 05:44] LABS: VBG Base Excess 0.4 mmol/L; VBG HCO3 25 mmol/L (22-26); VBG pCO2 41 mmHg; VBG pH 7.39 (7.32-7.43); VBG pO2 71 mmHg
[2024-09-18 05:47] LABS: MANUAL DIFF FLAG NO
[2024-09-18 05:49] LABS: Basophils Absolute Auto 0.1 X10*3/uL (0.0-0.2); Basophils Percent Auto 0.7 % (0-2); Eosinophils Absolute Auto 0.1 X10*3/uL (0.0-0.4); Eosinophils Percent Auto 1.2 % (0-4); Hematocrit 41.1 % (37.0-47.0); Hemoglobin 12.2 g/dl (12.0-16.0); Imm Gran Abs Auto 0.05 X10*3/uL (0.00-0.03); Imm Gran Pct Auto 0.5 % (0.0-0.4); Lymphocytes Percent Auto 9.8 % (20-40); Mean Corpuscular HGB Conc 29.7 g/dl (31.0-35.0); Mean Corpuscular Hemoglobin 27.4 pg (27.0-33.0); Mean Corpuscular Volume 92.4 fL (80.0-98.0); Mean Platelet Volume 11.1 fL (9.4-12.3); Monocytes Percent Auto 9.3 % (2-11); Neutrophils Absolute Auto 8.2 x10*3/uL (2.0-8.3); Neutrophils Percent Auto 78.5 % (45-73); Platelet Count 152 X10*3/uL (160-400); Red Blood Count 4.45 X10*6/uL (4.20-5.50); Red Cell Distribution Width 15.7 % (11.0-16.0); White Blood Count 10.5 X10*3/uL (4.8-10.8)
[2024-09-18 06:05] LABS: Venous Blood Gas Refer to POC result
[2024-09-18 06:07] LABS: Albumin Level 3.6 g/dL (3.5-5.0); Anion Gap 14 (12-20); Blood Urea Nitrogen 68 mg/dL (9-16); Calcium 8.3 mg/dL (8.4-10.2); Carbon Dioxide 24 mmol/L (22-29); Chloride 107 mmol/L (96-108); Creatinine Clr Calc Pharmacy 13.8; Estimated Glomerular Filt Rate 11; Glucose Random 92 mg/dL (60-115); Magnesium 1.9 mg/dL (1.6-2.6); Phosphorus 2.4 mg/dL (2.7-4.5); Potassium 3.3 mmol/L (3.3-5.1); Sodium 142 mmol/L (135-145)
[2024-09-18] MEDS: Heparin Sodium,Porcine 5,000 UNIT/ML VIAL 5000 UNIT INTRACATH (07:36)
[2024-09-18] MEDS: Albuterol/Iprat 2.5/0.5MG 3 ML AMPUL.NEB INHALE ×4 (07:41→18:59)
[2024-09-18] MEDS: Apixaban 2.5 MG TABLET PO ×2 (08:18→20:23)
[2024-09-18] MEDS: PARoxetine HCL 30 MG TABLET 60 MG PO (08:18)
[2024-09-18 08:24] LABS: HBc Num1 0.33 S/CO (0.00-0.79); Hepatitis B Core Antibody Nonreactive (Nonreactive)
[2024-09-18 08:36] LABS: Hepatitis B Surface Antigen Negative (Negative); ~Hepatitis B Surface Antibody NONREACTIVE (Nonreactive)
--- NOTE | 2024-09-18 09:27 | P.PNCC_ITS ---
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 Patient was evaluated by nephrology service and started urgent hemodialysis resolution of her metabolic acidosis and metabolic encephalopathy. Events overnight. Titrated off BiPAP support. Critical Care Time (minutes): 0 Physical Exam 2 Vital Signs: Vital Signs: Last Vital Signs Temp 97.5 F 09/18/24 08:00 Pulse 73 09/18/24 08:00 Resp 18 09/18/24 08:02 BP 113/49 L 09/18/24 08:00 Pulse Ox 90 L 09/18/24 08:00 O2 Del Method Nasal Cannula 09/18/24 08:00 O2 Flow Rate 2 09/18/24 08:00 FiO2 28 09/18/24 07:25 BMI result Body Mass Index 41.5 Const: General: no acute distress, alert and awake Nutritional Appearance: obese Eyes: Sclerae: sclerae normal EOM: EOMs intact bilaterally Neck: Neck: Yes no lymphadenopathy, Yes trachea midline and Yes supple Resp: Effort & Inspection: normal respiratory effort and no respiratory distress Auscultation: crackles (Mild bibasilar) Cardio: Rate: regular rate Rhythm: regular rhythm Heart sounds: no gallops, no murmurs and no rubs GI: Palpation (GI): Soft to palpation and Other GI palpation findings present ( Nontender) Auscultation: normal bowel sounds Extrem: General: No clubbing, No cyanosis and Yes edema (1+ bilateral) Objective Data Labs 09/18/24 05:01 09/18/24 05:01 Labs: Laboratory Results - last 24 hr 09/16/24 09/17/24 09/17/24 16:45 09:41 14:29 WBC RBC Hgb Hct MCV MCH MCHC RDW Plt Count MPV Immature Gran % (Auto) Neut % (Auto) Lymph % (Auto) [place] % (Auto) Eos % (Auto) Baso % (Auto) Lymph # (Auto) [place] # (Auto) Eos # (Auto) Baso # (Auto) Abs Immat Gran (auto) Absolute Neuts (auto) Absolute Nucleated RBC Nucleated RBC % (auto) O2 Saturation 94.0 ABG pH at Pt Temp 7.22 L ABG pCO2 at Pt Temp 54 H ABG pO2 at Pt Temp 82 L ABG HCO3 22 ABG Base Excess (Actual) -5.5 VBG pH 7.18 L* VBG pCO2 59 VBG pO2 54 VBG HCO3 22 VBG O2 Saturation 76.0 VBG Base Excess -6.2 Sodium Potassium Chloride Carbon Dioxide Anion Gap BUN Creatinine Estim Creat Clear Calc Estimated GFR Random Glucose Calcium Phosphorus Magnesium Albumin Nasal Screen MRSA (PCR) NEGATIVE Nasal S. aureus Screen NEGATIVE Nasal MRSA/S.aureus Interp SEE NOTE Respiratory Panel Ramos See Note Adenovirus (Rapid PCR) Not Detected B.pert (TEM-PCR) Not Detected B.parapertussis DNA PCR Not Detected C. pneumoniae DNA (PCR) Not Detected Coronavirus OC43 (PCR) Not Detected Coronavirus HKU1 (PCR) Not Detected Coronavirus 229E (PCR) Not Detected Coronavirus NL63 (PCR) Not Detected Human Metapneumovir PCR Not Detected Influenza A (RT-PCR) Not Detected Influenza A (H1) PCR Not Detected Influ A (H1/09) PCR Not Detected Influenza A (H3) PCR Not Detected Influenza B (RT-PCR) Not Detected M. pneumoniae (PCR) Not Detected Parainfluenza 1 (PCR) Not Detected Parainfluenza 2 (PCR) Not Detected Parainfluenza 3 (PCR) Not Detected Parainfluenza 4 (PCR) Not Detected RSV (PCR) Not Detected Entero/Rhino (PCR) Not Detected SARS-CoV-2 RNA (RT-PCR) Not Detected 09/17/24 09/17/24 09/18/24 18:08 18:10 05:01 WBC 10.5 RBC 4.45 Hgb 12.2 Hct 41.1 MCV 92.4 MCH 27.4 MCHC 29.7 L RDW 15.7 Plt Count 152 L MPV 11.1 Immature Gran % (Auto) 0.5 H Neut % (Auto) 78.5 H Lymph % (Auto) 9.8 L [place] % (Auto) 9.3 Eos % (Auto) 1.2 Baso % (Auto) 0.7 Lymph # (Auto) 1.0 L [place] # (Auto) 1.0 Eos # (Auto) 0.1 Baso # (Auto) 0.1 Abs Immat Gran (auto) 0.05 H Absolute Neuts (auto) 8.2 Absolute Nucleated RBC 0.000 Nucleated RBC % (auto) 0.0 O2 Saturation ABG pH at Pt Temp ABG pCO2 at Pt Temp ABG pO2 at Pt Temp ABG HCO3 ABG Base Excess (Actual) VBG pH 7.43 VBG pCO2 33 VBG pO2 42 VBG HCO3 22 VBG O2 Saturation 77.0 VBG Base Excess -1.4 Sodium 141 142 Potassium 3.7 D 3.3 Chloride 105 107 Carbon Dioxide 22 24 Anion Gap 18 14 BUN 60 H 68 H Creatinine 3.73 H 4.02 H* Estim Creat Clear Calc 15.1 13.8 Estimated GFR 12 11 Random Glucose 105 92 Calcium 8.6 8.3 L Phosphorus 2.4 L Magnesium 1.9 Albumin 3.6 Nasal Screen MRSA (PCR) Nasal S. aureus Screen Nasal MRSA/S.aureus Interp Respiratory Panel Ramos Adenovirus (Rapid PCR) B.pert (TEM-PCR) B.parapertussis DNA PCR C. pneumoniae DNA (PCR) Coronavirus OC43 (PCR) Coronavirus HKU1 (PCR) Coronavirus 229E (PCR) Coronavirus NL63 (PCR) Human Metapneumovir PCR Influenza A (RT-PCR) Influenza A (H1) PCR Influ A (H1/09) PCR Influenza A (H3) PCR Influenza B (RT-PCR) M. pneumoniae (PCR) Parainfluenza 1 (PCR) Parainfluenza 2 (PCR) Parainfluenza 3 (PCR) Parainfluenza 4 (PCR) RSV (PCR) Entero/Rhino (PCR) SARS-CoV-2 RNA (RT-PCR) 09/18/24 05:39 WBC RBC Hgb Hct MCV MCH MCHC RDW Plt Count MPV Immature Gran % (Auto) Neut % (Auto) Lymph % (Auto) [place] % (Auto) Eos % (Auto) Baso % (Auto) Lymph # (Auto) [place] # (Auto) Eos # (Auto) Baso # (Auto) Abs Immat Gran (auto) Absolute Neuts (auto) Absolute Nucleated RBC Nucleated RBC % (auto) O2 Saturation ABG pH at Pt Temp ABG pCO2 at Pt Temp ABG pO2 at Pt Temp ABG HCO3 ABG Base Excess (Actual) VBG pH 7.39 VBG pCO2 41 VBG pO2 71 VBG HCO3 25 VBG O2 Saturation 94.0 VBG Base Excess 0.4 Sodium Potassium Chloride Carbon Dioxide Anion Gap BUN Creatinine Estim Creat Clear Calc Estimated GFR Random Glucose Calcium Phosphorus Magnesium Albumin Nasal Screen MRSA (PCR) Nasal S. aureus Screen Nasal MRSA/S.aureus Interp Respiratory Panel Ramos Adenovirus (Rapid PCR) B.pert (TEM-PCR) B.parapertussis DNA PCR C. pneumoniae DNA (PCR) Coronavirus OC43 (PCR) Coronavirus HKU1 (PCR) Coronavirus 229E (PCR) Coronavirus NL63 (PCR) Human Metapneumovir PCR Influenza A (RT-PCR) Influenza A (H1) PCR Influ A () PCR Influenza A (H3) PCR Influenza B (RT-PCR) M. pneumoniae (PCR) Parainfluenza 1 (PCR) Parainfluenza 2 (PCR) Parainfluenza 3 (PCR) Parainfluenza 4 (PCR) RSV (PCR) Entero/Rhino (PCR) SARS-CoV-2 RNA (RT-PCR) Microbiology Microbiology Results: Microbiology 09/16/24 09:41 Blood - Venous Blood Culture - Preliminary No growth after 24 hours. 09/16/24 09:26 Blood - Venous Blood Culture - Preliminary No growth after 24 hours. 09/16/24 11:25 Urine clean catch - Clean Catch Midstream Urine Culture - Final No growth. Progress Note: A&P Assessment and plan (1) Acute kidney injury: Status: Acute (2) Acute respiratory failure with hypoxia and hypercapnia: Status: Acute (3) Obesity hypoventilation syndrome: Status: Acute (4) COPD (chronic obstructive pulmonary disease): Status: Acute (5) Diastolic dysfunction: Status: Acute (6) Pulmonary hypertension: Status: Acute (7) FAITH (obstructive sleep apnea): Status: Acute Plan Assessment: 74-year-old lady with underlying 2-3 L dependent COPD with CO2 retention, diastolic dysfunction, pulmonary hypertension admitted with dyspnea secondary to acute hypoxic and hypercapnic respiratory failure and metabolic acidosis secondary to acute renal failure Plan: Neuro: No acute issues. Cardiac: No acute issues. Underlying pulmonary hypertension and diastolic dysfunction. Pulmonary: Acute hypoxic and hypercapnic respiratory failure initial requiring BiPAP support, now titrated off. Underlying 2-3 L dependent COPD and FAITH/obesity hypoventilation syndrome. Renal: Acute renal failure, likely secondary to ATN. Nephrology service care appreciated. Patient started on hemodialysis with resolution of underlying metabolic acidosis. Endo: No acute issues. GI: No acute issues. ID: No acute issues. Heme/Onc: No acute issues. Psych: No acute issues. Miscellaneous: No acute issues. Prophylaxis: Apixaban Diet: Regular Quality Stroke Does the patient have a stroke diagnosis?: No VTE Prior VTE?: Yes VTE Risk Level:: Medical - moderate - high VTE Device Contraindication: N/A - Device Ordered VTE Drug Contraindication: N/A - Med Ordered
--- NOTE | 2024-09-18 09:45 | MHC.CLN ---
F/U PT WITH INCREASED NUTRITION RISK R/T PRESSURE INJURY PT REMAINS NPO PENDING SOLDERING MACHINE SETTER EVAL DISCUSSED AT ROUNDS WITH MD-PLAN TO TRANSFER TO MEDICAL FLOOR TODAY IF DIET TO ADVANCE, RECOMMEND 2GM NA DIET WITH RENAL FRIENDLY SUPPLEMENT TO PROMOTE WOUND HEALING RECOMMEND ADDING ENSURE CLEAR TID TO PROVIDE 720KCALS, 24G PROTEIN FOLLOWING FOR DIET ADVANCEMENT CONSULT RD IF ALTERNATIVE NUTRITION IS NEEDED
--- NOTE | 2024-09-18 10:29 | MHC.SLORD ---
Speech Language Pathology Order Status: SPECIAL INVESTIGATOR attempted to see pt for bedside swallow eval; getting dialysis. SPECIAL INVESTIGATOR to return later this date.
[2024-09-18] MEDS: Potassium Phosphate/NS 15 MMOL/250 ML PLAST..BAG 62.5 MMOL IV (10:51)
--- NOTE | 2024-09-18 11:46 | P.CDIM_ITS ---
PROVIDER RESPONSE TEXT: To clarify, the appropriate diagnosis supported by the clinical indicators: Other (explain): Acute QUERY TEXT: PHYSICIAN'S DOCUMENTATION REQUEST Date of Query: 09/18/2024 10:56 AM EDT Patient Name: VISHNU MILLS Admit Date: 09/16/2024 Dear Cholo Carlos MD, A review of the medical record indicates additional documentation may be needed. Please review below and update the documentation accordingly. Clinical Indicators: metabolic acidosis secondary to acute renal failure, requiring BiPAP support Clarify which of the following accurately represents the acuity of the Metabolic acidosis. Possible options might include: Acute Acute on chronic Compensated Chronic stable condition Remission Other (explain) Clinically unable to determine (explain) Thank you, Ekta Duckworth RN Use of terms such as suspected, likely, concern for, or probable (associated with a specific diagnosi s that is being evaluated, monitored, or treated as if it exists) are acceptable and can be coded in the inpatient se tting, when documented at the time of discharge. Please use your independent medical judgment in providing your response. THIS QUERY IS PART OF THE PERMANENT MEDICAL RECORD
--- NOTE | 2024-09-18 15:09 | MHC.SL.SWA ---
Risk of Aspiration Due to: recent extubation Dysphasia Diet Status: UPGRADE Liquid Consistency and Strategies for Safe Swallow: Liquid Intake Recommendation: Thin Liquid Intake Strategies: Small Sips No Straws Solid Food Consistency: Dietary Recommendations: Pureed (NDD1) Oral Medication Intake: Crushed with Puree Please contact the pharmacy regarding appropriate crushable or liquid drug formulations that are available whenever modified delivery is recommended. Compensatory Strategies and Precautions to be Taken for Safe Swallow: Sitting Upright (90 deg) No Straw Small Bites and Sips Alternate Liquids/Solids Rate of Ingestion Change Avoid Specific Foods Supervision While Eating and Drinking for Safe Swallow: Total Supervision (1:1) Recommendation for Speech: Comment: Pt NPO d/t failing RN swallow screen. Pt evaluated by [facility] FLOOR REFINISHER on this date for swallow. Recommend UPGRADE to PUREE solids (NDD1) and THIN liquids (NO STRAW). Continue w/ pills CRUSHED in PUREE. [facility] FLOOR REFINISHER to continue to follow to monitor toleration of diet and upgrade when warranted. Pt eager to upgrade from puree. Slate Picker Clinican/Clinical Fellow: No Supervisory Statement: I have reviewed and agree with the student/clinical fellow's documentation: N/A Speech Language Pathologist: Radha Szymanski M.A., [facility] REFINISHER
[2024-09-18] MEDS: Melatonin 3 MG TABLET 6 MG PO (23:55)
[2024-09-19] VITALS (13 sets, daily range): BP systolic 99–130; BP diastolic 52–70; PULSE 74–94; RESP 16–23; TEMP 36–36.9; O2SAT 92–96
[2024-09-19 07:12] LABS: VBG Base Excess -0.5 mmol/L; VBG HCO3 25 mmol/L (22-26); VBG pCO2 48 mmHg; VBG pH 7.33 (7.32-7.43); VBG pO2 52 mmHg
[2024-09-19 07:15] LABS: Venous Blood Gas Refer to POC result
[2024-09-19 07:39] LABS: MANUAL DIFF FLAG NO
[2024-09-19] MEDS: Albuterol/Iprat 2.5/0.5MG 3 ML AMPUL.NEB INHALE ×4 (07:39→18:25)
[2024-09-19 07:48] LABS: Basophils Absolute Auto 0.1 X10*3/uL (0.0-0.2); Basophils Percent Auto 0.5 % (0-2); Eosinophils Absolute Auto 0.3 X10*3/uL (0.0-0.4); Eosinophils Percent Auto 3.1 % (0-4); Hematocrit 45.3 % (37.0-47.0); Hemoglobin 13.5 g/dl (12.0-16.0); Imm Gran Abs Auto 0.05 X10*3/uL (0.00-0.03); Imm Gran Pct Auto 0.5 % (0.0-0.4); Lymphocytes Percent Auto 10.5 % (20-40); Mean Corpuscular HGB Conc 29.8 g/dl (31.0-35.0); Mean Corpuscular Hemoglobin 27.4 pg (27.0-33.0); Mean Corpuscular Volume 92.1 fL (80.0-98.0); Mean Platelet Volume 11.9 fL (9.4-12.3); Monocytes Absolute Auto 1.1 X10*3/uL (0.1-1.2); Monocytes Percent Auto 11.7 % (2-11); Neutrophils Percent Auto 73.7 % (45-73); Platelet Count 186 X10*3/uL (160-400); Red Blood Count 4.92 X10*6/uL (4.20-5.50); Red Cell Distribution Width 15.7 % (11.0-16.0); White Blood Count 9.6 X10*3/uL (4.8-10.8)
[2024-09-19 07:59] LABS: Albumin Level 3.9 g/dL (3.5-5.0); Anion Gap 16 (12-20); Blood Urea Nitrogen 55 mg/dL (9-16); Calcium 8.9 mg/dL (8.4-10.2); Carbon Dioxide 23 mmol/L (22-29); Chloride 106 mmol/L (96-108); Creatinine Clr Calc Pharmacy 16.3; Estimated Glomerular Filt Rate 13; Glucose Random 80 mg/dL (60-115); Magnesium 1.8 mg/dL (1.6-2.6); Phosphorus 3.7 mg/dL (2.7-4.5); Potassium 3.5 mmol/L (3.3-5.1); Sodium 141 mmol/L (135-145)
[2024-09-19] MEDS: Apixaban 2.5 MG TABLET PO ×2 (08:54→22:21)
[2024-09-19] MEDS: PARoxetine HCL 30 MG TABLET 60 MG PO (08:55)
--- NOTE | 2024-09-19 09:36 | HO.PM.IMPN ---
Subjective Subjective Date of Service: 09/19/24 Interval History: sob improved, mental status improved, making urine Physical Exam Vital Signs: Vital Signs: Last Vital Signs Temp 97.1 F 09/19/24 07:02 Pulse 74 09/19/24 07:40 Resp 20 09/19/24 07:40 BP 130/65 09/19/24 07:02 Pulse Ox 92 09/19/24 07:02 O2 Del Method BiPAP 09/19/24 07:02 O2 Flow Rate 2 09/18/24 23:37 FiO2 28 09/19/24 04:00 BMI result Body Mass Index 41.5 General: AO X 3, ill appearing Resp: CTA bilateral, no accessory muscles used CVS: S1,S2,RRR GI: soft, non tender, non distended Neuro: motor grossly intact, alert Objective Data Active Medications Acetaminophen (Acetaminophen 325 Mg Tablet) 650 mg PO Q4H PRN PRN Reason: pain or fever Albuterol/Ipratropium (Albuterol/Iprat 2.5/0.5mg 3 Ml Ampul.Neb) 3 ml INHALE RQ4H WHILE AWAKE [facility] Last Admin: 09/19/24 07:39 Dose: 3 ml Documented By: ALPHONSO Apixaban (Apixaban 2.5 Mg Tablet) 2.5 mg PO BID [facility] Last Admin: 09/19/24 08:54 Dose: 2.5 mg Documented By: TANMAY Melatonin (Melatonin 3 Mg Tablet) 6 mg PO BEDTIME PRN PRN Reason: Insomnia Last Admin: 09/18/24 23:55 Dose: 6 mg Documented By: RAJESH Ondansetron HCl (Ondansetron Hcl 4 Mg/2 Ml Vial) 4 mg IVPUSH Q8H PRN PRN Reason: Nausea and Vomiting Paroxetine HCl (Paroxetine Hcl 30 Mg Tablet) 60 mg PO DAILY [facility] Last Admin: 09/19/24 08:55 Dose: 60 mg Documented By: TANMAY Labs 09/19/24 07:36 09/19/24 07:36 Labs: Laboratory Results - last 24 hr 09/18/24 09/19/24 09/19/24 07:17 07:08 07:36 MCV 92.1 MCH 27.4 MCHC 29.8 L RDW 15.7 Plt Count 186 MPV 11.9 Immature Gran % (Auto) 0.5 H Neut % (Auto) 73.7 H Lymph % (Auto) 10.5 L [place] % (Auto) 11.7 H Eos % (Auto) 3.1 Baso % (Auto) 0.5 Lymph # (Auto) 1.0 L [place] # (Auto) 1.1 Eos # (Auto) 0.3 Baso # (Auto) 0.1 Abs Immat Gran (auto) 0.05 H Absolute Neuts (auto) 7.0 Absolute Nucleated RBC 0.000 Nucleated RBC % (auto) 0.0 VBG pH 7.33 VBG pCO2 48 VBG pO2 52 VBG HCO3 25 VBG O2 Saturation 80.0 VBG Base Excess -0.5 Anion Gap 16 Estim Creat Clear Calc 16.3 Estimated GFR 13 Random Glucose 80 Calcium 8.9 D Phosphorus 3.7 Magnesium 1.8 Albumin 3.9 Hep Bs Antigen Negative Hep Bs Antibody NONREACTIVE Hep B Core Total Ab Nonreactive Microbiology Microbiology Results: Microbiology 09/16/24 09:41 Blood Culture - Preliminary Blood - Venous No growth after 48 hours. 09/16/24 09:26 Blood Culture - Preliminary Blood - Venous No growth after 48 hours. Assessment and Plan (1) Hypertension: Status: Acute Plan 74F PMH chronic hypoxic respiratory failure on 2-3 L home oxygen due to COPD, hypertension, hyperlipidemia, morbid obesity, FAITH/obesity hypoventilation syndrome, chronic diastolic CHF and pulmonary hypertension, history of DVT on apixaban admitted to ICU on 09/16/2024 for acute hypoxic and hypercapnic respiratory failure with a pH of 7.24 pCO2 54 as well as acute kidney injury with uremic encephalopathy. Was treated with BiPAP and dialysis. Downgraded to medical floor 09/18/24 Acute metabolic encephalopathy due to acute on chronic hypoxic and hypercapnic respiratory failure and acute kidney injury with uremic encephalopathy Mental status back to baseline Continue BiPAP at night for FAITH/obesity hypoventilation Down to baseline O2 For acute kidney injury due to ATN started on hemodialysis, patient is not anuric, nephrology following Chronic diastolic CHF and pulmonary hypertension Appears euvolemic, manage fluids with dialysis Morbid obesity Weight loss recommended History of DVT Continue Eliquis Mood disorder Paxil Hypertension Low normal blood pressures, holding losartan Full code reason for continued hospitalization: Managing acute kidney injury Quality Stroke Does the patient have a stroke diagnosis?: No VTE Prior VTE?: Yes VTE Risk Level:: Medical - moderate - high VTE Device Contraindication: N/A - Device Ordered VTE Drug Contraindication: N/A - Med Ordered
[2024-09-19] MEDS: Acetaminophen 325 MG TABLET 650 MG PO (10:23)
--- NOTE | 2024-09-19 10:27 | MHC.CM.PN ---
Per ROUNDS discussion, Patient is not yet medically cleared for dc (ICU downgrade, new HD/may not be permanent); returning to STR is the goal and CM will continue to follow.
--- NOTE | 2024-09-19 11:38 | MHC.CLN ---
F/U PT WITH INCREASED NUTRITION RISK R/T PRESSURE INJURY TRANSFERRED TO MEDICAL FLOOR TODAY DIET ADVANCED TO PUREED PER ANALYTICAL ENGINEER RECOMMEND ADDING ENSURE CLEAR TID TO PROVIDE 720KCALS, 24G PROTEIN (RENAL FRIENDLY) MONITOR PO INTAKE AND ENCOURAGE SUPPLEMENT
--- NOTE | 2024-09-19 13:47 | MHC.SL.SWA ---
Speech Pathologist Impression: Mild oropharyngeal dysphagia d/t weakness, increased WOB with minimal effort, and hx of recent extubation/respiratory compromise Risk of Aspiration Due to: Respiratory status Weakness Dysphasia Diet Status: Liquid Consistency and Strategies for Safe Swallow: Liquid Intake Recommendation: Thin Liquid Intake Strategies: Small Sips Solid Food Consistency: Dietary Recommendations: Pureed (NDD1) Additional Modifications to Solid Foods: Recc homogenous consistencies to reduce pt risk for aspiration Oral Medication Intake: Crushed with Puree Please contact the pharmacy regarding appropriate crushable or liquid drug formulations that are available whenever modified delivery is recommended. Compensatory Strategies and Precautions to be Taken for Safe Swallow: Sitting Upright (90 deg) Liquids from Cup Liquids from Straw Small Bites and Sips Alternate Liquids/Solids Rate of Ingestion Change Supervision While Eating and Drinking for Safe Swallow: Total Supervision (1:1) Foods to Avoid: Swallowing Recommended Treatments: Compens. Strategy Educat. Recommendation for Speech: Comment: Pt seen for dysphagia treatment, pt sitting upright in bed, ASSISTANT SOFTBALL COACH assisting with feeding pt. Pt holding container of Ensure, able to drink herself but using a straw (REMARKETING MANAGER recc no straw at time of evaluation). Pt tolerated tsps of puree and sips of thins by straw with good oropharyngeal coordination, no overt s/s of aspiration. Pt intake reduced, increased WOB observed after consecutive boluses. Pt expressed that she was done eating. Pt considered stable at this time with PO tolerance for thins by straw sips and purees by tsps. REMARKETING MANAGER continues to follow. Frequency/Duration: Date Range for Service Req: Timeline to reassess: Manufacturing Tech Clinican/Clinical Fellow: No Supervisory Statement: I have reviewed and agree with the student/clinical fellow's documentation: N/A Speech Language Pathologist: Tasha Tompkins M.S., CCC-REMARKETING MANAGER
--- NOTE | 2024-09-19 18:36 | P.PNNP_ITS ---
Subjective Subjective Date of Service: 09/19/24 Interval history: sob improved, mental status improved, making urine Physical Exam 2 Vital Signs: Vital Signs: Last Vital Signs Temp 97.6 F 09/19/24 15:25 Pulse 81 09/19/24 18:26 Resp 22 H 09/19/24 18:26 BP 129/70 09/19/24 15:25 Pulse Ox 92 09/19/24 15:25 O2 Del Method BiPAP 09/19/24 15:25 O2 Flow Rate 2 09/19/24 11:04 FiO2 28 09/19/24 04:00 BMI result Body Mass Index 41.5 Const: General: no acute distress Orientation/consciousness: patient oriented x3 Eyes: EOM: EOMs intact bilaterally Resp: Auscultation: diminished lung sounds Cardio: Rate: regular rate GI: Palpation (GI): Soft to palpation Neuro: General: patient oriented x3 Objective Data Labs 09/19/24 07:36 09/19/24 07:36 Labs: Laboratory Results - last 24 hr 09/19/24 09/19/24 07:08 07:36 WBC 9.6 RBC 4.92 Hgb 13.5 Hct 45.3 MCV 92.1 MCH 27.4 MCHC 29.8 L RDW 15.7 Plt Count 186 MPV 11.9 Immature Gran % (Auto) 0.5 H Neut % (Auto) 73.7 H Lymph % (Auto) 10.5 L [place] % (Auto) 11.7 H Eos % (Auto) 3.1 Baso % (Auto) 0.5 Lymph # (Auto) 1.0 L [place] # (Auto) 1.1 Eos # (Auto) 0.3 Baso # (Auto) 0.1 Abs Immat Gran (auto) 0.05 H Absolute Neuts (auto) 7.0 Absolute Nucleated RBC 0.000 Nucleated RBC % (auto) 0.0 VBG pH 7.33 VBG pCO2 48 VBG pO2 52 VBG HCO3 25 VBG O2 Saturation 80.0 VBG Base Excess -0.5 Sodium 141 Potassium 3.5 Chloride 106 Carbon Dioxide 23 Anion Gap 16 BUN 55 H Creatinine 3.40 H Estim Creat Clear Calc 16.3 Estimated GFR 13 Random Glucose 80 Calcium 8.9 D Phosphorus 3.7 Magnesium 1.8 Albumin 3.9 Microbiology Microbiology Results: Microbiology 09/16/24 09:41 Blood - Venous Blood Culture - Preliminary No growth after 48 hours. 09/16/24 09:26 Blood - Venous Blood Culture - Preliminary No growth after 48 hours. 09/16/24 11:25 Urine clean catch - Clean Catch Midstream Urine Culture - Final No growth. Procedures Date of Service Date of Service: 09/19/24 Assessment & Plan Assessment and plan (1) Acute kidney injury: Status: Acute Plan KELECHI due to tubular injury No reason to suspect GN/AIN Shall hold dialysis today Volume status better; Labs AM C/W rest of current supportive management Progress Note: Quality Stroke Does the patient have a stroke diagnosis?: No
[2024-09-20] VITALS (12 sets, daily range): BP systolic 102–124; BP diastolic 57–66; PULSE 75–90; RESP 12–24; TEMP 35.9–36.8; O2SAT 90–98; BMI 40.1
[2024-09-20 06:11] LABS: Hematocrit 44.6 % (37.0-47.0); Hemoglobin 13.4 g/dl (12.0-16.0); Mean Corpuscular Hemoglobin 27.3 pg (27.0-33.0); Mean Platelet Volume 11.3 fL (9.4-12.3); Platelet Count 156 X10*3/uL (160-400); Red Cell Distribution Width 15.7 % (11.0-16.0); White Blood Count 10.6 X10*3/uL (4.8-10.8)
[2024-09-20 06:23] LABS: Anion Gap 15 (12-20); Blood Urea Nitrogen 65 mg/dL (9-16); Carbon Dioxide 21 mmol/L (22-29); Chloride 106 mmol/L (96-108); Creatinine Clr Calc Pharmacy 17.4; Estimated Glomerular Filt Rate 15; Glucose Random 98 mg/dL (60-115); Potassium 3.4 mmol/L (3.3-5.1); Sodium 139 mmol/L (135-145)
[2024-09-20] MEDS: Albuterol/Iprat 2.5/0.5MG 3 ML AMPUL.NEB INHALE ×4 (07:40→19:59)
[2024-09-20] MEDS: PARoxetine HCL 30 MG TABLET 60 MG PO (09:52)
[2024-09-20] MEDS: Apixaban 2.5 MG TABLET PO ×2 (09:52→21:39)
--- NOTE | 2024-09-20 09:54 | P.PNNP_ITS ---
Subjective Subjective Date of Service: 09/20/24 Interval history: sob improved, mental status improved, making urine. Serum creatinine better Physical Exam 2 Vital Signs: Vital Signs: Last Vital Signs Temp 96.6 F L 09/20/24 08:00 Pulse 81 09/20/24 08:00 Resp 22 H 09/20/24 08:00 BP 124/66 09/20/24 08:00 Pulse Ox 94 09/20/24 08:00 O2 Del Method BiPAP 09/20/24 08:00 O2 Flow Rate 2 09/19/24 19:04 FiO2 28 09/20/24 08:00 BMI result Body Mass Index 40.1 Const: General: no acute distress Orientation/consciousness: patient oriented x3 Eyes: EOM: EOMs intact bilaterally Resp: Auscultation: diminished lung sounds Cardio: Rate: regular rate GI: Palpation (GI): Soft to palpation Skin: General skin exam: no rashes or lesions noted Neuro: General: patient oriented x3 and moves all extremities Objective Data Labs 09/20/24 05:58 09/20/24 05:58 Labs: Laboratory Results - last 24 hr 09/20/24 05:58 WBC 10.6 RBC 4.90 Hgb 13.4 Hct 44.6 MCV 91.0 MCH 27.3 MCHC 30.0 L RDW 15.7 Plt Count 156 L MPV 11.3 Absolute Nucleated RBC 0.000 Nucleated RBC % (auto) 0.0 Sodium 139 Potassium 3.4 Chloride 106 Carbon Dioxide 21 L Anion Gap 15 BUN 65 H Creatinine 3.11 H Estim Creat Clear Calc 17.4 Estimated GFR 15 Random Glucose 98 Calcium 9.0 Microbiology Microbiology Results: Microbiology 09/16/24 09:41 Blood - Venous Blood Culture - Preliminary No growth after 48 hours. 09/16/24 09:26 Blood - Venous Blood Culture - Preliminary No growth after 48 hours. 09/16/24 11:25 Urine clean catch - Clean Catch Midstream Urine Culture - Final No growth. Procedures Date of Service Date of Service: 09/20/24 Assessment & Plan Assessment and plan (1) Acute kidney injury: Status: Acute Plan KELECHI due to tubular injury No reason to suspect GN/AIN No further dialysis Renal fn still not at baseline Volume status better Could D/C HD catheter C/W rest of current supportive management Progress Note: Quality Stroke Does the patient have a stroke diagnosis?: No
--- NOTE | 2024-09-20 10:53 | MHC.SL.SWA ---
Speech Pathologist Impression: Risk of Aspiration Due to: Dysphasia Diet Status: Recommend UPGRADE to Ground Mechanical (NDD2) for ease of mastication, continue on thin liquids (straw ok), pills whole with puree or liquid. Liquid Consistency and Strategies for Safe Swallow: Liquid Intake Recommendation: Thin Liquid Intake Strategies: Small Sips Solid Food Consistency: Dietary Recommendations: Grnd/Mech Altered (NDD2) Additional Modifications to Solid Foods: Oral Medication Intake: Whole with Puree Please contact the pharmacy regarding appropriate crushable or liquid drug formulations that are available whenever modified delivery is recommended. Compensatory Strategies and Precautions to be Taken for Safe Swallow: Sitting Upright (90 deg) Liquids from Cup Liquids from Straw Small Bites and Sips Alternate Liquids/Solids Supervision While Eating and Drinking for Safe Swallow: Total Supervision (1:1) Foods to Avoid: Swallowing Recommended Treatments: Compens. Strategy Educat. Recommendation for Speech: Comment: Patient seen at breakfast this morning for toleration and to evaluate for upgrade of diet. Sitter was present in room, had partially set up tray. CHIEF CREATIVE OFFICER turned on light, cleared table of medical items and old cups, and set tray in front of patient. Patient grimaced at sight of meal which was pureed eggs and uzbek toast, but agree to take bites of the egg when it was and prepared to eat. Patient produced timely oral and pharyngeal phase of swallow on this consistency. Patient also given sips of orange juice with straw, which she also tolerated well, with timely swallow coordinated with the straw sip. Patient given trial of marie crackers in puree, producing a normal rotary chew: Patient has upper dentures, none for the bottom teeth. Patient declined rest of breakfast foods, agreed to drink ensure. Recommend UPGRADE to Ground Mechanical (NDD2) for ease of mastication, continue on thin liquids (straw ok), pills whole with puree or liquid. MD/RD notified of recommendation by secure text, RN in person. white board changed in room Frequency/Duration: Date Range for Service Req: Timeline to reassess: Residence Leasing Agent Clinican/Clinical Fellow: No Supervisory Statement: I have reviewed and agree with the student/clinical fellow's documentation: N/A Speech Language Pathologist: Angeli Herrera M.A., CCC-CHIEF CREATIVE OFFICER
--- NOTE | 2024-09-20 12:57 | HO.PM.IMPN ---
Subjective Subjective Date of Service: 09/20/24 Interval History: Seen and evaluated this morning Feels better overall Making urine Cr trending down no other events overnight Review of Systems Review of Systems: Yes all other systems are reviewed and are negative Physical Exam Vital Signs: Vital Signs: Last Vital Signs Temp 97.6 F 09/20/24 11:18 Pulse 83 09/20/24 11:29 Resp 16 09/20/24 11:29 BP 102/62 09/20/24 11:18 Pulse Ox 95 09/20/24 11:18 O2 Del Method Nasal Cannula 09/20/24 11:18 O2 Flow Rate 2 09/20/24 11:18 FiO2 28 09/20/24 08:00 BMI result Body Mass Index 40.1 Const: Other: Constitutional : Awake, interactive, frail looking, not in distress Neck : Normal inspection, Supple Cardiovascular : RRR, no JVP, no lower extremity edema Respiratory : decreased bilateral air entry, no crackles, wheezes or rhonchi, O2 supplement Gastrointestinal: soft, lax, Normal bowel sounds, Non tender Skin : Warm, Dry Neurological : Alert & oriented x3, No focal deficit Objective Data Active Medications Acetaminophen (Acetaminophen 325 Mg Tablet) 650 mg PO Q4H PRN PRN Reason: pain or fever Last Admin: 09/19/24 10:23 Dose: 650 mg Documented By: TANMAY Albuterol/Ipratropium (Albuterol/Iprat 2.5/0.5mg 3 Ml Ampul.Neb) 3 ml INHALE RQ4H WHILE AWAKE [facility] Last Admin: 09/20/24 11:27 Dose: 3 ml Documented By: TODD Apixaban (Apixaban 2.5 Mg Tablet) 2.5 mg PO BID [facility] Last Admin: 09/20/24 09:52 Dose: 2.5 mg Documented By: TANMAY Melatonin (Melatonin 3 Mg Tablet) 6 mg PO BEDTIME PRN PRN Reason: Insomnia Last Admin: 09/18/24 23:55 Dose: 6 mg Documented By: RAJESH Ondansetron HCl (Ondansetron Hcl 4 Mg/2 Ml Vial) 4 mg IVPUSH Q8H PRN PRN Reason: Nausea and Vomiting Paroxetine HCl (Paroxetine Hcl 30 Mg Tablet) 60 mg PO DAILY [facility] Last Admin: 09/20/24 09:52 Dose: 60 mg Documented By: TANMAY Labs 09/20/24 05:58 09/20/24 05:58 Labs: Laboratory Results - last 24 hr 09/20/24 05:58 MCV 91.0 MCH 27.3 MCHC 30.0 L RDW 15.7 Plt Count 156 L MPV 11.3 Absolute Nucleated RBC 0.000 Nucleated RBC % (auto) 0.0 Anion Gap 15 Estim Creat Clear Calc 17.4 Estimated GFR 15 Random Glucose 98 Calcium 9.0 Assessment and Plan (1) Acute kidney injury: Status: Acute (2) Diastolic dysfunction: Status: Acute (3) Pulmonary hypertension: Status: Acute (4) FAITH (obstructive sleep apnea): Status: Acute Plan 74F PMH chronic hypoxic respiratory failure on 2-3 L home oxygen due to COPD, hypertension, hyperlipidemia, morbid obesity, FAITH/obesity hypoventilation syndrome, chronic diastolic CHF and pulmonary hypertension, history of DVT on apixaban admitted to ICU on 09/16/2024 for acute hypoxic and hypercapnic respiratory failure with a pH of 7.24 pCO2 54 as well as acute kidney injury with uremic encephalopathy. Was treated with BiPAP and dialysis. Downgraded to medical floor 09/18/24 Acute metabolic encephalopathy due to acute on chronic hypoxic and hypercapnic respiratory failure and acute kidney injury with uremic encephalopathy Mental status back to baseline Continue BiPAP at night for FAITH/obesity hypoventilation, she is on CPAP at home Down to baseline O2 PT eval Acute kidney injury due to ATN started on hemodialysis Making urine Cr trending down hold nephrotoxic medications , restart as tolerated Nephrology following, no more dialysis, remove CVC Chronic diastolic CHF and pulmonary hypertension Appears euvolemic, Morbid obesity Weight loss recommended History of DVT Continue Eliquis Mood disorder Paxil Hypertension Low normal blood pressures, holding losartan Full code reason for continued hospitalization: Pending PT, monitoring kidney function Quality Stroke Does the patient have a stroke diagnosis?: No VTE Prior VTE?: Yes VTE Risk Level:: Medical - moderate - high VTE Device Contraindication: N/A - Device Ordered VTE Drug Contraindication: N/A - Med Ordered
--- NOTE | 2024-09-20 17:03 | HO.WOUND ---
Wound Consult: Follow up 74yr old?female admitted to [facility] on 09/16/24 - See progress notes and H&P for detailed history.? Wound consult follow up for Sacrum and Right posterior leg.? Sacrum Etiology: ?Deep Tissue Injury ?Present on Admission Wound Bed: intact dark maroon purple nonblanchable tissue - irregular pattern but POA Drainage / Odor: None noted Edges: ? irregular and attached Megan wound: ?red pink tissue No Induration, Fluctuance or Warmth noted Goals of Treatment: ? Triad to protect from friction and moisture Discontinue foam dressing due to frequent stools Resolved Right Posterior Thigh Etiology: Previously known rash and blister since resolved reveals intact tissue Recommendations: 1. Turn and Reposition every 2 hours and as needed for patient comfort.? Use pillows or wedges to support off loading positions. 2. Off Load all bony prominences with use of pillows and heel boots if needed.? Apply Preventative foams where needed. ? 3. Monitor for incontinence and moisture control, use barrier creams when needed for prevention and treatment. 4. Provide adequate and supplemental nutrition.? 5. Order low air loss mattress. 6. When applicable maintain blood glucose levels per Providers order. Sacrum - Off Load Pressure with Q2 hr turns and use of pillows - Cleanse with PH balance spray or wipes, pat dry. ?Apply thin layer of Triad to wound bed - only pat and dab no scrub and rub when soiling occurs. Reapply thin layer PRN after each episode of incontinence. Re-consult wound care Nurse for wound deterioration or wound changes.
[2024-09-20 17:12] LABS: Strep Pneumo Ag urine Not Detected (Not Detected)
--- NOTE | 2024-09-20 18:53 | PC.NURSE ---
Left IJ hemodialysis catheter removed by Dr. Carlos at 1530. Dressing is clean dry and intact. Will continue to monitor.
[2024-09-20] MEDS: Acetaminophen 325 MG TABLET 650 MG PO (21:50)
[2024-09-21 00:25] VITALS: PULSE 86; RESP 18; O2SAT 93
[2024-09-21] MEDS: Melatonin 3 MG TABLET 6 MG PO (00:43)
[2024-09-21 06:11] LABS: MANUAL DIFF FLAG NO
[2024-09-21 06:28] VITALS: BP 125/68; PULSE 81; RESP 18; TEMP 36.6; O2SAT 91
[2024-09-21 06:29] LABS: Anion Gap 15 (12-20); Blood Urea Nitrogen 62 mg/dL (9-16); Calcium 9.1 mg/dL (8.4-10.2); Carbon Dioxide 22 mmol/L (22-29); Chloride 105 mmol/L (96-108); Creatinine Clr Calc Pharmacy 18.2; Estimated Glomerular Filt Rate 15; Glucose Random 100 mg/dL (60-115); Potassium 3.4 mmol/L (3.3-5.1); Sodium 139 mmol/L (135-145)
[2024-09-21 06:33] LABS: Basophils Absolute Auto 0.1 X10*3/uL (0.0-0.2); Basophils Percent Auto 0.5 % (0-2); Eosinophils Absolute Auto 0.5 X10*3/uL (0.0-0.4); Eosinophils Percent Auto 4.2 % (0-4); Imm Gran Abs Auto 0.05 X10*3/uL (0.00-0.03); Imm Gran Pct Auto 0.5 % (0.0-0.4); Lymphocytes Absolute Auto 1.1 X10*3/uL (1.2-4.9); Mean Corpuscular HGB Conc 30.4 g/dl (31.0-35.0); Mean Corpuscular Hemoglobin 27.7 pg (27.0-33.0); Mean Corpuscular Volume 91.1 fL (80.0-98.0); Mean Platelet Volume 11.9 fL (9.4-12.3); Monocytes Absolute Auto 0.9 X10*3/uL (0.1-1.2); Monocytes Percent Auto 7.9 % (2-11); Neutrophils Absolute Auto 8.4 x10*3/uL (2.0-8.3); Neutrophils Percent Auto 76.9 % (45-73); Platelet Count 162 X10*3/uL (160-400); Red Blood Count 5.05 X10*6/uL (4.20-5.50); Red Cell Distribution Width 15.8 % (11.0-16.0); White Blood Count 10.9 X10*3/uL (4.8-10.8)
[2024-09-21 07:07] VITALS: BP 124/66; PULSE 82; RESP 17; TEMP 36.1; O2SAT 95
[2024-09-21 07:37] VITALS: PULSE 82; RESP 17; O2SAT 91
[2024-09-21] MEDS: Albuterol/Iprat 2.5/0.5MG 3 ML AMPUL.NEB INHALE ×2 (07:37→11:08)
[2024-09-21] MEDS: PARoxetine HCL 30 MG TABLET 60 MG PO (08:33)
[2024-09-21] MEDS: Apixaban 2.5 MG TABLET PO (08:33)
--- NOTE | 2024-09-21 10:47 | MHC.CM.PN ---
Patient is medically cleared, per MD in ROUNDS, for dc today, to [facility], today at 1PM, via [facility]. CM met with Patient at bedside and addressed IMM with her, providing Patient with the original and a copy has been placed on the chart. ANN spoke with Granddaughter/HCP//Gwen @ [phone] and informed her of the dc plan;ANN informed MD that Gwen is requesting that he call her.
--- NOTE | 2024-09-21 10:50 | MHC.SL.SWA ---
Speech Pathologist Impression: Risk of Aspiration, Oropharyngeal Dysphagia Dysphasia Diet Status: No Change Liquid Consistency and Strategies for Safe Swallow: Liquid Intake Recommendation: Thin Liquid Intake Strategies: Small Sips Solid Food Consistency: Dietary Recommendations: Grnd/Mech Altered (NDD2) Additional Modifications to Solid Foods: Patient presents with mild oropharyngeal dysphagia with absent dentures and recent extubation. Per RN, patient's voice has improved. She was mostly aphonic this morning, but is now able to produce voice, though still mildly soft. Patient with mild generalized oral weakness, slow oral preparation and delayed swallow. Patient is recommended a GROUND/MECH ALTERED (NDD2) diet for ease of mastication and THIN liquids, pills CRUSHED in PUREE. Patient will need 1:1 feeding. Oral Medication Intake: Whole with Puree Please contact the pharmacy regarding appropriate crushable or liquid drug formulations that are available whenever modified delivery is recommended. Compensatory Strategies and Precautions to be Taken for Safe Swallow: Sitting Upright (90 deg) Liquids from Cup Liquids from Straw Small Bites and Sips Alternate Liquids/Solids Rate of Ingestion Change Supervision While Eating and Drinking for Safe Swallow: Total Supervision (1:1) Swallowing Recommended Treatments: Compens. Strategy Educat. Recommendation for Speech: Inpatient ST Food Safety Scientist Clinican/Clinical Fellow: Yes: Moriah Clifford Supervisory Statement: I have reviewed and agree with the student/clinical fellow's documentation: Yes Speech Language Pathologist: Nancy Rojas M.A., CCC-WAYBILL CLERK
[2024-09-21 11:08] VITALS: PULSE 80; RESP 16; O2SAT 92
[2024-09-21 11:14] VITALS: BP 142/67; PULSE 75; RESP 18; TEMP 36.2; O2SAT 98
--- NOTE | 2024-09-21 12:05 | MHC.CLN ---
F/U PT WITH INCREASED NUTRITION RISK R/T PRESSURE INJURY PO INTAKE 25% DIET ADVANCED TO GRD M/S PER RESIDENTIAL TREATMENT SPECIALIST RECEIVING ENSURE CLEAR TID PROVIDES 720KCALS, 24G PROTEIN (RENAL FRIENDLY) MONITOR PO INTAKE AND ENCOURAGE SUPPLEMENT
--- NOTE | 2024-09-21 12:38 | PM.DS ---
DS: Providers Provider Date of Service: 09/21/24 Date of admission: 09/16/24 14:03 Date of discharge: 09/21/24 Primary care physician: Star Michael MD Consults: 09/16/24 22:44 Consult to Wound Care Routine Reason for consultation: deep tissue injury to coccyx; right posterior thigh blister with eschar Has provider been notified: Yes 09/17/24 09:02 Consult to Nephrology Routine Consulting Provider: [facility] Reason for consultation: KELECHI Has provider been notified: No DS: Diagnosis Discharge Diagnosis (1) Acute kidney injury: Status: Acute (2) Diastolic dysfunction: Status: Acute (3) Pulmonary hypertension: Status: Acute (4) FAITH (obstructive sleep apnea): Status: Acute (5) Obesity hypoventilation syndrome: Status: Acute DS: Summary Hospital Course Hospital Course: Admission note HPI 74-year-old lady with past medical history of COPD on chronic 2 L to 3 L nasal cannula, HTN, HLP, obesity, DVT with recent admission to the hospital from 08/26/2024 till 09/12/2024 for the management of COPD exacerbation when she was intubated and on ventilator support, eventually extubated transferred to floor and then discharged to a rehab. She presents again to the emergency room with shortness of breath, acute in onset, progressive in nature, non localized, exacerbated with movement, partial relief with rest. She was found to be in hypercapnic respiratory failure with pH of 7.24 and pCO2 of 54 on a VBG so BiPAP was placed, upon giving a break from the BiPAP patient's pCO2 increased and pH decreased again so placed back on BiPAP, transferred to ICU for continuing need for an NIPPV Hospital course The patient was admitted for Acute metabolic encephalopathy due to acute on chronic hypoxic and hypercapnic respiratory failure and acute kidney injury with uremic encephalopathy. Mental status back to baseline. Improved by BiPAP at night for FAITH/obesity hypoventilation, she is on CPAP at home which she will continue on time of discharge. Weaned down O2 to baseline O2. Noted to have Acute kidney injury due to ATN. Placed Temp dialysis catheter and started on hemodialysis in ICU with good response as she started Making urine and her Cr trending down. held nephrotoxic medications ,restart as tolerated. Nephrology following, no more dialysis, removed CVC. continued Regarding Chronic diastolic CHF and pulmonary hypertension, Appears euvolemic, continue Lasix on discharge. Hold Diamox. For Morbid obesity, Weight loss recommended For History of DVT, Continue Eliquis Discharge plan Discontinue Losartan for now Hold Acetzolamide until discussing with nephrology after repeating blood work next week Start Amlodipine for blood pressure control Use CPAP everynight and with naps Wear Oxygen 24 hours at 2-3L Physical therapy as tolerated The patient will likely need less than 30 days of SNF stay. Time Attestation Discharge Coordination Time (in mins): 42 Quality: Safe Use of Opioids Does Pt have an Active Cancer Diagnosis on the Problem List?: No Quality: Stroke Does the patient have a stroke diagnosis?: No Physical Exam Vital Signs: Vital Signs: Last Vital Signs Temp 97.2 F 09/21/24 11:14 Pulse 75 09/21/24 11:14 Resp 18 09/21/24 11:14 BP 142/67 H 09/21/24 11:14 Pulse Ox 98 09/21/24 11:14 O2 Del Method Nasal Cannula 09/21/24 11:14 O2 Flow Rate 1.5 09/21/24 11:14 FiO2 28 09/21/24 00:00 BMI result Body Mass Index 40.1 Const: Other: Constitutional : Awake, interactive, frail looking, not in distress Neck : Normal inspection, Supple Cardiovascular : RRR, no JVP, no lower extremity edema Respiratory : improved bilateral air entry, no crackles, wheezes or rhonchi, O2 supplement Gastrointestinal: soft, lax, Normal bowel sounds, Non tender Skin : Warm, Dry Neurological : Alert & oriented x3, No focal deficit DS: Data Data Completed and Pending Completed studies during hospitalization [Text1]: Procedures Assistance with Respiratory Ventilation, Less than 24 Consecutive Hours, Continuous Positive Airway Pressure (08/26/24) Insertion of Endotracheal Airway into Trachea, Via Natural or Artificial Opening (08/26/24) Introduction of Vasopressor into Peripheral Vein, Percutaneous Approach (08/26/24) Respiratory Ventilation, Greater than 96 Consecutive Hours (08/26/24) Labs on day of discharge: Laboratory Results - last 24 hr 09/16/24 09/21/24 19:34 05:48 WBC 10.9 H RBC 5.05 Hgb 14.0 Hct 46.0 MCV 91.1 MCH 27.7 MCHC 30.4 L RDW 15.8 Plt Count 162 MPV 11.9 Immature Gran % (Auto) 0.5 H Neut % (Auto) 76.9 H Lymph % (Auto) 10.0 L [place] % (Auto) 7.9 Eos % (Auto) 4.2 H Baso % (Auto) 0.5 Lymph # (Auto) 1.1 L [place] # (Auto) 0.9 Eos # (Auto) 0.5 H Baso # (Auto) 0.1 Abs Immat Gran (auto) 0.05 H Absolute Neuts (auto) 8.4 H Absolute Nucleated RBC 0.000 Nucleated RBC % (auto) 0.0 Sodium 139 Potassium 3.4 Chloride 105 Carbon Dioxide 22 Anion Gap 15 BUN 62 H Creatinine 2.99 H Estim Creat Clear Calc 18.2 Estimated GFR 15 Random Glucose 100 Calcium 9.1 Ur Strep pneumoniae Ag Not Detected Imaging Chest x-ray: Radiologist's impression: ITS Impressions Renal Ultrasound 09/17/24 10:02 IMPRESSION: Limited examination as described. Nonobstructing 9 mm right renal calculus. The left kidney is not visualized. Electronically signed by: Jose Rodriguez MD 09/17/2024 10:23 AM EDT Chest X-Ray 09/17/24 13:45 IMPRESSION: 1. The tip of the left-sided dialysis catheter is to the left of the spine and superimposed on the aortic arch. This may be within the internal carotid artery. These findings were discussed with Dr. Carlos in the ICU on 09/17/2024 at 2:09 PM. 2. Cardiomegaly and pulmonary edema. Electronically signed by: Jose Rodriguez MD 09/17/2024 02:10 PM EDT Discharge Plan Discharge Anticipated Discharge Date/Time: 09/21/24 12:33 Patient Disposition: [facility] Discharge Diagnosis: Acute renal failure respiratory failure [facility] Star Michael MD [Primary Care Provider] - 1 Week Discharge Medications: New amlodipine 5 mg tablet 5 mg PO DAILY Qty: 90 0RF Continued tolterodine 4 mg capsule,extended release 24hr 4 mg PO DAILY alendronate 70 mg tablet 70 mg PO MO@0900 cyanocobalamin (vitamin B-12) 1,000 mcg tablet 1,000 mcg PO DAILY@1200 carboxymethylcellulose sodium 0.5 % drops 1 drp ophthalmic (eye) QID paroxetine HCl 30 mg tablet 60 mg PO DAILY ascorbic acid (vitamin C) [Vitamin C] 500 mg tablet,chewable 500 mg PO DAILY@1200 multivitamin with folic acid [High Potency Multivitamin] 400 mcg tablet 1 tab PO DAILY@1200 mirabegron [Myrbetriq] 50 mg tablet extended release 24 hr 50 mg PO DAILY Eliquis 2.5 mg tablet 2.5 mg PO BID PreserVision AREDS-2 250-90-40-1 mg capsule 1 cap PO DAILY@1200 Trelegy Ellipta 100-62.5-25 mcg blister with device 1 ea inhalation DAILY trazodone 100 mg tablet 200 mg PO BEDTIME hydroxyzine HCl 10 mg tablet 10 mg PO TID PRN (Reason: Itching) melatonin 5 mg tablet 5 mg PO BEDTIME furosemide [Lasix] 40 mg tablet 40 mg PO DAILY Qty: 90 0RF acetaminophen 325 mg Tablet 650 mg PO Q4H PRN (Reason: pain or fever) acetaminophen 650 mg Suppository 650 mg IN Q4H PRN (Reason: pain or fever) magnesium hydroxide [Milk of Magnesia] 400 mg/5 mL Suspension 30 ml PO DAILY PRN (Reason: Constipation) bisacodyl 10 mg Suppository 10 mg IN DAILY PRN (Reason: Constipation) Fleet Enema 19-7 gram/118 mL Enema 118 ml IN DAILY PRN (Reason: Constipation) cholecalciferol (vitamin D3) 25 mcg (1,000 unit) Tablet 50 mcg PO DAILY Held acetazolamide 250 mg Tablet 250 mg PO BID Qty: 0 0RF Hold Instructions: Hold until discussed with Nephrology after repeating blood work Discontinued losartan 50 mg tablet 50 mg PO DAILY Discharge Orders: Discharge Order (Routine); Ordered 09/21/24 Ordered By: Levon Jane Diet: Low salt diet Activity on Discharge: As tolerated Stand Alone Forms: Patient Portal Discharge page Print Language: Unable To Collect Other Ambulatory Orders: Basic Metabolic Panel (Routine) Timeframe: 1 Week Facility: [facility] - Location: Laboratory Ordered By: Levon Jane Care Plan Goals: Discontinue Losartan for now Hold Acetzolamide until discussing with nephrology after repeating blood work next week Start Amlodipine for blood pressure control Use CPAP everynight and with naps Wear Oxygen 24 hours at 2-3L Physical therapy as tolerated Health Concerns: Renal failure Plan of Treatment: Hold Losartan and Acetzolamide Monitor blood pressure and kidny function Assessment: as above
== END 2024-09-21 13:05 | disposition skilled nursing facility (03) | DRG 682 ==
LOC: HO.ED 13:59 → HO.EDOVER 14:18 → HO.ICU 14:22 → HO.IMC 09-17 15:50 → HO.ICU 09-17 16:19 → HO.IMC 09-18 13:53
PROVIDERS: Internal Medicine; Internal Medicine Nephrology; Internal Medicine Pulmonary Disease; Physician Assistant; Physician Assistant Medical; Admitting Provider Internal Medicine Critical Care Medicine; Emergency Provider Internal Medicine; PCP Family Medicine; Visit Provider Student in an Organized Health Care Education/Training Program
DX: N17.0 Acute kidney failure with tubular necrosis (principal); G93.41 Metabolic encephalopathy; J96.21 Acute and chronic respiratory failure with hypoxia; J96.22 Acute and chronic respiratory failure with hypercapnia; J44.1 Chronic obstructive pulmonary disease with (acute) exacerbation; I50.32 Chronic diastolic (congestive) heart failure; E66.2 Morbid (severe) obesity with alveolar hypoventilation; Z68.41 Body mass index [BMI] 40.0-44.9, adult; F39 Unspecified mood [affective] disorder; I27.22 Pulmonary hypertension due to left heart disease; D64.9 Anemia, unspecified; I11.0 Hypertensive heart disease with heart failure; Z99.81 Dependence on supplemental oxygen; Z86.718 Personal history of other venous thrombosis and embolism; Z20.822 Contact with and (suspected) exposure to COVID-19; Z79.01 Long term (current) use of anticoagulants; Z79.899 Other long term (current) drug therapy
CPT/HCPCS: 0241U; 36415; 36600; 71045; 71250; 76775; 80048; 80053; 81001; 82040; 82803; 83605; 83735; 83880; 84100; 84484; 85025; 85027; 85610; 86704; 86706; 87040; 87086; 87340; 87633; 87640; 87641; 87899; 90999; 92526; 92610; 93005; 94640; 94660; 94799; 97163; 99285; J0696; J1644; J2250; J2543; J2919; J3010; J7120; P9047

== ENCOUNTER → 2024-09-16 09:23 | Outpatient (BNV) | payer OTHER, SELFPAY | PROVIDERS: Emergency Provider Internal Medicine; PCP Family Medicine; Visit Provider Radiology Diagnostic Radiology | DX: R06.02 Shortness of breath (principal) | CPT/HCPCS: 71045 ==

== ENCOUNTER → 2024-09-16 09:24 | Outpatient (BNV) | payer OTHER, SELFPAY | PROVIDERS: Emergency Provider Internal Medicine; PCP Family Medicine; Visit Provider Internal Medicine Critical Care Medicine | DX: I10 Essential (primary) hypertension (principal); I51.89 Other ill-defined heart diseases; I27.20 Pulmonary hypertension, unspecified; Z86.718 Personal history of other venous thrombosis and embolism; J44.1 Chronic obstructive pulmonary disease with (acute) exacerbation; J96.01 Acute respiratory failure with hypoxia; J96.02 Acute respiratory failure with hypercapnia; N39.0 Urinary tract infection, site not specified; N17.9 Acute kidney failure, unspecified | CPT/HCPCS: 99223 ==

== ENCOUNTER → 2024-09-16 09:28 | Outpatient (BNV) | payer OTHER, SELFPAY | PROVIDERS: Emergency Provider Internal Medicine; PCP Family Medicine; Visit Provider Internal Medicine Cardiovascular Disease | DX: I44.4 Left anterior fascicular block (principal); I25.2 Old myocardial infarction | CPT/HCPCS: 93010 ==

== ENCOUNTER 2024-09-16 14:03 | Outpatient (BNV) | payer OTHER, SELFPAY | END 2024-09-17 10:02 | PROVIDERS: Admitting Provider Internal Medicine Critical Care Medicine; Emergency Provider Internal Medicine; PCP Family Medicine; Visit Provider Radiology Diagnostic Radiology | DX: I28.1 Aneurysm of pulmonary artery (principal) | CPT/HCPCS: 71045; 71250; 76775 ==

== ENCOUNTER → 2024-09-16 14:03 | Outpatient (BNV) | payer OTHER, SELFPAY | PROVIDERS: Admitting Provider Internal Medicine Critical Care Medicine; Emergency Provider Internal Medicine; PCP Family Medicine; Visit Provider Internal Medicine Pulmonary Disease | DX: J96.01 Acute respiratory failure with hypoxia (principal); J96.02 Acute respiratory failure with hypercapnia; N17.9 Acute kidney failure, unspecified; E66.2 Morbid (severe) obesity with alveolar hypoventilation | CPT/HCPCS: 36556; 99291 ==

== ENCOUNTER → 2024-09-16 14:03 | Outpatient (BNV) | payer OTHER, SELFPAY | PROVIDERS: Admitting Provider Internal Medicine Critical Care Medicine; Emergency Provider Internal Medicine; PCP Family Medicine; Visit Provider Internal Medicine | DX: N17.9 Acute kidney failure, unspecified (principal); I51.89 Other ill-defined heart diseases; I27.20 Pulmonary hypertension, unspecified; G47.33 Obstructive sleep apnea (adult) (pediatric); E66.2 Morbid (severe) obesity with alveolar hypoventilation | CPT/HCPCS: 99232; 99239 ==

== ENCOUNTER → 2024-09-16 14:03 | Outpatient (BNV) | payer OTHER, SELFPAY | PROVIDERS: Admitting Provider Internal Medicine Critical Care Medicine; Emergency Provider Internal Medicine; PCP Family Medicine; Visit Provider Internal Medicine Nephrology | DX: N17.9 Acute kidney failure, unspecified (principal) | CPT/HCPCS: 90935; 99232 ==

== ENCOUNTER 2024-11-14 11:43 | Emergency (ER) | payer OTHER, SELFPAY ==
--- NOTE | 2024-11-14 | ECG_ITS ---
Test Reason : SOB Blood Pressure : */* mmHG Vent. Rate : 69 BPM Atrial Rate : 69 BPM P-R Int : 170 ms QRS Dur : 90 ms QT Int : 426 ms P-R-T Axes : -15 -23 29 degrees QTcB Int : 456 ms Normal sinus rhythm Normal ECG When compared with ECG of 16-Sep-2024 09:47, Left anterior fascicular block is no longer Present Minimal criteria for Anterior infarct are no longer Present Criteria for Inferior infarct are no longer Present QT has shortened Referred By: Generic ED Physician Electronically Signed By: JACKIE BLACK MD
--- NOTE | ~2024-11-14 | XR_ITS ---
EXAMINATION: XR CHEST CLINICAL INFORMATION: shortness of breath COMPARISON: None available. TECHNIQUE: Frontal view of the chest was obtained. FINDINGS: There is cardiomegaly. The mediastinal and hilar contours appear normal. Lungs demonstrate mildly increased opacity in the medial right base, and retrocardiac region. Cannot exclude a mild degree of interstitial pulmonary edema. No pneumothorax or effusion. No focal osseous or soft tissue abnormality. XR/XR chest 1V IMPRESSION: 1. Cardiac enlargement. 2. Mildly increased opacities in the medial right base, and retrocardiac region, pneumonia versus atelectatic changes. 3. A mild degree of interstitial edema may be present. Electronically signed by: Jayesh Michelle MD 11/14/2024 12:31 PM EDT
[2024-11-14 11:51] VITALS: BP 117/72; BP 127/57; PULSE 103; PULSE 73; RESP 20; O2SAT 85; O2SAT 91; BMI 42.3
--- NOTE | 2024-11-14 13:00 | PC.NURSE ---
patient a&ox3, lump receiver nsr, rr equal/non labored-lungs clear, cxr performed, ekg performed, pt ambulated to bathroom with walker and O2 that she wears at baseline. pt has no complaints of pain/discomfort, awaiting provider, call pardo within reach, plan of care ongoin
--- OUTSIDE RECORDS SUMMARY | 2024-11-14 13:01 | XMS_ITS | Encounter Summary ---
Author Organization [facility] Address [address] [place] [address] Care Team Providers Care Traveling Plant Operator Name Role Phone Manju Najera MD Primary Care Provider [phone] Encounter Details Date Type Department Care Team (Late st Contact Info) Description 09/24/2024 Lab Requisition [facility] - Main Lab [address] [facility] [place] [address] Star Michael MD [address] [place] [address] [address] [place], [address] Essential (primary) hypertension Social History Tobacco Use Types Packs/Day Years Used Date Smoking Tobacco: Former Smokeless Tobacco: Never Alcohol Use Standard Drinks/Week Comments Not Currently 0 (1 standard drink = 0.6 oz pur e alcohol) Comments Unknown Sex and Gender Information Value Date Recorded Sex Assigned at Not on file Legal Sex Female 2:37 PM EST Gender Identity Not on file Sexual Orientation Not on file documented as of this encounter Plan of Treatment Upcoming Encounters Date Type Department Care Team (Late st Contact Info) Description 03/12/2025 9:45 AM EDT Office Visit Internal Medicine - [place] [facility] [address] [place] [address] Manju Najera MD 175 [facility] [address] [place] [address] documented as of this encounter Procedures Procedure Name Priority Date/Time Associated Diagnosis Comments COMPLETE BLOOD COUNT Routine 09/24/2024 6:36 AM EDT Essential (primary) hypertension BASIC METABOLIC PANEL Routine 09/24/2024 6:36 AM EDT Essential (primary) hypertension documented in this encounter Results * (ABNORMAL) Basic metabolic panel (09/24/2024 6:36 AM EDT) Sodium 138 133 - 145 mmol/L LAB CHEMISTRY METHOD 09/24/2024 1:02 PM [facility] Potassium 4.0 3.5 - 5.5 mmol/L LAB CHEMISTRY METHOD 09/24/2024 1:02 PM [facility] Chloride 104 96 - 110 mmol/L LAB CHEMISTRY METHOD 09/24/2024 1:02 PM [facility] CO2 23 21 - 32 mmol/L LAB CHEMISTRY METHOD 09/24/2024 1:02 PM [facility] Anion Gap 11 3 - 11 LAB CHEMISTRY METHOD 09/24/2024 1:02 PM [facility] Glucose 75 70 - 100 mg/dL LAB CHEMISTRY METHOD 09/24/2024 1:02 PM [facility] BUN 64(H) 5 - 25 mg/dL LAB CHEMISTRY METHOD 09/24/2024 1:02 PM [facility] Creatinine 3.29(H) 0.50 - 1.10 mg/dL LAB CHEMISTRY METHOD 09/24/2024 1:02 PM [facility] eGFR 14(L) >=60 mL/min/1. 73m2 LAB CHEMISTRY METHOD 09/24/2024 1:02 PM [facility] Comment:Calculation based on the??Chronic Kidney Disease Epidemiology Collaboration (CKD-EPI) equation refit??without adjustment for race. BUN/Creatinine Ratio 19.5 LAB CHEMISTRY METHOD 09/24/2024 1:02 PM [facility] Calcium 9.4 8.5 - 10.5 mg/dL LAB CHEMISTRY METHOD 09/24/2024 1:02 PM EDT [facility] Blood Venous blood specimen / Unknown Venipuncture / Unknown 09/24/2024 6:36 AM EDT 09/24/2024 10:24 AM EDT us Star Michael MD LAB BLOOD ORDERABLES Final Resul t [facility] [address] [place] [address], * (ABNORMAL) Complete blood count (09/24/2024 6:36 AM EDT) WBC 10.2 4.8 - 10.8 K/mcL LAB [facility] RBC 4.80 3.80 - 4.80 M/[facility] LAB HEMETOLOGY METHOD 09/24/2024 12:29 PM EDT [facility] Hemoglobin 13.3 11.5 - 16.0 g/dL LAB HEMETOLOGY METHOD 09/24/2024 12:29 PM EDT [facility] Hematocrit 45.3 35.0 - 47.0 % LAB HEMETOLOGY METHOD [facility]24[facility]24 [facility] MCV 93.6 79.0 - 98.0 FL LAB HEMETOLOGY METHOD 09/24/2024 12:29 PM EDT [facility] MCH 27.5 27.0 - 32.0 pcg LAB HEMETOLOGY METHOD 09/24/2024 12:29 PM [facility] MCHC 29.4(L) 32.0 - 37.0 g/dL LAB HEMETOLOGY METHOD 09/24/2024 12:29 PM [facility] RDW 15.7(H) 11.0 - 15.0 % LAB HEMETOLOGY METHOD 09/24/2024 12:29 PM EDT [facility] Platelets 168 130 - 400 K/mcL LAB HEMETOLOGY METHOD 09/24/2024 12:29 PM EDT [facility] MPV 12.1(H) 7.0 - 11.0 FL LAB HEMETOLOGY METHOD 09/24/2024 12:29 PM EDT [facility] NRBC 0.0 <1.0 % LAB HEMETOLOGY METHOD 09/24/2024 12:29 PM EDT [facility] NRBC Absolute 0.00 <0.10 K/mcL LAB HEMETOLOGY METHOD 09/24/2024 12:29 PM EDT [facility] Blood Venous blood specimen / Unknown Venipuncture / Unknown 09/24/2024 6:36 AM EDT 09/24/2024 10:24 AM EDT us Star Michael MD LAB BLOOD ORDERABLES Final Resul t [facility] [address] [place] [address], documented in this encounter Visit Diagnoses Diagnosis Essential (primary) hypertension Unspecified essential hypertension documented in this encounter Care Teams Traveling Plant Operator Relationship Specialty Start Date End Date Manju Najera MD [address] [address] PCP - General Internal Medicine 04/18/18 documented as of this encounter
--- NOTE | 2024-11-14 13:04 | ED_ITS ---
HPI - General Adult General Chief complaint: Dyspnea Stated complaint: Hypoxia per [facility] facility, back pain Time Seen by Provider: 11/14/24 12:14 Source: patient Mode of arrival: EMS Limitations: no limitations History of Present Illness HPI narrative: This is a 74-year-old woman with a past medical history of COPD on chronic 2-3 L per minute supplemental oxygen via nasal cannula, hypertension, hyperlipidemia, obesity, DVT on Eliquis who presents for evaluation of hypoxia. Patient states that she had taken her nasal cannula off for a little while. She states that it was making her room to warm. She states that the nurse came to check on her and found her oxygen to be in the low 70s. She states that she requested to put her supplemental oxygen back on and reported feeling well. She states because her oxygen level was so low she was urged to go to the emergency room for evaluation. She states no change to her chronic cough. She states specifically no increased cough frequency or sputum production. She states no recent fevers, chills, sputum production or hemoptysis. She states no headache, sore throat or myalgias. She states no GI or symptoms. Related Data Home Medications ?Medication ?Instructions ?Recorded ?Confirmed alendronate 70 mg tablet 70 mg PO MO@0900 05/05/24 09/16/24 apixaban 2.5 mg tablet (Eliquis) 2.5 mg PO BID 05/05/24 09/16/24 ascorbic acid (vitamin C) 500 mg 500 mg PO DAILY@1200 05/05/24 09/16/24 chewable tablet (Vitamin C) carboxymethylcellulose sodium 0.5 1 drp ophthalmic (eye) QID Dry Eyes 05/05/24 09/16/24 % eye drops cyanocobalamin (vitamin B-12) 1,000 mcg PO DAILY@1200 05/05/24 09/16/24 1,000 mcg tablet fluticasone fur. 100 mcg-umeclid 1 ea inhalation DAILY 05/05/24 09/16/24 62.5 mcg-vilant 25 mcg inhalat.powder (Trelegy Ellipta) mirabegron 50 mg tablet,extended 50 mg PO DAILY 05/05/24 09/16/24 release 24 hr (Myrbetriq) multivitamin with folic acid 400 1 tab PO DAILY@119905/05/24 09/16/24 mcg tablet (High Potency Multivitamin) paroxetine HCl 30 mg tablet 60 mg PO DAILY 05/05/24 09/16/24 tolterodine 4 mg capsule,extended 4 mg PO DAILY 05/05/24 09/16/24 release 24 hr vit C 250 mg-vit E 90 mg-zinc 40 1 cap PO DAILY@1200 05/05/24 09/16/24 mg-copper 1 ou-zblfks-ejbiad capsule (PreserVision AREDS-2) hydroxyzine HCl 10 mg tablet 10 mg PO TID PRN Itching 08/26/24 09/16/24 melatonin 5 mg tablet 5 mg PO BEDTIME 08/26/24 09/16/24 trazodone 100 mg tablet 200 mg PO BEDTIME 08/26/24 09/16/24 acetaminophen 325 mg tablet 650 mg PO Q4H PRN pain or fever 09/16/24 09/16/24 acetaminophen 650 mg rectal 650 mg NM Q4H PRN pain or fever 09/16/24 09/16/24 suppository bisacodyl 10 mg rectal suppository 10 mg NM DAILY PRN Constipation 09/16/24 09/16/24 cholecalciferol (vitamin D3) 25 50 mcg PO DAILY 09/16/24 09/16/24 mcg (1,000 unit) tablet magnesium hydroxide 400 mg/5 mL 30 ml PO DAILY PRN Constipation 09/16/24 09/16/24 oral suspension (Milk of Magnesia) sodium phosphates 19 gram-7 118 ml NM DAILY PRN Constipation 09/16/24 09/16/24 gram/118 mL enema (Fleet Enema) Previous Rx's ?Medication ?Instructions ?Recorded acetazolamide 250 mg tablet 250 mg PO BID #0 tabs 09/12/24 furosemide 40 mg tablet (Lasix) 40 mg PO DAILY #90 tabs 09/12/24 amlodipine 5 mg tablet 5 mg PO DAILY #90 tabs 09/21/24 Allergies Allergy/AdvReac Type Severity Reaction Status Date / Time No Known Allergies Allergy Verified 11/14/24 11:54 Review of Systems Review of Systems: ROS as per [facility] Past Medical History Medical History (Updated 11/14/24 @ 13:31 by Star Zaman MD) Diastolic dysfunction Pulmonary hypertension Obesity hypoventilation syndrome FAITH (obstructive sleep apnea) Hypertension History of DVT (deep vein thrombosis) COPD (chronic obstructive pulmonary disease) Social History Social History Household Members: Unknown / Unable to assess Household Members Other:: STR Housing: Other Housing Other:: Short term rehab Do you presently have visiting nurse or other home services: No Comment: Sitter Patient Tobacco Use Status: Never used Tobacco Smoked in Last 30 Days: No Use of substances other than those prescribed or required for medical reasons: No Substance Use Type: Marijuana Advance Directives: Yes Advance Directives on File: Yes Advance Directives Date on File: 08/26/24 Do you have a plan to hurt others: No Plan service: No Physical Exam ED Vital Signs: Vital Signs - 24 hr 11/14/24 11:51 Pulse Rate 73 Respiratory Rate 20 Blood Pressure 127/57 L Pulse Oximetry 91 L Oxygen Delivery Method Nasal Cannula BMI result Body Mass Index 42.3 Gen: NAD HEENT: NCAT, EOMI, normal conjunctiva CV: RRR no peripheral pitting edema Pulm: CTAB, no wheezes, rhonchi or rales no increased work of breathing GI: Soft, NTND, no rebound, guarding or rigidity Neuro: Grossly non focal, awake and alert, answering questions and following commands Medical Decision Making Medical Decision Making MDM Narrative: Differential diagnosis includes, but is not limited to chronic hypoxic respiratory failure, COPD exacerbation. I do not suspect a viral URI, pneumonia or sepsis given did infectious symptoms as per HPI above. Patient is afebrile and hemodynamically stable on her home supplemental oxygen. Exam is benign and reassuring without wheezes to suggest bronchospasm or COPD exacerbation. I reviewed viral panel, EKG and chest x-ray as below. On re-examination, patient is well-appearing and in no acute distress. ?Patient states symptoms have resolved. I suspect that the patient was transiently hypoxic as she was off her home oxygen. Hypoxia has resolved and she reports no symptoms and reports feeling well discharged home. ?There is no indication for further emergent evaluation in this otherwise well-appearing patient as above. ?Patient is provided written and verbal instructions, educational materials, recommendations for outpatient follow-up, strict return precautions and teach back is performed. ?Patient states understanding and agreement with plan of care. ?Patient is discharged home in stable and improved condition. Admission/Observation Consideration of admission/observation: Escalation of care including admission/observation considered Lab Data MDM Lab Attestation statement: I reviewed the patient's lab results. Labs: Lab Results 11/14/24 Range/Units 12:14 Influenza Type A (PCR) NEGATIVE (Negative) Influenza Type B (PCR) NEGATIVE (Negative) RSV RNA Qual (PCR) NEGATIVE (Negative) SARS-CoV-2 RNA (RT-PCR) NEGATIVE (Negative) Independent Interpretation I performed an independent interpretation of an: EKG and Plain X-Ray Interpretation: Chest x-ray demonstrates no focal consolidation, pleural effusion or pneumothorax. EKG demonstrates sinus rhythm at 69 beats per minute, NM 170, QRS 90, QTC 456, no STEMI (compared to prior EKG September 16, 2024 there are no diagnostic ischemic changes) Radiology Impression Discussion of test interpretation with radiology: I have reviewed the radiologist's reading. Radiologist Impression: I reviewed chest x-ray as below. I suspect that these noted studies are likely atelectatic and not pneumonia given that patient is on her home supplemental oxygen with no increased oxygen requirement and stent history of fever, cough, sputum production, myalgias to suggest acute infection with pneumonia. XR/XR chest 1V IMPRESSION: 1. Cardiac enlargement. 2. Mildly increased opacities in the medial right base, and retrocardiac region, pneumonia versus atelectatic changes. 3. A mild degree of interstitial edema may be present. Electronically signed by: Jayesh Michelle MD 11/14/2024 12:31 PM EDT Dictated By: Jayesh Michelle MD Signed By: <Electronically signed by Jayesh Michelle MD in OV> 11/14/24 1231 Discharge Plan Discharge Clinical Impression: Chronic hypoxic respiratory failure Patient Disposition: Home, Self-Care Instructions: Chronic Respiratory Failure (DC) Additional Instructions: You were seen and evaluated in the emergency room for low oxygen. Your low oxygen levels resolved with your home supplemental oxygen by nasal cannula. You tested negative for COVID-19, influenza and RSV. Your chest x-ray was reassuring. Please follow-up with your primary care doctor in the next 2 days. Return to the emergency room with any new concerns or symptoms including, but not limited to severe pain, fever difficulty breathing. Prescriptions: No Action tolterodine 4 mg capsule,extended release 24hr 4 mg PO DAILY alendronate 70 mg tablet 70 mg PO MO@0900 cyanocobalamin (vitamin B-12) 1,000 mcg tablet 1,000 mcg PO DAILY@1200 carboxymethylcellulose sodium 0.5 % drops 1 drp ophthalmic (eye) QID paroxetine HCl 30 mg tablet 60 mg PO DAILY ascorbic acid (vitamin C) [Vitamin C] 500 mg tablet,chewable 500 mg PO DAILY@1200 multivitamin with folic acid [High Potency Multivitamin] 400 mcg tablet 1 tab PO DAILY@1200 mirabegron [Myrbetriq] 50 mg tablet extended release 24 hr 50 mg PO DAILY Eliquis 2.5 mg tablet 2.5 mg PO BID PreserVision AREDS-2 250-90-40-1 mg capsule 1 cap PO DAILY@1200 Trelegy Ellipta 100-62.5-25 mcg blister with device 1 ea inhalation DAILY trazodone 100 mg tablet 200 mg PO BEDTIME hydroxyzine HCl 10 mg tablet 10 mg PO TID PRN (Reason: Itching) melatonin 5 mg tablet 5 mg PO BEDTIME acetazolamide 250 mg Tablet 250 mg PO BID Qty: 0 0RF furosemide [Lasix] 40 mg tablet 40 mg PO DAILY Qty: 90 0RF acetaminophen 325 mg Tablet 650 mg PO Q4H PRN (Reason: pain or fever) acetaminophen 650 mg Suppository 650 mg NM Q4H PRN (Reason: pain or fever) magnesium hydroxide [Milk of Magnesia] 400 mg/5 mL Suspension 30 ml PO DAILY PRN (Reason: Constipation) bisacodyl 10 mg Suppository 10 mg NM DAILY PRN (Reason: Constipation) Fleet Enema 19-7 gram/118 mL Enema 118 ml NM DAILY PRN (Reason: Constipation) cholecalciferol (vitamin D3) 25 mcg (1,000 unit) Tablet 50 mcg PO DAILY amlodipine 5 mg tablet 5 mg PO DAILY Qty: 90 0RF Print Language: Unable To Collect
[2024-11-14 13:09] LABS: Influenza A PCR NEGATIVE (Negative); Influenza B PCR NEGATIVE (Negative); Resp Syncy Virus RNA Qual PCR NEGATIVE (Negative); SARS COV2 PCR INHOUSE NEGATIVE (Negative)
--- NOTE | 2024-11-14 14:14 | PC.NURSE ---
report called to [facility]- report given to
[2024-11-14 15:07] VITALS: BP 153/68; PULSE 68; RESP 20; O2SAT 94
[2024-11-14 16:15] VITALS: BP 148/73; PULSE 78; RESP 20; TEMP 36.7; O2SAT 93
== END 2024-11-14 16:16 | disposition home or self-care (01) ==
PROVIDERS: Emergency Provider Emergency Medicine; PCP Internal Medicine
DX: J96.11 Chronic respiratory failure with hypoxia (principal); R05.3 Chronic cough; R60.0 Localized edema; Z03.818 Encounter for observation for suspected exposure to other biological agents ruled out; I10 Essential (primary) hypertension; J44.9 Chronic obstructive pulmonary disease, unspecified; Z99.81 Dependence on supplemental oxygen; Z86.718 Personal history of other venous thrombosis and embolism; Z79.01 Long term (current) use of anticoagulants
CPT/HCPCS: 0241U; 71045; 93005; 99283; 99284

== ENCOUNTER → 2024-11-14 12:00 | Outpatient (BNV) | payer OTHER, SELFPAY | PROVIDERS: Emergency Provider Emergency Medicine; PCP Internal Medicine; Visit Provider Internal Medicine Cardiovascular Disease | DX: R06.02 Shortness of breath (principal) | CPT/HCPCS: 93010 ==

== ENCOUNTER → 2024-11-14 12:05 | Outpatient (BNV) | payer OTHER, SELFPAY | PROVIDERS: Emergency Provider Emergency Medicine; PCP Internal Medicine; Visit Provider Radiology Diagnostic Radiology | DX: I51.7 Cardiomegaly (principal) | CPT/HCPCS: 71045 ==

== ENCOUNTER 2024-11-27 15:32 | Outpatient (AMB) | payer OTHER, SELFPAY ==
[2024-11-27 15:31] VITALS: BP 122/70; PULSE 87; O2SAT 92; BMI 41.3
--- NOTE | 2024-11-27 15:31 | HO.NEPHOV_ITS ---
Vital Signs 11/27/24 15:31 Height 5 ft 2 in Weight 226 lb BMI 41.3 BP 122/70 Blood Pressure Location Rt brachial Position Sitting Pulse 87 Pulse Source Pulse Oximeter Pulse Oximetry (%) 92 Oxygen Delivery Method Room Air Intake Visit Reasons: [facility] HFU/ LVM Division Superintendent Required: No Accompanied by: Self / Same As Patient Allergies No Known Allergies Allergy (Verified 11/27/24 15:33) Medication List - Last Reconciled 11/27/24 by Tim Mendoza MD acetaminophen 650 mg ID Q4H PRN acetaminophen 650 mg PO Q4H PRN acetazolamide 250 mg PO BID alendronate 70 mg PO MO@0900 amlodipine 5 mg PO DAILY apixaban (Eliquis) 2.5 mg PO BID ascorbic acid (vitamin C) (Vitamin C) 500 mg PO DAILY@1200 bisacodyl 10 mg ID DAILY PRN carboxymethylcellulose sodium 0.5% 1 drp ophthalmic (eye) QID cholecalciferol (vitamin D3) 50 mcg PO DAILY cyanocobalamin (vitamin B-12) 1,000 mcg PO DAILY@1200 znfrvqevvkt-ytfzsvbzy-dmuvgabs 100-62.5-25 mcg (Trelegy Ellipta) 1 ea inhalation DAILY furosemide (Lasix) 40 mg PO DAILY hydroxyzine HCl 10 mg PO TID PRN magnesium hydroxide (Milk of Magnesia) 30 mL PO DAILY PRN melatonin 5 mg PO BEDTIME mirabegron ER (Myrbetriq) 50 mg PO DAILY multivitamin with folic acid 400 mcg (High Potency Multivitamin) 1 tab PO CARLINE Y@1200 paroxetine HCl 60 mg PO DAILY sodium phosphates 19-7 gram/118 mL (Fleet Enema) 118 mL ID DAILY PRN tolterodine ER 4 mg PO DAILY trazodone 200 mg PO BEDTIME vit C,E-Jd-joegb-lutein-zeaxan 250-90-40-1 mg (PreserVision AREDS-2) 1 cap PO DAILY@1200 HPI Comments Details: Pleasant 74-year-old woman with history of hypertension obesity was seen in September 2024 for acute kidney injury. KELECHI was due to hypoperfusion/ATN ; she required temporary dialysis. Renal function recovered and dialysis was discontinued. Since discharge renal function is gradually improving. Recent creatinine was 2.99. She is here for further follow up. No polyuria or polydipsia. No nausea or vomiting. No shortness of breath. [facility] Medical History (Updated 11/27/24 @ 15:43 by Tim Mendoza MD) Hypertension Diastolic dysfunction Pulmonary hypertension Obesity hypoventilation syndrome FAITH (obstructive sleep apnea) History of DVT (deep vein thrombosis) COPD (chronic obstructive pulmonary disease) Social History Household Members: Unknown / Unable to assess Household Members Other:: STR Housing: Other Housing Other:: Short term rehab Do you presently have visiting nurse or other home services: No Comment: Sitter Patient Tobacco Use Status: Never used Tobacco Substance Use Type: Marijuana Advance Directives Date on File: 08/26/24 service: No Review of Systems Const Denies fever(s) and Denies weight loss Card Denies chest pain Resp Denies cough and Denies hemoptysis GI Denies abdominal pain, Denies diarrhea and Denies nausea Musc Denies back pain Neuro Denies focal weakness Physical Exam Vital Signs: Last Vital Signs Pulse 87 11/27/24 15:31 BP 122/70 11/27/24 15:31 Pulse Ox 92 11/27/24 15:31 Oxygen Delivery Method Room Air 11/27/24 15:31 BMI result Body Mass Index 41.3 Comfortable Neck supple no JVD. Lungs entry equal no rales. Heart S1-S2 heard no gallop or rub. Abdomen soft nontender. Neuro alert awake oriented. No asterixis. Extremities no edema. Results Reviewed Nephrology Results: Hgb 14.0 g/dl (12.0-16.0) 09/21/24 WBC 10.9 X10*3/uL (4.8-10.8) H 09/21/24 Plt Count 162 X10*3/uL (160-400) 09/21/24 Sodium 139 mmol/L (135-145) 09/21/24 Potassium 3.4 mmol/L (3.3-5.1) 09/21/24 Chloride 105 mmol/L (96-108) 09/21/24 Carbon Dioxide 22 mmol/L (22-29) 09/21/24 BUN 62 mg/dL (9-16) H 09/21/24 Creatinine 2.99 mg/dL (0.5-1.4) H 09/21/24 Calcium 9.1 mg/dL (8.4-10.2) 09/21/24 Phosphorus 3.7 mg/dL (2.7-4.5) 09/19/24 Urine Protein 30 (1+) mg/dL (Neg-Trace) H 09/16/24 Renal US 09/17/24 Assessment & Plan Assessment & Plan (1) CKD (chronic kidney disease): Code(s): N18.9 - Chronic kidney disease, unspecified Category: Medical (2) Hypertension: Code(s): I10 - Essential (primary) hypertension Category: Medical Qualifiers: Hypertension type: primary hypertension Qualified Code(s): I10 - Essential (primary) hypertension Plan [age] year old woman with history of KELECHI requiring short-term dialysis. KELECHI was most likely due to ATN. Renal function improved and she is currently off dialysis. At present fluid status seems acceptable. Blood pressure is acceptable. No signs or symptoms of uremia. Plan Check renal panel. Encouraged her to stay on low-sodium diet. Continue to avoid nephrotoxic agents including NSAIDs. I have asked her to bring all her medications during the next visit for reconciliation. Continue with amlodipine to optimize blood pressure. Check urine protein creatinine ratio and we will consider restarting her back on losartan. All questions were answered. She returned to the office in the next few weeks. Orders: Orders Complete Blood Count no Diff Today I10 - Essential (primary) hypertension, N18.9 - Chronic kidney disease, unspecified Comprehensive Met. Panel Today I10 - Essential (primary) hypertension, N18.9 - Chronic kidney disease, unspecified Creatinine Urine Today I10 - Essential (primary) hypertension, N18.9 - Chronic kidney disease, unspecified UA and rflx microscopic Today I10 - Essential (primary) hypertension, N18.9 - Chronic kidney disease, unspecified Vitamin D 25-OH Total Today I10 - Essential (primary) hypertension, N18.9 - Chronic kidney disease, unspecified Coding Level of Care Code Est Pt Level 4 (98373) Diagnoses CKD (chronic kidney disease) N18.9 Primary hypertension I10 Hypertension type: primary hypertension
--- OUTSIDE RECORDS SUMMARY | 2024-11-27 18:39 | XMS_ITS | Encounter Summary ---
Author Organization [facility] [place] [address] Care Team Providers Care Call Center Team Leader Name Role Phone Manju Najera MD Primary Care Provider [phone] Encounter Details Date Type Department Care Team (Late st Contact Info) Description 09/24/2024 Lab Requisition [facility] - Main Lab [address] [facility] [place] [address] Star Michael MD [address] [place] [address], [phone] Essential (primary) hypertension Social History Tobacco [...] Care Team (Late st Contact Info) Description 12/03/2024 11:45 AM EDT Office Visit Pulmonolgy - [place] 175 [facility] [address] [place] [address] Carol Castellano MD 175 [facility] [address] [place], [place] [id number] 03/12/2025 9:45 AM EDT Office Visit Internal Medicine - [place] 175 [facility] [address] [place] [phone] Manju Najera MD 175 [facility] [address] [place] [address] documented as of this encounter Procedures Procedure Name Priority Date/Time Associated Diagnosis Comments COMPLETE BLOOD COUNT Routine 09/24/2024 6:36 AM EDT Essential (primary) hypertension BASIC METABOLIC PANEL Routine 09/24/2024 6:36 AM EDT Essential (primary) hypertension documented in this encounter Results * (ABNORMAL) Basic metabolic panel (09/24/2024 6:36 AM EDT) Sodium 138 133 - 145 mmol/L LAB CHEMISTRY METHOD 09/24/2024 1:02 PM [facility] Potassium 4.0 3.5 - 5.5 mmol/L LAB CHEMISTRY METHOD 09/24/2024 1:02 PM [facility] Chloride 104 96 - 110 mmol/L LAB CHEMISTRY METHOD 09/24/2024 1:02 PM [facility] CO2 23 21 - 32 mmol/L LAB CHEMISTRY METHOD 09/24/2024 1:02 PM [facility] Anion Gap 11 3 - 11 LAB CHEMISTRY METHOD 09/24/2024 1:02 PM [facility] Glucose 75 70 - 100 mg/dL LAB CHEMISTRY METHOD 09/24/2024 1:02 PM [facility] BUN 64(H) 5 - 25 mg/dL LAB CHEMISTRY METHOD 09/24/2024 1:02 PM [facility] Creatinine 3.29(H) 0.50 - 1.10 mg/dL LAB CHEMISTRY METHOD 09/24/2024 1:02 PM [facility] eGFR 14(L) >=60 mL/min/1. 73m2 LAB CHEMISTRY METHOD 09/24/2024 1:02 PM EDT [facility] Comment:Calculation based on the??Chronic Kidney Disease Epidemiology Collaboration (CKD-EPI) equation refit??without adjustment for race. BUN/Creatinine Ratio 19.5 LAB CHEMISTRY METHOD 09/24/2024 1:02 PM EDT [facility] Calcium 9.4 8.5 - 10.5 mg/dL LAB CHEMISTRY METHOD 09/24/2024 1:02 PM EDT [facility] Blood Venous blood specimen / Unknown Venipuncture / Unknown 09/24/2024 6:36 AM EDT 09/24/2024 10:24 AM EDT us Star Michael MD LAB BLOOD ORDERABLES Final Resul t [facility] [address] [place] [address], * (ABNORMAL) Complete blood count (09/24/2024 6:36 AM EDT) WBC 10.2 4.8 - 10.8 K/mcL LAB [facility]EMET[facility] RBC 4.80 3.80 - 4.80 M/mcL LAB HEMETOLOGY METHOD 09/24/2024 12:29 PM EDT [facility] Hemoglobin 13.3 11.5 - 16.0 g/dL LAB HEMETOLOGY METHOD 09/24/2024 12:29 PM EDT [facility] Hematocrit 45.3 35.0 - 47.0 % LAB HEMETOLOGY METHOD 09/24/2024 12:29 PM EDT [facility] MCV 93.6 79.0 - 98.0 FL LAB HEMETOLOGY METHOD 09/24/2024 12:29 PM [facility] MCH 27.5 27.0 - 32.0 pcg LAB HEMETOLOGY METHOD 09/24/2024 12:29 PM EDT [facility] MCHC 29.4(L) 32.0 - 37.0 g/dL LAB HEMETOLOGY METHOD 09/24/2024 12:29 PM EDT [facility] RDW 15.7(H) 11.0 - 15.0 % LAB HEMETOLOGY METHOD 09/24/2024 12:29 PM EDT [facility] Platelets 168 130 - 400 K/mcL LAB HEMETOLOGY METHOD 09/24/2024 12:29 PM EDT [facility] MPV 12.1(H) 7.0 - 11.0 FL LAB HEMETOLOGY METHOD 09/24/2024 12:29 PM EDT [facility] NRBC 0.0 <1.0 % LAB HEMETOLOGY METHOD 09/24/2024 12:29 PM EDT [facility] NRBC Absolute 0.00 <0.10 K/mcL LAB HEMETOLOGY METHOD 09/24/2024 12:29 PM EDT [facility] Blood Venous blood specimen / Unknown Venipuncture / Unknown 09/24/2024 6:36 AM EDT 09/24/2024 10:24 AM EDT us Star Michael MD LAB BLOOD ORDERABLES Final Resul t [facility] [address] [place] [address], documented in this encounter Visit Diagnoses Diagnosis Essential (primary) hypertension Unspecified essential hypertension documented in this encounter Care Teams Call Center Team Leader Relationship Specialty Start Date End Date Manju Najera MD [address] [phone] PCP - General Internal Medicine 04/18/18 documented as of this encounter
== END 2024-11-27 15:46 | disposition home or self-care (01) ==
LOC: HO.HKA 15:33
PROVIDERS: PCP Internal Medicine; Visit Provider Internal Medicine Hypertension Specialist
DX: I12.9 Hypertensive chronic kidney disease with stage 1 through stage 4 chronic kidney disease, or unspecified chronic kidney disease (principal); N18.9 Chronic kidney disease, unspecified
CPT/HCPCS: 99214

== ENCOUNTER → 2024-11-27 15:32 | Outpatient (BNVA) | payer OTHER, SELFPAY | PROVIDERS: PCP Internal Medicine; Visit Provider Internal Medicine Hypertension Specialist | DX: N18.9 Chronic kidney disease, unspecified (principal); I10 Essential (primary) hypertension | CPT/HCPCS: 99212 ==

== ENCOUNTER 2025-01-14 07:41 | Outpatient (REF) | payer OTHER, SELFPAY ==
--- OUTSIDE RECORDS SUMMARY | 2025-01-14 07:43 | XMS_ITS | Data Portability ---
Author Organization [facility] [employer] [facility], Main Office Address [address] [place] [address] Care Team Providers Care Typesetter Apprentice Name Role Phone KATHLEEN MCCANN - 2ND FLOOR OTHER WALLY OBRIEN Primary Care Provider Assessment Encounter Date Assessment Date Assessment LastModified by Organization Details LastModified Time 10/16/2024 10/16/2024 45 minutes spent on coordination of discharge. [email or web address] Not available 10/16/2024 14:24:58 Plan of Treatment Reminders Order Date Submit Date Provider Last Modified By Organization Details Last Modified Time Details Appointments None record ed. Lab None record ed. Referral None record ed. Procedures None record ed. Surgeries None record ed. Imaging None record ed. Medication Orders None record ed. Patient TargetsNo targets recorded. Patient InstructionsNo instructions recorded. Reason for Referral None Reported. Problems Name Problem SNOMED Code Status Onset Date Resolution Date Notes Provider Name and Address Organization Details Recorded Time Acute hypoxemic respiratory failure 764008023 Active 2024 COTY TONEY NP [address], [place], [address], [facility] 5 16:03:51 Obstructive sleep apnea syndrome 79372789 Active 2024 COTY TONEY NP [address], [address], [place], [address], [facility] [employer] 5 16:03:57 Pulmonary hypertension 61183845 Active 2024 COTY TONEY NP [address], [address], [place], [address], [facility] [employer] 5 16:04:07 Diastolic dysfunction 7405930 Active 2024 COTY TONEY NP [address], [address], [place], [address], [facility] 5 16:04:19 Asthenia 58109526 Active 2024 COTY TONEY NP [address], [address], [place], [address], [facility] - [facility] 5 16:04:25 Chronic obstructive pulmonary disease 13256980 Active 2024 COTY TONEY NP [address], [address], [place], [address], [facility] - [facility] 5 16:04:33 Hypertensive disorder 72286650 Active 2024 COTY TONEY NP [address], [address], [place], [address], [facility] - [facility] 5 16:04:40 Hyperlipidemia 17870653 Active 2024 COTY TONEY NP [address], [address], [place], [address], [facility] - [facility] 5 16:04:48 Obesity 877038565 Active 2024 COTY TONEY NP [address], [address], [place], [address], [facility] 5 16:04:56 History of deep vein thrombosis 266984141 Active 2024 COTY TONEY NP [address], [address], [place], [address], [facility] 5 16:05:04 Dysphagia 21257523 Active 2024 COTY TONEY NP [address], [address], [place], [address], [facility] 5 16:06:22 Mixed anxiety and depressive disorder 494139394 Active 2024 COTY TONEY NP [address], [address], [place], [address], [employer] [facility] 5 16:06:46 Osteoporosis 17262005 Active 2024 COTY TONEY NP [address], [address], [place], [address], [facility] 5 16:07:09 Vitamin D deficiency 41265140 Active 2024 COTY TONEY NP [address], [address], [place], [address], [facility] 5 16:07:23 Cobalamin deficiency 186575984 Active 2024 COTY TONEY NP [address], [address], [place], [address], [facility] 5 16:07:32 Overactive urinary bladder 518199172 Active 2024 COTY TONEY NP [address], [address], [place], [address], [facility] 5 16:07:49 Metabolic encephalopathy 26330711 Active 2024 COTY TONEY NP [address], [address], [place], [address], [facility] 5 14:05:49 Acute kidney injury 29099263 Active 2024 COTY TONEY NP [address], [address], [place], [address], [facility] 5 14:07:24 Problem Notes None recorded. Medical Equipment None Reported. Allergies No known drug allergies Medications Not known to be on any medication Vitals Date Recorded Heart rate Respiratory rate Body temperature Oxygen saturation Oxygen saturation in Arterial blood by Pulse oximetry Systolic And Diastolic Provider Name and Address Organization Details Last Updated DateTime 5 72 /min 18 /min 97.6 [degF] 96 % 96 % 118/76 mm[Hg] COTY TONEY NP [address], [address], [place], [address], [facility] 5 13:54:13 Date Recorded Body weight Heart rate Respiratory rate Body temperature Oxygen saturation Oxygen saturation in Arterial blood by Pulse oximetry Systolic And Diastolic Provider Name and Address Organization Details Last Updated DateTime 5 830233. 51 g 68 /min 18 /min 97.5 [degF] 97 % 97 % 128/74 mm[Hg] Zakiya Burgos NP [address], [address], [place], [address], [facility] 5 15:08:02 Date Recorded Heart rate Respiratory rate Body temperature Oxygen saturation Oxygen saturation in Arterial blood by Pulse oximetry Systolic And Diastolic Provider Name and Address Organization Details Last Updated DateTime 5 70 /min 18 /min 97.3 [degF] 94 % 94 % 128/74 mm[Hg] COTY TONEY NP [address] [facility], [address], [place], [address], [facility] 5 12:04:48 Date Recorded Heart rate Respiratory rate Body temperature Oxygen saturation Oxygen saturation in Arterial blood by Pulse oximetry Systolic And Diastolic Provider Name and Address Organization Details Last Updated DateTime 5 78 /min 20 /min 96.4 [degF] 94 % 94 % 127/73 mm[Hg] COTY TONEY NP [address] [facility] [facility], [facility] [address], [place], [address], [facility] 5 13:28:47 Date Recorded Body weight Heart rate Respiratory rate Body temperature Oxygen saturation Oxygen saturation in Arterial blood by Pulse oximetry Systolic And Diastolic Provider Name and Address Organization Details Last Updated DateTime 5 56683.7 3 g 76 /min 18 /min 97.8 [degF] 96 % 96 % 126/68 mm[Hg] Zakiya Burgos NP [address] [facility] [facility], [facility] [address], [place], [address], [facility] 5 07:57:40 Social History Question Answer Notes LastModified by Organizat ion Details LastModified Time Tobacco Smoking Status Former Smoker quit 2014 COTY TONEY NP [address] [facility] [facility], [facility] [address], [place], [address], [facility] 09/13/2024 16:26:15 What Is Your Code Status? Full Code Information not available 09/13/2024 Where Do You Live? Apartment [email or web address] Information not available 09/13/2024 Do You Have A Medical Power Of Melt House Supervisor? Yes Has HCP [email or web address] Information not available 09/13/2024 What Was The Date Of Your Most Recent Tobacco Screening? 09/13/2024 Information not available 09/13/2024 Do You Have An Out Of Hospital DNR? Yes Information not available 09/13/2024 Has Tobacco Cessation Counseling Been Provided? No [email or web address] Information not available 09/13/2024 Sex: Unknown Functional Status Question Answer Note LastModified by Organizat ion Details LastModified Time Do you use any illicit or recreational drugs? No [email or web address] Information not available 09/13/2024 Do you or have you ever used any other forms of tobacco or nicotine? No [email or web address] Information not available 09/13/2024 What is your level of alcohol consumption? None Information not available 09/13/2024 Mental Status None recorded. Family History Relationship Description Onset Age of this Age Resolved Age Notes LastModified by Organization Details LastModified Time Father Heart disease Not available 2024 16:25:54 Mother Heart disease [email or web address] Not available 2024 16:25:54 Notes:N/C Medical History No medical history recorded. Gynecological HistoryNo gynecological history recorded. Obstetrics History GPAL:G 0 P 0 0 0 0 Immunizations Vaccine Type Date Status Note Provider Nam e and Address Organization Details Recorded Time Respiratory syncytial virus (RSV) MAB, unspecified 4 completed Sergey Christian [facility] 09/13/2024 14:34:11 influenza nasal, unspecified formulation 4 completed Sergey Christian [facility] 09/13/2024 14:34:22 Pneumococcal conjugate PCV 13 4 completed Sergey Christian [facility] 09/13/2024 14:34:38 Pneumococcal conjugate PCV15, polysaccharide [id number] conjugate, adjuvant, PF 9 completed Sergey Christian [facility] 09/13/2024 14:34:59 influenza, unspecified formulation 9 completed Sergey Christian [facility] 09/13/2024 14:35:28 influenza, unspecified formulation 1 completed Sergey Christian [facility] 09/13/2024 14:35:32 influenza, unspecified formulation 2 completed Sergey lee, [facility] 09/13/2024 14:35:36 SARS-COV-2 (COVID-19) vaccine, UNSPECIFIED 1 completed Sergey lee, [facility] 09/13/2024 14:35:50 SARS-COV-2 (COVID-19) vaccine, UNSPECIFIED 1 completed Sergey Christian [facility] 09/13/2024 14:35:55 Past Encounters Encounter ID Performer Location Encounter Start Date Encounter Closed Date Diagnosis/Indication Diagnosis SNOMED-CT Code Diagnosis ICD10 Code Diagnosis Note [id number] COTY TONEY NP [address] [address] 09/13/2024 15:56:56 09/17/2024 11:30:16 Acute hypoxemic respiratory failure 118821127 J96.01 [place] related to CHF, pHTN, COPDRequir ed intubation , responded well to lasix and diamox.Мария k to home O2 2-3LMonito r closely, continue meds for mentioned issues. Asthenia 53090867 R53.1 PT OT eval and tx.Decondi tioned due to acute illness and hospitaliz ationGoal is to return home to [facility] Chronic ob structive pulmonary disease 31049395 J44.9 Chronic O2 use, 2-3L at home, continue Also on Trelegy Ellipta 100-62.5-2 5 mcg 1 inh. qdMonitor resp. status Diastolic dysfunction 35 72036 I51.9 Continue:a cetazolami de 250 mg bid (new)lasix 40 mg qdLow salt dietdaily weightscbc , bmp q wed x 3Monitor closely for decompensa tion Dysphagia 91660258 R13.1 0 concern for mild dysphagia in hosp. s/p extubation and no teethseen by MARKETING OPERATIONS INTERN, diet changed to mech ground, thin liquids.Re rafael to MARKETING OPERATIONS INTERN here, advance diet as jossue. Obstructiv e sleep apnea syndrome 31826011 G47.33 Continue CPAP Mixed anxi ety and depressive disorder 724670953 F41.8 Continue home meds:parox etine 60 mg qdtrazodon e 200 mg q hshydroxyz ine 10 mg tid prnmelaton in 5 mg q hsMonitor mood, behaviors, sleep.Psyc h eval prn Hypertensive disorder 38 201204 I10 Continue:l osartan 50 mg qdlasix 40 mg qdMonitor VS, labs History of deep vein thrombosis 536707360 Z86.718 Continue eliquis 2.5 mg bidMonitor bleeding risk Hyperlipidemia 34696447 E78.5 Not on meds at this time Cobalamin deficiency 190 527123 E53.8 continue B 12 1000 mcg qd Osteoporosis 49260036 M8 1.0 continue fosamax 70 mg q tuesday Overactive urinary bladder 220801060 N32.81 Continue home meds:Detro l LA 4 mg qdVit C 500 mg qdMyrbetri q 50 mg qdMonitor voiding Pulmonary hypertension 57810722 I27.20 Continue lasix 40 mg qdMonitor VS, fluid balance, labs Vitamin D deficiency 347 46062 E55.9 Continue Vitamin D 2000 U qd [id number] Star Michael MD [address] [address] 09/23/2024 11:08:11 10/01/2024 11:03:39 Acute hypoxemic respiratory failure 979608390 J96.01 see HPI secondary to copd and chf exacerbati onrequired intubation now on home O2 by n/cmonitor respirator y statusupda te pulmonary with concerns Diastolic dysfunction 35 38844 I50.33 lasix 40 mg qdmonitor respirator y and fluid statusupda te cards with concerns Chronic ob structive pulmonary disease 40240107 J44.1 continue out patient medication smonitor role for steroidson O2 at baseline Obstructiv e sleep apnea syndrome 72316322 G47.33 Continue CPAP machine at facility Dysphagia 59660144 R13.1 0 post intubation speech to evalmonito r aspiration risk and need to adjust diet Asthenia 40566913 R53.1 PT OT Eval and treatmonit or fall risk and need for increased support in community Mixed anxi ety and depressive disorder 789803995 F41.8 stable on out patient medication sadded to PMHmonitor moodpsych eval prn Hypertensive disorder 38 719987 I10 norvasc 5 mg qdlasix 40 mg qdmonitor bp and need to titrate History of deep vein thrombosis 909899760 Z86.718 eliquis 2.5 mg bidcontinu ed Hyperlipidemia 50143734 E78.5 diet controlled Osteoporosis 93979221 M8 1.0 fosamax 70 mg q weekcontin ued [id number] COTY TONEY NP [address] [address] 09/25/2024 13:34:51 10/01/2024 11:47:09 Acute hypoxemic respiratory failure 094191894 J96.01 [place] related to CHF, pHTN, COPD during prior hosp.Requi red intubation , responded well to lasix and diamox.Now off diamox due to renal failure.Ba ck to home O2 2-3L, CPAP at night and with naps.Monit or closely, continue meds for mentioned issues. Diastolic dysfunction 35 80697 I51.9 Continue lasix 40 mg qdStopped acetazolam katina 250 mg bid during this most recent hosp., at least until ok'd by Renal to restart.Lo w salt dietdaily weights and VScbc, bmp q tuesdayMoni tor closely for decompensa tion Pulmonary hypertension 77343108 I27.20 Continue lasix 40 mg qdMonitor VS, fluid balance, labs Chronic ob structive pulmonary disease 55855592 J44.9 Chronic O2 use, 2-3L at home, continue Also on Trelegy Ellipta 100-62.5-2 5 mcg 1 inh. qdMonitor resp. status Obstructiv e sleep apnea syndrome 33028174 G47.33 Continue CPAP Asthenia 94215229 R53.1 PT OT eval and tx.Decondi tioned due to acute illness and hospitaliz ationGoal is to return home to [facility] Metabolic encephalopathy 87074516 G93.41 [place] due to renal failure, now improved.M onitor VS, labs, cognition for change. Acute kidney injury 1466 9001 N17.9 [place] due to ATN.Follow ed by [place] [facility]quir [place] short term dialysis with improvemen t in labsLosart an stopped.Di amox on hold until OK'd by renalConsandrine hernandez to monitorBMP q tuesdayAvoi d nephrotoxi csFollow up with [facility] Nephro Hypertensive disorder 38 457534 I10 Meds adjusted in hosp. due to AKILosarta n 50 mg qd stopped.Re sasha on lasix 40 mg qdNorvasc 5 [facility] [id number] COTY TONEY NP [address] [address] 10/02/2024 13:10:22 10/08/2024 08:48:07 Metabolic encephalopathy 70739145 G93.41 [place] due to renal failure, now resolved.V SSLabs improvingM onitor VS, labs, cognition for change. Acute kidney injury 1466 9001 N17.9 [place] due to ATN.Follow ed by [place] at [facility]Requir ed short term dialysis with improvemen t in labsLosart an stopped.Di amox on hold until OK'd by renalConsandrine hernandez to monitorBMP q tuesday - improvingA void nephrotoxi csFollow up with [facility]phro - appt. requested again. Acute hypo xemic respiratory failure 116552374 J96.01 [place] related to CHF, pHTN, COPD during prior hosp.Requi red intubation , responded well to lasix and diamox.Now off diamox due to renal failure.Ba ck to home O2 2-3L, CPAP at night and with naps.Monit or closely, continue meds for mentioned issues. Hypertensive disorder 38 607252 I10 Meds adjusted in hosp. due to AKILosarta n 50 mg qd stopped.Re sasha on lasix 40 mg qdNorvasc 5 mg [facility]d [facility], [facility] - BP a little low today but others in good range. Diastolic dysfunction 35 23037 I51.9 Continue lasix 40 mg qdStopped acetazolam katina 250 mg bid during this most recent hosp., at least until ok'd by Renal to restart.Lo w salt dietdaily weights and VS - re-request edcbc, bmp q tuesdayMoni tor closely for decompensa tionBNP 14 Pulmonary hypertension 63796685 I27.20 Continue lasix 40 mg qdMonitor VS, fluid balance, labs Chronic ob structive pulmonary disease 61485662 J44.9 Chronic O2 use, 2-3L at home, continue Also on Trelegy Ellipta 100-62.5-2 5 mcg 1 inh. qdMonitor resp. status, currently doing well. Obstructiv e sleep apnea syndrome 81467242 G47.33 Continue CPAP Asthenia 72292090 R53.1 PT OT eval and tx.Sarah tioned due to acute illness and hospitaliz Conrad is to return home to [facility] [id number] Zakiya Burgos NP [facility] [address] 10/03/2024 19:41:31 10/08/2024 09:25:43 Pain of knee region 6749277307 M25.561 M25.562 G89.29 4/16startt ylenol 1000 mg po tidmuscle rub cream to bilateral knees bidmonitor consider dr patino consult if not relieved Chronic low back pain 27 5042910 M54.50 G89.29 4/16startt ylenol 1000 mg po tidlidocai ne patch 4% to lower back dailymonit or [id number] Star Michael MD [facility] [address] [address] 10/05/2024 12:18:52 10/08/2024 11:15:19 Diastolic dysfunction 0664513 I51.9 now with 5 lb weight gainwill continue on lasix 40 mg qdstart 2000 cc fluid restrictio ncontinue daily weightsmon itor respirator y and fluid statusupda te cards with concerns Chronic ob structive pulmonary disease 08635235 J44.9 on O2 at baselinecu rrently lungs clear Asthenia 40174571 R53.1 continue with therapymon itor fall risk and need for increased support in community History of deep vein thrombosis 046180330 Z86.718 eliquis 2.5 mg bidcontinu ed [id number] MARISELA BURK CNP [facility] [address] [address] 10/11/2024 09:19:39 10/17/2024 12:35:56 Diastolic dysfunction 4398630 I51.9 remains with 5 lb weight gain 222-223.5 lbcontinue on lasix 40 mg qdstarted 2000 cc fluid restrictio n, but patient non compliant. continue daily weightsmon itor respirator y and fluid statuscont inue monitor labsupdate cards with concerns Chronic ob structive pulmonary disease 78625211 J44.9 on O2 at baseline at 2-3L NC.current ly lungs clear Asthenia 18122326 R53.1 improvingc ontinue with therapymon itor fall risk and need for increased support in community History of deep vein thrombosis 551476679 Z86.718 eliquis 2.5 mg bidcontinu ed Acute hypo xemic respiratory failure 441473656 J96.01 related to CHF, pHTN, COPD during prior hosp.Requi red intubation , responded well to lasix and diamox.Now off diamox due to renal failure.Ba ck to home O2 2-3L, CPAP at night and with naps.edwar nue lasix 40 mg daily.vidal tor respirator y status and labs Hypertensive disorder 38 731325 I10 Meds adjusted in hosp. due to AKILosarta n 50 mg qd stopped.Re sasha on lasix 40 mg qdNorvasc 5 mg [facility]d [facility], labs - BP a little low today but others in good range. Obstructiv e sleep apnea syndrome 68104901 G47.33 Continue CPAP [id number] [facility] [address] 10/16/2024 13:25:23 10/19/2024 14:30:53 Acute hypoxemic respiratory failure 877646328 J96.01 related to CHF, pHTN, COPD during prior hosp.Requi red intubation , responded well to lasix and diamox.Now off diamox due to renal failure.Ba ck to home O2 2-3L, CPAP at night and with naps.edwar nue lasix 40 mg daily upon discharge. monitor respirator y status and labs as outpt. Diastolic dysfunction 35 38818 I51.9 weight range 220-222 lbs.euvole meenu, LS CTAcontinu e on lasix 40 mg qdstarted 2000 cc fluid restrictio n, encourage compliance .continue daily weights upon dischargem onitor respirator y and fluid status as oupt.edwar nue monitor labsupdate Cards with concerns Chronic ob structive pulmonary disease 24772051 J44.9 on O2 at baseline at 2-3L NC.current ly lungs clearConti nue Trelegy Asthenia 29128205 R53.1 Working with PT OTMeting goals for d/c home with support of services tomorrow History of deep vein thrombosis 365232400 Z86.718 eliquis 2.5 mg bidcontinu ed Hypertensive disorder 38 087844 I10 Meds adjusted in hosp. due to AKILosarta n 50 mg qd stopped.Re sasha on lasix 40 mg qdNorvasc 5 mg [facility]d [facility]. Obstructiv e sleep apnea syndrome 80833389 G47.33 Continue CPAP Pain of knee region 1003 116448 M25.561 M25.562 G89.29 Continue tylenol 1000 mg po tid Chronic low back pain 27 9730667 M54.50 G89.29 Continue tylenol 1000 mg po tidlidocai ne patch 4% to lower back daily Acute kidney injury 1466 9001 N17.9 [place] due to ATN.Follow ed by [place] [facility]quir ed short term dialysis with improvemen t in labsLosart an stopped.Di amox on hold until OK'd by renalConsandrine hernandez to monitorBMP improving while hereAvoid nephrotoxi csFollow up with [facility]phro - appt. requested again. Mixed anxi ety and depressive disorder 569614309 F41.8 Continue home meds:parox etine 60 mg qdtrazodon e 200 mg q hshydroxyz ine 10 mg tid prnmelaton in 5 mg q hsMonitor mood, behaviors, sleep.Psyc h eval prn Overactive urinary bladder 567695369 N32.81 Continue home meds:Detro l LA 4 mg qdVit C 500 mg qdMyrbetri q 50 mg qdMonitor voiding [id number] [facility] [address] 10/17/2024 15:07:23 10/22/2024 08:37:22 Acute hypoxemic respiratory failure 430801635 J96.01 related to CHF, pHTN, COPD during prior hosp.Requi red intubation , responded well to lasix and diamox.cur rently off diamox due to renal failure.Ba ck to home O2 2-3L, CPAP at night and with naps.edwar nuelasix 40 mg dailymonit or respirator y status and labs prn Diastolic dysfunction 35 10374 I51.9 weight range 220-222 lbs.euvole meenu, LS CTAcontinu elasix 40 mg sh9732 cc fluid restrictio n, encourage compliance .continue daily weightsmon itor respirator y and fluid statuscont inue monitor labsupdate Cards with concerns Acute kidney injury 1466 9001 N17.9 [place] due to ATN.Follow ed by Renal at [facility]Requir ed short term dialysis with improvemen t in labsLosart an stopped. and Diamox on hold until OK'd by renalConsandrine hernandez to monitorBMP improving while hereAvoid nephrotoxi csFollow up with [facility] - appt. requested again. Asthenia 24002955 R53.1 Working with PT Emma negron for need to add services in community Chronic ob structive pulmonary disease 55439436 J44.9 on O2 at baseline at 2-3L NC.cpap at nightcurre ntly lungs clear with upper airway congestion /rhinorhea ContinueTr elegy Acute COVID-19 840539986 8 U07.1 pt with covid postive test result Due to severe lung disease with CHF/COPD/r ecent hospitaliz ations and intubation s will recstartmu cinex dm po bid x daysduoneb s prn x 10 daysmolnup iravir 800 mg po bid x 5 dayszofran , robitussin , cepacol, salt water gargles, immodium prnencoura ge po fluidsisol ation per facility protocolmo nitormonit or for need to send to ER and respirator y statusmoni tor for need to start steriods [id number] [facility] [place] [address] 10/18/2024 11:34:46 10/22/2024 08:58:52 Acute COVID-19 2762397852 U07.1 Tested positive 10/17Due to high risk of complicati ons due to multiple comorbidit ies, molnupirav ir 800 mg bid x 5d started.Al so started meds for sx:mucinex dm po bid x 7 daysduoneb s prn x 10 dayszofran , robitussin , cepacol, salt water gargles, immodium prn As currently with a mild wheeze, will sched. duonebs tid x 3 days in add. to prn order, may need to consider steroidsMo nitor closelyenc ourage po fluidsisol ation per facility protocolTo ER if continued to decline. Acute hypo xemic respiratory failure 024147733 J96.01 related to CHF, pHTN, COPD during prior hosp.Requi red intubation , responded well to lasix and diamox.Now off diamox due to renal failure. Can restart at discretion of Renal.Back to home O2 2-3L, CPAP at night and with naps.edwar nue lasix 40 mg daily upon discharge. monitor respirator y status and labs as outpt. Diastolic dysfunction 35 97886 I51.9 weight range 220-222 lbs.euvole meenu, LS CTAcontinu e on lasix 40 mg qdas above, off diamox due to ARF, refer to Renal re: restarting started 2000 cc fluid restrictio n, encourage compliance .continue daily weights upon dischargem onitor respirator y and fluid status as oupt.edwar nue monitor labsupdate Cards with concerns Acute kidney injury 1466 9001 N17.9 [place] due to ATN.[place] ed [place] [facility]quir [place] short term dialysis with improvemen t in labsLosart an stopped.Di amox on hold until OK'd by renalConsandrine hernandez to monitorBMP improving while hereAvoid nephrotoxi csFollow up with [facility] [place]phro - appt. requested again. Chronic ob structive pulmonary disease 74180539 J44.9 on O2 at baseline at 2-3L NC.Continu e Trelegy History of deep vein thrombosis 452873973 Z86.718 eliquis 2.5 mg bidcontinu ed Hypertensive disorder 38 694894 I10 Meds adjusted in hosp. due to AKILosarta n 50 mg qd stopped.Re sasha on lasix 40 mg qdNorvasc 5 [facility] Obstructiv e sleep apnea syndrome 79659048 G47.33 Continue CPAP Pain of knee region 1003 204500 M25.561 M25.562 G89.29 Continue tylenol 1000 mg po tid Chronic low back pain 27 6908715 M54.50 G89.29 Continue tylenol 1000 mg po tidlidocai ne patch 4% to lower back daily Mixed anxi ety and depressive disorder 576280863 F41.8 Continue home meds:parox etine 60 mg qdtrazodon e 200 mg q hshydroxyz ine 10 mg tid prnmelaton in 5 mg q hsMonitor mood, behaviors, sleep.Psyc h eval prn Overactive urinary bladder 909250746 N32.81 Continue home meds:Detro l LA 4 mg qdVit C 500 mg qdMyrbetri q 50 mg qdMonitor voiding [id number] [facility] TONE[facility] [address] 10/23/2024 13:27:48 10/25/2024 13:02:29 Acute COVID-19 [id number] U07.1 Improved.T ested positive 10/17Due to high risk of complicati ons r/t multiple comorbidit ies, treated with molnupirav ir 800 mg bid x 5d, now complete.M onitor closelyenc ourage po fluidsisol ation per facility protocol Acute hypo xemic respiratory failure 283158307 J96.01 related to CHF, pHTN, COPD during prior hosp.Requi red intubation , responded well to lasix and diamox.Now off diamox due to renal failure. Can restart at discretion of Renal.Back to home O2 2-3L, CPAP at night and with naps.edwar nue lasix 40 mg daily upon discharge. monitor respirator y status and labs as outpt. Diastolic dysfunction 35 26799 I51.9 weight range 220-222 lbs.euvole meenu, LS CTAcontinu e on lasix 40 mg qdas above, off diamox due to ARF, refer to Renal re: restarting started 2000 cc fluid restrictio n, encourage compliance .continue daily weights upon dischargem onitor respirator y and fluid status as oupt.edwar nue monitor labsupdate Cards with concerns Acute kidney injury 1466 9001 N17.9 [place] due to ATN.Follow ed by [place] [facility]quir ed short term dialysis with improvemen t in labsLosart an stopped.Di amox on hold until OK'd by renalConsandrine hernandez to monitorBMP improving while hereAvoid nephrotoxi csFollow up with [facility] [place]phro - appt. requested again. Chronic ob structive pulmonary disease 54040687 J44.9 on O2 at baseline at 2-3L NC.Continu e Trelegy History of deep vein thrombosis 899698116 Z86.718 eliquis 2.5 mg bidcontinu ed Hypertensive disorder 38 144350 I10 Meds adjusted in hosp. due to AKILosarta n 50 mg qd stopped.Re sasha on lasix 40 mg qdNorvasc 5 [facility]. 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 radiationA lso with left shoulder pain.New concern, back pain x days, shoulder pain today. Suspect muscle spasm, pinched nerve/radi culopathy, or possible VCF Plan -X ray cervical and thoracic spine as well as left shoulder.S tart oxycodone 5 mg q8h prn for painPredni sone 40 mg qd x 4 daysConsid er tizanidine for spasms 417833 Zakiya Burgos [facility] [address] 10/25/2024 07:56:46 11/05/2024 08:17:23 Neck pain 06389694 M54.2 Upper back/lower neck area, central spine with some bilat. radiation now resolving with left shoulder pain.Newer concern started on 5/6xrays to back back pain x days, shoulder pain today. Suspect muscle spasm, pinched nerve/radi culopathy, or possible VCFX ray cervical and thoracic spine as well as left shoulder unremarkab le for fractures with degenerati ve changes noted.cont oxycodone 5 mg q8h prn for pain to use sparing with 12 tabs on dcPredniso ne 40 mg qd x 4 daysfu outpt with pcp and rheumatolo gist Acute COVID-19 [id number] 8 U07.1 resolved and asymptomat icTested positive 10/17Due to high risk of complicati ons r/t multiple comorbidit ies, treated with molnupirav ir 800 mg bid x 5d, now complete. Acute hypo xemic respiratory failure 050158678 J96.01 related to CHF, pHTN, COPD during prior hosp.Requi red intubation , responded well to lasix and diamox.Now off diamox due to renal failure. Can restart at discretion of Renal. fu appt coming up outptBack to home O2 2-3L, CPAP at night and with naps.edwar nue lasix 40 mg daily upon discharge. monitor respirator y status and labs as outpt with pcp Diastolic dysfunction 35 89158 I51.9 weight range 220-222 lbs.euvole meenu, LS CTAcontinu e on lasix 40 mg qdas above, off diamox due to ARF, refer to Renal re: restarting 2000 cc fluid restrictio n, encourage compliance .continue daily weights upon dischargem onitor respirator y and fluid status as oupt.edwar nue monitor labsupdate Cards with concerns and fu with pcp outpt Acute kidney injury 1466 9001 N17.9 [place] due to ATN.Follow ed by [place] [facility]quir ed short term dialysis with improvemen t in labsLosart an stopped.Di amox on hold until OK'd by renalConsandrine hernandez to monitorBMP improving while hereAvoid nephrotoxi csFollow up with [facility] [place] - appt. sceduled outpt Chronic ob structive pulmonary disease 20642980 J44.9 on O2 at baseline at 2-3L NC.Continu e Trelegyfu with pcp outpt History of deep vein thrombosis 815413045 Z86.718 eliquis 2.5 mg bidcontinu ed Hypertensive disorder 38 390697 I10 Meds adjusted in hosp. due to KELECHI, Losartan 50 mg qd stopped.co ntlasix 40 mg qdNorvasc 5 mg [facility]d [facility] with [facility] Obstructiv e sleep apnea syndrome 46406570 G47.33 Continue CPAP Pain of knee region 1003 456966 M25.561 M25.562 G89.29 Continue tylenol 1000 mg po tidmonitor outpt with pcp Chronic low back pain 27 3729205 M54.50 G89.29 Continuety lenol 1000 mg po tidlidocai ne patch 4% to lower back dailymonit or outpt with pcp Mixed anxi ety and depressive disorder 608329618 F41.8 Continue home meds:parox etine 60 mg qdtrazodon e 200 mg q hshydroxyz ine 10 mg tid prnmelaton in 5 mg q hsMonitor mood, behaviors, sleep.Psyc h eval prnfu with pcp outpt Overactive urinary bladder 207471721 N32.81 Continue home meds:Detro l LA 4 mg qdVit C 500 mg qdMyrbetri q 50 mg qdMonitor voiding and fu with pcp outpt Health Concerns Section Related Observation LastModified by Organization Detai ls LastModified Time None Recorded Concern Status LastModified by Organization Details LastModified Time None Recorded Advance Directives Directive None Recorded Payers Insurance Date Sequence Insurance Name Policy Number Policy Rosenbaum Covered Member ID Rosenbaum Member ID Guarantor Name 11/05/2024 1 [facility]LY [facility] (MEDICAID HMO) Jannet Chavez [id number] Jannet Chavez OBGyn Episode No OBEpisode recorded.
--- OUTSIDE RECORDS SUMMARY | 2025-01-14 07:43 | XMS_ITS | Encounter Summary ---
Author Organization [facility] [place] [address] Care Team Providers Care Second Class Welder Name Role Phone Manju Najera MD Primary Care Provider [phone] Encounter Details Date Type Department Care Team (Late st Contact Info) Description 09/24/2024 Lab Requisition [facility] - Main Lab [address] [facility] [place] [address] Star Michael MD [address] [place] [address], [phone] Essential (primary) hypertension Social History Tobacco [...] Care Team (Late st Contact Info) Description 03/06/2025 9:30 AM EDT Office Visit Pulmonolgy - [place] 175 [facility] 200 [place] [address] Carol Castellano MD 175 [facility] 200 [place], [place] [phone] 03/12/2025 9:45 AM EDT Office Visit Internal Medicine - [place] 175 [facility] 200 [place] [phone] Manju Najera MD 175 [facility] [place] [address] [place] [address] documented as of this encounter Procedures Procedure Name Priority Date/Time Associated Diagnosis Comments COMPLETE BLOOD COUNT Routine 09/24/2024 6:36 AM EDT Essential (primary) hypertension BASIC METABOLIC PANEL Routine 09/24/2024 6:36 AM EDT Essential (primary) hypertension documented in this encounter Results * (ABNORMAL) Basic metabolic panel (09/24/2024 6:36 AM EDT) Sodium 138 133 - 145 mmol/L LAB CHEMISTRY METHOD 09/24/2024 1:02 PM [facility] Potassium 4.0 3.5 - 5.5 mmol/L LAB CHEMISTRY METHOD 09/24/2024 1:02 PM [facility] Chloride 104 96 - 110 mmol/L LAB CHEMISTRY METHOD 09/24/2024 1:02 PM [facility] CO2 23 21 - 32 mmol/L LAB CHEMISTRY METHOD 09/24/2024 1:02 PM [facility] Anion Gap 11 3 - 11 LAB CHEMISTRY METHOD 09/24/2024 1:02 PM [facility] Glucose 75 70 - 100 mg/dL LAB CHEMISTRY METHOD 09/24/2024 1:02 PM [facility] BUN 64(H) 5 - 25 mg/dL LAB CHEMISTRY METHOD 09/24/2024 1:02 PM [facility] Creatinine 3.29(H) 0.50 - 1.10 mg/dL LAB CHEMISTRY METHOD 09/24/2024 1:02 PM [facility] eGFR 14(L) >=60 mL/min/1. 73m2 LAB CHEMISTRY METHOD 09/24/2024 1:02 PM EDT [facility] Comment:Calculation based on the Chronic Kidney Disease Epidemiology Collaboration (CKD-EPI) equation refit without adjustment for race. BUN/Creatinine Ratio 19.5 LAB CHEMISTRY METHOD 09/24/2024 1:02 PM EDT [facility] Calcium 9.4 8.5 - 10.5 mg/dL LAB CHEMISTRY METHOD 09/24/2024 1:02 PM EDT [facility] Blood Venous blood specimen / Unknown Venipuncture / Unknown 09/24/2024 6:36 AM EDT 09/24/2024 10:24 AM EDT us Star Michael MD LAB BLOOD ORDERABLES Final Resul t [facility] [address] [place] [address], * (ABNORMAL) Complete blood count (09/24/2024 6:36 AM EDT) WBC 10.2 4.8 - 10.8 K/mcL LAB HEMETOLOGY METHOD 09/24/2024 12:29 PM [facility] RBC 4.80 3.80 - 4.80 M/mcL LAB HEMETOLOGY METHOD 09/24/2024 12:29 PM [facility] Hemoglobin 13.3 11.5 - 16.0 g/dL LAB HEMETOLOGY METHOD 09/24/2024 12:29 PM T [facility] Hematocrit 45.3 35.0 - 47.0 % LAB HEMETOLOGY METHOD 09/24/2024 12:29 PM [facility] MCV 93.6 79.0 - 98.0 FL LAB HEMETOLOGY METHOD 09/24/2024 12:29 PM [facility] MCH 27.5 27.0 - 32.0 pcg LAB HEMETOLOGY METHOD 09/24/2024 12:29 PM EDT [facility] MCHC 29.4(L) 32.0 - 37.0 g/dL LAB HEMETOLOGY METHOD 09/24/2024 12:29 PM EDT [facility] RDW 15.7(H) 11.0 - 15.0 % LAB HEMETOLOGY METHOD 09/24/2024 12:29 PM EDT [facility] Platelets 168 130 - 400 K/mcL LAB HEMETOLOGY METHOD 09/24/2024 12:29 PM EDT [facility] MPV 12.1(H) 7.0 - 11.0 FL LAB HEMETOLOGY METHOD 09/24/2024 12:29 PM EDT [facility] NRBC 0.0 <1.0 % LAB HEMETOLOGY METHOD 09/24/2024 12:29 PM EDT [facility] NRBC Absolute 0.00 <0.10 K/mcL LAB HEMETOLOGY METHOD 09/24/2024 12:29 PM EDT [facility] Blood Venous blood specimen / Unknown Venipuncture / Unknown 09/24/2024 6:36 AM EDT 09/24/2024 10:24 AM EDT us Star Michael MD LAB BLOOD ORDERABLES Final Resul t [facility] [address] [place] [address], documented in this encounter Visit Diagnoses Diagnosis Essential (primary) hypertension Unspecified essential hypertension documented in this encounter Care Teams Second Class Welder Relationship Specialty Start Date End Date Manju Najera MD [address] [address] PCP - General Internal Medicine 04/18/18 documented as of this encounter
[2025-01-14 10:19] LABS: Hematocrit 44.9 % (37.0-47.0); Hemoglobin 14.1 g/dl (12.0-16.0); Mean Corpuscular HGB Conc 31.4 g/dl (31.0-35.0); Mean Corpuscular Hemoglobin 32.3 pg (27.0-33.0); Mean Corpuscular Volume 103.0 fL (80.0-98.0); NRBC Abs Auto 0.000 X10*3/uL (0.0-0.012); NRBC Pct Auto 0.0 /100WBC (0.0-0.2); Platelet Count 185 X10*3/uL (160-400); Red Blood Count 4.36 X10*6/uL (4.20-5.50); White Blood Count 10.4 X10*3/uL (4.8-10.8)
[2025-01-14 10:27] LABS: Appearance Urine Clear; Glucose Urine UA Negative (Negative); PH 6.0 (5.0-9.0); Specific Gravity - Urine 1.020 (1.005-1.025)
[2025-01-14 10:47] LABS: Alanine Aminotransferase 30 U/L (0-31); Albumin Level 4.1 g/dL (3.5-5.0); Alkaline Phosphatase 82 U/L (39-117); Anion Gap 11 (12-20); Aspartate Amino Transferase 26 U/L (5-31); Blood Urea Nitrogen 17 mg/dL (9-16); Calcium 9.4 mg/dL (8.4-10.2); Carbon Dioxide 33 mmol/L (22-29); Chloride 104 mmol/L (96-108); Estimated Glomerular Filt Rate 56; Potassium 5.0 mmol/L (3.3-5.1); Sodium 143 mmol/L (135-145); Total Protein 7.2 g/dL (6.5-8.0)
== END 2025-01-14 07:42 | disposition home or self-care (01) ==
LOC: HO.10HDL 07:41
PROVIDERS: Visit Provider Internal Medicine Hypertension Specialist
DX: I12.9 Hypertensive chronic kidney disease with stage 1 through stage 4 chronic kidney disease, or unspecified chronic kidney disease (principal); N18.9 Chronic kidney disease, unspecified
CPT/HCPCS: 36415; 80053; 81003; 82306; 82570; 85027

== ENCOUNTER 2025-02-07 14:52 | Outpatient (AMB) | payer OTHER, SELFPAY ==
--- NOTE | 2025-02-07 14:56 | HO.NEPHOV_ITS ---
Vital Signs 02/07/25 15:04 02/07/25 15:07 Height 5 ft 2 in BP 140/70 H 130/60 Blood Pressure Location Lt brachial Lt brachial Position Sitting Sitting Pulse 72 Pulse Source Pulse Oximeter Pulse Oximetry (%) 92 Oxygen Delivery Method Nasal Cannula Intake Visit Reasons: 2 MO FU/ LVM Biology Specimen Technician Required: No Accompanied by: Self / Same As Patient Allergies No Known Allergies Allergy (Verified 02/07/25 14:56) Medication List - Last Reconciled 02/07/25 by Tim Mendoza MD acetaminophen 650 mg [place] Q4H PRN acetaminophen 650 mg PO Q4H PRN alendronate 70 mg PO MO@0900 amlodipine 5 mg PO DAILY apixaban (Eliquis) 2.5 mg PO BID ascorbic acid (vitamin C) (Vitamin C) 500 mg PO DAILY@1200 azithromycin 500 mg PO 3XW carboxymethylcellulose sodium 0.5% 1 drp ophthalmic (eye) QID celecoxib 200 mg PO DAILY cholecalciferol (vitamin D3) 50 mcg PO DAILY cyanocobalamin (vitamin B-12) 1,000 mcg PO DAILY@1200 gzyerevijus-awxdgrmvo-nuoedfwu 100-62.5-25 mcg (Trelegy Ellipta) 1 ea inhalation DAILY furosemide (Lasix) 40 mg PO DAILY hydroxyzine HCl 10 mg PO TID PRN losartan 50 mg PO DAILY melatonin 5 mg PO BEDTIME mirabegron ER (Myrbetriq) 50 mg PO DAILY multivitamin with folic acid 400 mcg (High Potency Multivitamin) 1 tab PO DAILY@1200 paroxetine HCl 60 mg PO DAILY tizanidine 4 mg PO BEDTIME tolterodine ER 4 mg PO DAILY trazodone 100 mg PO BEDTIME PRN vit C,M-Gu-yfyyt-lutein-zeaxan 250-90-40-1 mg (PreserVision AREDS-2) 1 cap PO DAILY@1200 HPI Comments Details: Pleasant 74-year-old woman with history of hypertension obesity was seen in September 2024 for acute kidney injury. KELECHI was due to hypoperfusion/ATN ; she required temporary dialysis. Renal function recovered and dialysis was discontinued. Since discharge renal function is gradually improving. Recent creatinine was 2.99. She is here for further follow up. No polyuria or polydipsia. No nausea or vomiting. No shortness of breath. 02/07/25 The patient is a 74-year-old female presenting with a follow-up for acute kidney injury. Acute kidney injury previously required dialysis; renal function has improved with creatinine at 0.97 mg/dL in December 2024. Medications include Celebrex 200 mg daily, losartan, and a diuretic, under review to reduce renal risk. Denies leg swelling and lightheadedness upon standing or walking. Weight was 226 pounds in November and 231 pounds in October; current weight not recorded. Reports adequate fluid intake; dry mouth due to medication. Salt intake is low to prevent fluid retention. MEDICATIONS: - Celecoxib 200 mg daily for pain management - Losartan for hypertension - Diuretic for fluid management SOCIAL HISTORY: - Reports adequate fluid intake but experiences dry mouth due to medication. - Salt intake is reportedly low to prevent fluid retention. DIAGNOSTIC RESULTS: - Labs: Creatinine level at 0.97 mg/dL in December 2024 [facility] Medical History (Updated 11/27/24 @ 15:43 by Tim Mendoza MD) Hypertension Diastolic dysfunction Pulmonary hypertension Obesity hypoventilation syndrome FAITH (obstructive sleep apnea) History of DVT (deep vein thrombosis) COPD (chronic obstructive pulmonary disease) Social History Household Members: Unknown / Unable to assess [facility]hold [facility] Housing: Other Housing Other:: Short term rehab Do you presently have visiting nurse or other home services: No Comment: Sitter Patient Tobacco Use Status: Never used Tobacco Substance Use Type: Marijuana Advance Directives Date on File: 08/26/24 service: No Physical Exam Comfortable Neck supple no JVD. Lungs entry equal no rales. Heart S1-S2 heard no gallop or rub. Abdomen soft nontender. Neuro alert awake oriented. No asterixis. Extremities no edema. Results Reviewed Nephrology Results: Hgb, (12.0-16.0) 14.1 g/dl 01/14/25 WBC, (4.8-10.8) 10.4 X10*3/uL 01/14/25 Plt Count, (160-400) 185 X10*3/uL 01/14/25 Sodium, (135-145) 143 mmol/L 01/14/25 Potassium, (3.3-5.1) 5.0 mmol/L Δ 01/14/25 Chloride, (96-108) 104 mmol/L 01/14/25 Carbon Dioxide, (22-29) 33 mmol/L H 01/14/25 BUN, (9-16) 17 mg/dL H 01/14/25 Creatinine, (0.5-1.4) 0.97 mg/dL 01/14/25 Calcium, (8.4-10.2) 9.4 mg/dL 01/14/25 Phosphorus, (2.7-4.5) 3.7 mg/dL 09/19/24 Urine Protein, (Neg-Trace) Trace mg/dL 01/14/25 Urine Creatinine 109.63 mg/dL 01/14/25 Renal US 09/17/24 Assessment & Plan Assessment & Plan (1) CKD (chronic kidney disease): Code(s): N18.9 - Chronic kidney disease, unspecified Category: Medical (2) Hypertension: Code(s): I10 - Essential (primary) hypertension Category: Medical Qualifiers: Hypertension type: primary hypertension Qualified Code(s): I10 - Essential (primary) hypertension Plan [age] year old woman with history of KELECHI requiring short-term dialysis. KELECHI was most likely due to ATN. Renal function improved and she is currently off dialysis. At present fluid status seems acceptable. Blood pressure is acceptable. No signs or symptoms of uremia. Plan DEcrease LASIX to 20 mg QD Should AVOID CELEBREX due to risk on KELECHI Encouraged her to stay on low-sodium diet. Orders: Orders Basic Metabolic Panel 2 Months I10 - Essential (primary) hypertension, N18.9 - Chronic kidney disease, unspecified Basic Metabolic Panel Today N18.9 - Chronic kidney disease, unspecified Medications: Changed From furosemide (Lasix) 40 mg PO DAILY 90 tabs 0RF To furosemide 20 mg PO DAILY 90 tabs 0RF Coding Level of Care Code Est Pt Level 4 (46817) Diagnoses CKD (chronic kidney disease) N18.9 Primary hypertension I10 Hypertension type: primary hypertension
--- OUTSIDE RECORDS SUMMARY | 2025-02-07 14:56 | XMS_ITS | Clinical Summary ---
Author Organization [facility] Address [address] [place] [address] Care Team Providers Care Laboratory Tech Name Role Phone Manju Najera MD Primary Care Provider [phone] Allergies No known active allergies Medications Medication Sig Dispensed Refills Start Date End Date Status albuterol (PROVENTIL) (2.5 MG/3ML) 0.083% nebulizer solution 1 vial by Inhaled route every 6 (six) hours as needed. 0 09/20/2014 Active albuterol 108 (90 Base) MCG/ACT inhaler 2 puffs by Inhaled route every 6 (six) hours as needed. 0 09/18/2015 Active ARIPiprazole (ABILIFY) 15 MG tablet Take 7.5 mg by mouth daily. 0 07/22/2021 Active budesonide-formoterol (SYMBICORT) 160-4.5 MCG/ACT inhaler 2 puffs by Inhaled route 2 (two) times a day. 0 01/24/2015 Active Calcium Carbonate-Vitamin D 600-400 MG-UNIT per tablet Take 1 tablet by mouth. 0 01/04/2019 Active celecoxib (CeleBREX) 200 MG capsule Take 1 capsule by mouth daily. 0 05/29/2021 Active cyanocobalamin 1000 MCG tablet Take 1 tablet by mouth daily. 0 01/09/2021 Active Mirabegron ER (Myrbetriq) 50 MG TB24 Take 1 tablet by mouth daily. 0 03/09/2021 Active mirtazapine (REMERON) 30 MG tablet Take 1 tablet by mouth every night at bedtime. 0 06/04/2021 Active PARoxetine (PAXIL) 30 MG tablet Take 30 mg by mouth. 0 08/24/2011 Active Tiotropium [place] Monohydrate (Spiriva Respimat) 1.25 MCG/ACT AERS Inhale into the lungs. 0 03/09/2021 Active traMADol (ULTRAM) 50 MG tablet Take 50 mg by mouth. 0 12/24/2016 Active tolterodine (DETROL LA) 4 MG 24 hr capsule Take 1 capsule by mouth. 0 03/09/2021 Active Active Problems Problem Noted Date Diagnosed Date Frequent falls 08/09/2021 History of deep venous thrombosis 08/07/2021 Overview: During hospital admission in August 2014 for right mastitis right upper extremity ultrasound showed clot in internal jugular, subclavian and basilic veins. Thrombus was also identified in left basilic vein and right posterior tibial vein. Spondylosis of lumbar region without myelopathy or radiculopathy 08/07/2021 Class 2 severe obesity with serious comorbidity and body mass index (BMI) of 37.0 to 37.9 in adult 08/07/2021 COPD (chronic obstructive pulmonary disease) 07/2017 Oxygen dependent 03/21/2018 Depression 12/27/2017 Obstructive sleep apnea 12/27/2017 Osteopenia 12/27/2017 Urinary incontinence 05/09/2015 Vitamin D deficiency 10/17/2012 Family History Medical History Relation Name Comments Throat cancer Brother Heart attack Father Cancer Mother Liver cancer Mother Relation Name Status Comments Brother (Age 55) Father (Age 42) Mother (Age 80) Social History Tobacco Use Types Packs/Day Years Used Date Smoking Tobacco: Every Day Cigarettes 0.5 8 Started: 2012 Smokeless Tobacco: Never Alcohol Use Standard Drinks/Week Comments Not Currently 0 (1 standard drink = 0.6 oz pur e alcohol) Sex and Gender Information Value Date Recorded Sex Assigned at Not on file Gender Identity Not on file Sexual Orientation Not on file Last Filed Vital Signs Vital Sign Reading Time Taken Comments Blood Pressure 135/73 08/07/2021 2:57 PM EST Pulse 80 08/07/2021 2:57 PM EST Temperature 36.6 C (97.8 F) 08/07/2021 2:57 PM EST Respiratory Rate - - Oxygen Saturation 93% 08/07/2021 2:57 PM EST Inhaled Oxygen Concentration - - Weight 94.1 kg (207 lb 6.4 oz) 08/07/2021 2:57 P M EST Height 157.5 cm (5' 2 ) 08/07/2021 2:57 PM EST Body Mass Index 37.93 08/07/2021 2:57 PM EST Plan of Treatment Health Maintenance Due Date Last Done Comments Hepatitis C Screening 1950 Depression Screening 1962 Preventative Health Evaluation 1968 DTap / Tdap / Td (1 - Tdap) 1969 Colon Cancer Screening (Colonoscopy) 1995 Breast Cancer Screening (Mammogram) 2000 Shingrix-Zoster Vaccine (1 o f 2) 2000 RSV Adult > 60+ Yrs or (1 - Risk 60-74 years 1-dose series) 2010 Fall Risk Assessment 2015 Osteoporosis Screening (DEXA Scan) 2015 Pneumococcal Vaccine (3 of 3 - PPSV23 or PCV20) 01/16/2020 05/29/2015, 01/15/2015 COVID-19 Vaccine (3 - 2023-2 5 season) 2024 11/12/2020, 10/22/2020 Influenza Vaccine (#1) 2025 04/28/2016 Hepatitis B Vaccines Aged Out No long er eligible based on patient's age to complete this topic RSV Ped < 20 months Aged Out No longe r eligible based on patient's age to complete this topic Care Teams Laboratory Tech Relationship Specialty Start Date End Date Manju Najera MD 175 [facility] 200 [place] [address] PCP - General Internal Medicine 08/07/21
--- OUTSIDE RECORDS SUMMARY | 2025-02-07 14:56 | XMS_ITS | Encounter Summary ---
Author Organization [facility] [place] [address] Care Team Providers Care Cigar Brander Name Role Phone Manju Najera MD Primary Care Provider [phone] Encounter Details Date Type Department Care Team (Late st Contact Info) Description 09/24/2024 Lab Requisition [facility] - Main Lab [address] [facility] [place] [address] Star Michael MD [address] [place] [address], [phone] Essential (primary) hypertension Social History Tobacco [...] 9:30 AM EDT Office Visit Pulmonolgy - [place] 175 [facility] 200 [place] [address] Carol Castellano MD 175 [facility] 200 [place], [place] [phone] 03/12/2025 9:45 AM EDT Office Visit Internal Medicine - [place] 175 [facility] [address] [place] [phone] Manju Najera MD [address] [facility] [address] [place] [address] documented as of this encounter Procedures Procedure Name Priority Date/Time Associated Diagnosis Comments COMPLETE BLOOD COUNT Routine 09/24/2024 6:36 AM EDT Essential (primary) hypertension BASIC METABOLIC PANEL Routine 09/24/2024 6:36 AM EDT Essential (primary) hypertension documented in this encounter Results * (ABNORMAL) Basic metabolic panel (09/24/2024 6:36 AM EDT) Sodium 138 133 - 145 mmol/L LAB CHEMISTRY METHOD 09/24/2024 1:02 PM [facility] Potassium 4.0 3.5 - 5.5 mmol/L LAB CHEMISTRY METHOD 09/24/2024 1:02 PM [facility] Chloride 104 96 - 110 mmol/L LAB CHEMISTRY METHOD 09/24/2024 1:02 PM [facility] CO2 23 21 - 32 mmol/L LAB CHEMISTRY METHOD 09/24/2024 1:02 PM [facility] Anion Gap 11 3 - 11 LAB CHEMISTRY METHOD 09/24/2024 1:02 PM [facility] Glucose 75 70 - 100 mg/dL LAB CHEMISTRY METHOD 09/24/2024 1:02 PM [facility] BUN 64(H) 5 - 25 mg/dL LAB CHEMISTRY METHOD 09/24/2024 1:02 PM [facility] Creatinine 3.29(H) 0.50 - 1.10 mg/dL LAB CHEMISTRY METHOD 09/24/2024 1:02 PM [facility] eGFR 14(L) >=60 mL/min/1. 73m2 LAB CHEMISTRY METHOD 09/24/2024 1:02 PM EDT [facility] Comment:Calculation based on the Chronic Kidney Disease Epidemiology Collaboration (CKD-EPI) equation refit without adjustment for race. BUN/Creatinine Ratio 19.5 LAB CHEMISTRY METHOD 09/24/2024 1:02 PM EDT [facility] Calcium 9.4 8.5 - 10.5 mg/dL LAB CHEMISTRY METHOD 09/24/2024 1:02 PM EDT [facility] Blood Venous blood specimen / Unknown Venipuncture / Unknown 09/24/2024 6:36 AM EDT 09/24/2024 10:24 AM EDT us Star Michael MD LAB BLOOD ORDERABLES Final Resul t [facility] [address] [place] [address], * (ABNORMAL) Complete blood count (09/24/2024 6:36 AM EDT) WBC 10.2 4.8 - 10.8 K/mcL LAB HEMETOLOGY METHOD 09/24/2024 12:29 PM [facility] RBC 4.80 3.80 - 4.80 M/mcL LAB HEMETOLOGY METHOD 09/24/2024 12:29 PM [facility] Hemoglobin 13.3 11.5 - 16.0 g/dL LAB HEMETOLOGY METHOD 09/24/2024 12:29 PM T [facility] Hematocrit 45.3 35.0 - 47.0 % LAB HEMETOLOGY METHOD 09/24/2024 12:29 PM [facility] MCV 93.6 79.0 - 98.0 FL LAB HEMETOLOGY METHOD 09/24/2024 12:29 PM [facility] MCH 27.5 27.0 - 32.0 pcg LAB HEMETOLOGY METHOD 09/24/2024 12:29 PM EDT [facility] MCHC 29.4(L) 32.0 - 37.0 g/dL LAB HEMETOLOGY METHOD 09/24/2024 12:29 PM EDT [facility] RDW 15.7(H) 11.0 - 15.0 % LAB HEMETOLOGY METHOD 09/24/2024 12:29 PM EDT [facility] Platelets 168 130 - 400 K/mcL LAB HEMETOLOGY METHOD 09/24/2024 12:29 PM EDT [facility] MPV 12.1(H) 7.0 - 11.0 FL LAB HEMETOLOGY METHOD 09/24/2024 12:29 PM EDT [facility] NRBC 0.0 <1.0 % LAB HEMETOLOGY METHOD 09/24/2024 12:29 PM EDT [facility] NRBC Absolute 0.00 <0.10 K/mcL LAB HEMETOLOGY METHOD 09/24/2024 12:29 PM EDT [facility] Blood Venous blood specimen / Unknown Venipuncture / Unknown 09/24/2024 6:36 AM EDT 09/24/2024 10:24 AM EDT us Star Michael MD LAB BLOOD ORDERABLES Final Resul t [facility] [address] [place] [address], documented in this encounter Visit Diagnoses Diagnosis Essential (primary) hypertension Unspecified essential hypertension documented in this encounter Care Teams Cigar Brander Relationship Specialty Start Date End Date Manju Najera MD [address] [address] PCP - General Internal Medicine 04/18/18 documented as of this encounter
[2025-02-07 15:04] VITALS: BP 140/70; PULSE 72; O2SAT 92
[2025-02-07 15:07] VITALS: BP 130/60
== END 2025-02-07 15:10 | disposition home or self-care (01) ==
LOC: HO.HKA 14:53
PROVIDERS: PCP Internal Medicine; Visit Provider Internal Medicine Hypertension Specialist
DX: I12.9 Hypertensive chronic kidney disease with stage 1 through stage 4 chronic kidney disease, or unspecified chronic kidney disease (principal); N18.9 Chronic kidney disease, unspecified
CPT/HCPCS: 99214

== ENCOUNTER → 2025-02-07 14:52 | Outpatient (BNVA) | payer OTHER, SELFPAY | PROVIDERS: PCP Internal Medicine; Visit Provider Internal Medicine Hypertension Specialist | DX: I10 Essential (primary) hypertension (principal); N18.9 Chronic kidney disease, unspecified; E66.9 Obesity, unspecified | CPT/HCPCS: 99212 ==

== ENCOUNTER 2025-04-11 11:05 | Outpatient (AMB) | payer OTHER, SELFPAY ==
[2025-04-11 11:06] VITALS: BP 110/68; PULSE 80; O2SAT 89; BMI 43.5
--- NOTE | 2025-04-11 11:06 | HO.NEPHOV ---
Vital Signs 04/11/25 11:06 Height 5 ft 2 in Weight 238 lb BMI 43.5 BP 110/68 Blood Pressure Location Lt brachial Position Sitting Pulse 80 Pulse Source Pulse Oximeter Pulse Oximetry (%) 89 L Oxygen Delivery Method Room Air Intake Visit Reasons: 2 MO FU Confirmed Continuity Clerk Required: No Accompanied by: Self / Same As Patient Allergies No Known Allergies Allergy (Verified 04/11/25 11:08) Medication List - Last Reconciled 04/11/25 by Tim Mendoza MD acetaminophen 650 mg [place] Q4H PRN acetaminophen 650 mg PO Q4H PRN alendronate 70 mg PO MO@0900 amlodipine 5 mg PO DAILY apixaban (Eliquis) 2.5 mg PO BID ascorbic acid (vitamin C) (Vitamin C) 500 mg PO DAILY@1200 azithromycin 500 mg PO 3XW carboxymethylcellulose sodium 0.5% 1 drp ophthalmic (eye) QID celecoxib 200 mg PO DAILY cholecalciferol (vitamin D3) 50 mcg PO DAILY cyanocobalamin (vitamin B-12) 1,000 mcg PO DAILY@1200 cyclobenzaprine 10 mg PO BEDTIME ewkptnphupo-mgoxgzwfg-mqqpgzod 100-62.5-25 mcg (Trelegy Ellipta) 1 ea inhalation DAILY furosemide 20 mg PO DAILY hydroxyzine HCl 10 mg PO TID PRN losartan 50 mg PO DAILY melatonin 5 mg PO BEDTIME mirabegron ER (Myrbetriq) 50 mg PO DAILY multivitamin with folic acid 400 mcg (High Potency Multivitamin) 1 tab PO DAILY@1200 paroxetine HCl 60 mg PO DAILY tizanidine 4 mg PO BEDTIME tolterodine ER 4 mg PO DAILY trazodone 100 mg PO BEDTIME PRN vit C,R-Em-dofmw-lutein-zeaxan 250-90-40-1 mg (PreserVision AREDS-2) 1 cap PO DAILY@1200 HPI Comments Details: Pleasant 74-year-old woman with history of hypertension obesity was seen in September 2024 for acute kidney injury. KELECHI was due to hypoperfusion/ATN ; she required temporary dialysis. Renal function recovered and dialysis was discontinued. Since discharge renal function is gradually improving. Recent creatinine was 2.99. She is here for further follow up. No polyuria or polydipsia. No nausea or vomiting. No shortness of breath. 02/07/25 The patient is a 74-year-old female presenting with a follow-up for acute kidney injury. Acute kidney injury previously required dialysis; renal function has improved with creatinine at 0.97 mg/dL in December 2024. Medications include Celebrex 200 mg daily, losartan, and a diuretic, under review to reduce renal risk. Denies leg swelling and lightheadedness upon standing or walking. Weight was 226 pounds in November and 231 pounds in October; current weight not recorded. Reports adequate fluid intake; dry mouth due to medication. Salt intake is low to prevent fluid retention. MEDICATIONS: - Celecoxib 200 mg daily for pain management - Losartan for hypertension - Diuretic for fluid management SOCIAL HISTORY: - Reports adequate fluid intake but experiences dry mouth due to medication. - Salt intake is reportedly low to prevent fluid retention. DIAGNOSTIC RESULTS: - Labs: Creatinine level at 0.97 mg/dL in December 2024 04/11/2025 Overall she is doing well. She is on Lasix 20 mg. Continues to take Celebrex. She gets lightheadedness when she stands up. No urinary symptoms [facility] Medical History (Updated 11/27/24 @ 15:43 by Tim Mendoza MD) Hypertension Diastolic dysfunction Pulmonary hypertension Obesity hypoventilation syndrome FAITH (obstructive sleep apnea) History of DVT (deep vein thrombosis) COPD (chronic obstructive pulmonary disease) Social History Household Members: Unknown / Unable to assess Household Members Other:: [facility] Housing: Other Housing Other:: Short term rehab Do you presently have visiting nurse or other home services: No Comment: Sitter Patient Tobacco Use Status: Never used Tobacco Substance Use Type: Marijuana Advance Directives Date on File: 08/26/24 service: No Physical Exam Vital Signs: Last Vital Signs Pulse 80 04/11/25 11:06 BP 110/68 04/11/25 11:06 Pulse Ox 89 L 04/11/25 11:06 Oxygen Delivery Method Room Air 04/11/25 11:06 BMI result Body Mass Index 43.5 Comfortable Neck supple no JVD. Lungs entry equal no rales. Heart S1-S2 heard no gallop or rub. Abdomen soft nontender. Neuro alert awake oriented. No asterixis. Extremities no edema. Results Reviewed Nephrology Results: Hgb, (12.0-16.0) 14.1 g/dl 01/14/25 WBC, (4.8-10.8) 10.4 X10*3/uL 01/14/25 Plt Count, (160-400) 185 X10*3/uL 01/14/25 Sodium, (135-145) 143 mmol/L 01/14/25 Potassium, (3.3-5.1) 5.0 mmol/L Δ 01/14/25 Chloride, (96-108) 104 mmol/L 01/14/25 Carbon Dioxide, (22-29) 33 mmol/L H 01/14/25 BUN, (9-16) 17 mg/dL H 01/14/25 Creatinine, (0.5-1.4) 0.97 mg/dL 01/14/25 Calcium, (8.4-10.2) 9.4 mg/dL 01/14/25 Urine Protein, (Neg-Trace) Trace mg/dL 01/14/25 Urine Creatinine 109.63 mg/dL 01/14/25 Renal US 09/17/24 Assessment & Plan Assessment & Plan (1) CKD (chronic kidney disease): Code(s): N18.9 - Chronic kidney disease, unspecified Category: Medical (2) Hypertension: Code(s): I10 - Essential (primary) hypertension Category: Medical Qualifiers: Hypertension type: primary hypertension Qualified Code(s): I10 - Essential (primary) hypertension Plan [age] year old woman with history of KELECHI requiring short-term dialysis. KELECHI was most likely due to ATN. Renal function improved and she is currently off dialysis. At present fluid status seems acceptable. Blood pressure is acceptable. No signs or symptoms of uremia. Plan Keep LASIX 20 mg QD Should AVOID CELEBREX due to risk on KELECHI. She will try to take it every other day. Since the blood pressure is relatively low and she has lightheadedness when she stands up I will lower amlodipine from 5 mg down to 2.5 mg a day. Encouraged her to stay on low-sodium diet. Orders: Orders Basic Metabolic Panel 3 Months I10 - Essential (primary) hypertension, N18.9 - Chronic kidney disease, unspecified Medications: Changed From amlodipine 5 mg PO DAILY 90 tabs 0RF To amlodipine 2.5 mg PO DAILY 90 tabs 1RF Coding Level of Care Code Est Pt Level 4 (09776) Diagnoses CKD (chronic kidney disease) N18.9 Primary hypertension I10 Hypertension type: primary hypertension
--- OUTSIDE RECORDS SUMMARY | 2025-04-11 13:53 | XMS_ITS | Data Portability ---
Author Organization [facility] [employer] [facility], Main Office Address [address], [address] [place] [address] Care Team Providers Care Automation And Controls Instructor Name Role Phone KATHLEEN MCCANN - 2ND FLOOR OTHER WALLY OBRIEN Primary Care Provider Assessment Encounter Date Assessment Date Assessment LastModified by Organization Details LastModified Time 10/16/2024 10/16/2024 45 minutes spent on coordination of discharge. [email or web address] Not available 10/16/2024 14:24:58 Plan of Treatment [...] Details Recorded Time Acute hypoxemic respiratory failure 259832639 Active 2024 COTY TONEY NP [address], [place], [address], [facility] [employer] [facility] 5 16:03:51 Obstructive sleep apnea syndrome 32280297 Active 2024 COTY TONEY NP [address], [address], [place], [address], [facility] [employer] 5 16:03:57 Pulmonary hypertension 31160399 Active 2024 COTY TONEY NP [address], [address], [place], [address], [facility] [employer] 5 16:04:07 Diastolic dysfunction 1431466 Active 2024 COTY TONEY NP [address], [address], [place], [address], [facility] [employer] [facility] 5 16:04:19 Asthenia 17831677 Active 2024 COTY TONEY NP [address], [address], [place], [address], [facility] 5 16:04:25 Chronic obstructive pulmonary disease 67285252 Active 2024 COTY TONEY NP [address], [address], [place], [address], [facility] 5 16:04:33 Hypertensive disorder 79895386 Active 2024 COTY TONEY NP [address], [address], [place], [address], [facility] 5 16:04:40 Hyperlipidemia 74984739 Active 2024 COTY TONEY NP [address], [address], [place], [address], [facility] 5 16:04:48 Obesity 611231619 Active 2024 COTY TONEY NP [address], [address], [place], [address], [facility] 5 16:04:56 History of deep vein thrombosis 388445224 Active 2024 COTY TONEY NP [address], [address], [place], [address], [facility] 5 16:05:04 Dysphagia 16205599 Active 2024 COTY TONEY NP [address], [address], [place], [address], [facility] 5 16:06:22 Mixed anxiety and depressive disorder 188407731 Active 2024 COTY TONEY NP [address], [address], [place], [address], [facility] [facility] 5 16:06:46 Osteoporosis 21461598 Active 2024 COTY TONEY NP [address], [address], [place], [address], [facility] [employer] [facility] 5 16:07:09 Vitamin D deficiency 98266481 Active 2024 COTY TONEY NP [address] [facility], [address], [place], [address], [facility] [employer] [facility] 5 16:07:23 Cobalamin deficiency 655688104 Active 2024 COTY TONEY NP [address], [address], [place], [address], [facility] 5 16:07:32 Overactive urinary bladder 278578215 Active 2024 COTY TONEY NP [address] [facility], [address], [place], [address], [employer] 5 16:07:49 Metabolic encephalopathy 96647827 Active 2024 COTY TONEY NP [address] [facility], [address], [place], [address], [employer] 5 14:05:49 Acute kidney injury 43698176 Active 2024 COTY TONEY NP [address] [facility], [address], [place], [address], [employer] [facility] 5 14:07:24 Problem Notes None recorded. Medical Equipment None Reported. Allergies No known drug allergies Medications Name Sig Start Date Stop Date Status Note LastModified by Organization Details LastModified Time amlodipine 5 mg tablet active Not Available Not Available No t Available Vitals Date Recorded Heart rate Respiratory rate Body temperature Oxygen saturation Oxygen saturation in Arterial blood by Pulse oximetry Systolic And Diastolic Provider Name and Address Organization Details Last Updated DateTime 5 72 /min 18 /min 97.6 [degF] 96 % 96 % 118/76 mm[Hg] COTY TONEY NP [address] [facility], [address], [place], [address], [employer] [facility] 5 13:54:13 Date Recorded Body weight Heart rate Respiratory rate Body temperature Oxygen saturation Oxygen saturation in Arterial blood by Pulse oximetry Systolic And Diastolic Provider Name and Address Organization Details Last Updated DateTime 5 383598. 51 g 68 /min 18 /min 97.5 [degF] 97 % 97 % 128/74 mm[Hg] Zakiya Burgos NP [address] [facility], [address], [place], [address], [facility] [facility] 5 15:08:02 Date Recorded Heart rate Respiratory rate Body temperature Oxygen saturation Oxygen saturation in Arterial blood by Pulse oximetry Systolic And Diastolic Provider Name and Address Organization Details Last Updated DateTime 5 70 /min 18 /min 97.3 [degF] 94 % 94 % 128/74 mm[Hg] COTY TONEY NP [address] [facility], [address], [place], [address], [facility] 5 12:04:48 Date Recorded Heart rate Respiratory rate Body temperature Oxygen saturation Oxygen saturation in Arterial blood by Pulse oximetry Systolic And Diastolic Provider Name and Address Organization Details Last Updated DateTime 5 78 /min 20 /min 96.4 [degF] 94 % 94 % 127/73 mm[Hg] COTY TONEY NP [address] [facility], [address], [place], [address], [facility] 5 13:28:47 Date Recorded Body weight Heart rate Respiratory rate Body temperature Oxygen saturation Oxygen saturation in Arterial blood by Pulse oximetry Systolic And Diastolic Provider Name and Address Organization Details Last Updated DateTime 5 17253.7 3 g 76 /min 18 /min 97.8 [degF] 96 % 96 % 126/68 mm[Hg] Zakiya Burgos NP [address] [facility], [address], [place], [address], [facility] 5 07:57:40 Social History Question Answer Notes LastModified by Organizat ion Details LastModified Time Tobacco Smoking Status Former Smoker quit 2014 COTY TONEY NP [address] [facility], [facility] [address], [place], [address], [employer] 09/13/2024 16:26:15 What Is Your Code Status? Full Code Information not available 09/13/2024 Where Do You Live? Apartment [email or web address] Information not available 09/13/2024 Do You Have A Medical Power Of Women'S Health Care Nurse Practitioner? Yes Has HCP [email or web address] Information not available 09/13/2024 What Was The Date Of Your Most Recent Tobacco Screening? 09/13/2024 [email or web address] Information not available 09/13/2024 Do You Have An Out Of Hospital DNR? Yes [email or web address] Information not available 09/13/2024 Has Tobacco Cessation Counseling Been Provided? No [email or web address] Information not available 09/13/2024 Sex: Unknown Functional Status Question Answer Note LastModified by Organizat ion Details LastModified Time Do you use any illicit or recreational drugs? No Information not available 09/13/2024 Do you or have you ever used any other forms of tobacco or nicotine? No [email or web address] Information not available 09/13/2024 What is your level of alcohol consumption? None [email or web address] Information not available 09/13/2024 Mental Status None recorded. Family History Relationship Description Onset Age of this Age Resolved Age Notes LastModified by Organization Details LastModified Time Father Heart disease [email or web address] Not available 2024 16:25:54 Mother Heart disease [email or web address] Not available 2024 16:25:54 Notes:N/C Medical History No medical history recorded. Gynecological HistoryNo gynecological history recorded. Obstetrics History GPAL:G 0 P 0 0 0 0 Immunizations Vaccine Type Date Status Note Provider Nam e and Address Organization Details Recorded Time Respiratory syncytial virus (RSV) MAB, unspecified 4 completed Sergey Christian [facility] 09/13/2024 14:34:11 influenza nasal, unspecified formulation 4 completed Sergey Christian [facility] 09/13/2024 14:34:22 Pneumococcal conjugate PCV 13 4 completed Sergey Christian [facility] 09/13/2024 14:34:38 Pneumococcal conjugate PCV15, polysaccharide [id number] conjugate, adjuvant, PF 9 completed Sergey Christian [facility] 09/13/2024 14:34:59 influenza, unspecified formulation 9 completed Sergey Christian [facility] 09/13/2024 14:35:28 influenza, unspecified formulation 1 completed Sergey Christian [facility] 09/13/2024 14:35:32 influenza, unspecified formulation 2 completed Sergey lee, [facility] 09/13/2024 14:35:36 SARS-COV-2 (COVID-19) vaccine, UNSPECIFIED 1 completed Sergey Christian null, [facility] 09/13/2024 14:35:50 SARS-COV-2 (COVID-19) vaccine, UNSPECIFIED 1 completed Sergey Christian [facility] 09/13/2024 14:35:55 Past Encounters Encounter ID Performer Location Encounter Start Date Encounter Closed Date Diagnosis/Indication Diagnosis SNOMED-CT Code Diagnosis ICD10 Code Diagnosis IMO Codes Diagnosis Note [id number] COTY TONEY NP [address] [address] 09/13/2024 15:56:56 09/17/2024 11:30:16 Acute hypoxemic respiratory failure 069518170 J96.01 Agency related to CHF, pHTN, COPDRequir ed intubation , responded well to lasix and diamox.Мария k to home O2 2-3LMonito r closely, continue meds for mentioned issues. Asthenia 51594991 R53.1 PT OT eval and tx.Decondi tioned due to acute illness and hospitaliz ationGoal is to return home to [facility] Chronic ob structive pulmonary disease 61339084 J44.9 Chronic O2 use, 2-3L at home, continue Also on Trelegy Ellipta 100-62.5-2 5 mcg 1 inh. qdMonitor resp. status Diastolic dysfunction 35 60673 I51.9 Continue:a cetazolami de 250 mg bid (new)lasix 40 mg qdLow salt dietdaily weightscbc , bmp q wed x 3Monitor closely for decompensa tion Dysphagia 30867005 R13.1 0 concern for mild dysphagia in hosp. s/p extubation and no teethseen by DISTRICT DIRECTOR, [facility] thin liquids.Re rafael to DISTRICT DIRECTOR here, advance diet as jossue. Obstructiv e sleep apnea syndrome 67963977 G47.33 Continue CPAP Mixed anxi ety and depressive disorder 595057899 F41.8 Continue home meds:parox etine 60 mg qdtrazodon e 200 mg q hshydroxyz ine 10 mg tid prnmelaton in 5 mg q hsMonitor mood, behaviors, sleep.Psyc h eval prn Hypertensive disorder 38 376422 I10 Continue:l osartan 50 mg qdlasix 40 mg qdMonitor VS, labs History of deep vein thrombosis 744444980 Z86.718 Continue eliquis 2.5 mg bidMonitor bleeding risk Hyperlipidemia 75898903 E78.5 Not on meds at this time Cobalamin deficiency 190 648293 E53.8 continue B 12 1000 mcg qd Osteoporosis 83585270 M8 1.0 continue fosamax 70 mg q tuesday Overactive urinary bladder 298911202 N32.81 Continue home meds:Detro l LA 4 mg qdVit C 500 mg qdMyrbetri q 50 mg qdMonitor voiding Pulmonary hypertension 82932690 I27.20 Continue lasix 40 mg qdMonitor VS, fluid balance, labs Vitamin D deficiency 347 28333 E55.9 Continue Vitamin D 2000 U qd [id number] [facility] [address] 09/23/2024 11:08:11 10/01/2024 11:03:39 Acute hypoxemic respiratory failure 284052938 J96.01 see HPI secondary to copd and chf exacerbati onrequired intubation now on home O2 by n/cmonitor respirator y statusupda te pulmonary with concerns Diastolic dysfunction 35 00185 I50.33 lasix 40 mg qdmonitor respirator y and fluid statusupda te cards with concerns Chronic ob structive pulmonary disease 91951698 J44.1 continue out patient medication smonitor role for steroidson O2 at baseline Obstructiv e sleep apnea syndrome 05473573 G47.33 Continue CPAP machine at facility Dysphagia 22293356 R13.1 0 post intubation speech to evalmonito r aspiration risk and need to adjust diet Asthenia 14242462 R53.1 PT OT Eval and treatmonit or fall risk and need for increased support in community Mixed anxi ety and depressive disorder 622387654 F41.8 stable on out patient medication sadded to PMHmonitor moodpsych eval prn Hypertensive disorder 38 771003 I10 norvasc 5 mg qdlasix 40 mg qdmonitor bp and need to titrate History of deep vein thrombosis 823041464 Z86.718 eliquis 2.5 mg bidcontinu ed Hyperlipidemia 65385864 E78.5 diet controlled Osteoporosis 81110069 M8 1.0 fosamax 70 mg q weekcontin ued [id number] COTY TONEY NP [address] [address] 09/25/2024 13:34:51 10/01/2024 11:47:09 Acute hypoxemic respiratory failure 879584984 J96.01 Agency related to CHF, pHTN, COPD during prior hosp.Requi red intubation , responded well to lasix and diamox.Now off diamox due to renal failure.Ba ck to home O2 2-3L, CPAP at night and with naps.Monit or closely, continue meds for mentioned issues. Diastolic dysfunction 35 73399 I51.9 Continue lasix 40 mg qdStopped acetazolam katina 250 mg bid during this most recent hosp., at least until ok'd by Renal to restart.Lo w salt dietdaily weights and VScbc, bmp q tuesdayMon tor closely for decompensa tion Pulmonary hypertension 58249883 I27.20 Continue lasix 40 mg qdMonitor VS, fluid balance, labs Chronic ob structive pulmonary disease 76361844 J44.9 Chronic O2 use, 2-3L at home, continue Also on Trelegy Ellipta 100-62.5-2 5 mcg 1 inh. qdMonitor resp. status Obstructiv e sleep apnea syndrome 84195459 G47.33 Continue CPAP Asthenia 76440317 R53.1 PT OT eval and tx.Decondi tioned due to acute illness and hospitaliz ationGoal is to return home to [facility] Metabolic encephalopathy 37332131 G93.41 [id number] Agency due to renal failure, now improved.M onitor VS, labs, cognition for change. Acute kidney injury 1466 9001 N17.9 [id number] Agency due to ATN.Follow ed by Renal at [facility].Requir ed short term dialysis with improvemen t in labsLosart an stopped.Di amox on hold until OK'd by Ena hernandez to monitorBMP q tuesdayAv d nephrotoxi csFollow up with [facility] Nephro Hypertensive disorder 38 208708 I10 Meds adjusted in hosp. due to AKILosarta n 50 mg qd stopped.Re sasha on lasix 40 mg qdNorvasc 5 [facility] [id number] COTY TONEY NP [address] [place] [address] 10/02/2024 13:10:22 10/08/2024 08:48:07 Metabolic encephalopathy 68766362 G93.41 [id number] Agency due to renal failure, now resolved.V SSLabs improvingM onitor VS, labs, cognition for change. Acute kidney injury 1466 9001 N17.9 [id number] Agency due to ATN.Follow ed by Renal at [facility].Requir ed short term dialysis with improvemen t in labsLosart an stopped.Di amox on hold until OK'd by renalConsandrine hernandez to monitorBMP q tuesday - improvingA void nephrotoxi csFollow up with [facility] Nephro - appt. requested again. Acute hypo xemic respiratory failure 314160968 J96.01 Agency related to CHF, pHTN, COPD during prior hosp.Requi red intubation , responded well to lasix and diamox.Now off diamox due to renal failure.Ba ck to home O2 2-3L, CPAP at night and with naps.Monit or closely, continue meds for mentioned issues. Hypertensive disorder 38 064931 I10 Meds adjusted in hosp. due to AKILosarta n 50 mg qd stopped.Re sasha on lasix 40 mg qdNorvasc 5 mg qd [facility], labs - BP a little low today but others in good range. Diastolic dysfunction 35 60264 I51.9 Continue lasix 40 mg qdStopped acetazolam katina 250 mg bid during this most recent hosp., at least until ok'd by Renal to restart.Lo w salt dietdaily weights and VS - re-request edcbc, bmp q tuesdayMoni tor closely for decompensa tionBNP 14 Pulmonary hypertension 43211129 I27.20 Continue lasix 40 mg qdMonitor VS, fluid balance, labs Chronic ob structive pulmonary disease 35542580 J44.9 Chronic O2 use, 2-3L at home, continue Also on Trelegy Ellipta 100-62.5-2 5 mcg 1 inh. qdMonitor resp. status, currently doing well. Obstructiv e sleep apnea syndrome 93600830 G47.33 Continue CPAP Asthenia 14461910 R53.1 PT OT eval and tx.Decondi tioned due to acute illness and hospitaliz ationGoal is to return home to [facility] [id number] Zakiya Burgos NP [facility] [address] [address] 10/03/2024 19:41:31 10/08/2024 09:25:43 Pain of knee region 6784404302 M25.561 M25.562 G89.29 07839588 4/16startt ylenol 1000 mg po tidmuscle rub cream to bilateral knees bidmonitor consider dr patino consult if not relieved Chronic low back pain 27 6550114 M54.50 G89.29 77942485 4/16startt ylenol 1000 mg po tidlidocai ne patch 4% to lower back dailymonit or [id number] Star Michael MD [facility] [address] [address] 10/05/2024 12:18:52 10/08/2024 11:15:19 Diastolic dysfunction 6221013 I51.9 now with 5 lb weight gainwill continue on lasix 40 mg qdstart 2000 cc fluid restrictio ncontinue daily weightsmon itor respirator y and fluid statusupda te cards with concerns Chronic ob structive pulmonary disease 81935673 J44.9 on O2 at baselinecu rrently lungs clear Asthenia 37517998 R53.1 continue with therapymon itor fall risk and need for increased support in community History of deep vein thrombosis 404304943 Z86.718 eliquis 2.5 mg bidcontinu ed [id number] MARISELA BURK CNP [facility] [address] [address] 10/11/2024 09:19:39 10/17/2024 12:35:56 Diastolic dysfunction 0716048 I51.9 remains with 5 lb weight gain 222-223.5 lbcontinue on lasix 40 mg qdstarted 2000 cc fluid restrictio n, but patient non compliant. continue daily weightsmon itor respirator y and fluid statuscont inue monitor labsupdate cards with concerns Chronic ob structive pulmonary disease 83596564 J44.9 on O2 at baseline at 2-3L NC.current ly lungs clear Asthenia 52706848 R53.1 improvingc ontinue with therapymon itor fall risk and need for increased support in community History of deep vein thrombosis 101311940 Z86.718 eliquis 2.5 mg bidcontinu ed Acute hypo xemic respiratory failure 841750958 J96.01 related to CHF, pHTN, COPD during prior hosp.Requi red intubation , responded well to lasix and diamox.Now off diamox due to renal failure.Ba ck to home O2 2-3L, CPAP at night and with naps.edwar nue lasix 40 mg daily.vidal tor respirator y status and labs Hypertensive disorder 38 736495 I10 Meds adjusted in hosp. due to AKILosarta n 50 mg qd stopped.Re sasha on lasix 40 mg qdNorvasc 5 mg qd [facility], labs - BP a little low today but others in good range. Obstructiv e sleep apnea syndrome 07816959 G47.33 Continue CPAP [id number] COTY TONEY NP [address] [address] 10/16/2024 13:25:23 10/19/2024 14:30:53 Acute hypoxemic respiratory failure 384065783 J96.01 related to CHF, pHTN, COPD during prior hosp.Requi red intubation , responded well to lasix and diamox.Now off diamox due to renal failure.Ba ck to home O2 2-3L, CPAP at night and with naps.edwar nue lasix 40 mg daily upon discharge. monitor respirator y status and labs as outpt. Diastolic dysfunction 35 24660 I51.9 weight range 220-222 lbs.euvole meenu, LS CTAcontinu e on lasix 40 mg qdstarted 2000 cc fluid restrictio n, encourage compliance .continue daily weights upon dischargem onitor respirator y and fluid status as oupt.edwar nue monitor labsupdate Cards with concerns Chronic ob structive pulmonary disease 62302618 J44.9 on O2 at baseline at 2-3L NC.current ly lungs clearEdwar hernandez Trelegy Asthenia 10689018 R53.1 Working with PT OTMeting goals for d/c home with support of services tomorrow History of deep vein thrombosis 531418909 Z86.718 eliquis 2.5 mg bidcontinu ed Hypertensive disorder 38 590093 I10 Meds adjusted in hosp. due to AKILosarta n 50 mg qd stopped.Re sasha on lasix 40 mg qdNorvasc 5 mg qd added at [facility] VS as outpt. Obstructiv e sleep apnea syndrome 07224378 G47.33 Continue CPAP Pain of knee region 1003 142461 M25.561 M25.562 G89.29 62281422 Continue tylenol 1000 mg po tid Chronic low back pain 27 3938530 M54.50 G89.29 34964440 Continue tylenol 1000 mg po tidlidocai ne patch 4% to lower back daily Acute kidney injury 1466 9001 N17.9 [id number] Agency due to ATN.Follow ed by Renal at [facility].Requir ed short term dialysis with improvemen t in labsLosart an stopped.Di amox on hold until OK'd by Ena hernandez to monitorBMP improving while hereAvoid nephrotoxi csFollow up with [facility] Nephro - appt. requested again. Mixed anxi ety and depressive disorder 751822739 F41.8 Continue home meds:parox etine 60 mg qdtrazodon e 200 mg q hshydroxyz ine 10 mg tid prnmelaton in 5 mg q hsMonitor mood, behaviors, sleep.Psyc h eval prn Overactive urinary bladder 339172968 N32.81 Continue home meds:Detro l LA 4 mg qdVit C 500 mg qdMyrbetri q 50 mg qdMonitor voiding [id number] [facility] [address] 10/17/2024 15:07:23 10/22/2024 08:37:22 Acute hypoxemic respiratory failure 192599108 J96.01 related to CHF, pHTN, COPD during prior hosp.Requi red intubation , responded well to lasix and diamox.cur rently off diamox due to renal failure.Ba ck to home O2 2-3L, CPAP at night and with naps.edwar nuelasix 40 mg dailymonit or respirator y status and labs prn Diastolic dysfunction 35 71355 I51.9 weight range 220-222 lbs.euvole meenu, LS CTAcontinu elasix 40 mg ew3234 cc fluid restrictio n, encourage compliance .continue daily weightsmon itor respirator y and fluid statuscont inue monitor labsupdate Cards with concerns Acute kidney injury 1466 9001 N17.9 [id number] Agency due to ATN.Follow ed by Renal at [facility].Requir ed short term dialysis with improvemen t in labsLosart an stopped. and Diamox on hold until OK'd by renalConsandrine hernandez to monitorBMP improving while hereAvoid nephrotoxi csFollow up with [facility] Nephro - appt. requested again. Asthenia 33386882 R53.1 Working with PT OTsupchiragi desiree caremonito r for need to add services in community Chronic ob structive pulmonary disease 65895388 J44.9 on O2 at baseline at 2-3L NC.cpap at nightcurre ntly lungs clear with upper airway congestion /rhinorhea ContinueTr elegy Acute COVID-19 457123043 8 U07.8 [id number] pt with covid postive test result Due [...] statusmoni tor for need to start steriods [id number] COTY TONEY NP [address] [address] 10/18/2024 11:34:46 10/22/2024 08:58:52 Acute COVID-19 8955924600 U07.6 8201992321 Tested positive 10/17Due to high risk of [...] to decline. Acute hypo xemic respiratory failure 114977382 J96.01 related to CHF, pHTN, COPD during prior hosp.Requi red intubation , responded well to lasix and diamox.Now off diamox due to renal failure. Can restart at discretion of Renal.Back to home O2 2-3L, CPAP at night and with naps.edwar nue lasix 40 mg daily upon discharge. monitor respirator y status and labs as outpt. Diastolic dysfunction 35 06141 I51.9 weight range 220-222 lbs.euvole meenu, LS CTAcontinu e on lasix 40 mg qdas above, off diamox due to ARF, refer to Renal re: restarting started 2000 cc fluid restrictio n, encourage compliance .continue daily weights upon dischargem onitor respirator y and fluid status as oupt.edwar nue monitor labsupdate Cards with concerns Acute kidney injury 1466 9001 N17.9 [id number] Agency due to ATN.Follow ed by Renal at [facility].Requir ed short term dialysis with improvemen t in labsLosart an stopped.Di amox on hold until OK'd by renalConsandrine hernandez to monitorBMP improving while hereAvoid nephrotoxi csFollow up with [facility] Nephro - appt. requested again. Chronic ob structive pulmonary disease 54386400 J44.9 on O2 at baseline at 2-3L NC.Continu e Trelegy History of deep vein thrombosis 692507219 Z86.718 eliquis 2.5 mg bidcontinu ed Hypertensive disorder 38 904938 I10 Meds adjusted in hosp. due to AKILosarta n 50 mg qd stopped.Re sasha on lasix 40 mg qdNorvasc 5 mg qd added at [facility] VS as outpt. Obstructiv e sleep apnea syndrome 62027478 G47.33 Continue CPAP Pain of knee region 1003 069475 M25.561 M25.562 G89.29 [id number] Continue tylenol 1000 mg po tid Chronic low back pain 27 8858878 M54.50 G89.29 17674482 Continue tylenol 1000 mg po tidlidocai ne patch 4% to lower back daily Mixed anxi ety and depressive disorder [id number] F41.8 Continue home meds:parox etine 60 mg qdtrazodon e 200 mg q hshydroxyz ine 10 mg tid prnmelaton in 5 mg q hsMonitor mood, behaviors, sleep.Psyc h eval prn Overactive urinary bladder 673338033 N32.81 Continue home meds:Detro l LA 4 mg qdVit C 500 mg qdMyrbetri q 50 mg qdMonitor voiding [id number] COTY TONEY NP [address] [address] 10/23/2024 13:27:48 10/25/2024 13:02:29 Acute COVID-19 [id number] U07.8 [id number] Improved.T ested positive 10/17Due to high risk of complicati ons r/t multiple comorbidit ies, treated with molnupirav ir 800 mg bid x 5d, now complete.M onitor closelyenc ourage po fluidsisol ation per facility protocol Acute hypo xemic respiratory failure 120816670 J96.01 related to CHF, pHTN, COPD during prior hosp.Requi red intubation , responded well to lasix and diamox.Now off diamox due to renal failure. Can restart at discretion of Renal.Back to home O2 2-3L, CPAP at night and with naps.edwar nue lasix 40 mg daily upon discharge. monitor respirator y status and labs as outpt. Diastolic dysfunction 35 64772 I51.9 weight range 220-222 lbs.euvole meenu, LS CTAcontinu e on lasix 40 mg qdas above, off diamox due to ARF, refer to Renal re: restarting started 2000 cc fluid restrictio n, encourage compliance .continue daily weights upon dischargem onitor respirator y and fluid status as oupt.edwar david monitor labsupdate Cards with concerns Acute kidney injury 1466 9001 N17.9 [id number] Agency due to ATN.Follow ed by Renal at [facility].Requir ed short term dialysis with improvemen t in labsLosart an stopped.Di amox on hold until OK'd by renalConsandrine hernandez to monitorBMP improving while hereAvoid nephrotoxi csFollow up with [facility] Nephro - appt. requested again. Chronic ob structive pulmonary disease 31749183 J44.9 on O2 at baseline at 2-3L NC.Continu e Trelegy History of deep vein thrombosis 527719180 Z86.718 eliquis 2.5 mg bidcontinu ed Hypertensive disorder 38 338044 I10 Meds adjusted in hosp. due to AKILosarta n 50 mg qd stopped.Re sasha on lasix 40 mg qdNorvasc 5 [facility]. 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 radiationA lso with left shoulder pain.New concern, back pain x days, shoulder pain today. Suspect muscle spasm, pinched nerve/radi culopathy, or possible VCF Plan -X ray cervical and thoracic spine as well as left shoulder.S tart oxycodone 5 mg q8h prn for painPredni sone 40 mg qd x 4 daysConsid er tizanidine for spasms 644056 Zakiya Burgos NP [facility] [address] [place] [address] 10/25/2024 07:56:46 11/05/2024 08:17:23 Neck pain 60910231 M54.2 9371835 Upper back/lower neck area, central spine with [...] with pcp and rheumatolo gist Acute COVID-19 [id number] 8 U07.7 [id number] resolved and asymptomat icTested positive 10/17Due to high risk of complicati ons r/t multiple comorbidit ies, treated with molnupirav ir 800 mg bid x 5d, now complete. Acute hypo xemic respiratory failure 012689981 J96.01 related to CHF, pHTN, COPD during [...] as outpt with pcp Diastolic dysfunction 35 35147 I51.9 weight range 220-222 lbs.euvole meenu, LS CTAcontinu e on lasix 40 mg qdas above, off diamox due to ARF, refer to Renal re: restarting 2000 cc fluid restrictio n, encourage compliance .continue daily weights upon dischargem onitor respirator y and fluid status as oupt.edwar nue monitor labsupdate Cards with concerns and fu with pcp outpt Acute kidney injury 1466 9001 N17.9 [id number] Agency due to ATN.Follow ed by Renal at [facility].Requir ed short term dialysis with improvemen t in labsLosart an stopped.Di amox on hold until OK'd by renalConsandrine barrosoe to monitorBMP improving while hereAvoid nephrotoxi csFollow up with [facility] Nephro - appt. sceduled outpt Chronic ob structive pulmonary disease 22413234 J44.9 on O2 at baseline at 2-3L NC.Continu e Trelegyfu with pcp outpt History of deep vein thrombosis 702967785 Z86.718 eliquis 2.5 mg bidcontinu ed Hypertensive disorder 38 869886 I10 Meds adjusted in hosp. due to KELECHI, Losartan 50 mg qd stopped.co ntlasix 40 mg qdNorvasc 5 mg qd added at [facility] VS as outpt with pcp Obstructiv e sleep apnea syndrome 58139865 G47.33 Continue CPAP Pain of knee region 1003 565234 M25.561 M25.562 G89.29 34936310 Continue tylenol 1000 mg po tidmonitor outpt with pcp Chronic low back pain 27 4541397 M54.50 G89.29 73233425 Continuety lenol 1000 mg po tidlidocai ne patch 4% to lower back dailymonit or outpt with pcp Mixed anxi ety and depressive disorder 492322785 F41.8 Continue home meds:parox etine 60 mg qdtrazodon e 200 mg q hshydroxyz ine 10 mg tid prnmelaton in 5 mg q hsMonitor mood, behaviors, sleep.Psyc h eval prnfu with pcp outpt Overactive urinary bladder 650979036 N32.81 Continue home meds:Detro l LA 4 [...] Rosenbaum Member ID Guarantor Name 11/05/2024 1 [facility] (MEDICAID HMO) Jannet Chavez [id number] Jannet Chavez Notes Date Note Type Note Provider Name and Address Organization Details Recorded Time 10/16/2024 text/html Jannet is seen today for an acute visit.She was to go home 10/17, but this was cancelled due to testing covid positive. She is a 74 yo lady, initially admitted to [facility] 09/12 from [facility] for continued care and rehab after a hospitalization related to acute hypoxemic resp. failure.She presented to [facility] 08/26 with altered MS felt due to hypercarbic resp. failure.She required intubation and was treated for acute on chronic diastolic CHF with pHTN. Treated with lasix drip, diamox. Stay complicated by COPD exac. She was eventually extubated and O2 titrated back to baseline 2-3L. Continued CPAP for FAITH. On 09/16, she was sent back to [facility] ER due to change in MS. Treated for acute on chronic resp. failure as well as KELECHI due to ATN requiring short term dialysis with improvement in readings. Renal US noted 9 mm R renal calculus. Losartan stopped, diamox on hold until follow up with Nephro. Started norvasc for BP control. Returned to [facility] 09/21 for continued care. Since her return, Jannet has been doing well.She has been working with rehab, meeting goals for d/c home with services.VSSWeights ranging 220-222 lbs.Labs trended, noted to be improving. Last labs 10/03.Fluid restriction started (2L/d) to help with fluid balance, reported to be non compliant.Scheduled APAP and lidoderm patch to low back started for chronic bilat. knee pain and back pain.Stay complicated by stage 3 sacral wound, followed by Wound Team in house. Seen today by Wound PER, recent measurements unfortunately not entered into the EMR yet. Last measurement 4x4 cm. Tx. changed today to collagen to the wound bed covered by DCD daily. Upon exam, Jannet is resting in bed.She feels very good, has no concerns, complaints, or questions, and is happy to be going home tomorrow. She remains on O2, no SOB, cough. No CP. Appetite good, no GI upset. [place] mod. fall risk PMH: COPD, B 12 def. CHF, DVT, HLD, HTN, anxiety/depression, obese, FAITH, OP, OAB, pulmonary HTN, Vit D def.MOLST: full code COTY TONEY, [place] [address] [facility], [address], [place], [address], [facility] [employer] 10/18/2024 10:50:24 10/17/2024 text/html Jannet is seen today for acute rounding visit. PMH: COPD, B 12 def. CHF, DVT, HLD, HTN, anxiety/depression, obese, FAITH, OP, OAB, pulmonary HTN, Vit D def. Jannet was planned to go home today but unfortunately has covid this am on 10/17 with blanket testing in facility and feeling fatigued and requests to go home when the symptoms resolve. Since here Jannet had been improving until a day or so ago she reports a mild sore throat mostly resolved and now has congestion/cough and headache. She denies nausea, vomiting, shortness of breath more than usual, chest pain, fever or chills. Vitals stable. Appears euvolemic. Due to her severe copd/chf with recent intubation she is candidate for molnupiravir and symptomatic relief with prn meds. She remains on home o2 at 2-3 liters at all times. She will require monitoring for steriods and duonebs prn here. of note:She is a 74 yo lady, initially admitted to [facility] 09/12 from [facility] for continued care and rehab after a hospitalization related to acute hypoxemic resp. failure. She presented to [facility] 08/26 with altered MS felt due to hypercarbic resp. failure. She required intubation and was treated for acute on chronic diastolic CHF with pHTN. Treated with lasix drip, diamox. Stay complicated by COPD exac. She was eventually extubated and O2 titrated back to baseline 2-3L. Continued CPAP for FAITH. On 09/16, she was sent back to [facility] ER due to change in MS. Treated for acute on chronic resp. failure as well as KELECHI due to ATN requiring short term dialysis with improvement in readings. Renal US noted 9 mm R renal calculus. Losartan stopped, diamox on hold until follow up with Nephro. Started norvasc for BP control. Returned to [facility] 09/21 for continued care. [place] mod. fall riskMOLST: full code Zakiya Burgos, [place] [address] [facility], [address], [place], [address], [facility] [employer] 10/17/2024 16:07:02 10/18/2024 text/html Jannet is seen today for an acute visit. She is a 74 yo lady, discharge cancelled 10/17 due to testing positive for covid. Dipti MCCLELLAN declined readmission at this time due to this. Molnupiravir started as well as meds to manage symptoms. Currently she has a headache, feels a little tired. No acute change with resp. status.VSSLabs today with improved BMP, but worsening H/H (normocytic). Denies any black, tarry, or bloody stool. Already on B 12 daily. PMH: COPD, B 12 def. CHF, DVT, HLD, HTN, anxiety/depression, obese, FAITH, OP, OAB, pulmonary HTN, Vit D def.[place] mod. fall riskMOLST: full code COTY TONEY NP [address] [facility], [address], [place], [address], [employer] 10/18/2024 12:28:21 10/23/2024 text/html Jannet is seen today for a routine, 30 day visit. She is a 74 yo lady, presented to [facility] 08/26 with altered MS felt due to hypercarbic resp. failure. She required intubation and was treated for acute on chronic diastolic CHF with pHTN. Treated with lasix drip, diamox. Stay complicated by COPD exac. She was eventually extubated and O2 titrated back to baseline 2-3L. Continued CPAP for FAITH.On 09/16, she was sent back to [facility] ER due to change in MS. Treated for acute on chronic resp. failure as well as KELECHI due to ATN requiring short term dialysis with improvement in readings. Renal US noted 9 mm R renal calculus. Losartan stopped, diamox on hold until follow up with Nephro. Started norvasc for BP control. Returned to [facility] 09/21 for continued care. Since her return, Jannet had been doing well up until last week when she tested positive for covid. Treated with molnupiravir as well as meds to help with sx. Status improved, hoping to go home this week.She has worked with rehab, already met goals for d/c home with services.VSSWeights ranging 220-222 lbs.Labs trended, kidney function improved, but still with slow drop in Hgb, currently 11.5.Remains on FR (2L/d) to help with fluid balance, reported to be non compliant.Stage 3 sacral wound, followed by Wound Team in house. Reported to be improving, continues daily collagen and dcd. Scheduled APAP and lidoderm patch started for low back and knee pain which has helped, but now with significant upper back/low neck pain and left shoulder pain. She has had the back pain for a few days, shoulder pain started today. No change in CSM. Recalls no trauma or injury, but wonders if it may be her pillow, not very supportive. She has never had this pain before. [place] mod. fall risk PMH: COPD, B 12 def. CHF, DVT, HLD, HTN, anxiety/depression, obese, FAITH, OP, OAB, pulmonary HTN, Vit D def.MOLST: full code COTY TONEY NP [address] [facility], [address], [place], [address], [facility] [employer] [facility] 10/23/2024 15:05:03 10/25/2024 text/html Jannet is seen today for a discharge visit. PMH: COPD, B 12 def. CHF, DVT, HLD, HTN, anxiety/depression, obese, FAITH, OP, OAB, pulmonary HTN, Vit D def. Jannet is a 74 yo lady, who originally presented to [facility] 08/26 with altered MS felt due to hypercarbic resp. failure. She required intubation and was treated for acute on chronic diastolic CHF with pHTN treated with lasix drip, diamox. Stay complicated by COPD exac. She was eventually extubated and O2 titrated back to baseline 2-3L. Continued CPAP for FAITH. She was sent back to [facility] ER on 09/16 due to change in MS. Treated for acute on chronic resp. failure as well as KELECHI due to ATN requiring short term dialysis with improvement in readings. Renal US noted 9 mm R renal calculus. Losartan stopped, diamox on hold until follow up with Nephro. She was started on norvasc for BP control. Returned to [facility] 09/21 for continued care. Last week when she tested positive for covid. Treated with molnupiravir as well as meds to help with sx. Status improved and now at baseline and ready for dc. She has worked with rehab, already met goals for d/c home with services and walking without walker on o2. Weights ranging 220-222 lbs.Labs trended, kidney function improved, but still with slow drop in Hgb, currently 11.5. Remains on FR (2L/d) to help with fluid balance, reported to be non compliant. Stage 3 sacral wound, followed by Wound Team in house. Reported to be improving, continues daily collagen and dcd. Scheduled APAP and lidoderm patch started for low back and knee pain which has helped.This week she developed significant upper back/low neck pain and left shoulder pain, xrays obtained and unremarkable for acute concerns and started on oxycodone prn and prednisone burst for relief. Pain somewhat improved and she feels it may have been related to her bed/pillow here. On exam, Jannet is up walking from bathroom in [facility] on 2 liters o2 and states the relief in her back was helped with the oxycodone. She agrees to fu outpt and use the 12 tabs of oxycodone prn. NILAY mod. fall riskMOLST: full code Zakiya Burgos NP [address] [facility], [address], [place], [address], [facility] - [employer] 11/05/2024 08:00:32 OBGyn Episode No OBEpisode recorded.
== END 2025-04-11 11:18 | disposition home or self-care (01) ==
LOC: HO.HKA 11:05
PROVIDERS: PCP Internal Medicine; Visit Provider Internal Medicine Hypertension Specialist
DX: I12.9 Hypertensive chronic kidney disease with stage 1 through stage 4 chronic kidney disease, or unspecified chronic kidney disease (principal); N18.9 Chronic kidney disease, unspecified
CPT/HCPCS: 99214

== ENCOUNTER → 2025-04-11 11:05 | Outpatient (BNVA) | payer OTHER, SELFPAY | PROVIDERS: PCP Internal Medicine; Visit Provider Internal Medicine Hypertension Specialist | DX: R42 Dizziness and giddiness (principal); I10 Essential (primary) hypertension; N18.9 Chronic kidney disease, unspecified | CPT/HCPCS: 99212 ==